=== PATIENT | female | born 1980 | race Caucasian/White ===

== ENCOUNTER 2020-04-05 11:22 | Inpatient (IN) | payer MEDICAID ==
[~2020-04-05] VITALS: Ht 170.2 cm; Wt 95.3 kg
[2020-04-05] MEDS ORDERED: IV NORMAL SALINE 1000ML BAG 1,000 ML IV ONE (11:30)
[2020-04-05 12:01] LABS: BASO # 0.1 x10^3/uL (0.0-0.2); BASO % 1 % (0-3); EOS # 0.3 x10^3/uL (0.0-0.7); EOS % 4 % (0-3); HEMATOCRIT 27.2 % (36.0-47.0); HEMOGLOBIN 9.3 g/dL (12.0-15.5); LYMPH # 1.5 x10^3/uL (1.0-4.8); LYMPH % 19 % (24-48); MEAN CORPUSCULAR HEMOGLOBIN 34 pg (25-35); MEAN CORPUSCULAR HGB CONC 34 g/dL (31-37); MEAN CORPUSCULAR VOLUME 98 fL (79-100); MONO # 0.5 x10^3/uL (0.0-1.1); MONO % 7 % (0-9); NEUT # 5.4 x10^3/uL (1.8-7.7); NEUT % 70 % (31-73); PLATELET COUNT 158 x10^3/uL (140-400); RED BLOOD COUNT 2.76 x10^6/uL (3.50-5.40); RED CELL DISTRIBUTION WIDTH 13.5 % (11.5-14.5); WHITE BLOOD COUNT 7.8 x10^3/uL (4.0-11.0)
[2020-04-05 12:04] LABS: BILIRUBIN,URINE NEGATIVE (NEG); CLARITY,URINE CLEAR; COLOR,URINE YELLOW; NITRITE,URINE NEGATIVE (NEG); PROTEIN,URINE 100 mg/dL (NEG-TRACE); UROBILINOGEN,URINE 0.2 mg/dL (0.2 mg/dL)
[2020-04-05 12:11] LABS: CALCIUM 8.2 mg/dL (8.5-10.1); CREATININE 7.7 mg/dL (0.6-1.0); GFR 5.9; POTASSIUM 5.2 mmol/L (3.5-5.1)
[2020-04-05 12:14] LABS: BACTERIA,URINE FEW /HPF (0-FEW); SQUAMOUS EPITHELIAL CELL,UR MOD /LPF
--- NOTE | 2020-04-05 12:14 | EKG ---
[facility] [address] [place] [address] Test Date: 2020-04-05 Test Time: 11:40:48 Pat Name: SHANTELL VASQUEZ Department: Room: Gender: F Practice Architect: Cyndi : 1980 Requested By: KODY ROSE Order Number: [id number] Reading MD: Power Finnegan MD Measurements Intervals Brandon Rate: 80 P: 52 NC: 134 QRS: 3 QRSD: 100 T: 62 QT: 412 QTc: 479 Interpretive Statements SINUS RHYTHM NON-SPECIFIC ST/T CHANGES Electronically Signed On 04-12-2020 10:09:14 CDT by Power Finnegan MD
[2020-04-05 12:17] LABS: ALBUMIN/GLOBULIN RATIO 0.9 (1.0-1.7); MAGNESIUM 2.6 mg/dL (1.8-2.4); TOTAL BILIRUBIN 0.2 mg/dL (0.2-1.0); TOTAL PROTEIN 6.2 g/dL (6.4-8.2)
--- NOTE | 2020-04-05 12:23 | PHYS DOC ---
Past Medical History Past Medical History: Anemia, Bipolar, Constipation, Hypotension, Schizophrenia Past Surgical History: Tubal ligation Smoking Status: Current Every Day Smoker Alcohol Use: None General Adult EDM: Chief Complaint: ABNORMAL LABS HPI: HPI: Patient is a 39-year-old female who presents from a long-term where she resides secondary to severe psychiatric illness. She takes Haldol once monthly among other psychiatric medications. Call from the long-term today states that they did check some routine labs and she had abnormal creatinine and were sending her here for further evaluation. Patient is acutely psychotic and unable to provide any history. [] Review of Systems: Review of Systems: Review of systems is unobtainable secondary to altered mental status Heart Score: Risk Factors: Risk Factors: DM, Current or recent (<one month) smoker, HTN, HLP, family history of CAD, obesity. Risk Scores: Score 0 - 3: 2.5% MACE over next 6 weeks - Discharge Home Score 4 - 6: 20.3% MACE over next 6 weeks - Admit for Clinical Observation Score 7 - 10: 72.7% MACE over next 6 weeks - Early Invasive Strategies Current Medications: Current Medications Medications (Trade) Dose Ordered Sig/Joellen Start Time Stop Time Status Last Admin Dose Admin Sodium Chloride 1,000 ml @ 1,000 mls/hr 1X ONCE 04/05/20 11:30 04/05/20 12:29 04/05/20 11:51 1,000 MLS/HR Allergies: Allergies: Allergies Coded Allergies Type Severity Reaction Last Updated Verified No Known Drug Allergies 04/05/20 No Physical Exam: PE: Constitutional: Well developed, well nourished, no acute distress, appears acutely ill [] HENT: Normocephalic, atraumatic, bilateral external ears normal, oropharynx moist, no oral exudates, nose normal. [] Eyes: PERRLA, EOMI, conjunctiva normal, no discharge. [] Neck: Normal range of motion, no tenderness, supple, no stridor. [] Cardiovascular:Heart rate regular rhythm, no murmur [] Lungs & Thorax: Bilateral breath sounds clear to auscultation [] Abdomen: Bowel sounds normal, soft, no tenderness, no masses, no pulsatile masses. [] Skin: Warm, dry, no erythema, no rash. [] Back: No tenderness, no CVA tenderness. [] Extremities: No tenderness, no cyanosis, no clubbing, ROM intact, no edema. [] Neurologic: Alert but confused, normal motor function, normal sensory function, no focal deficits noted. [] Psychologic: Acutely psychotic and tangential Current Patient Data: Labs: Laboratory Tests Test 04/05/20 11:50 04/05/20 11:57 White Blood Count 7.8 x10^3/uL (4.0-11.0) Red Blood Count 2.76 x10^6/uL (3.50-5.40) L Hemoglobin 9.3 g/dL (12.0-15.5) L Hematocrit 27.2 % (36.0-47.0) L Mean Corpuscular Volume 98 fL (79-100) Mean Corpuscular Hemoglobin 34 pg (25-35) Mean Corpuscular Hemoglobin Concent 34 g/dL (31-37) Red Cell Distribution Width 13.5 % (11.5-14.5) Platelet Count 158 x10^3/uL (140-400) Neutrophils (%) (Auto) 70 % (31-73) Lymphocytes (%) (Auto) 19 % (24-48) L Monocytes (%) (Auto) 7 % (0-9) Eosinophils (%) (Auto) 4 % (0-3) H Basophils (%) (Auto) 1 % (0-3) Neutrophils # (Auto) 5.4 x10^3/uL (1.8-7.7) Lymphocytes # (Auto) 1.5 x10^3/uL (1.0-4.8) Monocytes # (Auto) 0.5 x10^3/uL (0.0-1.1) Eosinophils # (Auto) 0.3 x10^3/uL (0.0-0.7) Basophils # (Auto) 0.1 x10^3/uL (0.0-0.2) Urine Collection Type Void Urine Color Yellow Urine Clarity Clear Urine pH 8.0 (<5.0-8.0) Urine Specific [place] 1.010 (1.000-1.030) Urine Protein 100 mg/dL (NEG-TRACE) Urine Glucose (UA) 250 mg/dL (NEG) Urine Ketones (Stick) Negative mg/dL (NEG) Urine Blood Negative (NEG) Urine Nitrite Negative (NEG) Urine Bilirubin Negative (NEG) Urine Urobilinogen Dipstick 0.2 mg/dL (0.2 mg/dL) Urine Leukocyte Esterase Negative (NEG) Urine RBC 3-5 /HPF (0-2) Urine WBC 1-4 /HPF (0-4) Urine Squamous Epithelial Cells Mod /LPF Urine Bacteria Few /HPF (0-FEW) Urine Mucus Slight /LPF Sodium Level 135 mmol/L (136-145) L Potassium Level 5.2 mmol/L (3.5-5.1) H Chloride Level 100 mmol/L (98-107) Carbon Dioxide Level 26 mmol/L (21-32) Anion Gap 9 (6-14) Blood Urea Nitrogen 75 mg/dL (7-20) H Creatinine 7.7 mg/dL (0.6-1.0) H Estimated GFR (Cockcroft-Gault) 5.9 BUN/Creatinine Ratio 10 (6-20) Glucose Level 228 mg/dL (70-99) H Calcium Level 8.2 mg/dL (8.5-10.1) L Magnesium Level 2.6 mg/dL (1.8-2.4) H Total Bilirubin 0.2 mg/dL (0.2-1.0) Aspartate Amino Transferase (AST) 11 U/L (15-37) L Alanine Aminotransferase (ALT) 15 U/L (14-59) Alkaline Phosphatase 133 U/L (46-116) H Total Protein 6.2 g/dL (6.4-8.2) L Albumin 3.0 g/dL (3.4-5.0) L Albumin/Globulin Ratio 0.9 (1.0-1.7) L Lipase 878 U/L (73-393) H POC Urine HCG, Qualitative Hcg negative (Negative) Laboratory Tests 04/05/20 11:50 Laboratory Tests 04/05/20 11:50 Vital Signs: Vital Signs Date Time Temp Pulse Resp B/P (MAP) Pulse Ox O2 Delivery O2 Flow Rate FiO2 04/05/20 11:24 98.2 80 18 166/81 (109) 100 Room Air 98.2 EKG: EKG: [EKG: Normal sinus rhythm rate of [address]-T changes] Radiology/Procedures: Radiology/Procedures: []PROCEDURE: CT ABDOMEN PELVIS WO CONTRAST CT ABDOMEN PELVIS WO CONTRAST History: Reason: renal failure r/o hydro / Spl. Instructions: / History: Technique: Noncontrast examination of the abdomen and pelvis. Coronal and sagittal reconstructions were performed. Exposure: One or more of the following individualized dose reduction techniques were utilized for this examination: 1. Automated exposure control 2. Adjustment of the mA and/or kV according to patient size 3. Use of iterative reconstruction technique. Comparison: None Findings: Lower chest: No consolidation or pleural effusion. Abdomen and pelvis: The liver, spleen, adrenal glands and gallbladder are unremarkable. No biliary ductal dilatation. Bilateral renal atrophy, right greater than left. No hydronephrosis. No renal, ureteral or urinary bladder calculus. Left renal cyst. Infiltration of the mesentery centered within the upper to mid abdomen adjacent to the pancreatic head Inferiorly. Mesenteric infiltration is also adjacent to the duodenum. No fluid collection. Colonic diverticulosis. Normal appendix. No evidence of bowel obstruction. Multiple small retroperitoneal and mesenteric lymph nodes. No ascites. Small fat-containing umbilical hernia. Bones: No pathologic osseous lesions. Impression: 1. No obstructing urolithiasis. No hydronephrosis. 2. Infiltration of the mesentery centered within the upper to mid abdomen adjacent to the pancreas and duodenum. Recommend correlation for pancreatitis and/or duodenitis. 3. Multiple small mesenteric and retroperitoneal lymph nodes, likely reactive. Course & Med Decision Making: Course & Med Decision Making Pertinent Labs and Imaging studies reviewed. (See chart for details) [ED course: Evaluation reveals a 39-year-old female with new onset acute renal failure with hyperkalemia. She was given IV fluids and Kayexalate. I spoke with nephrology who wanted a CT scan to rule out hydronephrosis this was performed and negative. She will be admitted to the hospitalist service with a nephrology consult. In the meantime she will be given continuous IV fluids. Also, during her stay she had a bout that was concerning for wide-complex tachycardia this was captured on monitor reviewed by myself as well as gibson oldaksha and determined to be artifact.] Lady Disclaimer: Lady Disclaimer: This electronic medical record was generated, in whole or in part, using a voice recognition dictation system. Departure Departure Impression: Primary Impression: Acute renal failure Qualified Codes: N17.9 - Acute kidney failure, unspecified Disposition: ADMITTED INPATIENT Admitting [facility] Condition: GUARDED Referrals: CARLOS ALBERTO ROSE MD (PCP) Justicifation of Admission Dx: Justifications for Admission: Justification of Admission Dx: Yes Acute Renal Failure: 3-Fold Rise in Serum Crea KODY ROSE DO Apr 05, 2020 12:23
--- NOTE | 2020-04-05 12:43 | PDOC1 ---
History and Physical Date of Admission Date of Admission DATE: 04/05/20 TIME: 12:42 Identification/Chief Complaint Chief Complaint Present with abnormal lab to ER, has known hx CKD with baseline cr =2.1 now with BUN 75, CR 7.7 K 5.2, POOR FLUID INTAKE X SEVERAL DAYS Past Medical History Past Medical History Past Medical History Past Medical History: Anemia, Bipolar, Constipation, Hypotension, Schizophrenia alport's syndrome Past Surgical History: Tubal ligation Smoking Status: Current Every Day Smoker Alcohol Use: None FHX HTN, OBESITY Cardiovascular: HTN Psych: Anxiety Renal/: Chronic renal insuff Family History Family History: Hypertension Social History Smoke: No ALCOHOL: none Drugs: None Current Medications Current Medications Current Medications Sodium Chloride 1,000 ml @ 1,000 mls/hr 1X ONCE IV Last administered on 0at 11:51; Start 04/05/20 at 11:30; Stop 04/05/20 at 12:29; Status DC Sodium Chloride 1,000 ml @ 150 mls/hr Q6H40M IV ; Start 04/05/20 at 12:34; Stop 04/06/20 at 12:33; Status UNV Acetaminophen (Tylenol) 650 mg PRN Q4HRS PRN PO FEVER > 100.3'F; Start 04/05/20 at 12:45; Stop 04/06/20 at 12:44; Status UNV Sodium Polystyrene Sulfonate (Kayexalate) 30 gm 1X ONCE PO ; Start 04/05/20 at 1 2:45; Stop 04/05/20 at 12:46; Status UNV Allergies Allergies: Coded Allergies: No Known Drug Allergies (Unverified , 04/05/20) ROS Review of System Constitutional: Denies fever or chills. [] Eyes: Denies change in visual acuity. [] HENT: Denies nasal congestion or sore throat. [] Respiratory: Denies cough or shortness of breath. [] Cardiovascular: Denies chest pain or edema. [] GI: Denies abdominal pain, nausea, vomiting, bloody stools or diarrhea. [] : Denies dysuria. [] Musculoskeletal: Denies back pain or joint pain. [] Integument: Denies rash. [] Neurologic: Denies headache, focal weakness or sensory changes. [] Endocrine: Denies polyuria or polydipsia. [] Lymphatic: Denies swollen glands. [] Psychiatric: Denies depression or anxiety. [] 14 PT ROS OTHERWISE NEG Hematological and Lymphatic: No: Bleeding Problems, Blood Clots, Blood Transfusions, Brusing, Night Sweats, Pallor, Swollen Lymph Nodes, Other Respiratory: No: Cough, Hemoptysis, Orthopnea, Pleuritic Pain, Shortness of breath, SOB with excertion, Sputum Changes, Stridor, Tachypnea, Wheezing, Other Gastrointestinal: No Nausea, No Vomiting, No Abdominal Pain, No Diarrhea, No Constipation, No Melena, No Hematochezia, No Other Neurological: No Behavorial Changes, No Bowel/Bladder ControlChng, No Confusion, No Dizziness, No Gait Disturbance, No Headaches, No Impaired Coord/balance, No Memory Loss, No Numbness/Tingling, No Seizures, No Speech Problems, No Tremors, No Visual Changes, No Weakness, No Other Skin: Yes Dry Skin Physical Exam Physical Exam Constitutional: Well developed, well nourished, no acute distress, non-toxic appearance. [] HENT: Normocephalic, atraumatic, bilateral external ears normal, oropharynx moist, no oral exudates, nose normal. [] Eyes: PERRLA, EOMI, conjunctiva normal, no discharge. [] Neck: Normal range of motion, no tenderness, supple, no stridor. [] Cardiovascular:Heart rate regular rhythm, no murmur [] Lungs & Thorax: Bilateral breath sounds clear to auscultation [] Abdomen: Bowel sounds normal, soft, no tenderness, no masses, no pulsatile masses. [] Skin: Warm, dry, no erythema, no rash. [] Back: No tenderness, no CVA tenderness. [] Extremities: No tenderness, no cyanosis, no clubbing, ROM intact, no edema. [] Neurologic: Alert and oriented X 3, normal motor function, normal sensory function, no focal deficits noted. [] Psychologic: Affect normal, mood normal. [] General: Alert, Oriented X3, Cooperative, No acute distress HEENT: Atraumatic Lungs: Clear to auscultation Heart: RRR, no thrills Breasts: Not examined Abdomen: Soft Rectal Exam: not examined PELVIC: Examination not indicated Extremities: No cyanosis Neuro: Normal speech, Cranial nerves 3-12 NL Vitals Vitals Vital Signs Date Time Temp Pulse Resp B/P (MAP) Pulse Ox O2 Delivery O2 Flow Rate FiO2 04/05/20 11:24 98.2 80 18 166/81 (109) 100 Room Air 98.2 Labs Labs Laboratory Tests Test 04/05/20 11:50 04/05/20 11:57 White Blood Count 7.8 x10^3/uL (4.0-11.0) Red Blood Count 2.76 x10^6/uL (3.50-5.40) Hemoglobin 9.3 g/dL (12.0-15.5) Hematocrit 27.2 % (36.0-47.0) Mean Corpuscular Volume 98 fL (79-100) Mean Corpuscular Hemoglobin 34 pg (25-35) Mean Corpuscular Hemoglobin Concent 34 g/dL (31-37) Red Cell Distribution Width 13.5 % (11.5-14.5) Platelet Count 158 x10^3/uL (140-400) Neutrophils (%) (Auto) 70 % (31-73) Lymphocytes (%) (Auto) 19 % (24-48) Monocytes (%) (Auto) 7 % (0-9) Eosinophils (%) (Auto) 4 % (0-3) Basophils (%) (Auto) 1 % (0-3) Neutrophils # (Auto) 5.4 x10^3/uL (1.8-7.7) Lymphocytes # (Auto) 1.5 x10^3/uL (1.0-4.8) Monocytes # (Auto) 0.5 x10^3/uL (0.0-1.1) Eosinophils # (Auto) 0.3 x10^3/uL (0.0-0.7) Basophils # (Auto) 0.1 x10^3/uL (0.0-0.2) Urine Collection Type Void Urine Color Yellow Urine Clarity Clear Urine pH 8.0 (<5.0-8.0) Urine Specific Lane 1.010 (1.000-1.030) Urine Protein 100 mg/dL (NEG-TRACE) Urine Glucose (UA) 250 mg/dL (NEG) Urine Ketones (Stick) Negative mg/dL (NEG) Urine Blood Negative (NEG) Urine Nitrite Negative (NEG) Urine Bilirubin Negative (NEG) Urine Urobilinogen Dipstick 0.2 mg/dL (0.2 mg/dL) Urine Leukocyte Esterase Negative (NEG) Urine RBC 3-5 /HPF (0-2) Urine WBC 1-4 /HPF (0-4) Urine Squamous Epithelial Cells Mod /LPF Urine Bacteria Few /HPF (0-FEW) Urine Mucus Slight /LPF Sodium Level 135 mmol/L (136-145) Potassium Level 5.2 mmol/L (3.5-5.1) Chloride Level 100 mmol/L (98-107) Carbon Dioxide Level 26 mmol/L (21-32) Anion Gap 9 (6-14) Blood Urea Nitrogen 75 mg/dL (7-20) Creatinine 7.7 mg/dL (0.6-1.0) Estimated GFR (Cockcroft-Gault) 5.9 BUN/Creatinine Ratio 10 (6-20) Glucose Level 228 mg/dL (70-99) Calcium Level 8.2 mg/dL (8.5-10.1) Magnesium Level 2.6 mg/dL (1.8-2.4) Total Bilirubin 0.2 mg/dL (0.2-1.0) Aspartate Amino Transf (AST/SGOT) 11 U/L (15-37) Alanine Aminotransferase (ALT/SGPT) 15 U/L (14-59) Alkaline Phosphatase 133 U/L (46-116) Total Protein 6.2 g/dL (6.4-8.2) Albumin 3.0 g/dL (3.4-5.0) Albumin/Globulin Ratio 0.9 (1.0-1.7) Lipase 878 U/L (73-393) Bedside Urine HCG, Qualitative Hcg negative (Negative) Laboratory Tests Test 04/05/20 11:50 04/05/20 11:57 White Blood Count 7.8 x10^3/uL (4.0-11.0) Red Blood Count 2.76 x10^6/uL (3.50-5.40) Hemoglobin 9.3 g/dL (12.0-15.5) Hematocrit 27.2 % (36.0-47.0) Mean Corpuscular Volume 98 fL (79-100) Mean Corpuscular Hemoglobin 34 pg (25-35) Mean Corpuscular Hemoglobin Concent 34 g/dL (31-37) Red Cell Distribution Width 13.5 % (11.5-14.5) Platelet Count 158 x10^3/uL (140-400) Neutrophils (%) (Auto) 70 % (31-73) Lymphocytes (%) (Auto) 19 % (24-48) Monocytes (%) (Auto) 7 % (0-9) Eosinophils (%) (Auto) 4 % (0-3) Basophils (%) (Auto) 1 % (0-3) Neutrophils # (Auto) 5.4 x10^3/uL (1.8-7.7) Lymphocytes # (Auto) 1.5 x10^3/uL (1.0-4.8) Monocytes # (Auto) 0.5 x10^3/uL (0.0-1.1) Eosinophils # (Auto) 0.3 x10^3/uL (0.0-0.7) Basophils # (Auto) 0.1 x10^3/uL (0.0-0.2) Urine Collection Type Void Urine Color Yellow Urine Clarity Clear Urine pH 8.0 (<5.0-8.0) Urine Specific Lane 1.010 (1.000-1.030) Urine Protein 100 mg/dL (NEG-TRACE) Urine Glucose (UA) 250 mg/dL (NEG) Urine Ketones (Stick) Negative mg/dL (NEG) Urine Blood Negative (NEG) Urine Nitrite Negative (NEG) Urine Bilirubin Negative (NEG) Urine Urobilinogen Dipstick 0.2 mg/dL (0.2 mg/dL) Urine Leukocyte Esterase Negative (NEG) Urine RBC 3-5 /HPF (0-2) Urine WBC 1-4 /HPF (0-4) Urine Squamous Epithelial Cells Mod /LPF Urine Bacteria Few /HPF (0-FEW) Urine Mucus Slight /LPF Sodium Level 135 mmol/L (136-145) Potassium Level 5.2 mmol/L (3.5-5.1) Chloride Level 100 mmol/L (98-107) Carbon Dioxide Level 26 mmol/L (21-32) Anion Gap 9 (6-14) Blood Urea Nitrogen 75 mg/dL (7-20) Creatinine 7.7 mg/dL (0.6-1.0) Estimated GFR (Cockcroft-Gault) 5.9 BUN/Creatinine Ratio 10 (6-20) Glucose Level 228 mg/dL (70-99) Calcium Level 8.2 mg/dL (8.5-10.1) Magnesium Level 2.6 mg/dL (1.8-2.4) Total Bilirubin 0.2 mg/dL (0.2-1.0) Aspartate Amino Transf (AST/SGOT) 11 U/L (15-37) Alanine Aminotransferase (ALT/SGPT) 15 U/L (14-59) Alkaline Phosphatase 133 U/L (46-116) Total Protein 6.2 g/dL (6.4-8.2) Albumin 3.0 g/dL (3.4-5.0) Albumin/Globulin Ratio 0.9 (1.0-1.7) Lipase 878 U/L (73-393) Bedside Urine HCG, Qualitative Hcg negative (Negative) Images Images CT ABDOMEN PELVIS WO CONTRAST History: Reason: renal failure r/o hydro / Spl. Instructions: / History: Technique: Noncontrast examination of the abdomen and pelvis. Coronal and sagittal reconstructions were performed. Exposure: One or more of the following individualized dose reduction techniques were utilized for this examination: 1. Automated exposure control 2. Adjustment of the mA and/or kV according to patient size 3. Use of iterative reconstruction technique. Comparison: None Findings: Lower chest: No consolidation or pleural effusion. Abdomen and pelvis: The liver, spleen, adrenal glands and gallbladder are unremarkable. No biliary ductal dilatation. Bilateral renal atrophy, right greater than left. No hydronephrosis. No renal, ureteral or urinary bladder calculus. Left renal cyst. Infiltration of the mesentery centered within the upper to mid abdomen adjacent to the pancreatic head Inferiorly. Mesenteric infiltration is also adjacent to the duodenum. No fluid collection. Colonic diverticulosis. Normal appendix. No evidence of bowel obstruction. Multiple small retroperitoneal and mesenteric lymph nodes. No ascites. Small fat-containing umbilical hernia. Bones: No pathologic osseous lesions. Impression: 1. No obstructing urolithiasis. No hydronephrosis. 2. Infiltration of the mesentery centered within the upper to mid abdomen adjacent to the pancreas and duodenum. Recommend correlation for pancreatitis and/or duodenitis. 3. Multiple small mesenteric and retroperitoneal lymph nodes, likely reactive. Electronically signed by: Serge Gifford DO (04/05/2020 1:15 PM) [facility] DICTATED and SIGNED BY: SERGE GIFFORD DO DATE: 04/05/20 1315 VTE Prophylaxis Ordered VTE Prophylaxis Devices: No VTE Pharmacological Prophylaxi: Yes Assessment/Plan Assessment/Plan Impression: 1. ACUTE RENAL FAILURE 2. No obstructing urolithiasis. No hydronephrosis. 3. Infiltration of the mesentery centered within the upper to mid abdomen adjacent to the pancreas and duodenum. Recommend correlation for pancreatitis and/or duodenitis// LIPASE 870 4. Mild hyperkalemia 5. hx Schizophrenia 6. diabetes 7. hx Alport's syndrome with CKD 8. MORBID OBESITY 9. NORMOCYTIC ANEMIA plan admit consult nephrology iv fluid support. avoid nephrotoxic drugs dvt prophylaxis FOLLOW RENAL FX CLOSELY GI consult 35 min cc time Justicifation of Admission Dx: Justifications for Admission: Justification of Admission Dx: Yes Acute Renal Failure: Serum Cr > 4mg/dL Hypertension: [facility] GENA JONES MD Apr 05, 2020 12:43
[2020-04-05] MEDS ORDERED: SODIUM POLYSTYRENE SULFON/SORB 15 GM/60 ML ORAL.SUSP PO ONE (12:45)
--- NOTE | 2020-04-05 13:18 | RAD ---
CT ABDOMEN PELVIS WO CONTRAST History: Reason: renal failure r/o hydro / Spl. Instructions: / History: Technique: Noncontrast examination of the abdomen and pelvis. Coronal and sagittal reconstructions were performed. Exposure: One or more of the following individualized dose reduction techniques were utilized for this examination: 1. Automated exposure control 2. Adjustment of the mA and/or kV according to patient size 3. Use of iterative reconstruction technique. Comparison: None Findings: Lower chest: No consolidation or pleural effusion. Abdomen and pelvis: The liver, spleen, adrenal glands and gallbladder are unremarkable. No biliary ductal dilatation. Bilateral renal atrophy, right greater than left. No hydronephrosis. No renal, ureteral or urinary bladder calculus. Left renal cyst. Infiltration of the mesentery centered within the upper to mid abdomen adjacent to the pancreatic head Inferiorly. Mesenteric infiltration is also adjacent to the duodenum. No fluid collection. Colonic diverticulosis. Normal appendix. No evidence of bowel obstruction. Multiple small retroperitoneal and mesenteric lymph nodes. No ascites. Small fat-containing umbilical hernia. Bones: No pathologic osseous lesions. Impression: 1. No obstructing urolithiasis. No hydronephrosis. 2. Infiltration of the mesentery centered within the upper to mid abdomen adjacent to the pancreas and duodenum. Recommend correlation for pancreatitis and/or duodenitis. 3. Multiple small mesenteric and retroperitoneal lymph nodes, likely reactive. Electronically signed by: Jono Daniels DO (04/05/2020 1:15 PM) [facility]
[2020-04-05] MEDS: ACETAMINOPHEN 325 MG TABLET. PO PRN (14:15)
[2020-04-05] MEDS ORDERED: DOCUSATE SODIUM 100 MG CAPSULE. PO PRN (14:30)
[2020-04-05] MEDS ORDERED: 0.9 % SODIUM CHLORIDE 10 ML DISP.SYRIN. IV PRN (14:30)
[2020-04-05] MEDS ORDERED: ALBUTEROL SULFATE 2.5 MG/3 ML NEBU. NEB PRN (14:30)
[2020-04-05] MEDS ORDERED: guaiFENesin ORAL 200 MG/10 ML LIQUID. PO PRN (14:30)
--- NOTE | 2020-04-05 15:42 | PDOC2 ---
GI CONSULT Reason For Consult: pancreatitis HPI: HPI: 39 y/o female from [facility] facility seen in ER. Tells me she was sent for elevated Cr. Gives h/o CKD. We are asked to see as lab noted mildly elevated lipase and CT finding of "infiltration of the mesentery centered within the upper to mid abdomen adjacent to the pancreas and duodenum." H/o psych issues... gives a rather wandering history of eating toilet paper and a sponge 1 year ago in [place] where she says she was incarcerated for 10 years before being released for a year in a rehab facility. Also says she drank pig blood in shampoo in snf. After that, she had a "urethra procedure" and "something went into my mouth." Says she's been eating and drinking without issue. Gives h/o acid reflux - unclear if this is treated. Denies dysphagia and vomiting but might have some nausea "because of the sponges." Vaguely describes some lower abdominal discomfort but can't really elaborate. No diarrhea. At first reports constipation but then says she stooled a couple times yesterday. Denies hematemesis, hematochezia, and melena. Denies previous colonoscopy but seems like might have had an EGD after foreign body ingestion? Denies GB, liver, pancreas, and PUD history. When I went to see her, ER nurse w/ concern for Torsades. PMH: PMH: per chart: CKD, anxiety, bipolar, schizophrenia, tubal ligation Social History: Smoke: No ALCOHOL: none Drugs: None ROS: GEN: Denies fevers, chills, sweats HEENT: Denies blurred vision, sore throat CV: Denies chest pain RESP: Denies shortness of air, cough GI: Per HPI : Denies hematuria, dysuria ENDO: Denies weight changes NEURO: Denies confusion, dizziness MSK: Denies weakness, joint pain/swelling SKIN: Denies jaundice, pruritus Vitals: Vitals: Vital Signs Date Time Temp Pulse Resp B/P (MAP) Pulse Ox O2 Delivery O2 Flow Rate FiO2 04/05/20 14:21 74 18 186/98 (127) 96 Room Air 04/05/20 11:24 98.2 98.2 Labs: Labs: Laboratory Tests Test 04/05/20 11:50 04/05/20 11:57 White Blood Count 7.8 x10^3/uL (4.0-11.0) Red Blood Count 2.76 x10^6/uL (3.50-5.40) Hemoglobin 9.3 g/dL (12.0-15.5) Hematocrit 27.2 % (36.0-47.0) Mean Corpuscular Volume 98 fL (79-100) Mean Corpuscular Hemoglobin 34 pg (25-35) Mean Corpuscular Hemoglobin Concent 34 g/dL (31-37) Red Cell Distribution Width 13.5 % (11.5-14.5) Platelet Count 158 x10^3/uL (140-400) Neutrophils (%) (Auto) 70 % (31-73) Lymphocytes (%) (Auto) 19 % (24-48) Monocytes (%) (Auto) 7 % (0-9) Eosinophils (%) (Auto) 4 % (0-3) Basophils (%) (Auto) 1 % (0-3) Neutrophils # (Auto) 5.4 x10^3/uL (1.8-7.7) Lymphocytes # (Auto) 1.5 x10^3/uL (1.0-4.8) Monocytes # (Auto) 0.5 x10^3/uL (0.0-1.1) Eosinophils # (Auto) 0.3 x10^3/uL (0.0-0.7) Basophils # (Auto) 0.1 x10^3/uL (0.0-0.2) Urine Collection Type Void Urine Color Yellow Urine Clarity Clear Urine pH 8.0 (<5.0-8.0) Urine Specific [place] 1.010 (1.000-1.030) Urine Protein 100 mg/dL (NEG-TRACE) Urine Glucose (UA) 250 mg/dL (NEG) Urine Ketones (Stick) Negative mg/dL (NEG) Urine Blood Negative (NEG) Urine Nitrite Negative (NEG) Urine Bilirubin Negative (NEG) Urine Urobilinogen Dipstick 0.2 mg/dL (0.2 mg/dL) Urine Leukocyte Esterase Negative (NEG) Urine RBC 3-5 /HPF (0-2) Urine WBC 1-4 /HPF (0-4) Urine Squamous Epithelial Cells Mod /LPF Urine Bacteria Few /HPF (0-FEW) Urine Mucus Slight /LPF Sodium Level 135 mmol/L (136-145) Potassium Level 5.2 mmol/L (3.5-5.1) Chloride Level 100 mmol/L (98-107) Carbon Dioxide Level 26 mmol/L (21-32) Anion Gap 9 (6-14) Blood Urea Nitrogen 75 mg/dL (7-20) Creatinine 7.7 mg/dL (0.6-1.0) Estimated GFR (Cockcroft-Gault) 5.9 BUN/Creatinine Ratio 10 (6-20) Glucose Level 228 mg/dL (70-99) Calcium Level 8.2 mg/dL (8.5-10.1) Magnesium Level 2.6 mg/dL (1.8-2.4) Total Bilirubin 0.2 mg/dL (0.2-1.0) Aspartate Amino Transf (AST/SGOT) 11 U/L (15-37) Alanine Aminotransferase (ALT/SGPT) 15 U/L (14-59) Alkaline Phosphatase 133 U/L (46-116) Creatine Kinase 88 U/L (26-192) Total Protein 6.2 g/dL (6.4-8.2) Albumin 3.0 g/dL (3.4-5.0) Albumin/Globulin Ratio 0.9 (1.0-1.7) Lipase 878 U/L (73-393) Bedside Urine HCG, Qualitative Hcg negative (Negative) Allergies: Coded Allergies: No Known Drug Allergies (Unverified , 04/05/20) Medications: Current Medications Medications (Trade) Dose Ordered Sig/Joellen Route PRN Reason Start Time Stop Time Status Last Admin Dose Admin Sodium Chloride 1,000 ml @ 1,000 mls/hr 1X ONCE IV 04/05/20 11:30 04/05/20 12:29 DC 04/05/20 11:51 Acetaminophen (Tylenol) 650 mg PRN Q4HRS PRN PO FEVER > 100.3'F 04/05/20 12:45 04/06/20 12:44 04/05/20 14:15 Sodium Polystyrene Sulfonate (Kayexalate) 30 gm 1X ONCE PO 04/05/20 12:45 04/05/20 12:46 DC 04/05/20 12:45 Imaging: Imaging: CT A/P Impression: 1. No obstructing urolithiasis. No hydronephrosis. 2. Infiltration of the mesentery centered within the upper to mid abdomen adjacent to the pancreas and duodenum. Recommend correlation for pancreatitis and/or duodenitis. 3. Multiple small mesenteric and retroperitoneal lymph nodes, likely reactive. PE: GEN: NAD HEENT: Atraumatic, PERRL LUNGS: CTAB anteriorly HEART: RRR during my exam ABD: round/overweight, quiet BS, non-tender EXTREMITY: No edema SKIN: No rashes, no jaundice NEURO/PSYCH: A & O 3, hand trembling A/P: A/P: LIANA/CKD, ?Torsades Elevated lipase, abnormal CT - infiltration of the mesentery centered within the upper to mid abdomen Normocytic anemia H/o GERD ?constipation Psych issues -- Had turkey sandwich and mashed potatoes and gravy delivered during interview. I advised keeping NPO or to clear liquids for now - attempted to explain rationale w/ possible pancreatitis - she repeatedly asked if she could eat now and then do NPO or liquids later. Nephrology and cardiology asked to see, labs ordered for a.m. Will check GB US, triglycerides, and anemia parameters for completeness. BABAK GUSTAFSON Apr 05, 2020 15:42
[2020-04-05] MEDS: IV NORMAL SALINE 1000ML BAG 1,000 ML IV SCH ×2 (15:54→20:07)
[2020-04-05 16:50] VITALS: BP 153/99
[2020-04-05] MEDS ORDERED: VALP250S3 PO (19:29)
[2020-04-05] MEDS ORDERED: FERR325T14 PO (19:29)
[2020-04-05] MEDS ORDERED: ESCITALOPRAM OX10 MG PO (19:29)
[2020-04-05] MEDS ORDERED: FLUD0.1T PO (19:29)
[2020-04-05] MEDS ORDERED: ACET325T21 PO (19:29)
[2020-04-05] MEDS ORDERED: FLUT16SP NS (19:45)
[2020-04-05] MEDS ORDERED: DEXT38GE2 PO (19:45)
[2020-04-05] MEDS ORDERED: INSU100V6 SQ (19:45)
[2020-04-05] MEDS ORDERED: HALO100V IM (19:45)
[2020-04-05] MEDS ORDERED: INSU100I27 SQ (19:45)
[2020-04-05] MEDS ORDERED: LOPE-101 PO (19:45)
[2020-04-05 19:47] VITALS: BP 144/118
[2020-04-05] MEDS ORDERED: TRAZ-118 PO (19:49)
[2020-04-05] MEDS ORDERED: LORA10TA3 PO (19:49)
[2020-04-05] MEDS ORDERED: SEVE800T9 PO (19:49)
[2020-04-05] MEDS ORDERED: SODI650T PO (19:49)
[2020-04-05] MEDS ORDERED: POLY17PO29 PO (19:49)
[2020-04-05] MEDS ORDERED: ACETAMINOPHEN 325 MG TABLET. PO ONE (20:00)
[2020-04-05] MEDS: HEPARIN for SUB-Q USE 5,000 UNIT/ML VIAL. SQ SCH (21:58)
[2020-04-05] MEDS: LORazepam 1 MG TABLET PO PRN (23:34)
[2020-04-05 23:40] VITALS: BP 149/91
[2020-04-06] MEDS: IV NORMAL SALINE 1000ML BAG 1,000 ML IV SCH ×2 (01:54→09:49)
[2020-04-06 05:12] LABS: BASO % 1 % (0-3); EOS # 0.3 x10^3/uL (0.0-0.7); EOS % 5 % (0-3); HEMATOCRIT 24.4 % (36.0-47.0); HEMOGLOBIN 8.1 g/dL (12.0-15.5); LYMPH # 2.2 x10^3/uL (1.0-4.8); LYMPH % 33 % (24-48); MEAN CORPUSCULAR HEMOGLOBIN 33 pg (25-35); MEAN CORPUSCULAR HGB CONC 33 g/dL (31-37); MEAN CORPUSCULAR VOLUME 99 fL (79-100); MONO # 0.5 x10^3/uL (0.0-1.1); MONO % 7 % (0-9); NEUT # 3.5 x10^3/uL (1.8-7.7); NEUT % 54 % (31-73); PLATELET COUNT 146 x10^3/uL (140-400); RED BLOOD COUNT 2.47 x10^6/uL (3.50-5.40); RED CELL DISTRIBUTION WIDTH 13.7 % (11.5-14.5); WHITE BLOOD COUNT 6.5 x10^3/uL (4.0-11.0)
[2020-04-06] MEDS: HEPARIN for SUB-Q USE 5,000 UNIT/ML VIAL. SQ SCH ×3 (05:21→21:12)
[2020-04-06 05:54] LABS: ALBUMIN 2.5 g/dL (3.4-5.0); CALCIUM 7.8 mg/dL (8.5-10.1); CREATININE 7.1 mg/dL (0.6-1.0); GFR 6.5; POTASSIUM 4.5 mmol/L (3.5-5.1); TOTAL BILIRUBIN 0.1 mg/dL (0.2-1.0)
--- NOTE | 2020-04-06 06:26 | RAD ---
CLINICAL HISTORY: pancreatitis r/o gallstones COMPARISON: None available. TECHNIQUE: Limited ultrasound examination of the right upper quadrant of the abdomen was performed FINDINGS: Visualized portions of the pancreas are unremarkable. Liver: The liver measures 17.4 cm in length in the right mid clavicular line. The hepatic margin is smooth and the hepatic echogenicity is normal. There is no focal abnormality of the liver. Portal venous flow is confirmed. Gallbladder/Biliary: Echogenic material dependently within the gallbladder likely sludge.. There is no wall thickening or pericholecystic fluid. There is no pain with direct transducer pressure over the gallbladder.The common bile duct measures 0.5 cm. The right kidney measures 8.6 cm in bipolar length. Mildly echogenic appearance of the right kidney There is no free fluid in the subhepatic space. IMPRESSION: 1. Liver is borderline enlarged. 2. Gallbladder sludge without ultrasound evidence for acute cholecystitis. 3. Mildly echogenic appearance of the right kidney, may be seen with medical renal disease. Electronically signed by: Dorian Perez MD (04/06/2020 6:23 AM) JUSTYN
[2020-04-06 07:00] VITALS: BP 143/82
--- NOTE | 2020-04-06 07:07 | EKG ---
[facility] [address] [place] [address] Test Date: 2020-04-05 Test Time: 14:53:49 Pat Name: SHANTELL VASQUEZ Department: Room: [facility] Gender: F [place]: : 1980 Requested By: QUINCY GONZALES Order Number: [id number] Reading MD: Power Finnegan MD Measurements Intervals [place] Rate: 156 P: SC: QRS: 26 QRSD: 258 T: 28 QT: 316 QTc: 510 Interpretive Statements PROBABLE ARTIFACT CONSIDER REPEAT EKG Electronically Signed On 04-12-2020 10:10:28 CDT by Power Finnegan MD
[2020-04-06] MEDS ORDERED: POLYETHYLENE GLYCOL 3350 17 GM PACKET. PO SCH (09:00)
[2020-04-06] MEDS: PANTOPRAZOLE 40 MG TABLET.DR. PO SCH (09:36)
[2020-04-06] MEDS: ACETAMINOPHEN 325 MG TABLET. PO PRN ×2 (09:36→14:19)
--- NOTE | 2020-04-06 09:52 | PDOC ---
Subjective: Subjective: Really really really really wants a sandwich now because she has a headache. Denies abd pain. Objective: Objective: Cardiology consult cancelled. Vital Signs: Vital Signs Date Time Temp Pulse Resp B/P (MAP) Pulse Ox O2 Delivery O2 Flow Rate FiO2 04/06/20 07:00 98.5 74 18 143/82 (102) 94 Room Air 98.5 Labs: Laboratory Tests Test 04/05/20 11:50 04/05/20 11:57 04/05/20 16:29 04/06/20 04:45 White Blood Count 7.8 x10^3/uL 6.5 x10^3/uL Red Blood Count 2.76 x10^6/uL 2.47 x10^6/uL Hemoglobin 9.3 g/dL 8.1 g/dL Hematocrit 27.2 % 24.4 % Mean Corpuscular Volume 98 fL 99 fL Mean Corpuscular Hemoglobin 34 pg 33 pg Mean Corpuscular Hemoglobin Concent 34 g/dL 33 g/dL Red Cell Distribution Width 13.5 % 13.7 % Platelet Count 158 x10^3/uL 146 x10^3/uL Neutrophils (%) (Auto) 70 % 54 % Lymphocytes (%) (Auto) 19 % 33 % Monocytes (%) (Auto) 7 % 7 % Eosinophils (%) (Auto) 4 % 5 % Basophils (%) (Auto) 1 % 1 % Neutrophils # (Auto) 5.4 x10^3/uL 3.5 x10^3/uL Lymphocytes # (Auto) 1.5 x10^3/uL 2.2 x10^3/uL Monocytes # (Auto) 0.5 x10^3/uL 0.5 x10^3/uL Eosinophils # (Auto) 0.3 x10^3/uL 0.3 x10^3/uL Basophils # (Auto) 0.1 x10^3/uL 0.0 x10^3/uL Urine Collection Type Void Urine Color Yellow Urine Clarity Clear Urine pH 8.0 Urine Specific [place] 1.010 Urine Protein 100 mg/dL Urine Glucose (UA) 250 mg/dL Urine Ketones (Stick) Negative mg/dL Urine Blood Negative Urine Nitrite Negative Urine Bilirubin Negative Urine Urobilinogen Dipstick 0.2 mg/dL Urine Leukocyte Esterase Negative Urine RBC 3-5 /HPF Urine WBC 1-4 /HPF Urine Squamous Epithelial Cells Mod /LPF Urine Bacteria Few /HPF Urine Mucus Slight /LPF Sodium Level 135 mmol/L 141 mmol/L Potassium Level 5.2 mmol/L 4.5 mmol/L Chloride Level 100 mmol/L 105 mmol/L Carbon Dioxide Level 26 mmol/L 21 mmol/L Anion Gap 9 15 Blood Urea Nitrogen 75 mg/dL 63 mg/dL Creatinine 7.7 mg/dL 7.1 mg/dL Estimated GFR (Cockcroft-Gault) 5.9 6.5 BUN/Creatinine Ratio 10 9 Glucose Level 228 mg/dL 157 mg/dL Calcium Level 8.2 mg/dL 7.8 mg/dL Magnesium Level 2.6 mg/dL Iron Level 76 ug/dL Total Iron Binding Capacity 320 ug/dL Iron Saturation 24 % Total Bilirubin 0.2 mg/dL 0.1 mg/dL Aspartate Amino Transf (AST/SGOT) 11 U/L 11 U/L Alanine Aminotransferase (ALT/SGPT) 15 U/L 14 U/L Alkaline Phosphatase 133 U/L 106 U/L Creatine Kinase 88 U/L Total Protein 6.2 g/dL 5.0 g/dL Albumin 3.0 g/dL 2.5 g/dL Albumin/Globulin Ratio 0.9 1.0 Triglycerides Level 348 mg/dL Lipase 878 U/L 616 U/L Vitamin B12 Level 714 pg/mL Bedside Urine HCG, Qualitative Hcg negative Glucose (Fingerstick) 192 mg/dL Imaging: RUQ US 04/06/20 IMPRESSION: 1. Liver is borderline enlarged. 2. Gallbladder sludge without ultrasound evidence for acute cholecystitis. 3. Mildly echogenic appearance of the right kidney, may be seen with medical renal disease. PE: GEN: NAD LUNGS: CTAB HEART: RRR ABD: non-tender NEURO/PSYCH: A & O 3 A/P: LIANA/CKD, psych issues Elevated lipase (better) - mesenteric inflammation in upper abdomen on CT, GB sludge on US, denies alcohol, trigs mildly elevated Normocytic anemia - iron and B12 WNL H/o GERD and possible constipation -- Still asking to eat, will cautiously advance diet and review US w/ Dr. Adhikari. Continue per nephrology. Justicifation of Admission Dx: Justifications for Admission: Justification of Admission Dx: Yes Acute Renal Failure: Serum Cr > 4mg/dL Hypertension: Symp at Rest BABAK GUSTAFSON Apr 06, 2020 09:51
[2020-04-06 11:00] VITALS: BP 139/103
[2020-04-06 11:05] VITALS: BP 177/98
--- NOTE | 2020-04-06 11:19 | NUR ---
PAUL following. Discussed with RN. 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 Pt needs a COVID-19 test prior to returning to [place]. Messaged left for RN regarding COVID test and message sent to Dr. Pabon. PAUL will continue to follow. Addendum: 04/06/20 at 1627 by KIMBER MILLER Clinicals faxed to [facility] and [facility].
--- NOTE | 2020-04-06 11:44 | PDOC2 ---
CONSULT Date of Consult Date of Consult DATE: 04/06/20 TIME: 11:25 Reason for Consult Reason for Consult: LIANA Identification/Chief Complaint Chief Complaint "I am hungry" Source Source: Chart review History of Present Illness Reason for Visit: Kym Historian, Most of Hx from Chart review Patient is a 39-year-old CF who presents from a group home where she resides secondary to severe psychiatric illness. She takes Haldol once monthly among other psychiatric medications. Sent to [facility] from [place] due to abnormal Renal labs ( abnormal creatinine) She states she doesnt have any Kidney problems but katy notice that her urine is clearer now, it was dark yesterday. She states she was told by her mother that she had Glomerulonephritis since she was born. She has never seen a Kidney doctor or hav been on meds . She denies Dx of HTN and DM. She denies taking Pain meds except Tylenol #3 . Denies any dysuria, hematuria. Poor Intake per Primary;s Note , Pt currently Hungry. Denies any N/V. She states she has " Gastric output syndrome " . Denies any abdominal pain, No diarrhea or constipation . No Dx of Renal calculus per Pt Baseline renal function Unknown to me . She has abnormal movements of her Upper extremities-- reports chronic She states her Brother is on HD, he is 38-39 yrs old and has been on Hd since he was a child (?since per Pt ) due to Kidney stones Per GI note "gives a rather wandering history of eating toilet paper and a sponge 1 year ago in [place] where she says she was incarcerated for 10 years before being released for a year in a rehab facility. Also says she drank pig blood in shampoo in [facility]. After that, she had a "urethra procedure" and "something went into my mouth." Past Medical History Cardiovascular: HTN Psych: Anxiety Renal/: Chronic renal insuff Family History Family History Brother on HD per Pt (see HPI) Family History: Hypertension Social History No ALCOHOL: none Drugs: None Current Medications Current Medications Current Medications Sodium Chloride 1,000 ml @ 1,000 mls/hr 1X ONCE IV Last administered on 04/05/20at 11:51; Start 04/05/20 at 11:30; Stop 04/05/20 at 12:29; Status DC Sodium Chloride 1,000 ml @ 150 mls/hr Q6H40M IV Last administered on 04/06/20at 09:49; Start 04/05/20 at 12:34; Stop 04/06/20 at 12:33 Acetaminophen (Tylenol) 650 mg PRN Q4HRS PRN PO FEVER > 100.3'F Last administered on 04/06/20at 09:36; Start 04/05/20 at 12:45; Stop 04/06/20 at 12:44 Sodium Polystyrene Sulfonate (Kayexalate) 30 gm 1X ONCE PO Last administered on 04/05/20at 12:45; Start 04/05/20 at 12:45; Stop 04/05/20 at 12:46; Status DC Heparin Sodium (Porcine) (Heparin Sodium) 5,000 unit Q8HRS SQ Last administered on 04/06/20at 05:21; Start 04/05/20 at 22:00 Sodium Chloride (Normal Saline Flush) 3 ml QSHIFT PRN IV AFTER MEDS AND BLOOD DRAWS; Start 04/05/20 at 14:30 Acetaminophen (Tylenol) 650 mg PRN Q4HRS PRN PO TEMP OVER 100.4F OR MILD PAIN; Start 04/05/20 at 14:30 Docusate Sodium (Colace) 100 mg PRN BID PRN PO HARD STOOLS; Start 04/05/20 at 14:30 Albuterol Sulfate (Ventolin Neb Soln) 2.5 mg PRN Q4HRS PRN NEB SHORTNESS OF BREATH; Start 04/05/20 at 14:30 Guaifenesin (Robitussin) 200 mg PRN Q4HRS PRN PO COUGH; Start 04/05/20 at 14:30 Pantoprazole Sodium (Protonix) 40 mg DAILYAC PO Last administered on 04/06/20at 09:36; Start 04/06/20 at 07:30 Polyethylene Glycol (miraLAX PACKET) 17 gm DAILY PO Last administered on 04/06/20at 09:37; Start 04/06/20 at 09:00 Acetaminophen (Tylenol) 650 mg 1X ONCE PO Last administered on 04/05/20at 20:06; Start 04/05/20 at 20:00; Stop 04/05/20 at 20:01; Status DC Lorazepam (Ativan) 1 mg PRN Q4HRS PRN PO ANXIETY / AGITATION Last administered on 04/05/20at 23:34; Start 04/05/20 at 23:30 Active Scripts Active Reported Trazodone Hcl 50 Mg Tablet 75 Mg PO HS Sodium Bicarbonate 650 Mg Tablet 650 Mg PO TID Renvela (Sevelamer Carbonate) 800 Mg Tablet 800 Mg PO TIDWMEALS Miralax (Polyethylene Glycol 3350) 17 Gm Powd.pack 1 Pkt PO DAILY Loratadine 10 Mg Tablet 10 Mg PO QODAY Levemir Flextouch (Insulin Detemir) 100 Unit/1 Ml Insuln.pen 1 Unit SQ HS Humalog (Insulin Lispro) 100 Unit/1 Ml Vial 0 SQ TIDAC If BS 250-400 give 5 units 401-500 do not administer and call doctor Imodium A-D (Loperamide HCl) 2 Mg Capsule 2 Mg PO PRN PRN Haloperidol Decanoate 100 Mg/1 Ml Vial 100 Mg IM [id number] Glucose Gel (Dextrose) 38 Gm Gel..gram. 15 Gm PO PRN Fluticasone Propionate Nasal [place] (Fluticasone Propionate) 16 Gm [place].susp 2 [place] NS DAILY Fludrocortisone Acetate 0.1 Mg Tablet 0.1 Mg PO DAILY Ferrous Sulfate 325 Mg Tablet 1 Tab PO DAILY Escitalopram Oxalate 10 Mg Tablet 1 Tab PO DAILY Valproic Acid (Valproate Sodium) 250 Mg/5 Ml Solution 1,000 Mg PO HS Acetaminophen 325 Mg Tablet 2 Tab PO PRN Q8HRS PRN 24 Days Allergies Allergies: Coded Allergies: No Known Drug Allergies (Unverified , 04/05/20) ROS Review of System Unable to Obtain accurate rest as in HPI Physical Exam Physical Exam GEN: NAD, sleeping, easily arousable HEEN-OM dry NECK: supple CVS: S1S2, RESP: CTA, Non labored GI: BS + ve, Non Tender, obese : No CVA tenderness, No Suprapubic Tenderness, No [place] NEURO- Grossly Normal, Chronic ABnorma movements- upper Ext DERM No Rash Vital Signs Vital Signs Date Time Temp Pulse Resp B/P (MAP) Pulse Ox O2 Delivery O2 Flow Rate FiO2 04/06/20 08:00 Room Air 04/06/20 07:00 98.5 74 18 143/82 (102 94 98.5 Assessment & Plan LIANA - No baseline labs available to me from the facility /Unable to Obtain from Pt Suspect ATN sec to Poor Po intake, Cr 7.7-->7.1 CT scan Kidneys Unremarkable , Mildly echogenic appearance of the right kidney ON us , may be seen with medical renal disease. UA has few RBC's, , CK Normal, UOP not recorded since presentation , No UDS Continue IVF, Supportive care, Strict I/O, Obtain previous labs (renal) from Nursing facility, Quantify proteinuria Clinically no Uremic symptoms or signs, E-Lytes stable, No emergent indication for HD today HyperKalemia- at presentation, resolved Anemia- ?Baseline not known Elevated Lipase - Improving Liver is borderline enlarged Gallbladder sludge without ultrasound evidence for acute cholecystitis. Psych issues- management per primary Labs Labs Laboratory Tests Test 04/05/20 11:50 04/05/20 11:57 04/05/20 16:29 04/06/20 04:45 White Blood Count 7.8 x10^3/uL (4.0-11.0) 6.5 x10^3/uL (4.0-11.0) Red Blood Count 2.76 x10^6/uL (3.50-5.40) 2.47 x10^6/uL (3.50-5.40) Hemoglobin 9.3 g/dL (12.0-15.5) 8.1 g/dL (12.0-15.5) Hematocrit 27.2 % (36.0-47.0) 24.4 % (36.0-47.0) Mean Corpuscular Volume 98 fL (79-100) 99 fL (79-100) Mean Corpuscular Hemoglobin 34 pg (25-35) 33 pg (25-35) Mean Corpuscular Hemoglobin Concent 34 g/dL (31-37) 33 g/dL (31-37) Red Cell Distribution Width 13.5 % (11.5-14.5) 13.7 % (11.5-14.5) Platelet Count 158 x10^3/uL (140-400) 146 x10^3/uL (140-400) Neutrophils (%) (Auto) 70 % (31-73) 54 % (31-73) Lymphocytes (%) (Auto) 19 % (24-48) 33 % (24-48) Monocytes (%) (Auto) 7 % (0-9) 7 % (0-9) Eosinophils (%) (Auto) 4 % (0-3) 5 % (0-3) Basophils (%) (Auto) 1 % (0-3) 1 % (0-3) Neutrophils # (Auto) 5.4 x10^3/uL (1.8-7.7) 3.5 x10^3/uL (1.8-7.7) Lymphocytes # (Auto) 1.5 x10^3/uL (1.0-4.8) 2.2 x10^3/uL (1.0-4.8) Monocytes # (Auto) 0.5 x10^3/uL (0.0-1.1) 0.5 x10^3/uL (0.0-1.1) Eosinophils # (Auto) 0.3 x10^3/uL (0.0-0.7) 0.3 x10^3/uL (0.0-0.7) Basophils # (Auto) 0.1 x10^3/uL (0.0-0.2) 0.0 x10^3/uL (0.0-0.2) Urine Collection Type Void Urine Color Yellow Urine Clarity Clear Urine pH 8.0 (<5.0-8.0) Urine Specific [place] 1.010 (1.000-1.030) Urine Protein 100 mg/dL (NEG-TRACE) Urine Glucose (UA) 250 mg/dL (NEG) Urine Ketones (Stick) Negative mg/dL (NEG) Urine Blood Negative (NEG) Urine Nitrite Negative (NEG) Urine Bilirubin Negative (NEG) Urine Urobilinogen Dipstick 0.2 mg/dL (0.2 mg/dL) Urine Leukocyte Esterase Negative (NEG) Urine RBC 3-5 /HPF (0-2) Urine WBC 1-4 /HPF (0-4) Urine Squamous Epithelial Cells Mod /LPF Urine Bacteria Few /HPF (0-FEW) Urine Mucus Slight /LPF Sodium Level 135 mmol/L (136-145) 141 mmol/L (136-145) Potassium Level 5.2 mmol/L (3.5-5.1) 4.5 mmol/L (3.5-5.1) Chloride Level 100 mmol/L (98-107) 105 mmol/L (98-107) Carbon Dioxide Level 26 mmol/L (21-32) 21 mmol/L (21-32) Anion Gap 9 (6-14) 15 (6-14) Blood Urea Nitrogen 75 mg/dL (7-20) 63 mg/dL (7-20) Creatinine 7.7 mg/dL (0.6-1.0) 7.1 mg/dL (0.6-1.0) Estimated GFR (Cockcroft-Gault) 5.9 6.5 BUN/Creatinine Ratio 10 (6-20) 9 (6-20) Glucose Level 228 mg/dL (70-99) 157 mg/dL (70-99) Calcium Level 8.2 mg/dL (8.5-10.1) 7.8 mg/dL (8.5-10.1) Magnesium Level 2.6 mg/dL (1.8-2.4) Iron Level 76 ug/dL (50-170) Total Iron Binding Capacity 320 ug/dL (250-450) Iron Saturation 24 % (15-34) Total Bilirubin 0.2 mg/dL (0.2-1.0) 0.1 mg/dL (0.2-1.0) Aspartate Amino Transf (AST/SGOT) 11 U/L (15-37) 11 U/L (15-37) Alanine Aminotransferase (ALT/SGPT) 15 U/L (14-59) 14 U/L (14-59) Alkaline Phosphatase 133 U/L (46-116) 106 U/L (46-116) Creatine Kinase 88 U/L (26-192) Total Protein 6.2 g/dL (6.4-8.2) 5.0 g/dL (6.4-8.2) Albumin 3.0 g/dL (3.4-5.0) 2.5 g/dL (3.4-5.0) Albumin/Globulin Ratio 0.9 (1.0-1.7) 1.0 (1.0-1.7) Triglycerides Level 348 mg/dL (0-150) Lipase 878 U/L (73-393) 616 U/L (73-393) Vitamin B12 Level 714 pg/mL (247-911) Bedside Urine HCG, Qualitative Hcg negative (Negative) Glucose (Fingerstick) 192 mg/dL (70-99) Laboratory Tests Test 04/05/20 11:50 04/05/20 11:57 04/05/20 16:29 04/06/20 04:45 White Blood Count 7.8 x10^3/uL (4.0-11.0) 6.5 x10^3/uL (4.0-11.0) Red Blood Count 2.76 x10^6/uL (3.50-5.40) 2.47 x10^6/uL (3.50-5.40) Hemoglobin 9.3 g/dL (12.0-15.5) 8.1 g/dL (12.0-15.5) Hematocrit 27.2 % (36.0-47.0) 24.4 % (36.0-47.0) Mean Corpuscular Volume 98 fL (79-100) 99 fL (79-100) Mean Corpuscular Hemoglobin 34 pg (25-35) 33 pg (25-35) Mean Corpuscular Hemoglobin Concent 34 g/dL (31-37) 33 g/dL (31-37) Red Cell Distribution Width 13.5 % (11.5-14.5) 13.7 % (11.5-14.5) Platelet Count 158 x10^3/uL (140-400) 146 x10^3/uL (140-400) Neutrophils (%) (Auto) 70 % (31-73) 54 % (31-73) Lymphocytes (%) (Auto) 19 % (24-48) 33 % (24-48) Monocytes (%) (Auto) 7 % (0-9) 7 % (0-9) Eosinophils (%) (Auto) 4 % (0-3) 5 % (0-3) Basophils (%) (Auto) 1 % (0-3) 1 % (0-3) Neutrophils # (Auto) 5.4 x10^3/uL (1.8-7.7) 3.5 x10^3/uL (1.8-7.7) Lymphocytes # (Auto) 1.5 x10^3/uL (1.0-4.8) 2.2 x10^3/uL (1.0-4.8) Monocytes # (Auto) 0.5 x10^3/uL (0.0-1.1) 0.5 x10^3/uL (0.0-1.1) Eosinophils # (Auto) 0.3 x10^3/uL (0.0-0.7) 0.3 x10^3/uL (0.0-0.7) Basophils # (Auto) 0.1 x10^3/uL (0.0-0.2) 0.0 x10^3/uL (0.0-0.2) Urine Collection Type Void Urine Color Yellow Urine Clarity Clear Urine pH 8.0 (<5.0-8.0) Urine Specific [place] 1.010 (1.000-1.030) Urine Protein 100 mg/dL (NEG-TRACE) Urine Glucose (UA) 250 mg/dL (NEG) Urine Ketones (Stick) Negative mg/dL (NEG) Urine Blood Negative (NEG) Urine Nitrite Negative (NEG) Urine Bilirubin Negative (NEG) Urine Urobilinogen Dipstick 0.2 mg/dL (0.2 mg/dL) Urine Leukocyte Esterase Negative (NEG) Urine RBC 3-5 /HPF (0-2) Urine WBC 1-4 /HPF (0-4) Urine Squamous Epithelial Cells Mod /LPF Urine Bacteria Few /HPF (0-FEW) Urine Mucus Slight /LPF Sodium Level 135 mmol/L (136-145) 141 mmol/L (136-145) Potassium Level 5.2 mmol/L (3.5-5.1) 4.5 mmol/L (3.5-5.1) Chloride Level 100 mmol/L (98-107) 105 mmol/L (98-107) Carbon Dioxide Level 26 mmol/L (21-32) 21 mmol/L (21-32) Anion Gap 9 (6-14) 15 (6-14) Blood Urea Nitrogen 75 mg/dL (7-20) 63 mg/dL (7-20) Creatinine 7.7 mg/dL (0.6-1.0) 7.1 mg/dL (0.6-1.0) Estimated GFR (Cockcroft-Gault) 5.9 6.5 BUN/Creatinine Ratio 10 (6-20) 9 (6-20) Glucose Level 228 mg/dL (70-99) 157 mg/dL (70-99) Calcium Level 8.2 mg/dL (8.5-10.1) 7.8 mg/dL (8.5-10.1) Magnesium Level 2.6 mg/dL (1.8-2.4) Iron Level 76 ug/dL (50-170) Total Iron Binding Capacity 320 ug/dL (250-450) Iron Saturation 24 % (15-34) Total Bilirubin 0.2 mg/dL (0.2-1.0) 0.1 mg/dL (0.2-1.0) Aspartate Amino Transf (AST/SGOT) 11 U/L (15-37) 11 U/L (15-37) Alanine Aminotransferase (ALT/SGPT) 15 U/L (14-59) 14 U/L (14-59) Alkaline Phosphatase 133 U/L (46-116) 106 U/L (46-116) Creatine Kinase 88 U/L (26-192) Total Protein 6.2 g/dL (6.4-8.2) 5.0 g/dL (6.4-8.2) Albumin 3.0 g/dL (3.4-5.0) 2.5 g/dL (3.4-5.0) Albumin/Globulin Ratio 0.9 (1.0-1.7) 1.0 (1.0-1.7) Triglycerides Level 348 mg/dL (0-150) Lipase 878 U/L (73-393) 616 U/L (73-393) Vitamin B12 Level 714 pg/mL (247-911) Bedside Urine HCG, Qualitative Hcg negative (Negative) Glucose (Fingerstick) 192 mg/dL (70-99) Review All relevant outside records, renal labs, imaging studies, telemetry/EKG's were reviewed. DAYA VEGA MD Apr 06, 2020 11:44
--- NOTE | 2020-04-06 12:51 | PDOC2 ---
NEUROLOGY CONSULT Date of Admission Date of Admission DATE: 04/06/20 TIME: 12:37 Reason for Consult Reason for Consult: Headache and tremor Referring Physician Referring Physician: Ms. Yanely Weeks Source Source: Chart review, Patient History of Present Illness History of Present Illness The patient is a 39-year-old right-handed female [place] [facility] resident sent to the emergency department due to abnormal renal labs. She complains of achy headaches for the past 3 years and some tremors for the past 4 to 5 months. She denies photo phonophobia or nausea. Patient has a history of Jatin syndrome. There is no history of stroke or seizure. She did hit her head in a fall about 4 years ago Past Medical History Cardiovascular: HTN CENTRAL NERVOUS SYSTEM: Other (Jatin syndrome) GI: GERD Heme/Onc: Anemia NOS Psych: Anxiety, Bipolar, Schizophrenia Renal/: Chronic renal insuff Endocrine: Diabetes Past Surgical History Past Surgical History: No pertinent history Family History Family History: Other (brother has renal disease) Social History Social History longterm resident, no alcohol or tobacco Current Medications Current Medications Current Medications Sodium Chloride 1,000 ml @ 1,000 mls/hr 1X ONCE IV Last administered on 04/05/20at 11:51; Start 04/05/20 at 11:30; Stop 04/05/20 at 12:29; Status DC Sodium Chloride 1,000 ml @ 150 mls/hr Q6H40M IV Last administered on 04/06/20at 09:49; Start 04/05/20 at 12:34; Stop 04/06/20 at 12:33 Acetaminophen (Tylenol) 650 mg PRN Q4HRS PRN PO FEVER > 100.3'F Last administered on 04/06/20at 09:36; Start 04/05/20 at 12:45; Stop 04/06/20 at 12:44 Sodium Polystyrene Sulfonate (Kayexalate) 30 gm 1X ONCE PO Last administered on 04/05/20at 12:45; Start 04/05/20 at 12:45; Stop 04/05/20 at 12:46; Status DC Heparin Sodium (Porcine) (Heparin Sodium) 5,000 unit Q8HRS SQ Last administered on 04/06/20at 05:21; Start 04/05/20 at 22:00 Sodium Chloride (Normal Saline Flush) 3 ml QSHIFT PRN IV AFTER MEDS AND BLOOD DRAWS; Start 04/05/20 at 14:30 Acetaminophen (Tylenol) 650 mg PRN Q4HRS PRN PO TEMP OVER 100.4F OR MILD PAIN; Start 04/05/20 at 14:30 Docusate Sodium (Colace) 100 mg PRN BID PRN PO HARD STOOLS; Start 04/05/20 at 14:30 Albuterol Sulfate (Ventolin Neb Soln) 2.5 mg PRN Q4HRS PRN NEB SHORTNESS OF BREATH; Start 04/05/20 at 14:30 Guaifenesin (Robitussin) 200 mg PRN Q4HRS PRN PO COUGH; Start 04/05/20 at 14:30 Pantoprazole Sodium (Protonix) 40 mg DAILYAC PO Last administered on 04/06/20at 09:36; Start 04/06/20 at 07:30 Polyethylene Glycol (miraLAX PACKET) 17 gm DAILY PO Last administered on 04/06/20at 09:37; Start 04/06/20 at 09:00 Acetaminophen (Tylenol) 650 mg 1X ONCE PO Last administered on 04/05/20at 20:06; Start 04/05/20 at 20:00; Stop 04/05/20 at 20:01; Status DC Lorazepam (Ativan) 1 mg PRN Q4HRS PRN PO ANXIETY / AGITATION Last administered on 04/05/20at 23:34; Start 04/05/20 at 23:30 Lubiprostone (Amitiza) 24 mcg BIDWMEALS PO ; Start 04/06/20 at 17:00 Active Scripts Active Reported Trazodone Hcl 50 Mg Tablet 75 Mg PO HS Sodium Bicarbonate 650 Mg Tablet 650 Mg PO TID Renvela (Sevelamer Carbonate) 800 Mg Tablet 800 Mg PO TIDWMEALS Miralax (Polyethylene Glycol 3350) 17 Gm Powd.pack 1 Pkt PO DAILY Loratadine 10 Mg Tablet 10 Mg PO QODAY Levemir Flextouch (Insulin Detemir) 100 Unit/1 Ml Insuln.pen 1 Unit SQ HS Humalog (Insulin Lispro) 100 Unit/1 Ml Vial 0 SQ TIDAC If BS 250-400 give 5 units 401-500 do not administer and call doctor Imodium A-D (Loperamide HCl) 2 Mg Capsule 2 Mg PO PRN PRN Haloperidol Decanoate 100 Mg/1 Ml Vial 100 Mg IM [id number] Glucose Gel (Dextrose) 38 Gm Gel..gram. 15 Gm PO PRN Fluticasone Propionate Nasal [place] (Fluticasone Propionate) 16 Gm [place].susp 2 [place] NS DAILY Fludrocortisone Acetate 0.1 Mg Tablet 0.1 Mg PO DAILY Ferrous Sulfate 325 Mg Tablet 1 Tab PO DAILY Escitalopram Oxalate 10 Mg Tablet 1 Tab PO DAILY Valproic Acid (Valproate Sodium) 250 Mg/5 Ml Solution 1,000 Mg PO HS Acetaminophen 325 Mg Tablet 2 Tab PO PRN Q8HRS PRN 24 Days Allergies Allergies: Coded Allergies: No Known Drug Allergies (Unverified , 04/05/20) ROS Review of System Negative for fever, chills, weight loss, shortness of breath, chest pain, indigestion, hematochezia, melena, and dysuria. Full 14-point review of systems is negative. Physical Exam Physical Examination General: Well-developed, well-nourished white female in no acute distress HEENT: Small skull,atraumatic.Temporal arteriespulsatile and nontender. Neck: Supple without bruit, no meningismus Musculoskeletal: Stability:see neurologic. Gait exam:see neurologic. Tone:see neurologic.Strength:see neurologic. Neurological: Mental Status:orientation, memory, attention span/concentration, language, fund of knowledge: She knows the date and location. She is frankly quite bizarre, talking about her sag being damaged, explaining to me that sag is the connection between the nervous system and the skull. She says that it is leaking. She is very tangential with her speech, a very poor historian. Cranial Nerves:Pupils equal and reactive to light, extraocular movements areintact, visual king are full to confrontation. Facial sensation is normal. There is no facial asymmetry. Vestibulo-ocular reflex is intact. Palate elevates and tongue protrudes in midline. All other cranial related problems are negative except as mentioned before.Reflexes:2+ and symmetric with flexor plantar responses. Motor:5/5 strength with normal tone and bulk. Coordination:Finger-nose finger and gdvt-yj-gjkl testing are normal. Rapid alternating movements and fine finger movements are intact. She has a coarse postural tremor. Gait:Normal, including tandem. Sensory:Normal pinprick, vibration, light touch, proprioception. Vitals VITALS Vital Signs Date Time Temp Pulse Resp B/P (MAP) Pulse Ox O2 Delivery O2 Flow Rate FiO2 04/06/20 08:00 Room Air 04/06/20 07:00 98.5 74 18 143/82 (102) 94 98.5 Labs Labs Laboratory Tests Test 04/05/20 11:50 04/05/20 11:57 04/05/20 16:29 04/06/20 04:45 White Blood Count 7.8 x10^3/uL (4.0-11.0) 6.5 x10^3/uL (4.0-11.0) Red Blood Count 2.76 x10^6/uL (3.50-5.40) 2.47 x10^6/uL (3.50-5.40) Hemoglobin 9.3 g/dL (12.0-15.5) 8.1 g/dL (12.0-15.5) Hematocrit 27.2 % (36.0-47.0) 24.4 % (36.0-47.0) Mean Corpuscular Volume 98 fL (79-100) 99 fL (79-100) Mean Corpuscular Hemoglobin 34 pg (25-35) 33 pg (25-35) Mean Corpuscular Hemoglobin Concent 34 g/dL (31-37) 33 g/dL (31-37) Red Cell Distribution Width 13.5 % (11.5-14.5) 13.7 % (11.5-14.5) Platelet Count 158 x10^3/uL (140-400) 146 x10^3/uL (140-400) Neutrophils (%) (Auto) 70 % (31-73) 54 % (31-73) Lymphocytes (%) (Auto) 19 % (24-48) 33 % (24-48) Monocytes (%) (Auto) 7 % (0-9) 7 % (0-9) Eosinophils (%) (Auto) 4 % (0-3) 5 % (0-3) Basophils (%) (Auto) 1 % (0-3) 1 % (0-3) Neutrophils # (Auto) 5.4 x10^3/uL (1.8-7.7) 3.5 x10^3/uL (1.8-7.7) Lymphocytes # (Auto) 1.5 x10^3/uL (1.0-4.8) 2.2 x10^3/uL (1.0-4.8) Monocytes # (Auto) 0.5 x10^3/uL (0.0-1.1) 0.5 x10^3/uL (0.0-1.1) Eosinophils # (Auto) 0.3 x10^3/uL (0.0-0.7) 0.3 x10^3/uL (0.0-0.7) Basophils # (Auto) 0.1 x10^3/uL (0.0-0.2) 0.0 x10^3/uL (0.0-0.2) Urine Collection Type Void Urine Color Yellow Urine Clarity Clear Urine pH 8.0 (<5.0-8.0) Urine Specific [place] 1.010 (1.000-1.030) Urine Protein 100 mg/dL (NEG-TRACE) Urine Glucose (UA) 250 mg/dL (NEG) Urine Ketones (Stick) Negative mg/dL (NEG) Urine Blood Negative (NEG) Urine Nitrite Negative (NEG) Urine Bilirubin Negative (NEG) Urine Urobilinogen Dipstick 0.2 mg/dL (0.2 mg/dL) Urine Leukocyte Esterase Negative (NEG) Urine RBC 3-5 /HPF (0-2) Urine WBC 1-4 /HPF (0-4) Urine Squamous Epithelial Cells Mod /LPF Urine Bacteria Few /HPF (0-FEW) Urine Mucus Slight /LPF Sodium Level 135 mmol/L (136-145) 141 mmol/L (136-145) Potassium Level 5.2 mmol/L (3.5-5.1) 4.5 mmol/L (3.5-5.1) Chloride Level 100 mmol/L (98-107) 105 mmol/L (98-107) Carbon Dioxide Level 26 mmol/L (21-32) 21 mmol/L (21-32) Anion Gap 9 (6-14) 15 (6-14) Blood Urea Nitrogen 75 mg/dL (7-20) 63 mg/dL (7-20) Creatinine 7.7 mg/dL (0.6-1.0) 7.1 mg/dL (0.6-1.0) Estimated GFR (Cockcroft-Gault) 5.9 6.5 BUN/Creatinine Ratio 10 (6-20) 9 (6-20) Glucose Level 228 mg/dL (70-99) 157 mg/dL (70-99) Calcium Level 8.2 mg/dL (8.5-10.1) 7.8 mg/dL (8.5-10.1) Magnesium Level 2.6 mg/dL (1.8-2.4) Iron Level 76 ug/dL (50-170) Total Iron Binding Capacity 320 ug/dL (250-450) Iron Saturation 24 % (15-34) Total Bilirubin 0.2 mg/dL (0.2-1.0) 0.1 mg/dL (0.2-1.0) Aspartate Amino Transf (AST/SGOT) 11 U/L (15-37) 11 U/L (15-37) Alanine Aminotransferase (ALT/SGPT) 15 U/L (14-59) 14 U/L (14-59) Alkaline Phosphatase 133 U/L (46-116) 106 U/L (46-116) Creatine Kinase 88 U/L (26-192) Total Protein 6.2 g/dL (6.4-8.2) 5.0 g/dL (6.4-8.2) Albumin 3.0 g/dL (3.4-5.0) 2.5 g/dL (3.4-5.0) Albumin/Globulin Ratio 0.9 (1.0-1.7) 1.0 (1.0-1.7) Triglycerides Level 348 mg/dL (0-150) Lipase 878 U/L (73-393) 616 U/L (73-393) Vitamin B12 Level 714 pg/mL (247-911) Bedside Urine HCG, Qualitative Hcg negative (Negative) Glucose (Fingerstick) 192 mg/dL (70-99) Laboratory Tests Test 04/05/20 16:29 04/06/20 04:45 Glucose (Fingerstick) 192 mg/dL (70-99) White Blood Count 6.5 x10^3/uL (4.0-11.0) Red Blood Count 2.47 x10^6/uL (3.50-5.40) Hemoglobin 8.1 g/dL (12.0-15.5) Hematocrit 24.4 % (36.0-47.0) Mean Corpuscular Volume 99 fL (79-100) Mean Corpuscular Hemoglobin 33 pg (25-35) Mean Corpuscular Hemoglobin Concent 33 g/dL (31-37) Red Cell Distribution Width 13.7 % (11.5-14.5) Platelet Count 146 x10^3/uL (140-400) Neutrophils (%) (Auto) 54 % (31-73) Lymphocytes (%) (Auto) 33 % (24-48) Monocytes (%) (Auto) 7 % (0-9) Eosinophils (%) (Auto) 5 % (0-3) Basophils (%) (Auto) 1 % (0-3) Neutrophils # (Auto) 3.5 x10^3/uL (1.8-7.7) Lymphocytes # (Auto) 2.2 x10^3/uL (1.0-4.8) Monocytes # (Auto) 0.5 x10^3/uL (0.0-1.1) Eosinophils # (Auto) 0.3 x10^3/uL (0.0-0.7) Basophils # (Auto) 0.0 x10^3/uL (0.0-0.2) Sodium Level 141 mmol/L (136-145) Potassium Level 4.5 mmol/L (3.5-5.1) Chloride Level 105 mmol/L (98-107) Carbon Dioxide Level 21 mmol/L (21-32) Anion Gap 15 (6-14) Blood Urea Nitrogen 63 mg/dL (7-20) Creatinine 7.1 mg/dL (0.6-1.0) Estimated GFR (Cockcroft-Gault) 6.5 BUN/Creatinine Ratio 9 (6-20) Glucose Level 157 mg/dL (70-99) Calcium Level 7.8 mg/dL (8.5-10.1) Total Bilirubin 0.1 mg/dL (0.2-1.0) Aspartate Amino Transf (AST/SGOT) 11 U/L (15-37) Alanine Aminotransferase (ALT/SGPT) 14 U/L (14-59) Alkaline Phosphatase 106 U/L (46-116) Total Protein 5.0 g/dL (6.4-8.2) Albumin 2.5 g/dL (3.4-5.0) Albumin/Globulin Ratio 1.0 (1.0-1.7) Lipase 616 U/L (73-393) Assessment/Plan Assessment/Plan Impression: Chronic tension headache in a patient with Jatin syndrome Tremor, mostly essential type tremor, 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 I discussed risks, benefits, alternatives, side effects, I will start her on a low-dose of metoprolol which should help with tremor as well as headache. I do not want to start her on any narcotic pain medications. Treatment of medical issues. Thank you for letting me help with the patient's care. NICHOLE HONG MD Apr 06, 2020 12:51
--- NOTE | 2020-04-06 13:27 | RAD ---
CT HEAD WO CONTRAST Date: 04/06/2020 12:35 PM Clinical Indication: Reason: chronic headaches, Jatin syndrome / Spl. Instructions: / History: Comparison: None. Technique: 5 mm axial tomographic images were obtained of the head without contrast. These were viewed on brain and bone windows. One or more of the following dose reduction techniques were utilized: Automated exposure control (AEC), Adjustment of mA and/or kV according to patient size, Use of iterative reconstruction technique such as ASiR, CT scan done according to ALARA and image gently/image wisely Findings: The brain parenchyma is normal in attenuation. No intra- or extra-axial mass or fluid collection. No acute hemorrhage. The ventricles are normal in size, shape, and morphology. The sal-white matter junction is normal. The subarachnoid cisterns are patent. The visualized paranasal sinuses are normal. The visualized portions of the orbits and globes are normal. The mastoid air cells are clear. The caterpillar tractor operator topogram shows no lytic lesion or fracture. Impression: No acute intracranial process. Electronically signed by: Lauro Pedroza MD (04/06/2020 1:24 PM) [facility]
[2020-04-06] MEDS: METOPROLOL SUCC 24HR ER 25 MG TAB.ER.24H. PO SCH (14:20)
[2020-04-06] MEDS ORDERED: DEXTROSE 50% 25 GM / 50ML DISP.SYRIN. IV PRN (14:30)
--- NOTE | 2020-04-06 14:43 | PDOC ---
PROGRESS NOTES Chief Complaint Chief Complaint Acute renal failure etiology undetermined at the present time she has underlying chronic kidney disease Acute tubular necrosis suspecte Hyperkalemia resolved Normocytic anemia History of bipolar disorder currently seems to be compensated History of [place] syndrome Elevated Lipase which seems to be of no clinical significance Plan Follow urinary output No indications for dialysis as per our business analysis consultant, consultation greatly appreciated We will resume home meds Avoid nephrotoxic drugs History of Present Illness History of Present Illness No acute events reported overnight, case discussed with nursing staff patient in no acute distress no complaints during my visit Vitals Vitals Vital Signs Date Time Temp Pulse Resp B/P (MAP) Pulse Ox O2 Delivery O2 Flow Rate FiO2 04/06/20 14:20 83 177/98 04/06/20 11:05 18 04/06/20 11:00 98.8 98 Room Air 98.8 Physical Exam General: Alert, Oriented X3, Cooperative, No acute distress Heart: Regular rate, Normal S1, Normal S2 Lungs: Clear Abdomen: Soft Extremities: No cyanosis Labs LABS Laboratory Tests Test 04/05/20 16:29 04/06/20 04:45 Glucose (Fingerstick) 192 mg/dL (70-99) White Blood Count 6.5 x10^3/uL (4.0-11.0) Red Blood Count 2.47 x10^6/uL (3.50-5.40) Hemoglobin 8.1 g/dL (12.0-15.5) Hematocrit 24.4 % (36.0-47.0) Mean Corpuscular Volume 99 fL (79-100) Mean Corpuscular Hemoglobin 33 pg (25-35) Mean Corpuscular Hemoglobin Concent 33 g/dL (31-37) Red Cell Distribution Width 13.7 % (11.5-14.5) Platelet Count 146 x10^3/uL (140-400) Neutrophils (%) (Auto) 54 % (31-73) Lymphocytes (%) (Auto) 33 % (24-48) Monocytes (%) (Auto) 7 % (0-9) Eosinophils (%) (Auto) 5 % (0-3) Basophils (%) (Auto) 1 % (0-3) Neutrophils # (Auto) 3.5 x10^3/uL (1.8-7.7) Lymphocytes # (Auto) 2.2 x10^3/uL (1.0-4.8) Monocytes # (Auto) 0.5 x10^3/uL (0.0-1.1) Eosinophils # (Auto) 0.3 x10^3/uL (0.0-0.7) Basophils # (Auto) 0.0 x10^3/uL (0.0-0.2) Sodium Level 141 mmol/L (136-145) Potassium Level 4.5 mmol/L (3.5-5.1) Chloride Level 105 mmol/L (98-107) Carbon Dioxide Level 21 mmol/L (21-32) Anion Gap 15 (6-14) Blood Urea Nitrogen 63 mg/dL (7-20) Creatinine 7.1 mg/dL (0.6-1.0) Estimated GFR (Cockcroft-Gault) 6.5 BUN/Creatinine Ratio 9 (6-20) Glucose Level 157 mg/dL (70-99) Calcium Level 7.8 mg/dL (8.5-10.1) Total Bilirubin 0.1 mg/dL (0.2-1.0) Aspartate Amino Transf (AST/SGOT) 11 U/L (15-37) Alanine Aminotransferase (ALT/SGPT) 14 U/L (14-59) Alkaline Phosphatase 106 U/L (46-116) Total Protein 5.0 g/dL (6.4-8.2) Albumin 2.5 g/dL (3.4-5.0) Albumin/Globulin Ratio 1.0 (1.0-1.7) Lipase 616 U/L (73-393) Review of Systems Review of Systems Pertinent as per HPI otherwise 10 point review of system is negative Comment Review of Relevant I have reviewed the following items darya (where applicable) has been applied. Labs Laboratory Tests Test 04/05/20 11:50 04/05/20 11:57 04/05/20 16:29 04/06/20 04:45 White Blood Count 7.8 x10^3/uL (4.0-11.0) 6.5 x10^3/uL (4.0-11.0) Red Blood Count 2.76 x10^6/uL (3.50-5.40) 2.47 x10^6/uL (3.50-5.40) Hemoglobin 9.3 g/dL (12.0-15.5) 8.1 g/dL (12.0-15.5) Hematocrit 27.2 % (36.0-47.0) 24.4 % (36.0-47.0) Mean Corpuscular Volume 98 fL (79-100) 99 fL (79-100) Mean Corpuscular Hemoglobin 34 pg (25-35) 33 pg (25-35) Mean Corpuscular Hemoglobin Concent 34 g/dL (31-37) 33 g/dL (31-37) Red Cell Distribution Width 13.5 % (11.5-14.5) 13.7 % (11.5-14.5) Platelet Count 158 x10^3/uL (140-400) 146 x10^3/uL (140-400) Neutrophils (%) (Auto) 70 % (31-73) 54 % (31-73) Lymphocytes (%) (Auto) 19 % (24-48) 33 % (24-48) Monocytes (%) (Auto) 7 % (0-9) 7 % (0-9) Eosinophils (%) (Auto) 4 % (0-3) 5 % (0-3) Basophils (%) (Auto) 1 % (0-3) 1 % (0-3) Neutrophils # (Auto) 5.4 x10^3/uL (1.8-7.7) 3.5 x10^3/uL (1.8-7.7) Lymphocytes # (Auto) 1.5 x10^3/uL (1.0-4.8) 2.2 x10^3/uL (1.0-4.8) Monocytes # (Auto) 0.5 x10^3/uL (0.0-1.1) 0.5 x10^3/uL (0.0-1.1) Eosinophils # (Auto) 0.3 x10^3/uL (0.0-0.7) 0.3 x10^3/uL (0.0-0.7) Basophils # (Auto) 0.1 x10^3/uL (0.0-0.2) 0.0 x10^3/uL (0.0-0.2) Urine Collection Type Void Urine Color Yellow Urine Clarity Clear Urine pH 8.0 (<5.0-8.0) Urine Specific [place] 1.010 (1.000-1.030) Urine Protein 100 mg/dL (NEG-TRACE) Urine Glucose (UA) 250 mg/dL (NEG) Urine Ketones (Stick) Negative mg/dL (NEG) Urine Blood Negative (NEG) Urine Nitrite Negative (NEG) Urine Bilirubin Negative (NEG) Urine Urobilinogen Dipstick 0.2 mg/dL (0.2 mg/dL) Urine Leukocyte Esterase Negative (NEG) Urine RBC 3-5 /HPF (0-2) Urine WBC 1-4 /HPF (0-4) Urine Squamous Epithelial Cells Mod /LPF Urine Bacteria Few /HPF (0-FEW) Urine Mucus Slight /LPF Sodium Level 135 mmol/L (136-145) 141 mmol/L (136-145) Potassium Level 5.2 mmol/L (3.5-5.1) 4.5 mmol/L (3.5-5.1) Chloride Level 100 mmol/L (98-107) 105 mmol/L (98-107) Carbon Dioxide Level 26 mmol/L (21-32) 21 mmol/L (21-32) Anion Gap 9 (6-14) 15 (6-14) Blood Urea Nitrogen 75 mg/dL (7-20) 63 mg/dL (7-20) Creatinine 7.7 mg/dL (0.6-1.0) 7.1 mg/dL (0.6-1.0) Estimated GFR (Cockcroft-Gault) 5.9 6.5 BUN/Creatinine Ratio 10 (6-20) 9 (6-20) Glucose Level 228 mg/dL (70-99) 157 mg/dL (70-99) Calcium Level 8.2 mg/dL (8.5-10.1) 7.8 mg/dL (8.5-10.1) Magnesium Level 2.6 mg/dL (1.8-2.4) Iron Level 76 ug/dL (50-170) Total Iron Binding Capacity 320 ug/dL (250-450) Iron Saturation 24 % (15-34) Total Bilirubin 0.2 mg/dL (0.2-1.0) 0.1 mg/dL (0.2-1.0) Aspartate Amino Transf (AST/SGOT) 11 U/L (15-37) 11 U/L (15-37) Alanine Aminotransferase (ALT/SGPT) 15 U/L (14-59) 14 U/L (14-59) Alkaline Phosphatase 133 U/L (46-116) 106 U/L (46-116) Creatine Kinase 88 U/L (26-192) Total Protein 6.2 g/dL (6.4-8.2) 5.0 g/dL (6.4-8.2) Albumin 3.0 g/dL (3.4-5.0) 2.5 g/dL (3.4-5.0) Albumin/Globulin Ratio 0.9 (1.0-1.7) 1.0 (1.0-1.7) Triglycerides Level 348 mg/dL (0-150) Lipase 878 U/L (73-393) 616 U/L (73-393) Vitamin B12 Level 714 pg/mL (247-911) Bedside Urine HCG, Qualitative Hcg negative (Negative) Glucose (Fingerstick) 192 mg/dL (70-99) Laboratory Tests Test 04/05/20 16:29 04/06/20 04:45 Glucose (Fingerstick) 192 mg/dL (70-99) White Blood Count 6.5 x10^3/uL (4.0-11.0) Red Blood Count 2.47 x10^6/uL (3.50-5.40) Hemoglobin 8.1 g/dL (12.0-15.5) Hematocrit 24.4 % (36.0-47.0) Mean Corpuscular Volume 99 fL (79-100) Mean Corpuscular Hemoglobin 33 pg (25-35) Mean Corpuscular Hemoglobin Concent 33 g/dL (31-37) Red Cell Distribution Width 13.7 % (11.5-14.5) Platelet Count 146 x10^3/uL (140-400) Neutrophils (%) (Auto) 54 % (31-73) Lymphocytes (%) (Auto) 33 % (24-48) Monocytes (%) (Auto) 7 % (0-9) Eosinophils (%) (Auto) 5 % (0-3) Basophils (%) (Auto) 1 % (0-3) Neutrophils # (Auto) 3.5 x10^3/uL (1.8-7.7) Lymphocytes # (Auto) 2.2 x10^3/uL (1.0-4.8) Monocytes # (Auto) 0.5 x10^3/uL (0.0-1.1) Eosinophils # (Auto) 0.3 x10^3/uL (0.0-0.7) Basophils # (Auto) 0.0 x10^3/uL (0.0-0.2) Sodium Level 141 mmol/L (136-145) Potassium Level 4.5 mmol/L (3.5-5.1) Chloride Level 105 mmol/L (98-107) Carbon Dioxide Level 21 mmol/L (21-32) Anion Gap 15 (6-14) Blood Urea Nitrogen 63 mg/dL (7-20) Creatinine 7.1 mg/dL (0.6-1.0) Estimated GFR (Cockcroft-Gault) 6.5 BUN/Creatinine Ratio 9 (6-20) Glucose Level 157 mg/dL (70-99) Calcium Level 7.8 mg/dL (8.5-10.1) Total Bilirubin 0.1 mg/dL (0.2-1.0) Aspartate Amino Transf (AST/SGOT) 11 U/L (15-37) Alanine Aminotransferase (ALT/SGPT) 14 U/L (14-59) Alkaline Phosphatase 106 U/L (46-116) Total Protein 5.0 g/dL (6.4-8.2) Albumin 2.5 g/dL (3.4-5.0) Albumin/Globulin Ratio 1.0 (1.0-1.7) Lipase 616 U/L (73-393) Medications Current Medications Sodium Chloride 1,000 ml @ 1,000 mls/hr 1X ONCE IV Last administered on 04/05/20at 11:51; Start 04/05/20 at 11:30; Stop 04/05/20 at 12:29; Status DC Sodium Chloride 1,000 ml @ 150 mls/hr Q6H40M IV Last administered on 04/06/20at 09:49; Start 04/05/20 at 12:34; Stop 04/06/20 at 12:33; Status DC Acetaminophen (Tylenol) 650 mg PRN Q4HRS PRN PO FEVER > 100.3'F Last administered on 04/06/20at 09:36; Start 04/05/20 at 12:45; Stop 04/06/20 at 12:44; Status DC Sodium Polystyrene Sulfonate (Kayexalate) 30 gm 1X ONCE PO Last administered on 04/05/20at 12:45; Start 04/05/20 at 12:45; Stop 04/05/20 at 12:46; Status DC Heparin Sodium (Porcine) (Heparin Sodium) 5,000 unit Q8HRS SQ Last administered on 04/06/20at 14:25; Start 04/05/20 at 22:00 Sodium Chloride (Normal Saline Flush) 3 ml QSHIFT PRN IV AFTER MEDS AND BLOOD DRAWS; Start 04/05/20 at 14:30 Acetaminophen (Tylenol) 650 mg PRN Q4HRS PRN PO TEMP OVER 100.4F OR MILD PAIN Last administered on 04/06/20at 14:19; Start 04/05/20 at 14:30 Docusate Sodium (Colace) 100 mg PRN BID PRN PO HARD STOOLS; Start 04/05/20 at 14:30 Albuterol Sulfate (Ventolin Neb Soln) 2.5 mg PRN Q4HRS PRN NEB SHORTNESS OF BREATH; Start 04/05/20 at 14:30 Guaifenesin (Robitussin) 200 mg PRN Q4HRS PRN PO COUGH; Start 04/05/20 at 14:30 Pantoprazole Sodium (Protonix) 40 mg DAILYAC PO Last administered on 04/06/20at 09:36; Start 04/06/20 at 07:30 Polyethylene Glycol (miraLAX PACKET) 17 gm DAILY PO Last administered on 04/06/20at 09:37; Start 04/06/20 at 09:00 Acetaminophen (Tylenol) 650 mg 1X ONCE PO Last administered on 04/05/20at 20:06; Start 04/05/20 at 20:00; Stop 04/05/20 at 20:01; Status DC Lorazepam (Ativan) 1 mg PRN Q4HRS PRN PO ANXIETY / AGITATION Last administered on 04/05/20at 23:34; Start 04/05/20 at 23:30 Lubiprostone (Amitiza) 24 mcg BIDWMEALS PO ; Start 04/06/20 at 17:00 Metoprolol Succinate (Toprol Xl) 25 mg DAILY PO Last administered on 04/06/20at 14:20; Start 04/06/20 at 13:00 Active Scripts Active Reported Trazodone Hcl 50 Mg Tablet 75 Mg PO HS Sodium Bicarbonate 650 Mg Tablet 650 Mg PO TID Renvela (Sevelamer Carbonate) 800 Mg Tablet 800 Mg PO TIDWMEALS Miralax (Polyethylene Glycol 3350) 17 Gm Powd.pack 1 Pkt PO DAILY Loratadine 10 Mg Tablet 10 Mg PO QODAY Levemir Flextouch (Insulin Detemir) 100 Unit/1 Ml Insuln.pen 1 Unit SQ HS Humalog (Insulin Lispro) 100 Unit/1 Ml Vial 0 SQ TIDAC If BS 250-400 give 5 units 401-500 do not administer and call doctor Imodium A-D (Loperamide HCl) 2 Mg Capsule 2 Mg PO PRN PRN Haloperidol Decanoate 100 Mg/1 Ml Vial 100 Mg IM [id number] Glucose Gel (Dextrose) 38 Gm Gel..gram. 15 Gm PO PRN Fluticasone Propionate Nasal [place] (Fluticasone Propionate) 16 Gm [place].susp 2 [place] NS DAILY Fludrocortisone Acetate 0.1 Mg Tablet 0.1 Mg PO DAILY Ferrous Sulfate 325 Mg Tablet 1 Tab PO DAILY Escitalopram Oxalate 10 Mg Tablet 1 Tab PO DAILY Valproic Acid (Valproate Sodium) 250 Mg/5 Ml Solution 1,000 Mg PO HS Acetaminophen 325 Mg Tablet 2 Tab PO PRN Q8HRS PRN 24 Days Vitals/I & O Vital Sign - Last 24 Hours 04/05/20 04/05/20 04/05/20 04/05/20 16:30 16:50 17:23 19:47 Temp 98.4 97.9 98.4 97.9 Pulse 72 87 76 Resp 18 20 20 B/P (MAP) 155/98 (117) 153/99 (117) 144/118 (127) Pulse Ox 99 100 94 O2 Delivery Room Air Room Air Room Air Room Air 04/05/20 04/05/20 04/06/20 04/06/20 20:00 23:40 02:41 07:00 Temp 97.7 98.5 97.7 98.5 Pulse 83 76 74 Resp 20 16 18 B/P (MAP) 149/91 (110) 143/82 (102) Pulse Ox 94 94 O2 Delivery Room Air Room Air Room Air Room Air 04/06/20 04/06/20 04/06/20 04/06/20 08:00 11:00 11:05 14:20 Temp 98.8 98.8 Pulse 119 83 83 Resp 18 18 B/P (MAP) 139/103 (115) 177/98 (124) 177/98 Pulse Ox 98 O2 Delivery Room Air Room Air Intake and Output 04/05/20 04/05/20 04/06/20 15:00 23:00 07:00 Intake Total 440 ml 440 ml Balance 440 ml 440 ml RADHA HWANG MD Apr 06, 2020 14:43
[2020-04-06 15:00] VITALS: BP 161/88
[2020-04-06 15:11] LABS: BARBITURATES NEG (NEG); BENZODIAZEPINES NEG (NEG); CANNABINOIDS NEG (NEG); COCAINE NEG (NEG); CREATININE,RANDOM URINE 16.9 mg/dL (Not Establ.); METHADONE NEG (NEG); OPIATES NEG (NEG); PHENCYCLIDINE NEG (NEG)
[2020-04-06 15:18] LABS: AMPHETAMINE/METHAMPHETAMINE NEG (NEG)
[2020-04-06] MEDS: INSULIN LISPRO 300 UNITS/3 ML VIAL. SQ SCH (17:00)
[2020-04-06] MEDS: SEVELAMER CARBONATE 800 MG TABLET. PO SCH (17:19)
[2020-04-06] MEDS: LUBIPROSTONE 24 MCG CAPSULE PO SCH (17:20)
[2020-04-06] MEDS: LORazepam 1 MG TABLET PO PRN (19:33)
[2020-04-06] MEDS: ACETAMINOPHEN/CODEINE 300/30MG TABLET. PO PRN (19:35)
[2020-04-06 19:45] VITALS: BP 158/86
[2020-04-06] MEDS: SODIUM BICARBONATE 650 MG TABLET. PO SCH (21:05)
[2020-04-06] MEDS: traZODone 50 MG TABLET. PO SCH (21:05)
[2020-04-06] MEDS: VALPROIC ACID 250 MG CAPSULE. PO SCH (21:05)
[2020-04-06] MEDS: INSULIN GLARGINE SYRINGE. SQ SCH (21:12)
[2020-04-06 23:56] VITALS: BP 159/97
[2020-04-07 03:50] VITALS: BP 159/89
[2020-04-07] MEDS: ACETAMINOPHEN/CODEINE 300/30MG TABLET. PO PRN ×3 (03:52→17:28)
[2020-04-07] MEDS: LORazepam 1 MG TABLET PO PRN ×4 (05:30→21:11)
[2020-04-07] MEDS: HEPARIN for SUB-Q USE 5,000 UNIT/ML VIAL. SQ SCH ×3 (05:35→21:17)
[2020-04-07 07:22] LABS: ALBUMIN 2.9 g/dL (3.4-5.0); CALCIUM 8.2 mg/dL (8.5-10.1); CREATININE 7.3 mg/dL (0.6-1.0); GFR 6.3; POTASSIUM 5.3 mmol/L (3.5-5.1)
[2020-04-07 07:58] VITALS: BP 158/99
[2020-04-07] MEDS: INSULIN LISPRO 300 UNITS/3 ML VIAL. SQ SCH ×4 (08:00→17:00)
[2020-04-07 08:53] LABS: BASO % 1 % (0-3); EOS # 0.3 x10^3/uL (0.0-0.7); EOS % 5 % (0-3); HEMATOCRIT 24.7 % (36.0-47.0); HEMOGLOBIN 8.3 g/dL (12.0-15.5); LYMPH # 1.8 x10^3/uL (1.0-4.8); LYMPH % 27 % (24-48); MEAN CORPUSCULAR HEMOGLOBIN 33 pg (25-35); MEAN CORPUSCULAR HGB CONC 34 g/dL (31-37); MEAN CORPUSCULAR VOLUME 98 fL (79-100); MONO # 0.5 x10^3/uL (0.0-1.1); MONO % 8 % (0-9); NEUT # 4.1 x10^3/uL (1.8-7.7); NEUT % 60 % (31-73); PLATELET COUNT 141 x10^3/uL (140-400); RED BLOOD COUNT 2.51 x10^6/uL (3.50-5.40); RED CELL DISTRIBUTION WIDTH 13.4 % (11.5-14.5); WHITE BLOOD COUNT 6.8 x10^3/uL (4.0-11.0)
[2020-04-07] MEDS: FERROUS SULFATE 325 MG TABLET. PO SCH (08:55)
[2020-04-07] MEDS: LUBIPROSTONE 24 MCG CAPSULE PO SCH ×2 (08:55→17:28)
[2020-04-07] MEDS: METOPROLOL SUCC 24HR ER 25 MG TAB.ER.24H. PO SCH (08:55)
[2020-04-07] MEDS: SODIUM BICARBONATE 650 MG TABLET. PO SCH ×3 (08:55→21:11)
[2020-04-07] MEDS: CITALOPRAM 20 MG TABLET. PO SCH (08:55)
[2020-04-07] MEDS: SEVELAMER CARBONATE 800 MG TABLET. PO SCH ×3 (08:55→17:28)
[2020-04-07] MEDS: CETIRIZINE HCL 10 MG TABLET. PO SCH (08:55)
[2020-04-07] MEDS: FLUDROCORTISONE 0.1 MG TABLET PO SCH (08:56)
[2020-04-07] MEDS: PANTOPRAZOLE 40 MG TABLET.DR. PO SCH (08:56)
[2020-04-07] MEDS: POLYETHYLENE GLYCOL 3350 17 GM PACKET. PO SCH (08:56)
[2020-04-07] MEDS: FLUTICASONE 50MCG/NASAL SPRAY 16GM BOTTLE. NS SCH (09:35)
[2020-04-07 11:34] VITALS: BP 175/97
--- NOTE | 2020-04-07 12:50 | PDOC ---
Renal-Progress Notes Subjective Notes Notes NO NEW COMPLAINTS, OCC STOMACH PAINS AND BLOATING History of Present Illness Hx of present illness NO CHANGES Vitals Vitals Vital Signs Date Time Temp Pulse Resp B/P (MAP) Pulse Ox O2 Delivery O2 Flow Rate FiO2 04/07/20 11:34 98.1 72 16 175/97 (123) 98 Room Air 98.1 Weight Weight [ ] I.O. Intake and Output Intake and Output 04/07/20 07:00 Intake Total 3230 ml Output Total 4000 ml Balance -770 ml Intake Oral 3230 ml Output Urine Total 4000 ml # Voids 3 Labs Labs Laboratory Tests Test 04/06/20 14:45 04/06/20 17:00 04/06/20 17:09 04/06/20 21:04 Urine Random Creatinine 16.9 mg/dL (Not Establ.) Urine Random Total Protein 109.7 mg/dL (Not Establ.) Urine Protein/Creatinine Ratio 6491 mg/g (0-200) Urine Opiates Screen Neg (NEG) Urine Methadone Screen Neg (NEG) Urine Barbiturates Neg (NEG) Urine Phencyclidine Screen Neg (NEG) Urine Amphetamine/Methamphetamine Neg (NEG) Urine Benzodiazepines Screen Neg (NEG) Urine Cocaine Screen Neg (NEG) Urine Cannabinoids Screen Neg (NEG) Urine Ethyl Alcohol Neg (NEG) Coronavirus (COVID-19)(PCR) Not detected (NOT DETECT.) Glucose (Fingerstick) 141 mg/dL (70-99) 245 mg/dL (70-99) Test 04/07/20 06:48 04/07/20 07:37 04/07/20 10:40 White Blood Count 6.8 x10^3/uL (4.0-11.0) Red Blood Count 2.51 x10^6/uL (3.50-5.40) Hemoglobin 8.3 g/dL (12.0-15.5) Hematocrit 24.7 % (36.0-47.0) Mean Corpuscular Volume 98 fL (79-100) Mean Corpuscular Hemoglobin 33 pg (25-35) Mean Corpuscular Hemoglobin Concent 34 g/dL (31-37) Red Cell Distribution Width 13.4 % (11.5-14.5) Platelet Count 141 x10^3/uL (140-400) Neutrophils (%) (Auto) 60 % (31-73) Lymphocytes (%) (Auto) 27 % (24-48) Monocytes (%) (Auto) 8 % (0-9) Eosinophils (%) (Auto) 5 % (0-3) Basophils (%) (Auto) 1 % (0-3) Neutrophils # (Auto) 4.1 x10^3/uL (1.8-7.7) Lymphocytes # (Auto) 1.8 x10^3/uL (1.0-4.8) Monocytes # (Auto) 0.5 x10^3/uL (0.0-1.1) Eosinophils # (Auto) 0.3 x10^3/uL (0.0-0.7) Basophils # (Auto) 0.0 x10^3/uL (0.0-0.2) Sodium Level 139 mmol/L (136-145) Potassium Level 5.3 mmol/L (3.5-5.1) Chloride Level 104 mmol/L (98-107) Carbon Dioxide Level 21 mmol/L (21-32) Anion Gap 14 (6-14) Blood Urea Nitrogen 62 mg/dL (7-20) Creatinine 7.3 mg/dL (0.6-1.0) Estimated GFR (Cockcroft-Gault) 6.3 Glucose Level 166 mg/dL (70-99) Calcium Level 8.2 mg/dL (8.5-10.1) Phosphorus Level 6.0 mg/dL (2.6-4.7) Albumin 2.9 g/dL (3.4-5.0) Glucose (Fingerstick) 150 mg/dL (70-99) 240 mg/dL (70-99) Micro Micro Microbiology 04/05/20 Blood Culture - Preliminary, Resulted NO GROWTH AFTER 1 DAY Review of Systems Constitutional: yes: alert, oriented Ears/Nose/Throat: Yes: no symptom reported Eyes: Yes: no symptom reported Pulmonary: Yes no symptom reported Gastrointestional: Yes: nausea Musculoskeletal: Yes: no symptom reported Skin: Yes no symptom reported Psychiatric/Neurological: Yes: no symptom reported Endocrine: Yes: no symptom reported Physical Exam General Appearance: no apparent distress Skin: warm Respiratory: bilateral CTA Heart: S1S2 Abdomen: soft, bowel sounds present Genitourinary: bladder flat Extremities: pulses present Neurology: alert, oriented Assessment Assessment IMP RENAL FAILURE-MOST LIKELY ESRD DUE TO ALPORTS ANEMIA OF RENAL FAILURE HYPERKALEMIA-BETTER HX OF BIPOLAR SECONDARY HYPERPARATHYROIDISM PLAN MOST LIKELY WILL NEED TO START DIALYSIS BY THURSDAY CONT HYDRATION FOR NOW SUSPECT ESRD DUE TO ALPORTS CHECK IRON AND START BINDERS WILL FOLLOW ROME ORTEGA MD Apr 07, 2020 12:50
[2020-04-07] MEDS: IV NORMAL SALINE 1000ML BAG 1,000 ML IV SCH (13:41)
--- NOTE | 2020-04-07 15:01 | PDOC ---
PROGRESS NOTES Chief Complaint Chief Complaint Acute renal failure etiology undetermined at the present time she has underlying chronic kidney disease Acute tubular necrosis suspecte Hyperkalemia resolved Normocytic anemia History of bipolar disorder currently seems to be compensated History of [place] syndrome Elevated Lipase which seems to be of no clinical significance Plan Follow urinary output We will resume home meds Avoid nephrotoxic drugs recommendations from case consultant as follows: PLAN MOST LIKELY WILL NEED TO START DIALYSIS BY THURSDAY CONT HYDRATION FOR NOW SUSPECT ESRD DUE TO ALPORTS CHECK IRON AND START BINDERS WILL FOLLOW History of Present Illness History of Present Illness No acute events reported overnight, case discussed with nursing staff patient in no acute distress no complaints during my visit Vitals Vitals Vital Signs Date Time Temp Pulse Resp B/P (MAP) Pulse Ox O2 Delivery O2 Flow Rate FiO2 04/07/20 11:34 98.1 72 16 175/97 (123) 98 Room Air 98.1 Physical Exam General: Alert, Oriented X3, Cooperative, No acute distress Heart: Regular rate, Normal S1, Normal S2 Lungs: Clear Abdomen: Soft Extremities: No cyanosis Labs LABS Laboratory Tests Test 04/06/20 17:00 04/06/20 17:09 04/06/20 21:04 04/07/20 06:48 Coronavirus (COVID-19)(PCR) Not detected (NOT DETECT.) Glucose (Fingerstick) 141 mg/dL (70-99) 245 mg/dL (70-99) White Blood Count 6.8 x10^3/uL (4.0-11.0) Red Blood Count 2.51 x10^6/uL (3.50-5.40) Hemoglobin 8.3 g/dL (12.0-15.5) Hematocrit 24.7 % (36.0-47.0) Mean Corpuscular Volume 98 fL (79-100) Mean Corpuscular Hemoglobin 33 pg (25-35) Mean Corpuscular Hemoglobin Concent 34 g/dL (31-37) Red Cell Distribution Width 13.4 % (11.5-14.5) Platelet Count 141 x10^3/uL (140-400) Neutrophils (%) (Auto) 60 % (31-73) Lymphocytes (%) (Auto) 27 % (24-48) Monocytes (%) (Auto) 8 % (0-9) Eosinophils (%) (Auto) 5 % (0-3) Basophils (%) (Auto) 1 % (0-3) Neutrophils # (Auto) 4.1 x10^3/uL (1.8-7.7) Lymphocytes # (Auto) 1.8 x10^3/uL (1.0-4.8) Monocytes # (Auto) 0.5 x10^3/uL (0.0-1.1) Eosinophils # (Auto) 0.3 x10^3/uL (0.0-0.7) Basophils # (Auto) 0.0 x10^3/uL (0.0-0.2) Sodium Level 139 mmol/L (136-145) Potassium Level 5.3 mmol/L (3.5-5.1) Chloride Level 104 mmol/L (98-107) Carbon Dioxide Level 21 mmol/L (21-32) Anion Gap 14 (6-14) Blood Urea Nitrogen 62 mg/dL (7-20) Creatinine 7.3 mg/dL (0.6-1.0) Estimated GFR (Cockcroft-Gault) 6.3 Glucose Level 166 mg/dL (70-99) Calcium Level 8.2 mg/dL (8.5-10.1) Phosphorus Level 6.0 mg/dL (2.6-4.7) Albumin 2.9 g/dL (3.4-5.0) Test 04/07/20 07:37 04/07/20 10:40 Glucose (Fingerstick) 150 mg/dL (70-99) 240 mg/dL (70-99) Comment Review of Relevant I have reviewed the following items darya (where applicable) has been applied. Labs Laboratory Tests Test 04/05/20 16:29 04/06/20 04:45 04/06/20 14:45 04/06/20 17:00 Glucose (Fingerstick) 192 mg/dL (70-99) White Blood Count 6.5 x10^3/uL (4.0-11.0) Red Blood Count 2.47 x10^6/uL (3.50-5.40) Hemoglobin 8.1 g/dL (12.0-15.5) Hematocrit 24.4 % (36.0-47.0) Mean Corpuscular Volume 99 fL (79-100) Mean Corpuscular Hemoglobin 33 pg (25-35) Mean Corpuscular Hemoglobin Concent 33 g/dL (31-37) Red Cell Distribution Width 13.7 % (11.5-14.5) Platelet Count 146 x10^3/uL (140-400) Neutrophils (%) (Auto) 54 % (31-73) Lymphocytes (%) (Auto) 33 % (24-48) Monocytes (%) (Auto) 7 % (0-9) Eosinophils (%) (Auto) 5 % (0-3) Basophils (%) (Auto) 1 % (0-3) Neutrophils # (Auto) 3.5 x10^3/uL (1.8-7.7) Lymphocytes # (Auto) 2.2 x10^3/uL (1.0-4.8) Monocytes # (Auto) 0.5 x10^3/uL (0.0-1.1) Eosinophils # (Auto) 0.3 x10^3/uL (0.0-0.7) Basophils # (Auto) 0.0 x10^3/uL (0.0-0.2) Sodium Level 141 mmol/L (136-145) Potassium Level 4.5 mmol/L (3.5-5.1) Chloride Level 105 mmol/L (98-107) Carbon Dioxide Level 21 mmol/L (21-32) Anion Gap 15 (6-14) Blood Urea Nitrogen 63 mg/dL (7-20) Creatinine 7.1 mg/dL (0.6-1.0) Estimated GFR (Cockcroft-Gault) 6.5 BUN/Creatinine Ratio 9 (6-20) Glucose Level 157 mg/dL (70-99) Calcium Level 7.8 mg/dL (8.5-10.1) Total Bilirubin 0.1 mg/dL (0.2-1.0) Aspartate Amino Transf (AST/SGOT) 11 U/L (15-37) Alanine Aminotransferase (ALT/SGPT) 14 U/L (14-59) Alkaline Phosphatase 106 U/L (46-116) Total Protein 5.0 g/dL (6.4-8.2) Albumin 2.5 g/dL (3.4-5.0) Albumin/Globulin Ratio 1.0 (1.0-1.7) Lipase 616 U/L (73-393) Urine Random Creatinine 16.9 mg/dL (Not Establ.) Urine Random Total Protein 109.7 mg/dL (Not Establ.) Urine Protein/Creatinine Ratio 6491 mg/g (0-200) Urine Opiates Screen Neg (NEG) Urine Methadone Screen Neg (NEG) Urine Barbiturates Neg (NEG) Urine Phencyclidine Screen Neg (NEG) Urine Amphetamine/Methamphetamine Neg (NEG) Urine Benzodiazepines Screen Neg (NEG) Urine Cocaine Screen Neg (NEG) Urine Cannabinoids Screen Neg (NEG) Urine Ethyl Alcohol Neg (NEG) Coronavirus (COVID-19)(PCR) Not detected (NOT DETECT.) Test 04/06/20 17:09 04/06/20 21:04 04/07/20 06:48 04/07/20 07:37 Glucose (Fingerstick) 141 mg/dL (70-99) 245 mg/dL (70-99) 150 mg/dL (70-99) White Blood Count 6.8 x10^3/uL (4.0-11.0) Red Blood Count 2.51 x10^6/uL (3.50-5.40) Hemoglobin 8.3 g/dL (12.0-15.5) Hematocrit 24.7 % (36.0-47.0) Mean Corpuscular Volume 98 fL (79-100) Mean Corpuscular Hemoglobin 33 pg (25-35) Mean Corpuscular Hemoglobin Concent 34 g/dL (31-37) Red Cell Distribution Width 13.4 % (11.5-14.5) Platelet Count 141 x10^3/uL (140-400) Neutrophils (%) (Auto) 60 % (31-73) Lymphocytes (%) (Auto) 27 % (24-48) Monocytes (%) (Auto) 8 % (0-9) Eosinophils (%) (Auto) 5 % (0-3) Basophils (%) (Auto) 1 % (0-3) Neutrophils # (Auto) 4.1 x10^3/uL (1.8-7.7) Lymphocytes # (Auto) 1.8 x10^3/uL (1.0-4.8) Monocytes # (Auto) 0.5 x10^3/uL (0.0-1.1) Eosinophils # (Auto) 0.3 x10^3/uL (0.0-0.7) Basophils # (Auto) 0.0 x10^3/uL (0.0-0.2) Sodium Level 139 mmol/L (136-145) Potassium Level 5.3 mmol/L (3.5-5.1) Chloride Level 104 mmol/L (98-107) Carbon Dioxide Level 21 mmol/L (21-32) Anion Gap 14 (6-14) Blood Urea Nitrogen 62 mg/dL (7-20) Creatinine 7.3 mg/dL (0.6-1.0) Estimated GFR (Cockcroft-Gault) 6.3 Glucose Level 166 mg/dL (70-99) Calcium Level 8.2 mg/dL (8.5-10.1) Phosphorus Level 6.0 mg/dL (2.6-4.7) Albumin 2.9 g/dL (3.4-5.0) Test 04/07/20 10:40 Glucose (Fingerstick) 240 mg/dL (70-99) Laboratory Tests Test 04/06/20 17:00 04/06/20 17:09 04/06/20 21:04 04/07/20 06:48 Coronavirus (COVID-19)(PCR) Not detected (NOT DETECT.) Glucose (Fingerstick) 141 mg/dL (70-99) 245 mg/dL (70-99) White Blood Count 6.8 x10^3/uL (4.0-11.0) Red Blood Count 2.51 x10^6/uL (3.50-5.40) Hemoglobin 8.3 g/dL (12.0-15.5) Hematocrit 24.7 % (36.0-47.0) Mean Corpuscular Volume 98 fL (79-100) Mean Corpuscular Hemoglobin 33 pg (25-35) Mean Corpuscular Hemoglobin Concent 34 g/dL (31-37) Red Cell Distribution Width 13.4 % (11.5-14.5) Platelet Count 141 x10^3/uL (140-400) Neutrophils (%) (Auto) 60 % (31-73) Lymphocytes (%) (Auto) 27 % (24-48) Monocytes (%) (Auto) 8 % (0-9) Eosinophils (%) (Auto) 5 % (0-3) Basophils (%) (Auto) 1 % (0-3) Neutrophils # (Auto) 4.1 x10^3/uL (1.8-7.7) Lymphocytes # (Auto) 1.8 x10^3/uL (1.0-4.8) Monocytes # (Auto) 0.5 x10^3/uL (0.0-1.1) Eosinophils # (Auto) 0.3 x10^3/uL (0.0-0.7) Basophils # (Auto) 0.0 x10^3/uL (0.0-0.2) Sodium Level 139 mmol/L (136-145) Potassium Level 5.3 mmol/L (3.5-5.1) Chloride Level 104 mmol/L (98-107) Carbon Dioxide Level 21 mmol/L (21-32) Anion Gap 14 (6-14) Blood Urea Nitrogen 62 mg/dL (7-20) Creatinine 7.3 mg/dL (0.6-1.0) Estimated GFR (Cockcroft-Gault) 6.3 Glucose Level 166 mg/dL (70-99) Calcium Level 8.2 mg/dL (8.5-10.1) Phosphorus Level 6.0 mg/dL (2.6-4.7) Albumin 2.9 g/dL (3.4-5.0) Test 04/07/20 07:37 04/07/20 10:40 Glucose (Fingerstick) 150 mg/dL (70-99) 240 mg/dL (70-99) Microbiology 04/05/20 Blood Culture - Preliminary, Resulted NO GROWTH AFTER 1 DAY Medications Current Medications Sodium Chloride 1,000 ml @ 1,000 mls/hr 1X ONCE IV Last administered on 04/05/20at 11:51; Start 04/05/20 at 11:30; Stop 04/05/20 at 12:29; Status DC Sodium Chloride 1,000 ml @ 150 mls/hr Q6H40M IV Last administered on 04/06/20at 09:49; Start 04/05/20 at 12:34; Stop 04/06/20 at 12:33; Status DC Acetaminophen (Tylenol) 650 mg PRN Q4HRS PRN PO FEVER > 100.3'F Last administered on 04/06/20at 09:36; Start 04/05/20 at 12:45; Stop 04/06/20 at 12:44; Status DC Sodium Polystyrene Sulfonate (Kayexalate) 30 gm 1X ONCE PO Last administered on 04/05/20at 12:45; Start 04/05/20 at 12:45; Stop 04/05/20 at 12:46; Status DC Heparin Sodium (Porcine) (Heparin Sodium) 5,000 unit Q8HRS SQ Last administered on 04/07/20at 05:35; Start 04/05/20 at 22:00 Sodium Chloride (Normal Saline Flush) 3 ml QSHIFT PRN IV AFTER MEDS AND BLOOD DRAWS; Start 04/05/20 at 14:30 Acetaminophen (Tylenol) 650 mg PRN Q4HRS PRN PO TEMP OVER 100.4F OR MILD PAIN Last administered on 04/06/20at 14:19; Start 04/05/20 at 14:30 Docusate Sodium (Colace) 100 mg PRN BID PRN PO HARD STOOLS; Start 04/05/20 at 14:30 Albuterol Sulfate (Ventolin Neb Soln) 2.5 mg PRN Q4HRS PRN NEB SHORTNESS OF BREATH; Start 04/05/20 at 14:30 Guaifenesin (Robitussin) 200 mg PRN Q4HRS PRN PO COUGH; Start 04/05/20 at 14:30 Pantoprazole Sodium (Protonix) 40 mg DAILYAC PO Last administered on 04/07/20at 08:56; Start 04/06/20 at 07:30 Polyethylene Glycol (miraLAX PACKET) 17 gm DAILY PO Last administered on 04/06/20at 09:37; Start 04/06/20 at 09:00; Stop 04/06/20 at 14:41; Status DC Acetaminophen (Tylenol) 650 mg 1X ONCE PO Last administered on 04/05/20at 20:06; Start 04/05/20 at 20:00; Stop 04/05/20 at 20:01; Status DC Lorazepam (Ativan) 1 mg PRN Q4HRS PRN PO ANXIETY / AGITATION Last administered on 04/07/20at 05:30; Start 04/05/20 at 23:30 Lubiprostone (Amitiza) 24 mcg BIDWMEALS PO Last administered on 04/07/20at 08:55; Start 04/06/20 at 17:00 Metoprolol Succinate (Toprol Xl) 25 mg DAILY PO Last administered on 04/07/20 0 8:55; Start 04/06/20 at 13:00 Ferrous Sulfate (Feosol) 325 mg DAILY PO Last administered on 04/07/20at 08:55; Start 04/07/20 at 09:00 Fludrocortisone Acetate (Florinef) 0.1 mg DAILY PO Last administered on 04/07/20 08:56; Start 04/07/20 at 09:00 Fluticasone Propionate (Flonase) 2 spray DAILY NS Last administered on 04/07/20 09:35; Start 04/07/20 at 09:00 Polyethylene Glycol (miraLAX PACKET) 17 gm DAILY PO Last administered on 04/07/20 08:56; Start 04/07/20 at 09:00 Sevelamer Carbonate (Renvela) 800 mg TIDWMEALS PO Last administered on 04/07/20at 13:37; Start 04/06/20 at 17:00 Sodium Bicarbonate (Sodium Bicarbonate) 650 mg TID PO Last administered on 04/07/20at 13:49; Start 04/06/20 at 21:00 Trazodone HCl (Desyrel) 75 mg HS PO Last administered on 04/06/20 21:05; Start 04/06/20 at 21:00 Citalopram Hydrobromide (CeleXA) 20 mg DAILY PO Last administered on 04/07/20 08:55; Start 04/07/20 at 09:00 Non-Formulary Medication (Haloperidol Decanoate ) 100 mg [id number] IM ; Start 05/04/20 at 09:00; Status UNV Insulin Glargine (Lantus Syringe) 12 unit QHS SQ Last administered on 04/06/20 21:12; Start 04/06/20 at 21:00 Cetirizine HCl (ZyrTEC) 10 mg DAILY PO Last administered on 04/07/20 08:55; Start 04/07/20 at 09:00 Valproic Acid (Depakene) 1,000 mg QHS PO Last administered on 04/06/20at 21:05; Start 04/06/20 at 21:00 Insulin Human Lispro (HumaLOG) 0-7 UNITS TIDWMEALS SQ Last administered on 04/07/20at 13:39; Start 04/06/20 at 17:00 Dextrose (Dextrose 50%-Water Syringe) 12.5 gm PRN Q15MIN PRN IV SEE COMMENTS; Start 04/06/20 at 14:30 Acetaminophen/ Codeine Phosphate (Tylenol #3) 1 tab PRN Q6HRS PRN PO MODERATE- SEVERE PAIN Last administered on 04/07/20at 03:52; Start 04/06/20 at 14:30 Sevelamer Carbonate (Renvela) 800 mg TIDWMEALS PO ; Start 04/07/20 at 17:00 Sodium Chloride 1,000 ml @ 75 mls/hr [id number] IV Last administered on 04/07/20at 13:41; Start 04/07/20 at 13:00 Active Scripts Active Reported Trazodone Hcl 50 Mg Tablet 75 Mg PO HS Sodium Bicarbonate 650 Mg Tablet 650 Mg PO TID Renvela (Sevelamer Carbonate) 800 Mg Tablet 800 Mg PO TIDWMEALS Miralax (Polyethylene Glycol 3350) 17 Gm Powd.pack 1 Pkt PO DAILY Loratadine 10 Mg Tablet 10 Mg PO QODAY Levemir Flextouch (Insulin Detemir) 100 Unit/1 Ml Insuln.pen 1 Unit SQ HS Humalog (Insulin Lispro) 100 Unit/1 Ml Vial 0 SQ TIDAC If BS 250-400 give 5 units 401-500 do not administer and call doctor Imodium A-D (Loperamide HCl) 2 Mg Capsule 2 Mg PO PRN PRN Haloperidol Decanoate 100 Mg/1 Ml Vial 100 Mg IM [id number] Glucose Gel (Dextrose) 38 Gm Gel..gram. 15 Gm PO PRN Fluticasone Propionate Nasal [place] (Fluticasone Propionate) 16 Gm [place].susp 2 [place] NS DAILY Fludrocortisone Acetate 0.1 Mg Tablet 0.1 Mg PO DAILY Ferrous Sulfate 325 Mg Tablet 1 Tab PO DAILY Escitalopram Oxalate 10 Mg Tablet 1 Tab PO DAILY Valproic Acid (Valproate Sodium) 250 Mg/5 Ml Solution 1,000 Mg PO HS Acetaminophen 325 Mg Tablet 2 Tab PO PRN Q8HRS PRN 24 Days Vitals/I & O Vital Sign - Last 24 Hours 04/06/20 04/06/20 04/06/20 04/07/20 19:45 20:05 23:56 03:50 Temp 97.5 98.2 97.3 97.5 98.2 97.3 Pulse 75 80 84 Resp 20 16 16 B/P (MAP) 158/86 (110) 159/97 (117) 159/89 (112) Pulse Ox 98 94 92 O2 Delivery Room Air Room Air Room Air Room Air 04/07/20 04/07/20 04/07/20 07:58 08:55 11:34 Temp 97.5 98.1 97.5 98.1 Pulse 70 70 72 Resp 15 16 B/P (MAP) 158/99 (118) 158/99 175/97 (123) Pulse Ox 98 98 O2 Delivery Room Air Room Air Intake and Output 04/06/20 04/06/20 04/07/20 15:00 23:00 07:00 Intake Total 1760 ml 990 ml 480 ml Output Total 500 ml 1000 ml 2500 ml Balance 1260 ml -10 ml -2020 ml RADHA HWANG MD Apr 07, 2020 15:01
[2020-04-07 15:23] VITALS: BP 173/107
[2020-04-07] MEDS ORDERED: SEVELAMER CARBONATE 800 MG TABLET. PO SCH (17:00)
[2020-04-07 19:00] VITALS: BP 153/111
[2020-04-07] MEDS: INSULIN GLARGINE SYRINGE. SQ SCH (21:00)
[2020-04-07] MEDS: VALPROIC ACID 250 MG CAPSULE. PO SCH (21:10)
[2020-04-07] MEDS: traZODone 50 MG TABLET. PO SCH (21:11)
[2020-04-07 23:00] VITALS: BP 113/88
[2020-04-08] MEDS: ACETAMINOPHEN/CODEINE 300/30MG TABLET. PO PRN ×4 (00:56→20:49)
[2020-04-08] MEDS: IV NORMAL SALINE 1000ML BAG 1,000 ML IV SCH ×2 (02:20→17:34)
[2020-04-08 03:00] VITALS: BP 153/95
[2020-04-08] MEDS: LORazepam 1 MG TABLET PO PRN ×4 (03:28→17:34)
[2020-04-08] MEDS: ACETAMINOPHEN 325 MG TABLET. PO PRN (03:31)
[2020-04-08] MEDS: HEPARIN for SUB-Q USE 5,000 UNIT/ML VIAL. SQ SCH ×3 (06:00→20:59)
[2020-04-08 07:51] VITALS: BP 140/87
[2020-04-08] MEDS: INSULIN LISPRO 300 UNITS/3 ML VIAL. SQ SCH ×3 (08:00→17:00)
[2020-04-08] MEDS: SEVELAMER CARBONATE 800 MG TABLET. PO SCH ×3 (08:30→17:33)
[2020-04-08] MEDS: SODIUM BICARBONATE 650 MG TABLET. PO SCH ×3 (08:30→20:49)
[2020-04-08] MEDS: POLYETHYLENE GLYCOL 3350 17 GM PACKET. PO SCH (08:30)
[2020-04-08] MEDS: FERROUS SULFATE 325 MG TABLET. PO SCH (08:31)
[2020-04-08] MEDS: PANTOPRAZOLE 40 MG TABLET.DR. PO SCH (08:31)
[2020-04-08] MEDS: LUBIPROSTONE 24 MCG CAPSULE PO SCH ×2 (08:31→17:33)
[2020-04-08] MEDS: METOPROLOL SUCC 24HR ER 25 MG TAB.ER.24H. PO SCH (08:31)
[2020-04-08] MEDS: CETIRIZINE HCL 10 MG TABLET. PO SCH (08:31)
[2020-04-08] MEDS: CITALOPRAM 20 MG TABLET. PO SCH (08:31)
[2020-04-08] MEDS: FLUDROCORTISONE 0.1 MG TABLET PO SCH (08:31)
[2020-04-08] MEDS: FLUTICASONE 50MCG/NASAL SPRAY 16GM BOTTLE. NS SCH (09:14)
--- NOTE | 2020-04-08 10:41 | PDOC ---
PROGRESS NOTES Chief Complaint Chief Complaint Acute renal failure etiology undetermined at the present time she has underlying chronic kidney disease Acute tubular necrosis suspecte Hyperkalemia resolved Normocytic anemia History of bipolar disorder currently seems to be compensated History of [place] syndrome Elevated Lipase which seems to be of no clinical significance Plan Follow urinary output We will resume home meds Avoid nephrotoxic drugs recommendations from technical healthcare consultant as follows: PLAN MOST LIKELY WILL NEED TO START DIALYSIS BY THURSDAY CONT HYDRATION FOR NOW SUSPECT ESRD DUE TO ALPORTS CHECK IRON AND START BINDERS WILL FOLLOW History of Present Illness History of Present Illness 04/07: No acute events reported overnight, case discussed with nursing staff patient in no acute distress no complaints during my visit 04/08: Patient ambulating well with no acute distress. Patient asking when she could be discharged from the hospital, explained her laboratory data and the need for continued monitoring and following recommendations from nephrology technical healthcare consultant no acute events reported overnight reassurance has been provided Vitals Vitals Vital Signs Date Time Temp Pulse Resp B/P (MAP) Pulse Ox O2 Delivery O2 Flow Rate FiO2 04/08/20 09:30 17 Room Air 04/08/20 08:31 88 140/87 04/08/20 08:00 95 04/08/20 08:00 3.0 04/08/20 07:51 98.3 98.3 Physical Exam General: Alert, Oriented X3, Cooperative, No acute distress Heart: Regular rate, Normal S1, Normal S2 Lungs: Clear Abdomen: Soft Extremities: No cyanosis Labs LABS Laboratory Tests Test 04/07/20 16:22 04/07/20 20:47 04/08/20 07:36 Glucose (Fingerstick) 100 mg/dL (70-99) 244 mg/dL (70-99) 179 mg/dL (70-99) Review of Systems Review of Systems Pertinent as per HPI otherwise 14 point review of system is negative Comment Review of Relevant I have reviewed the following items darya (where applicable) has been applied. Labs Laboratory Tests Test 04/06/20 14:45 04/06/20 17:00 04/06/20 17:09 04/06/20 21:04 Urine Random Creatinine 16.9 mg/dL (Not Establ.) Urine Random Total Protein 109.7 mg/dL (Not Establ.) Urine Protein/Creatinine Ratio 6491 mg/g (0-200) Urine Opiates Screen Neg (NEG) Urine Methadone Screen Neg (NEG) Urine Barbiturates Neg (NEG) Urine Phencyclidine Screen Neg (NEG) Urine Amphetamine/Methamphetamine Neg (NEG) Urine Benzodiazepines Screen Neg (NEG) Urine Cocaine Screen Neg (NEG) Urine Cannabinoids Screen Neg (NEG) Urine Ethyl Alcohol Neg (NEG) Coronavirus (COVID-19)(PCR) Not detected (NOT DETECT.) Glucose (Fingerstick) 141 mg/dL (70-99) 245 mg/dL (70-99) Test 04/07/20 06:48 04/07/20 07:37 04/07/20 10:40 04/07/20 16:22 White Blood Count 6.8 x10^3/uL (4.0-11.0) Red Blood Count 2.51 x10^6/uL (3.50-5.40) Hemoglobin 8.3 g/dL (12.0-15.5) Hematocrit 24.7 % (36.0-47.0) Mean Corpuscular Volume 98 fL (79-100) Mean Corpuscular Hemoglobin 33 pg (25-35) Mean Corpuscular Hemoglobin Concent 34 g/dL (31-37) Red Cell Distribution Width 13.4 % (11.5-14.5) Platelet Count 141 x10^3/uL (140-400) Neutrophils (%) (Auto) 60 % (31-73) Lymphocytes (%) (Auto) 27 % (24-48) Monocytes (%) (Auto) 8 % (0-9) Eosinophils (%) (Auto) 5 % (0-3) Basophils (%) (Auto) 1 % (0-3) Neutrophils # (Auto) 4.1 x10^3/uL (1.8-7.7) Lymphocytes # (Auto) 1.8 x10^3/uL (1.0-4.8) Monocytes # (Auto) 0.5 x10^3/uL (0.0-1.1) Eosinophils # (Auto) 0.3 x10^3/uL (0.0-0.7) Basophils # (Auto) 0.0 x10^3/uL (0.0-0.2) Sodium Level 139 mmol/L (136-145) Potassium Level 5.3 mmol/L (3.5-5.1) Chloride Level 104 mmol/L (98-107) Carbon Dioxide Level 21 mmol/L (21-32) Anion Gap 14 (6-14) Blood Urea Nitrogen 62 mg/dL (7-20) Creatinine 7.3 mg/dL (0.6-1.0) Estimated GFR (Cockcroft-Gault) 6.3 Glucose Level 166 mg/dL (70-99) Calcium Level 8.2 mg/dL (8.5-10.1) Phosphorus Level 6.0 mg/dL (2.6-4.7) Albumin 2.9 g/dL (3.4-5.0) Glucose (Fingerstick) 150 mg/dL (70-99) 240 mg/dL (70-99) 100 mg/dL (70-99) Test 04/07/20 20:47 04/08/20 07:36 Glucose (Fingerstick) 244 mg/dL (70-99) 179 mg/dL (70-99) Laboratory Tests Test 04/07/20 16:22 04/07/20 20:47 04/08/20 07:36 Glucose (Fingerstick) 100 mg/dL (70-99) 244 mg/dL (70-99) 179 mg/dL (70-99) Microbiology 04/05/20 Blood Culture - Preliminary, Resulted NO GROWTH AFTER 2 DAYS Medications Current Medications Sodium Chloride 1,000 ml @ 1,000 mls/hr 1X ONCE IV Last administered on 04/05/20at 11:51; Start 04/05/20 at 11:30; Stop 04/05/20 at 12:29; Status DC Sodium Chloride 1,000 ml @ 150 mls/hr Q6H40M IV Last administered on 04/06/20at 09:49; Start 04/05/20 at 12:34; Stop 04/06/20 at 12:33; Status DC Acetaminophen (Tylenol) 650 mg PRN Q4HRS PRN PO FEVER > 100.3'F Last administered on 04/06/20at 09:36; Start 04/05/20 at 12:45; Stop 04/06/20 at 12:44; Status DC Sodium Polystyrene Sulfonate (Kayexalate) 30 gm 1X ONCE PO Last administered on 04/05/20at 12:45; Start 04/05/20 at 12:45; Stop 04/05/20 at 12:46; Status DC Heparin Sodium (Porcine) (Heparin Sodium) 5,000 unit Q8HRS SQ Last administered on 04/08/20 06:00; Start 04/05/20 at 22:00 Sodium Chloride (Normal Saline Flush) 3 ml QSHIFT PRN IV AFTER MEDS AND BLOOD DRAWS; Start 04/05/20 at 14:30 Acetaminophen (Tylenol) 650 mg PRN Q4HRS PRN PO TEMP OVER 100.4F OR MILD PAIN Last administered on 04/08/20 03:31; Start 04/05/20 at 14:30 Docusate Sodium (Colace) 100 mg PRN BID PRN PO HARD STOOLS; Start 04/05/20 at 14:30 Albuterol Sulfate (Ventolin Neb Soln) 2.5 mg PRN Q4HRS PRN NEB SHORTNESS OF BREATH; Start 04/05/20 at 14:30 Guaifenesin (Robitussin) 200 mg PRN Q4HRS PRN PO COUGH; Start 04/05/20 at 14:30 Pantoprazole Sodium (Protonix) 40 mg DAILYAC PO Last administered on 04/08/20 08:31; Start 04/06/20 at 07:30 Polyethylene Glycol (miraLAX PACKET) 17 gm DAILY PO Last administered on 04/06/20 09:37; Start 04/06/20 at 09:00; Stop 04/06/20 at 14:41; Status DC Acetaminophen (Tylenol) 650 mg 1X ONCE PO Last administered on 04/05/20 20:06; Start 04/05/20 at 20:00; Stop 04/05/20 at 20:01; Status DC Lorazepam (Ativan) 1 mg PRN Q4HRS PRN PO ANXIETY / AGITATION Last administered on 04/08/20 08:30; Start 04/05/20 at 23:30 Lubiprostone (Amitiza) 24 mcg BIDWMEALS PO Last administered on 04/08/20 08:31; Start 04/06/20 at 17:00 Metoprolol Succinate (Toprol Xl) 25 mg DAILY PO Last administered on 04/08/20 08:31; Start 04/06/20 at 13:00 Ferrous Sulfate (Feosol) 325 mg DAILY PO Last administered on 04/08/20 08:31; Start 04/07/20 at 09:00 Fludrocortisone Acetate (Florinef) 0.1 mg DAILY PO Last administered on 04/08/20 08:31; Start 04/07/20 at 09:00 Fluticasone Propionate (Flonase) 2 spray DAILY NS Last administered on 04/08/20 09:14; Start 04/07/20 at 09:00 Polyethylene Glycol (miraLAX PACKET) 17 gm DAILY PO Last administered on 04/08 08:30; Start 04/07/20 at 09:00 Sevelamer Carbonate (Renvela) 800 mg TIDWMEALS PO Last administered on 04/08/20 08:30; Start 04/06/20 at 17:00 Sodium Bicarbonate (Sodium Bicarbonate) 650 mg TID PO Last administered on 04/08/20 08:30; Start 04/06/20 at 21:00 Trazodone HCl (Desyrel) 75 mg HS PO Last administered on 04/07/20 21:11; Start 04/06/20 at 21:00 Citalopram Hydrobromide (CeleXA) 20 mg DAILY PO Last administered on 04/08/20 08:31; Start 04/07/20 at 09:00 Non-Formulary Medication (Haloperidol Decanoate ) 100 mg [id number] IM ; Start 05/04/20 at 09:00; Status UNV Insulin Glargine (Lantus Syringe) 12 unit QHS SQ Last administered on 04/07/20 21:00; Start 04/06/20 at 21:00 Cetirizine HCl (ZyrTEC) 10 mg DAILY PO Last administered on 04/08/20 08:31; Start 04/07/20 at 09:00 Valproic Acid (Depakene) 1,000 mg QHS PO Last administered on 04/07/20 21:10; Start 04/06/20 at 21:00 Insulin Human Lispro (HumaLOG) 0-7 UNITS TIDWMEALS SQ Last administered on 04/07/20 13:39; Start 04/06/20 at 17:00 Dextrose (Dextrose 50%-Water Syringe) 12.5 gm PRN Q15MIN PRN IV SEE COMMENTS; Start 04/06/20 at 14:30 Acetaminophen/ Codeine Phosphate (Tylenol #3) 1 tab PRN Q6HRS PRN PO MODERATE- SEVERE PAIN Last administered on 04/08/20at 08:30; Start 04/06/20 at 14:30 Sevelamer Carbonate (Renvela) 800 mg TIDWMEALS PO ; Start 04/07/20 at 17:00; Stop 04/07/20 at 15:47; Status DC Sodium Chloride 1,000 ml @ 75 mls/hr [id number] IV Last administered on 04/08/20at 02:20; Start 04/07/20 at 13:00 Active Scripts Active Reported Trazodone Hcl 50 Mg Tablet 75 Mg PO HS Sodium Bicarbonate 650 Mg Tablet 650 Mg PO TID Renvela (Sevelamer Carbonate) 800 Mg Tablet 800 Mg PO TIDWMEALS Miralax (Polyethylene Glycol 3350) 17 Gm Powd.pack 1 Pkt PO DAILY Loratadine 10 Mg Tablet 10 Mg PO QODAY Levemir Flextouch (Insulin Detemir) 100 Unit/1 Ml Insuln.pen 1 Unit SQ HS Humalog (Insulin Lispro) 100 Unit/1 Ml Vial 0 SQ TIDAC If BS 250-400 give 5 units 401-500 do not administer and call doctor Imodium A-D (Loperamide HCl) 2 Mg Capsule 2 Mg PO PRN PRN Haloperidol Decanoate 100 Mg/1 Ml Vial 100 Mg IM [id number] Glucose Gel (Dextrose) 38 Gm Gel..gram. 15 Gm PO PRN Fluticasone Propionate Nasal Rankin (Fluticasone Propionate) 16 Gm Rankin.susp 2 Rankin NS DAILY Fludrocortisone Acetate 0.1 Mg Tablet 0.1 Mg PO DAILY Ferrous Sulfate 325 Mg Tablet 1 Tab PO DAILY Escitalopram Oxalate 10 Mg Tablet 1 Tab PO DAILY Valproic Acid (Valproate Sodium) 250 Mg/5 Ml Solution 1,000 Mg PO HS Acetaminophen 325 Mg Tablet 2 Tab PO PRN Q8HRS PRN 24 Days Vitals/I & O Vital Sign - Last 24 Hours 04/07/20 04/07/20 04/07/20 04/07/20 11:10 11:34 12:10 15:23 Temp 98.1 98.3 98.1 98.3 Pulse 72 79 Resp 17 16 18 17 B/P (MAP) 175/97 (123) 173/107 (129) Pulse Ox 98 96 O2 Delivery Room Air Room Air Room Air Room Air 04/07/20 04/07/20 04/07/20 04/07/20 17:28 18:28 19:00 20:05 Temp 98.6 98.6 Pulse 83 Resp 18 17 16 B/P (MAP) 153/111 (125) Pulse Ox 97 O2 Delivery Room Air Nasal Cannula Nasal Cannula O2 Flow Rate 3.0 3.0 04/07/20 04/08/20 04/08/20 04/08/20 23:00 00:56 01:56 03:00 Temp 98.6 99.8 98.6 99.8 Pulse 98 102 Resp 18 18 B/P (MAP) 113/88 (96) 153/95 (114) Pulse Ox 98 97 97 94 O2 Delivery Nasal Cannula Nasal Cannula O2 Flow Rate 3.0 3.0 04/08/20 04/08/20 04/08/20 04/08/20 07:51 08:00 08:00 08:30 Temp 98.3 98.3 Pulse 88 Resp 18 18 B/P (MAP) 140/87 (104) Pulse Ox 95 95 O2 Delivery Room Air Nasal Cannula Room Air Room Air O2 Flow Rate 3.0 04/08/20 04/08/20 08:31 09:30 Pulse 88 Resp 17 B/P (MAP) 140/87 O2 Delivery Room Air Intake and Output 04/07/20 04/07/20 04/08/20 15:00 23:00 07:00 Intake Total 240 ml 480 ml 480 ml Balance 240 ml 480 ml 480 ml RADHA HWANG MD Apr 08, 2020 10:41
[2020-04-08 11:05] LABS: HEMATOCRIT 23.8 % (36.0-47.0); HEMOGLOBIN 8.2 g/dL (12.0-15.5); RED BLOOD COUNT 2.42 x10^6/uL (3.50-5.40); RED CELL DISTRIBUTION WIDTH 13.3 % (11.5-14.5); WHITE BLOOD COUNT 5.6 x10^3/uL (4.0-11.0)
[2020-04-08 11:06] VITALS: BP 131/80
[2020-04-08 11:15] LABS: ALBUMIN 2.7 g/dL (3.4-5.0); CALCIUM 8.5 mg/dL (8.5-10.1); CREATININE 7.4 mg/dL (0.6-1.0); GFR 6.2; PHOSPHORUS 5.9 mg/dL (2.6-4.7); POTASSIUM 5.1 mmol/L (3.5-5.1)
--- NOTE | 2020-04-08 11:48 | PDOC ---
Renal-Progress Notes Subjective Notes Notes VERY SLEEPY History of Present Illness Hx of present illness NO CHANGE Vitals Vitals Vital Signs Date Time Temp Pulse Resp B/P (MAP) Pulse Ox O2 Delivery O2 Flow Rate FiO2 04/08/20 11:06 98.3 81 17 131/80 (97) 95 Room Air 98.3 04/08/20 08:00 3.0 Weight Weight [ ] I.O. Intake and Output Intake and Output 04/08/20 07:00 Intake Total 1200 ml Balance 1200 ml Intake Oral 1200 ml Labs Labs Laboratory Tests Test 04/07/20 16:22 04/07/20 20:47 04/08/20 07:36 04/08/20 10:15 Glucose (Fingerstick) 100 mg/dL (70-99) 244 mg/dL (70-99) 179 mg/dL (70-99) White Blood Count 5.6 x10^3/uL (4.0-11.0) Red Blood Count 2.42 x10^6/uL (3.50-5.40) Hemoglobin 8.2 g/dL (12.0-15.5) Hematocrit 23.8 % (36.0-47.0) Mean Corpuscular Volume 99 fL (79-100) Mean Corpuscular Hemoglobin 34 pg (25-35) Mean Corpuscular Hemoglobin Concent 34 g/dL (31-37) Red Cell Distribution Width 13.3 % (11.5-14.5) Platelet Count 134 x10^3/uL (140-400) Sodium Level 133 mmol/L (136-145) Potassium Level 5.1 mmol/L (3.5-5.1) Chloride Level 99 mmol/L (98-107) Carbon Dioxide Level 21 mmol/L (21-32) Anion Gap 13 (6-14) Blood Urea Nitrogen 63 mg/dL (7-20) Creatinine 7.4 mg/dL (0.6-1.0) Estimated GFR (Cockcroft-Gault) 6.2 Glucose Level 183 mg/dL (70-99) Calcium Level 8.5 mg/dL (8.5-10.1) Phosphorus Level 5.9 mg/dL (2.6-4.7) Iron Level 51 ug/dL (50-170) Total Iron Binding Capacity 281 ug/dL (250-450) Iron Saturation 18 % (15-34) Albumin 2.7 g/dL (3.4-5.0) Test 04/08/20 11:15 Glucose (Fingerstick) 150 mg/dL (70-99) Micro Micro Microbiology 04/05/20 Blood Culture - Preliminary, Resulted NO GROWTH AFTER 2 DAYS Review of Systems Constitutional: yes: alert, oriented Ears/Nose/Throat: Yes: no symptom reported Eyes: Yes: no symptom reported Pulmonary: Yes no symptom reported Gastrointestional: Yes: nausea Musculoskeletal: Yes: no symptom reported Skin: Yes no symptom reported Psychiatric/Neurological: Yes: no symptom reported Endocrine: Yes: no symptom reported Physical Exam General Appearance: no apparent distress Skin: warm Respiratory: bilateral CTA Heart: S1S2 Abdomen: soft, bowel sounds present Genitourinary: bladder flat Extremities: pulses present Neurology: alert, oriented Assessment Assessment IMP UREMIA ESRD-[facility] DX BY DR DACIA FLOOD IN [place] YEARS AGO ANEMIA OF RENAL FAILURE HYPERKALEMIA-BETTER HX OF BIPOLAR SECONDARY HYPERPARATHYROIDISM PLAN NEEDS TO START HD WILL HAVE IR PLACE TUNNELED HD CATHETER TOMORROW WILL ASK SW TO SET UP OP HD FOR HER SHE IS FROM [place] D/W ATTENDING ROME ORTEGA MD Apr 08, 2020 11:48
[2020-04-08 14:42] VITALS: BP 160/85
[2020-04-08 19:00] VITALS: BP 163/101
[2020-04-08] MEDS: traZODone 50 MG TABLET. PO SCH (20:49)
[2020-04-08] MEDS: VALPROIC ACID 250 MG CAPSULE. PO SCH (20:49)
[2020-04-08 23:00] VITALS: BP 155/85
[2020-04-09] VITALS (11 sets, daily range): BP systolic 143–185; BP diastolic 77–111
[2020-04-09] MEDS: INSULIN GLARGINE SYRINGE. SQ SCH ×2 (00:53→21:55)
[2020-04-09] MEDS: ACETAMINOPHEN/CODEINE 300/30MG TABLET. PO PRN ×4 (02:44→22:47)
[2020-04-09] MEDS: LORazepam 1 MG TABLET PO PRN ×3 (02:44→12:23)
[2020-04-09] MEDS: HEPARIN for SUB-Q USE 5,000 UNIT/ML VIAL. SQ SCH ×3 (02:50→21:56)
[2020-04-09] MEDS: IV NORMAL SALINE 1000ML BAG 1,000 ML IV SCH ×2 (05:00→16:52)
[2020-04-09] MEDS: PANTOPRAZOLE 40 MG TABLET.DR. PO SCH ×2 (07:30→10:30)
[2020-04-09 07:40] LABS: ALBUMIN 2.7 g/dL (3.4-5.0); CALCIUM 8.5 mg/dL (8.5-10.1); CREATININE 7.2 mg/dL (0.6-1.0); GFR 6.4; PHOSPHORUS 6.2 mg/dL (2.6-4.7); POTASSIUM 5.2 mmol/L (3.5-5.1)
[2020-04-09 07:52] LABS: BASO % 1 % (0-3); EOS # 0.2 x10^3/uL (0.0-0.7); EOS % 4 % (0-3); HEMATOCRIT 23.1 % (36.0-47.0); HEMOGLOBIN 7.7 g/dL (12.0-15.5); LYMPH # 1.1 x10^3/uL (1.0-4.8); LYMPH % 23 % (24-48); MEAN CORPUSCULAR HEMOGLOBIN 33 pg (25-35); MEAN CORPUSCULAR HGB CONC 33 g/dL (31-37); MEAN CORPUSCULAR VOLUME 99 fL (79-100); MONO # 0.4 x10^3/uL (0.0-1.1); MONO % 9 % (0-9); NEUT % 63 % (31-73); PLATELET COUNT 132 x10^3/uL (140-400); RED BLOOD COUNT 2.33 x10^6/uL (3.50-5.40); RED CELL DISTRIBUTION WIDTH 13.8 % (11.5-14.5); WHITE BLOOD COUNT 4.8 x10^3/uL (4.0-11.0)
[2020-04-09] MEDS: SEVELAMER CARBONATE 800 MG TABLET. PO SCH ×3 (08:00→16:52)
[2020-04-09] MEDS: LUBIPROSTONE 24 MCG CAPSULE PO SCH ×2 (08:00→16:51)
[2020-04-09] MEDS: INSULIN LISPRO 300 UNITS/3 ML VIAL. SQ SCH ×3 (08:00→16:51)
[2020-04-09] MEDS: CITALOPRAM 20 MG TABLET. PO SCH ×2 (08:11→10:30)
[2020-04-09] MEDS: SODIUM BICARBONATE 650 MG TABLET. PO SCH ×3 (08:12→21:47)
[2020-04-09] MEDS: FLUDROCORTISONE 0.1 MG TABLET PO SCH ×2 (08:12→10:30)
[2020-04-09] MEDS: FERROUS SULFATE 325 MG TABLET. PO SCH ×2 (08:12→10:30)
[2020-04-09] MEDS: CETIRIZINE HCL 10 MG TABLET. PO SCH (08:12)
[2020-04-09] MEDS: METOPROLOL SUCC 24HR ER 25 MG TAB.ER.24H. PO SCH ×2 (08:12→10:31)
[2020-04-09] MEDS: POLYETHYLENE GLYCOL 3350 17 GM PACKET. PO SCH ×2 (08:12→10:31)
[2020-04-09 08:29] LABS: PROTHROMBIN TIME PATIENT 13.1 SEC (11.7-14.0)
[2020-04-09] MEDS: FLUTICASONE 50MCG/NASAL SPRAY 16GM BOTTLE. NS SCH (08:39)
[2020-04-09] MEDS ORDERED: LIDOCAINE 1%/EPI 1:100,000 20 ML VIAL. ONE (08:42)
[2020-04-09] MEDS ORDERED: MIDAZOLAM HCL/PF 2 MG/2 ML VIAL. ONE ×2 (08:51→09:08)
[2020-04-09] MEDS ORDERED: ceFAZolin SODIUM IV Push 1 GM VIAL. IVP ONE (08:51)
[2020-04-09] MEDS ORDERED: fentaNYL PF VIAL 100 MCG/2 ML VIAL ONE ×2 (08:52→09:08)
[2020-04-09] MEDS ORDERED: LIDOCAINE 1%/EPI 1:100,000 20 ML VIAL. INJ ONE (09:15)
[2020-04-09] MEDS ORDERED: MIDAZOLAM HCL/PF 2 MG/2 ML VIAL. IV ONE (09:15)
[2020-04-09] MEDS ORDERED: fentaNYL PF VIAL 100 MCG/2 ML VIAL IV ONE (09:15)
--- NOTE | 2020-04-09 09:31 | PDOC ---
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 I do not want to start her on any narcotic pain medications, but I see she is now on Tylenol # 3. Treatment of medical issues, I understand she is getting a dialysis catheter. Subjective Headaches and tremor are much better, but she's also seeking a switch from Tylenol #3 to Lortab Objective Vital Signs Date Time Temp Pulse Resp B/P (MAP) Pulse Ox O2 Delivery O2 Flow Rate FiO2 04/09/20 07:49 98.4 91 20 154/77 (102) 94 Room Air 98.4 04/08/20 20:49 3.0 Intake and Output 04/09/20 07:00 Intake Total 1160 ml Balance 1160 ml Intake Oral 1160 ml # Voids 2 PHYSICAL EXAM Alert. Oriented to place and person, does not know date not speaking bizarrely as before. PERRL. EOMI. CN: no focal findings. Muscle tone: normal. Muscle strength: 5/5 DTR: 2+ Plantar reflex: flexor Gait: normal. Sensory exam: no abnormal findings. No cerebellar signs elicited. Review of Relevant I have reviewed the following items darya (where applicable) has been applied. Labs Laboratory Tests Test 04/07/20 10:40 04/07/20 16:22 04/07/20 20:47 04/08/20 07:36 Glucose (Fingerstick) 240 mg/dL (70-99) 100 mg/dL (70-99) 244 mg/dL (70-99) 179 mg/dL (70-99) Test 04/08/20 10:15 04/08/20 11:15 04/08/20 16:26 04/08/20 21:30 White Blood Count 5.6 x10^3/uL (4.0-11.0) Red Blood Count 2.42 x10^6/uL (3.50-5.40) Hemoglobin 8.2 g/dL (12.0-15.5) Hematocrit 23.8 % (36.0-47.0) Mean Corpuscular Volume 99 fL (79-100) Mean Corpuscular Hemoglobin 34 pg (25-35) Mean Corpuscular Hemoglobin Concent 34 g/dL (31-37) Red Cell Distribution Width 13.3 % (11.5-14.5) Platelet Count 134 x10^3/uL (140-400) Sodium Level 133 mmol/L (136-145) Potassium Level 5.1 mmol/L (3.5-5.1) Chloride Level 99 mmol/L (98-107) Carbon Dioxide Level 21 mmol/L (21-32) Anion Gap 13 (6-14) Blood Urea Nitrogen 63 mg/dL (7-20) Creatinine 7.4 mg/dL (0.6-1.0) Estimated GFR (Cockcroft-Gault) 6.2 Glucose Level 183 mg/dL (70-99) Calcium Level 8.5 mg/dL (8.5-10.1) Phosphorus Level 5.9 mg/dL (2.6-4.7) Iron Level 51 ug/dL (50-170) Total Iron Binding Capacity 281 ug/dL (250-450) Iron Saturation 18 % (15-34) Albumin 2.7 g/dL (3.4-5.0) Glucose (Fingerstick) 150 mg/dL (70-99) 170 mg/dL (70-99) 161 mg/dL (70-99) Test 04/09/20 06:15 04/09/20 07:07 White Blood Count 4.8 x10^3/uL (4.0-11.0) Red Blood Count 2.33 x10^6/uL (3.50-5.40) Hemoglobin 7.7 g/dL (12.0-15.5) Hematocrit 23.1 % (36.0-47.0) Mean Corpuscular Volume 99 fL (79-100) Mean Corpuscular Hemoglobin 33 pg (25-35) Mean Corpuscular Hemoglobin Concent 33 g/dL (31-37) Red Cell Distribution Width 13.8 % (11.5-14.5) Platelet Count 132 x10^3/uL (140-400) Neutrophils (%) (Auto) 63 % (31-73) Lymphocytes (%) (Auto) 23 % (24-48) Monocytes (%) (Auto) 9 % (0-9) Eosinophils (%) (Auto) 4 % (0-3) Basophils (%) (Auto) 1 % (0-3) Neutrophils # (Auto) 3.0 x10^3/uL (1.8-7.7) Lymphocytes # (Auto) 1.1 x10^3/uL (1.0-4.8) Monocytes # (Auto) 0.4 x10^3/uL (0.0-1.1) Eosinophils # (Auto) 0.2 x10^3/uL (0.0-0.7) Basophils # (Auto) 0.0 x10^3/uL (0.0-0.2) Prothrombin Time 13.1 SEC (11.7-14.0) Prothromb Time International Ratio 1.0 (0.8-1.1) Sodium Level 132 mmol/L (136-145) Potassium Level 5.2 mmol/L (3.5-5.1) Chloride Level 98 mmol/L (98-107) Carbon Dioxide Level 23 mmol/L (21-32) Anion Gap 11 (6-14) Blood Urea Nitrogen 59 mg/dL (7-20) Creatinine 7.2 mg/dL (0.6-1.0) Estimated GFR (Cockcroft-Gault) 6.4 Glucose Level 226 mg/dL (70-99) Calcium Level 8.5 mg/dL (8.5-10.1) Phosphorus Level 6.2 mg/dL (2.6-4.7) Albumin 2.7 g/dL (3.4-5.0) Glucose (Fingerstick) 178 mg/dL (70-99) Laboratory Tests Test 04/08/20 10:15 04/08/20 11:15 04/08/20 16:26 04/08/20 21:30 White Blood Count 5.6 x10^3/uL (4.0-11.0) Red Blood Count 2.42 x10^6/uL (3.50-5.40) Hemoglobin 8.2 g/dL (12.0-15.5) Hematocrit 23.8 % (36.0-47.0) Mean Corpuscular Volume 99 fL (79-100) Mean Corpuscular Hemoglobin 34 pg (25-35) Mean Corpuscular Hemoglobin Concent 34 g/dL (31-37) Red Cell Distribution Width 13.3 % (11.5-14.5) Platelet Count 134 x10^3/uL (140-400) Sodium Level 133 mmol/L (136-145) Potassium Level 5.1 mmol/L (3.5-5.1) Chloride Level 99 mmol/L (98-107) Carbon Dioxide Level 21 mmol/L (21-32) Anion Gap 13 (6-14) Blood Urea Nitrogen 63 mg/dL (7-20) Creatinine 7.4 mg/dL (0.6-1.0) Estimated GFR (Cockcroft-Gault) 6.2 Glucose Level 183 mg/dL (70-99) Calcium Level 8.5 mg/dL (8.5-10.1) Phosphorus Level 5.9 mg/dL (2.6-4.7) Iron Level 51 ug/dL (50-170) Total Iron Binding Capacity 281 ug/dL (250-450) Iron Saturation 18 % (15-34) Albumin 2.7 g/dL (3.4-5.0) Glucose (Fingerstick) 150 mg/dL (70-99) 170 mg/dL (70-99) 161 mg/dL (70-99) Test 04/09/20 06:15 04/09/20 07:07 White Blood Count 4.8 x10^3/uL (4.0-11.0) Red Blood Count 2.33 x10^6/uL (3.50-5.40) Hemoglobin 7.7 g/dL (12.0-15.5) Hematocrit 23.1 % (36.0-47.0) Mean Corpuscular Volume 99 fL (79-100) Mean Corpuscular Hemoglobin 33 pg (25-35) Mean Corpuscular Hemoglobin Concent 33 g/dL (31-37) Red Cell Distribution Width 13.8 % (11.5-14.5) Platelet Count 132 x10^3/uL (140-400) Neutrophils (%) (Auto) 63 % (31-73) Lymphocytes (%) (Auto) 23 % (24-48) Monocytes (%) (Auto) 9 % (0-9) Eosinophils (%) (Auto) 4 % (0-3) Basophils (%) (Auto) 1 % (0-3) Neutrophils # (Auto) 3.0 x10^3/uL (1.8-7.7) Lymphocytes # (Auto) 1.1 x10^3/uL (1.0-4.8) Monocytes # (Auto) 0.4 x10^3/uL (0.0-1.1) Eosinophils # (Auto) 0.2 x10^3/uL (0.0-0.7) Basophils # (Auto) 0.0 x10^3/uL (0.0-0.2) Prothrombin Time 13.1 SEC (11.7-14.0) Prothromb Time International Ratio 1.0 (0.8-1.1) Sodium Level 132 mmol/L (136-145) Potassium Level 5.2 mmol/L (3.5-5.1) Chloride Level 98 mmol/L (98-107) Carbon Dioxide Level 23 mmol/L (21-32) Anion Gap 11 (6-14) Blood Urea Nitrogen 59 mg/dL (7-20) Creatinine 7.2 mg/dL (0.6-1.0) Estimated GFR (Cockcroft-Gault) 6.4 Glucose Level 226 mg/dL (70-99) Calcium Level 8.5 mg/dL (8.5-10.1) Phosphorus Level 6.2 mg/dL (2.6-4.7) Albumin 2.7 g/dL (3.4-5.0) Glucose (Fingerstick) 178 mg/dL (70-99) Microbiology 04/05/20 Blood Culture - Preliminary, Resulted NO GROWTH AFTER 3 DAYS Medications Current Medications Sodium Chloride 1,000 ml @ 1,000 mls/hr 1X ONCE IV Last administered on 04/05/20at 11:51; Start 04/05/20 at 11:30; Stop 04/05/20 at 12:29; Status DC Sodium Chloride 1,000 ml @ 150 mls/hr Q6H40M IV Last administered on 04/06/20at 09:49; Start 04/05/20 at 12:34; Stop 04/06/20 at 12:33; Status DC Acetaminophen (Tylenol) 650 mg PRN Q4HRS PRN PO FEVER > 100.3'F Last administered on 04/06/20 09:36; Start 04/05/20 at 12:45; Stop 04/06/20 at 12:44; Status DC Sodium Polystyrene Sulfonate (Kayexalate) 30 gm 1X ONCE PO Last administered on 04/05/20 12:45; Start 04/05/20 at 12:45; Stop 04/05/20 at 12:46; Status DC Heparin Sodium (Porcine) (Heparin Sodium) 5,000 unit Q8HRS SQ Last administered on 04/08/20 20:59; Start 04/05/20 at 22:00 Sodium Chloride (Normal Saline Flush) 3 ml QSHIFT PRN IV AFTER MEDS AND BLOOD DRAWS; Start 04/05/20 at 14:30 Acetaminophen (Tylenol) 650 mg PRN Q4HRS PRN PO TEMP OVER 100.4F OR MILD PAIN Last administered on 04/08/20 03:31; Start 04/05/20 at 14:30 Docusate Sodium (Colace) 100 mg PRN BID PRN PO HARD STOOLS; Start 04/05/20 at 14:30 Albuterol Sulfate (Ventolin Neb Soln) 2.5 mg PRN Q4HRS PRN NEB SHORTNESS OF BREATH; Start 04/05/20 at 14:30 Guaifenesin (Robitussin) 200 mg PRN Q4HRS PRN PO COUGH; Start 04/05/20 at 14:30 Pantoprazole Sodium (Protonix) 40 mg DAILYAC PO Last administered on 04/08/20 08:31; Start 04/06/20 at 07:30 Polyethylene Glycol (miraLAX PACKET) 17 gm DAILY PO Last administered on 04/06/20 09:37; Start 04/06/20 at 09:00; Stop 04/06/20 at 14:41; Status DC Acetaminophen (Tylenol) 650 mg 1X ONCE PO Last administered on 04/05/20 20:06; Start 04/05/20 at 20:00; Stop 04/05/20 at 20:01; Status DC Lorazepam (Ativan) 1 mg PRN Q4HRS PRN PO ANXIETY / AGITATION Last administered on 04/09/20 08:39; Start 04/05/20 at 23:30 Lubiprostone (Amitiza) 24 mcg BIDWMEALS PO Last administered on 04/08/20 17:33; Start 04/06/20 at 17:00 Metoprolol Succinate (Toprol Xl) 25 mg DAILY PO Last administered on 04/08/20 08:31; Start 04/06/20 at 13:00 Ferrous Sulfate (Feosol) 325 mg DAILY PO Last administered on 04/08/20 08:31; Start 04/07/20 at 09:00 Fludrocortisone Acetate (Florinef) 0.1 mg DAILY PO Last administered on 04/08/20 08:31; Start 04/07/20 at 09:00 Fluticasone Propionate (Flonase) 2 spray DAILY NS Last administered on 04/09/20 08:39; Start 04/07/20 at 09:00 Polyethylene Glycol (miraLAX PACKET) 17 gm DAILY PO Last administered on 04/08/20 08:30; Start 04/07/20 at 09:00 Sevelamer Carbonate (Renvela) 800 mg TIDWMEALS PO Last administered on 04/08/20 17:33; Start 04/06/20 at 17:00 Sodium Bicarbonate (Sodium Bicarbonate) 650 mg TID PO Last administered on 04/08/20 20:49; Start 04/06/20 at 21:00 Trazodone HCl (Desyrel) 75 mg HS PO Last administered on 04/08/20 20:49; Start 04/06/20 at 21:00 Citalopram Hydrobromide (CeleXA) 20 mg DAILY PO Last administered on 04/08/20 08:31; Start 04/07/20 at 09:00 Non-Formulary Medication (Haloperidol Decanoate ) 100 mg [id number] IM ; Start 05/04/20 at 09:00; Status UNV Insulin Glargine (Lantus Syringe) 12 unit QHS SQ Last administered on 04/09/20 00:53; Start 04/06/20 at 21:00 Cetirizine HCl (ZyrTEC) 10 mg DAILY PO Last administered on 04/08/20 08:31; Start 04/07/20 at 09:00 Valproic Acid (Depakene) 1,000 mg QHS PO Last administered on 04/08/20 20:49; Start 04/06/20 at 21:00 Insulin Human Lispro (HumaLOG) 0-7 UNITS TIDWMEALS SQ Last administered on 04/07/20at 13:39; Start 04/06/20 at 17:00 Dextrose (Dextrose 50%-Water Syringe) 12.5 gm PRN Q15MIN PRN IV SEE COMMENTS; Start 04/06/20 at 14:30 Acetaminophen/ Codeine Phosphate (Tylenol #3) 1 tab PRN Q6HRS PRN PO MODERATE- SEVERE PAIN Last administered on 04/09/20at 08:39; Start 04/06/20 at 14:30 Sevelamer Carbonate (Renvela) 800 mg TIDWMEALS PO ; Start 04/07/20 at 17:00; Stop 04/07/20 at 15:47; Status DC Sodium Chloride 1,000 ml @ 75 mls/hr [id number] IV Last administered on 04/08/20at 17:34; Start 04/07/20 at 13:00 Lidocaine/ Epinephrine (LIDOCAINE 1%-EPI 1:100,000 Multi-Dose) 20 ml STK-MED ONCE .ROUTE ; Start 04/09/20 at 08:42; Stop 04/09/20 at 08:42; Status DC Cefazolin Sodium (Ancef) 1 gm STK-MED ONCE IVP ; Start 04/09/20 at 08:51; Stop 04/09/20 at 08:51; Status DC Midazolam HCl (Versed) 2 mg STK-MED ONCE .ROUTE ; Start 04/09/20 at 08:51; Stop 04/09/20 at 08:52; Status DC Fentanyl Citrate (Fentanyl 2ml Vial) 100 mcg STK-MED ONCE .ROUTE ; Start 04/09/20 at 08:52; Stop 04/09/20 at 08:52; Status DC Midazolam HCl (Versed) 2 mg STK-MED ONCE .ROUTE ; Start 04/09/20 at 09:08; Stop 04/09/20 at 09:08; Status DC Fentanyl Citrate (Fentanyl 2ml Vial) 100 mcg STK-MED ONCE .ROUTE ; Start 04/09/20 at 09:08; Stop 04/09/20 at 09:08; Status DC Midazolam HCl (Versed) 2 mg 1X ONCE IV ; Start 04/09/20 at 09:15; Stop 04/09/20 at 09:16; Status DC Fentanyl Citrate (Fentanyl 2ml Vial) 100 mcg 1X ONCE IV ; Start 04/09/20 at 09:15; Stop 04/09/20 at 09:16; Status DC Lidocaine/ Epinephrine (LIDOCAINE 1%-EPI 1:100,000 Multi-Dose) 20 ml 1X ONCE INJ ; Start 04/09/20 at 09:15; Stop 04/09/20 at 09:16; Status DC Cefazolin Sodium/ Dextrose 50 ml @ 100 mls/hr 1X ONCE IV ; Start 04/09/20 at 09:15; Stop 04/09/20 at 09:44 Active Scripts Active Reported Trazodone Hcl 50 Mg Tablet 75 Mg PO HS Sodium Bicarbonate 650 Mg Tablet 650 Mg PO TID Renvela (Sevelamer Carbonate) 800 Mg Tablet 800 Mg PO TIDWMEALS Miralax (Polyethylene Glycol 3350) 17 Gm Powd.pack 1 Pkt PO DAILY Loratadine 10 Mg Tablet 10 Mg PO QODAY Levemir Flextouch (Insulin Detemir) 100 Unit/1 Ml Insuln.pen 1 Unit SQ HS Humalog (Insulin Lispro) 100 Unit/1 Ml Vial 0 SQ TIDAC If BS 250-400 give 5 units 401-500 do not administer and call doctor Imodium A-D (Loperamide HCl) 2 Mg Capsule 2 Mg PO PRN PRN Haloperidol Decanoate 100 Mg/1 Ml Vial 100 Mg IM [id number] Glucose Gel (Dextrose) 38 Gm Gel..gram. 15 Gm PO PRN Fluticasone Propionate Nasal [place] (Fluticasone Propionate) 16 Gm [place].susp 2 [place] NS DAILY Fludrocortisone Acetate 0.1 Mg Tablet 0.1 Mg PO DAILY Ferrous Sulfate 325 Mg Tablet 1 Tab PO DAILY Escitalopram Oxalate 10 Mg Tablet 1 Tab PO DAILY Valproic Acid (Valproate Sodium) 250 Mg/5 Ml Solution 1,000 Mg PO HS Acetaminophen 325 Mg Tablet 2 Tab PO PRN Q8HRS PRN 24 Days Vitals/I & O Vital Sign - Last 24 Hours 04/08/20 04/08/20 04/08/20 04/08/20 09:30 11:06 14:41 14:42 Temp 98.3 98.6 98.3 98.6 Pulse 81 82 Resp 17 17 17 19 B/P (MAP) 131/80 (97) 160/85 (110) Pulse Ox 95 95 O2 Delivery Room Air Room Air Room Air Room Air 04/08/20 04/08/20 04/08/20 04/08/20 15:41 19:00 20:15 20:49 Temp 99.0 99.0 Pulse 82 Resp 17 16 B/P (MAP) 163/101 (121) Pulse Ox 94 95 O2 Delivery Room Air Room Air Nasal Cannula O2 Flow Rate 3.0 04/08/20 04/08/20 04/09/20 04/09/20 21:49 23:00 02:44 03:00 Temp 98.5 99.1 98.5 99.1 Pulse 88 91 Resp 20 18 B/P (MAP) 155/85 (108) 170/100 (123) Pulse Ox 95 95 95 93 O2 Delivery Nasal Cannula Room Air 04/09/20 04/09/20 03:44 07:49 Temp 98.4 98.4 Pulse 91 Resp 20 B/P (MAP) 154/77 (102) Pulse Ox 93 94 O2 Delivery Room Air Room Air Intake and Output 04/08/20 04/08/20 04/09/20 15:00 23:00 07:00 Intake Total 800 ml 360 ml Balance 800 ml [address] HEAD WO CONTRAST Date: 04/06/2020 12:35 PM Clinical Indication: Reason: chronic headaches, Jatin syndrome / Spl. Instructions: / History: Comparison: None. Technique: 5 mm axial tomographic images were obtained of the head without contrast. These were viewed on brain and bone windows. One or more of the following dose reduction techniques were utilized: Automated exposure control (AEC), Adjustment of mA and/or kV according to patient size, Use of iterative reconstruction technique such as ASiR, CT scan done according to ALARA and image gently/image wisely Findings: The brain parenchyma is normal in attenuation. No intra- or extra-axial mass or fluid collection. No acute hemorrhage. The ventricles are normal in size, shape, and morphology. The sal-white matter junction is normal. The subarachnoid cisterns are patent. The visualized paranasal sinuses are normal. The visualized portions of the orbits and globes are normal. The mastoid air cells are clear. The band master topogram shows no lytic lesion or fracture. Impression: No acute intracranial process. Justicifation of Admission Dx: Justifications for Admission: Justification of Admission Dx: Yes Acute Renal Failure: Serum Cr > 4mg/dL Hypertension: Symp at Rest NICHOLE HONG MD Apr 09, 2020 09:31
--- NOTE | 2020-04-09 10:16 | RAD ---
Procedure: Tunneled hemodialysis catheter placement 04/09/2020 8:12 AM Clinical Indication: NEW ESRD PT, OK TO DO THURSDAY Sterility: All elements of maximal sterile barrier technique including the use of a cap, mask, sterile gown, sterile gloves, large sterile sheet, appropriate hand hygiene, and 2% chlorhexidine for cutaneous antisepsis (or acceptable alternative antiseptic per current guidelines) were followed for this procedure. Consent: The procedure was explained in its entirety to the patient or the patients designated customer service representative by a member of the treatment team, including a discussion of the risks, benefits and commonly accepted alternatives to the procedure, as well as the expected consequences of no therapy whatsoever. Discussion of the risks included, but was not limited to, those that are most frequent and those that are rare but possibly severe or life-threatening, as well as the possibility of unforeseen complications. Technique and Findings: Following informed consent, a timeout procedure was performed. The patient was prepped and draped in the usual sterile fashion. Ultrasound interrogation of the right neck revealed patency and compressibility of the right internal jugular vein. A 21-gauge micropuncture was then used to gain access to this vein under ultrasound guidance. A hard copy ultrasound image was recorded. The needle was exchanged over a wire for a 4 [place] sheath which was used to guide an guidewire into the IVC. The skin over the right anterior chest wall was copiously anesthetized with 1% Lidocaine and a small dermatotomy was made. A 23 cm tipped cuff palindrome tunneled hemodialysis catheter was then tunneled subcutaneously towards the neck dermatotomy and deployed through a large caliber peel-away sheath under fluoroscopic guidance such that the distal tip resided in the mid right atrium. Manual flow rates were assessed and found to be within normal limits. The catheter was then flushed, packed with Heparin, capped, and sutured to the skin. The neck dermatotomy was closed with Dermabond. No immediate complications were identified. Sedation: Conscious sedation was administered for 23 minutes. The patient was monitored by a qualified independent observer throughout the time of sedation. Please refer to the medical record for exact doses of medications utilized to achieve moderate sedation. Fluoroscopy time:1.6 min Dose area product:5 Gycm2 Impression: Tunneled hemodialysis catheter placement as described
[2020-04-09] MEDS ORDERED: METHYLNALTREXONE 12 MG/0.6 ML VIAL. SQ ONE (10:30)
[2020-04-09] MEDS ORDERED: BISACODYL 5 MG TABLET.DR. PO ONE (10:30)
[2020-04-09] MEDS: ACETAMINOPHEN 325 MG TABLET. PO PRN (10:30)
--- NOTE | 2020-04-09 10:30 | PDOC ---
Objective: Objective: D/w nurse - pt mentions constipation. Reviewed neuro note - chronic tension headache and mostly essential type tremor, multiple psych diagnoses, narcotic seeking and now on Tylenol #3. Vital Signs: Vital Signs Date Time Temp Pulse Resp B/P (MAP) Pulse Ox O2 Delivery O2 Flow Rate FiO2 04/09/20 10:00 98.2 98 18 153/109 (124) 94 Room Air 98.2 04/09/20 09:45 2.0 Labs: Laboratory Tests Test 04/08/20 11:15 04/08/20 16:26 04/08/20 21:30 04/09/20 06:15 Glucose (Fingerstick) 150 mg/dL 170 mg/dL 161 mg/dL White Blood Count 4.8 x10^3/uL Red Blood Count 2.33 x10^6/uL Hemoglobin 7.7 g/dL Hematocrit 23.1 % Mean Corpuscular Volume 99 fL Mean Corpuscular Hemoglobin 33 pg Mean Corpuscular Hemoglobin Concent 33 g/dL Red Cell Distribution Width 13.8 % Platelet Count 132 x10^3/uL Neutrophils (%) (Auto) 63 % Lymphocytes (%) (Auto) 23 % Monocytes (%) (Auto) 9 % Eosinophils (%) (Auto) 4 % Basophils (%) (Auto) 1 % Neutrophils # (Auto) 3.0 x10^3/uL Lymphocytes # (Auto) 1.1 x10^3/uL Monocytes # (Auto) 0.4 x10^3/uL Eosinophils # (Auto) 0.2 x10^3/uL Basophils # (Auto) 0.0 x10^3/uL Prothrombin Time 13.1 SEC Prothromb Time International Ratio 1.0 Sodium Level 132 mmol/L Potassium Level 5.2 mmol/L Chloride Level 98 mmol/L Carbon Dioxide Level 23 mmol/L Anion Gap 11 Blood Urea Nitrogen 59 mg/dL Creatinine 7.2 mg/dL Estimated GFR (Cockcroft-Gault) 6.4 Glucose Level 226 mg/dL Calcium Level 8.5 mg/dL Phosphorus Level 6.2 mg/dL Albumin 2.7 g/dL Test 04/09/20 07:07 Glucose (Fingerstick) 178 mg/dL Imaging: Head CT 04/06 Impression: No acute intracranial process. PE: out of room for temp HD cath placement A/P: ESRD, psych issues, headaches, tremor Elevated lipase (better on 6/5), mesenteric inflammation in upper abdomen, GB sludge Normocytic anemia - iron and B12 WNL H/o GERD and constipation -- No stools charted on Miralax and Amitiza. Try Relistor. NPO this morning but was tolerating soft diet - okay for regular diet per GI. Justicifation of Admission Dx: Justifications for Admission: Justification of Admission Dx: Yes Acute Renal Failure: Serum Cr > 4mg/dL Hypertension: Symp at Rest BABAK GUSTAFSON Apr 09, 2020 10:30
--- NOTE | 2020-04-09 11:37 | PDOC ---
Renal-Progress Notes Subjective Notes Notes NO NEW COMPLAINTS History of Present Illness Hx of present illness STABLE Vitals Vitals Vital Signs Date Time Temp Pulse Resp B/P (MAP) Pulse Ox O2 Delivery O2 Flow Rate FiO2 04/09/20 10:31 96 169/93 04/09/20 10:00 98.2 18 94 Room Air 98.2 04/09/20 09:45 2.0 Weight Weight [ ] I.O. Intake and Output Intake and Output 04/09/20 07:00 Intake Total 1160 ml Balance 1160 ml Intake Oral 1160 ml # Voids 2 Labs Labs Laboratory Tests Test 04/08/20 16:26 04/08/20 21:30 04/09/20 06:15 04/09/20 07:07 Glucose (Fingerstick) 170 mg/dL (70-99) 161 mg/dL (70-99) 178 mg/dL (70-99) White Blood Count 4.8 x10^3/uL (4.0-11.0) Red Blood Count 2.33 x10^6/uL (3.50-5.40) Hemoglobin 7.7 g/dL (12.0-15.5) Hematocrit 23.1 % (36.0-47.0) Mean Corpuscular Volume 99 fL (79-100) Mean Corpuscular Hemoglobin 33 pg (25-35) Mean Corpuscular Hemoglobin Concent 33 g/dL (31-37) Red Cell Distribution Width 13.8 % (11.5-14.5) Platelet Count 132 x10^3/uL (140-400) Neutrophils (%) (Auto) 63 % (31-73) Lymphocytes (%) (Auto) 23 % (24-48) Monocytes (%) (Auto) 9 % (0-9) Eosinophils (%) (Auto) 4 % (0-3) Basophils (%) (Auto) 1 % (0-3) Neutrophils # (Auto) 3.0 x10^3/uL (1.8-7.7) Lymphocytes # (Auto) 1.1 x10^3/uL (1.0-4.8) Monocytes # (Auto) 0.4 x10^3/uL (0.0-1.1) Eosinophils # (Auto) 0.2 x10^3/uL (0.0-0.7) Basophils # (Auto) 0.0 x10^3/uL (0.0-0.2) Prothrombin Time 13.1 SEC (11.7-14.0) Prothromb Time International Ratio 1.0 (0.8-1.1) Sodium Level 132 mmol/L (136-145) Potassium Level 5.2 mmol/L (3.5-5.1) Chloride Level 98 mmol/L (98-107) Carbon Dioxide Level 23 mmol/L (21-32) Anion Gap 11 (6-14) Blood Urea Nitrogen 59 mg/dL (7-20) Creatinine 7.2 mg/dL (0.6-1.0) Estimated GFR (Cockcroft-Gault) 6.4 Glucose Level 226 mg/dL (70-99) Calcium Level 8.5 mg/dL (8.5-10.1) Phosphorus Level 6.2 mg/dL (2.6-4.7) Albumin 2.7 g/dL (3.4-5.0) Hepatitis B Surface Antigen Nonreactive (Nonreactive) Hepatitis B Surface Antibody Reactive Hepatitis B Core Total Antibody Nonreactive (Nonreactive) Micro Micro Microbiology 04/05/20 Blood Culture - Preliminary, Resulted NO GROWTH AFTER 3 DAYS Review of Systems Constitutional: yes: alert, oriented Ears/Nose/Throat: Yes: no symptom reported Eyes: Yes: no symptom reported Pulmonary: Yes no symptom reported Gastrointestional: Yes: nausea Musculoskeletal: Yes: no symptom reported Skin: Yes no symptom reported Psychiatric/Neurological: Yes: no symptom reported Endocrine: Yes: no symptom reported Physical Exam General Appearance: no apparent distress Skin: warm Respiratory: bilateral CTA Heart: S1S2 Abdomen: soft, bowel sounds present Genitourinary: bladder flat Extremities: pulses present Neurology: alert, oriented Assessment Assessment IMP UREMIA S/P TUNNELED HD CATHETER THIS AM ESRD-[place]TS DX BY DR DACIA FLOOD IN [place] YEARS AGO ANEMIA OF RENAL FAILURE HYPERKALEMIA-BETTER HX OF BIPOLAR SECONDARY HYPERPARATHYROIDISM PLAN HD TODAY MIN UF LOW FLOW QB HD AGAIN IN AM WILL ASK SW TO SET UP OP HD FOR HER SHE IS FROM [place] D/W ATTENDING ROME ORTEGA MD Apr 09, 2020 11:37
[2020-04-09] MEDS ORDERED: IV NORMAL SALINE 1000ML BAG 1,000 ML IV PRN ×2 (12:10)
[2020-04-09] MEDS ORDERED: ALBUMIN HUMAN 25% 200 ML IV PRN (12:15)
[2020-04-09] MEDS ORDERED: DIALYSIS PATIENT. MC PRN ×2 (12:15)
--- NOTE | 2020-04-09 15:56 | PDOC ---
PROGRESS NOTES Chief Complaint Chief Complaint Acute renal failure etiology undetermined at the present time she has underlying chronic kidney disease Acute tubular necrosis suspecte Hyperkalemia resolved Normocytic anemia History of bipolar disorder currently seems to be compensated History of [place] syndrome Elevated Lipase which seems to be of no clinical significance Plan Follow urinary output We will resume home meds Avoid nephrotoxic drugs recommendations from technology sales consultant as follows: PLAN MOST LIKELY WILL NEED TO START DIALYSIS BY THURSDAY CONT HYDRATION FOR NOW SUSPECT ESRD DUE TO ALPORTS CHECK IRON AND START BINDERS WILL FOLLOW History of Present Illness History of Present Illness 04/07: No acute events reported overnight, case discussed with nursing staff patient in no acute distress no complaints during my visit 04/08: Patient ambulating well with no acute distress. Patient asking when she could be discharged from the hospital, explained her laboratory data and the need for continued monitoring and following recommendations from nephrology technology sales consultant no acute events reported overnight reassurance has been provided 04/09: Patient with no acute events reported overnight, she continues to ask for her pain medication on every visit. Patient does not seem to be in acute distress, she will be started on HD as per technology sales consultant. 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 We will start the process for outpatient arrangements. Vitals Vitals Vital Signs Date Time Temp Pulse Resp B/P (MAP) Pulse Ox O2 Delivery O2 Flow Rate FiO2 04/09/20 11:32 98.3 98 18 176/111 (132) 97 Room Air 98.3 04/09/20 09:45 2.0 Physical Exam General: Alert, Oriented X3, Cooperative, No acute distress Heart: Regular rate, Normal S1, Normal S2 Lungs: Clear Abdomen: Soft Extremities: No cyanosis Labs LABS Laboratory Tests Test 04/08/20 16:26 04/08/20 21:30 04/09/20 06:15 04/09/20 07:07 Glucose (Fingerstick) 170 mg/dL (70-99) 161 mg/dL (70-99) 178 mg/dL (70-99) White Blood Count 4.8 x10^3/uL (4.0-11.0) Red Blood Count 2.33 x10^6/uL (3.50-5.40) Hemoglobin 7.7 g/dL (12.0-15.5) Hematocrit 23.1 % (36.0-47.0) Mean Corpuscular Volume 99 fL (79-100) Mean Corpuscular Hemoglobin 33 pg (25-35) Mean Corpuscular Hemoglobin Concent 33 g/dL (31-37) Red Cell Distribution Width 13.8 % (11.5-14.5) Platelet Count 132 x10^3/uL (140-400) Neutrophils (%) (Auto) 63 % (31-73) Lymphocytes (%) (Auto) 23 % (24-48) Monocytes (%) (Auto) 9 % (0-9) Eosinophils (%) (Auto) 4 % (0-3) Basophils (%) (Auto) 1 % (0-3) Neutrophils # (Auto) 3.0 x10^3/uL (1.8-7.7) Lymphocytes # (Auto) 1.1 x10^3/uL (1.0-4.8) Monocytes # (Auto) 0.4 x10^3/uL (0.0-1.1) Eosinophils # (Auto) 0.2 x10^3/uL (0.0-0.7) Basophils # (Auto) 0.0 x10^3/uL (0.0-0.2) Prothrombin Time 13.1 SEC (11.7-14.0) Prothromb Time International Ratio 1.0 (0.8-1.1) Sodium Level 132 mmol/L (136-145) Potassium Level 5.2 mmol/L (3.5-5.1) Chloride Level 98 mmol/L (98-107) Carbon Dioxide Level 23 mmol/L (21-32) Anion Gap 11 (6-14) Blood Urea Nitrogen 59 mg/dL (7-20) Creatinine 7.2 mg/dL (0.6-1.0) Estimated GFR (Cockcroft-Gault) 6.4 Glucose Level 226 mg/dL (70-99) Calcium Level 8.5 mg/dL (8.5-10.1) Phosphorus Level 6.2 mg/dL (2.6-4.7) Albumin 2.7 g/dL (3.4-5.0) Hepatitis B Surface Antigen Nonreactive (Nonreactive) Hepatitis B Surface Antibody Reactive Hepatitis B Core Total Antibody Nonreactive (Nonreactive) Test 04/09/20 11:33 04/09/20 15:31 Glucose (Fingerstick) 193 mg/dL (70-99) 134 mg/dL (70-99) Comment Review of Relevant I have reviewed the following items darya (where applicable) has been applied. Labs Laboratory Tests Test 04/07/20 16:22 04/07/20 20:47 04/08/20 07:36 04/08/20 10:15 Glucose (Fingerstick) 100 mg/dL (70-99) 244 mg/dL (70-99) 179 mg/dL (70-99) White Blood Count 5.6 x10^3/uL (4.0-11.0) Red Blood Count 2.42 x10^6/uL (3.50-5.40) Hemoglobin 8.2 g/dL (12.0-15.5) Hematocrit 23.8 % (36.0-47.0) Mean Corpuscular Volume 99 fL (79-100) Mean Corpuscular Hemoglobin 34 pg (25-35) Mean Corpuscular Hemoglobin Concent 34 g/dL (31-37) Red Cell Distribution Width 13.3 % (11.5-14.5) Platelet Count 134 x10^3/uL (140-400) Sodium Level 133 mmol/L (136-145) Potassium Level 5.1 mmol/L (3.5-5.1) Chloride Level 99 mmol/L (98-107) Carbon Dioxide Level 21 mmol/L (21-32) Anion Gap 13 (6-14) Blood Urea Nitrogen 63 mg/dL (7-20) Creatinine 7.4 mg/dL (0.6-1.0) Estimated GFR (Cockcroft-Gault) 6.2 Glucose Level 183 mg/dL (70-99) Calcium Level 8.5 mg/dL (8.5-10.1) Phosphorus Level 5.9 mg/dL (2.6-4.7) Iron Level 51 ug/dL (50-170) Total Iron Binding Capacity 281 ug/dL (250-450) Iron Saturation 18 % (15-34) Albumin 2.7 g/dL (3.4-5.0) Test 04/08/20 11:15 04/08/20 16:26 04/08/20 21:30 04/09/20 06:15 Glucose (Fingerstick) 150 mg/dL (70-99) 170 mg/dL (70-99) 161 mg/dL (70-99) White Blood Count 4.8 x10^3/uL (4.0-11.0) Red Blood Count 2.33 x10^6/uL (3.50-5.40) Hemoglobin 7.7 g/dL (12.0-15.5) Hematocrit 23.1 % (36.0-47.0) Mean Corpuscular Volume 99 fL (79-100) Mean Corpuscular Hemoglobin 33 pg (25-35) Mean Corpuscular Hemoglobin Concent 33 g/dL (31-37) Red Cell Distribution Width 13.8 % (11.5-14.5) Platelet Count 132 x10^3/uL (140-400) Neutrophils (%) (Auto) 63 % (31-73) Lymphocytes (%) (Auto) 23 % (24-48) Monocytes (%) (Auto) 9 % (0-9) Eosinophils (%) (Auto) 4 % (0-3) Basophils (%) (Auto) 1 % (0-3) Neutrophils # (Auto) 3.0 x10^3/uL (1.8-7.7) Lymphocytes # (Auto) 1.1 x10^3/uL (1.0-4.8) Monocytes # (Auto) 0.4 x10^3/uL (0.0-1.1) Eosinophils # (Auto) 0.2 x10^3/uL (0.0-0.7) Basophils # (Auto) 0.0 x10^3/uL (0.0-0.2) Prothrombin Time 13.1 SEC (11.7-14.0) Prothromb Time International Ratio 1.0 (0.8-1.1) Sodium Level 132 mmol/L (136-145) Potassium Level 5.2 mmol/L (3.5-5.1) Chloride Level 98 mmol/L (98-107) Carbon Dioxide Level 23 mmol/L (21-32) Anion Gap 11 (6-14) Blood Urea Nitrogen 59 mg/dL (7-20) Creatinine 7.2 mg/dL (0.6-1.0) Estimated GFR (Cockcroft-Gault) 6.4 Glucose Level 226 mg/dL (70-99) Calcium Level 8.5 mg/dL (8.5-10.1) Phosphorus Level 6.2 mg/dL (2.6-4.7) Albumin 2.7 g/dL (3.4-5.0) Hepatitis B Surface Antigen Nonreactive (Nonreactive) Hepatitis B Surface Antibody Reactive Hepatitis B Core Total Antibody Nonreactive (Nonreactive) Test 04/09/20 07:07 04/09/20 11:33 04/09/20 15:31 Glucose (Fingerstick) 178 mg/dL (70-99) 193 mg/dL (70-99) 134 mg/dL (70-99) Laboratory Tests Test 04/08/20 16:26 04/08/20 21:30 04/09/20 06:15 04/09/20 07:07 Glucose (Fingerstick) 170 mg/dL (70-99) 161 mg/dL (70-99) 178 mg/dL (70-99) White Blood Count 4.8 x10^3/uL (4.0-11.0) Red Blood Count 2.33 x10^6/uL (3.50-5.40) Hemoglobin 7.7 g/dL (12.0-15.5) Hematocrit 23.1 % (36.0-47.0) Mean Corpuscular Volume 99 fL (79-100) Mean Corpuscular Hemoglobin 33 pg (25-35) Mean Corpuscular Hemoglobin Concent 33 g/dL (31-37) Red Cell Distribution Width 13.8 % (11.5-14.5) Platelet Count 132 x10^3/uL (140-400) Neutrophils (%) (Auto) 63 % (31-73) Lymphocytes (%) (Auto) 23 % (24-48) Monocytes (%) (Auto) 9 % (0-9) Eosinophils (%) (Auto) 4 % (0-3) Basophils (%) (Auto) 1 % (0-3) Neutrophils # (Auto) 3.0 x10^3/uL (1.8-7.7) Lymphocytes # (Auto) 1.1 x10^3/uL (1.0-4.8) Monocytes # (Auto) 0.4 x10^3/uL (0.0-1.1) Eosinophils # (Auto) 0.2 x10^3/uL (0.0-0.7) Basophils # (Auto) 0.0 x10^3/uL (0.0-0.2) Prothrombin Time 13.1 SEC (11.7-14.0) Prothromb Time International Ratio 1.0 (0.8-1.1) Sodium Level 132 mmol/L (136-145) Potassium Level 5.2 mmol/L (3.5-5.1) Chloride Level 98 mmol/L (98-107) Carbon Dioxide Level 23 mmol/L (21-32) Anion Gap 11 (6-14) Blood Urea Nitrogen 59 mg/dL (7-20) Creatinine 7.2 mg/dL (0.6-1.0) Estimated GFR (Cockcroft-Gault) 6.4 Glucose Level 226 mg/dL (70-99) Calcium Level 8.5 mg/dL (8.5-10.1) Phosphorus Level 6.2 mg/dL (2.6-4.7) Albumin 2.7 g/dL (3.4-5.0) Hepatitis B Surface Antigen Nonreactive (Nonreactive) Hepatitis B Surface Antibody Reactive Hepatitis B Core Total Antibody Nonreactive (Nonreactive) Test 04/09/20 11:33 04/09/20 15:31 Glucose (Fingerstick) 193 mg/dL (70-99) 134 mg/dL (70-99) Microbiology 04/05/20 Blood Culture - Preliminary, Resulted NO GROWTH AFTER 4 DAYS Medications Current Medications Sodium Chloride 1,000 ml @ 1,000 mls/hr 1X ONCE IV Last administered on 04/05/20at 11:51; Start 04/05/20 at 11:30; Stop 04/05/20 at 12:29; Status DC Sodium Chloride 1,000 ml @ 150 mls/hr Q6H40M IV Last administered on 04/06/20at 09:49; Start 04/05/20 at 12:34; Stop 04/06/20 at 12:33; Status DC Acetaminophen (Tylenol) 650 mg PRN Q4HRS PRN PO FEVER > 100.3'F Last administered on 04/06/20at 09:36; Start 04/05/20 at 12:45; Stop 04/06/20 at 12:44; Status DC Sodium Polystyrene Sulfonate (Kayexalate) 30 gm 1X ONCE PO Last administered on 04/05/20at 12:45; Start 04/05/20 at 12:45; Stop 04/05/20 at 12:46; Status DC Heparin Sodium (Porcine) (Heparin Sodium) 5,000 unit Q8HRS SQ Last administered on 04/08/20at 20:59; Start 04/05/20 at 22:00 Sodium Chloride (Normal Saline Flush) 3 ml QSHIFT PRN IV AFTER MEDS AND BLOOD DRAWS; Start 04/05/20 at 14:30 Acetaminophen (Tylenol) 650 mg PRN Q4HRS PRN PO TEMP OVER 100.4F OR MILD PAIN Last administered on 04/09/20at 10:30; Start 04/05/20 at 14:30 Docusate Sodium (Colace) 100 mg PRN BID PRN PO HARD STOOLS; Start 04/05/20 at 14:30 Albuterol Sulfate (Ventolin Neb Soln) 2.5 mg PRN Q4HRS PRN NEB SHORTNESS OF BREATH; Start 04/05/20 at 14:30 Guaifenesin (Robitussin) 200 mg PRN Q4HRS PRN PO COUGH; Start 04/05/20 at 14:30 Pantoprazole Sodium (Protonix) 40 mg DAILYAC PO Last administered on 04/09/20 10:30; Start 04/06/20 at 07:30 Polyethylene Glycol (miraLAX PACKET) 17 gm DAILY PO Last administered on 04/06/20 09:37; Start 04/06/20 at 09:00; Stop 04/06/20 at 14:41; Status DC Acetaminophen (Tylenol) 650 mg 1X ONCE PO Last administered on 04/05/20 20:06; Start 04/05/20 at 20:00; Stop 04/05/20 at 20:01; Status DC Lorazepam (Ativan) 1 mg PRN Q4HRS PRN PO ANXIETY / AGITATION Last administered on 04/09/20 12:23; Start 04/05/20 at 23:30 Lubiprostone (Amitiza) 24 mcg BIDWMEALS PO Last administered on 04/08/20 17:33; Start 04/06/20 at 17:00 Metoprolol Succinate (Toprol Xl) 25 mg DAILY PO Last administered on 04/09/20 10:31; Start 04/06/20 at 13:00 Ferrous Sulfate (Feosol) 325 mg DAILY PO Last administered on 04/09/20 10:30; Start 04/07/20 at 09:00 Fludrocortisone Acetate (Florinef) 0.1 mg DAILY PO Last administered on 04/09/20 10:30; Start 04/07/20 at 09:00 Fluticasone Propionate (Flonase) 2 spray DAILY NS Last administered on 04/09/20 08:39; Start 04/07/20 at 09:00 Polyethylene Glycol (miraLAX PACKET) 17 gm DAILY PO Last administered on 04/09/20 10:31; Start 04/07/20 at 09:00 Sevelamer Carbonate (Renvela) 800 mg TIDWMEALS PO Last administered on 04/09/20 12:21; Start 04/06/20 at 17:00 Sodium Bicarbonate (Sodium Bicarbonate) 650 mg TID PO Last administered on 04/08/20 20:49; Start 04/06/20 at 21:00 Trazodone HCl (Desyrel) 75 mg HS PO Last administered on 04/08/20 20:49; Start 04/06/20 at 21:00 Citalopram Hydrobromide (CeleXA) 20 mg DAILY PO Last administered on 04/09/20 10:30; Start 04/07/20 at 09:00 Non-Formulary Medication (Haloperidol Decanoate ) 100 mg [id number] IM ; Start 05/04/20 at 09:00; Status UNV Insulin Glargine (Lantus Syringe) 12 unit QHS SQ Last administered on 04/09/20 00:53; Start 04/06/20 at 21:00 Cetirizine HCl (ZyrTEC) 10 mg DAILY PO Last administered on 04/08/20 08:31; Start 04/07/20 at 09:00 Valproic Acid (Depakene) 1,000 mg QHS PO Last administered on 04/08/20 20:49; Start 04/06/20 at 21:00 Insulin Human Lispro (HumaLOG) 0-7 UNITS TIDWMEALS SQ Last administered on 04/09/20 12:26; Start 04/06/20 at 17:00 Dextrose (Dextrose 50%-Water Syringe) 12.5 gm PRN Q15MIN PRN IV SEE COMMENTS; Start 04/06/20 at 14:30 Acetaminophen/ Codeine Phosphate (Tylenol #3) 1 tab PRN Q6HRS PRN PO MODERATE- SEVERE PAIN Last administered on 04/09/20at 15:15; Start 04/06/20 at 14:30 Sevelamer Carbonate (Renvela) 800 mg TIDWMEALS PO ; Start 04/07/20 at 17:00; Stop 04/07/20 at 15:47; Status DC Sodium Chloride 1,000 ml @ 75 mls/hr [id number] IV Last administered on 04/08/20at 17:34; Start 04/07/20 at 13:00 Lidocaine/ Epinephrine (LIDOCAINE 1%-EPI 1:100,000 Multi-Dose) 20 ml STK-MED ONCE .ROUTE ; Start 04/09/20 at 08:42; Stop 04/09/20 at 08:42; Status DC Cefazolin Sodium (Ancef) 1 gm STK-MED ONCE IVP ; Start 04/09/20 at 08:51; Stop 04/09/20 at 08:51; Status DC Midazolam HCl (Versed) 2 mg STK-MED ONCE .ROUTE ; Start 04/09/20 at 08:51; Stop 04/09/20 at 08:52; Status DC Fentanyl Citrate (Fentanyl 2ml Vial) 100 mcg STK-MED ONCE .ROUTE ; Start 04/09/20 at 08:52; Stop 04/09/20 at 08:52; Status DC Midazolam HCl (Versed) 2 mg STK-MED ONCE .ROUTE ; Start 04/09/20 at 09:08; Stop 04/09/20 at 09:08; Status DC Fentanyl Citrate (Fentanyl 2ml Vial) 100 mcg STK-MED ONCE .ROUTE ; Start 04/09/20 at 09:08; Stop 04/09/20 at 09:08; Status DC Midazolam HCl (Versed) 2 mg 1X ONCE IV Last administered on 04/09/20at 09:44; Start 04/09/20 at 09:15; Stop 04/09/20 at 09:16; Status DC Fentanyl Citrate (Fentanyl 2ml Vial) 100 mcg 1X ONCE IV Last administered on 04/09/20at 09:45; Start 04/09/20 at 09:15; Stop 04/09/20 at 09:16; Status DC Lidocaine/ Epinephrine (LIDOCAINE 1%-EPI 1:100,000 Multi-Dose) 20 ml 1X ONCE IN J Last administered on 04/09/20at 09:43; Start 04/09/20 at 09:15; Stop 04/09/20 at 09:16; Status DC Cefazolin Sodium/ Dextrose 50 ml @ 100 mls/hr 1X ONCE IV Last administered on 04/09/20at 09:44; Start 04/09/20 at 09:15; Stop 04/09/20 at 09:44; Status DC Methylnaltrexone [place] (Relistor) 6 mg 1X ONCE SQ Last administered on 04/09/20at 10:41; Start 04/09/20 at 10:30; Stop 04/09/20 at 10:32; Status DC Bisacodyl (Dulcolax Tab) 10 mg 1X ONCE PO Last administered on 04/09/20at 10:40; Start 04/09/20 at 10:30; Stop 04/09/20 at 10:32; Status DC Sodium Chloride 1,000 ml @ 1,000 mls/hr Q1H PRN IV hypotension; Start 04/09/20 at 12:10; Stop 04/09/20 at 18:09 Albumin Human 200 ml @ 200 mls/hr 1X PRN PRN IV Hypotension; Start 04/09/20 at 12:15; Stop 04/09/20 at 18:14 Sodium Chloride 1,000 ml @ 400 mls/hr Q2H30M PRN IV PATENCY; Start 04/09/20 at 12:10; Stop 04/10/20 at 00:09 Info (PHARMACY MONITORING -- do not chart) 1 each PRN DAILY PRN MC SEE COMMENTS; Start 04/09/20 at 12:15 Info (PHARMACY MONITORING -- do not chart) 1 each PRN DAILY PRN MC SEE COMMENTS; Start 04/09/20 at 12:15 Active Scripts Active Reported Trazodone Hcl 50 Mg Tablet 75 Mg PO HS Sodium Bicarbonate 650 Mg Tablet 650 Mg PO TID Renvela (Sevelamer Carbonate) 800 Mg Tablet 800 Mg PO TIDWMEALS Miralax (Polyethylene Glycol 3350) 17 Gm Powd.pack 1 Pkt PO DAILY Loratadine 10 Mg Tablet 10 Mg PO QODAY Levemir Flextouch (Insulin Detemir) 100 Unit/1 Ml Insuln.pen 1 Unit SQ HS Humalog (Insulin Lispro) 100 Unit/1 Ml Vial 0 SQ TIDAC If BS 250-400 give 5 units 401-500 do not administer and call doctor Imodium A-D (Loperamide HCl) 2 Mg Capsule 2 Mg PO PRN PRN Haloperidol Decanoate 100 Mg/1 Ml Vial 100 Mg IM [id number] Glucose Gel (Dextrose) 38 Gm Gel..gram. 15 Gm PO PRN Fluticasone Propionate Nasal Hext (Fluticasone Propionate) 16 Gm Hext.susp 2 Hext NS DAILY Fludrocortisone Acetate 0.1 Mg Tablet 0.1 Mg PO DAILY Ferrous Sulfate 325 Mg Tablet 1 Tab PO DAILY Escitalopram Oxalate 10 Mg Tablet 1 Tab PO DAILY Valproic Acid (Valproate Sodium) 250 Mg/5 Ml Solution 1,000 Mg PO HS Acetaminophen 325 Mg Tablet 2 Tab PO PRN Q8HRS PRN 24 Days Vitals/I & O Vital Sign - Last 24 Hours 04/08/20 04/08/20 04/08/20 04/08/20 19:00 20:15 20:49 21:49 Temp 99.0 99.0 Pulse 82 Resp 16 B/P (MAP) 163/101 (121) Pulse Ox 94 95 95 O2 Delivery Room Air Nasal Cannula Nasal Cannula O2 Flow Rate 3.0 04/08/20 04/09/20 04/09/20 04/09/20 23:00 02:44 03:00 03:44 Temp 98.5 99.1 98.5 99.1 Pulse 88 91 Resp 20 18 B/P (MAP) 155/85 (108) 170/100 (123) Pulse Ox 95 95 93 93 O2 Delivery Room Air Room Air 04/09/20 04/09/20 04/09/20 04/09/20 07:49 08:00 09:41 09:45 Temp 98.4 98.4 Pulse 91 97 Resp 20 18 18 B/P (MAP) 154/77 (102) Pulse Ox 94 98 98 O2 Delivery Room Air Room Air Nasal Cannula Nasal Cannula O2 Flow Rate 2.0 2.0 04/09/20 04/09/20 04/09/20 04/09/20 10:00 10:16 10:31 10:31 Temp 98.2 98.2 Pulse 98 99 97 96 Resp 18 B/P (MAP) 153/109 (124) 169/93 (118) 143/101 (115) 169/93 Pulse Ox 94 O2 Delivery Room Air 04/09/20 04/09/20 10:45 11:32 Temp 98.3 98.3 Pulse 98 98 Resp 18 B/P (MAP) 160/97 (118) 176/111 (132) Pulse Ox 97 O2 Delivery Room Air Intake and Output 04/08/20 04/08/20 04/09/20 15:00 23:00 07:00 Intake Total 800 ml 360 ml Balance 800 ml 360 ml RADHA HWANG MD Apr 09, 2020 15:56
--- NOTE | 2020-04-09 16:13 | NUR ---
SW following. Discussed with RN, pt new dialysis set up. HD labs ordered this morning, first dialysis day today. No chest xray - requested Dr. Pabon order this for HD referral. PAUL spoke with [facility], their closes [facility]. SW to fax referral to [facility], when HD referral is complete. PAUL will continue to follow.
[2020-04-09] MEDS: traZODone 50 MG TABLET. PO SCH (21:47)
[2020-04-09] MEDS: VALPROIC ACID 250 MG CAPSULE. PO SCH (21:48)
--- NOTE | 2020-04-09 23:02 | RAD ---
Exam: Chest one view INDICATION: Dialysis TECHNIQUE: Frontal view of the chest Comparisons: None FINDINGS: Double-lumen catheter with tip at the atrial caval junction. The cardiomediastinal silhouette and pulmonary vessels are within normal limits. The lung and pleural spaces are clear. IMPRESSION: Lines and tubes described above. No acute pulmonary process. Electronically signed by: Binu Dickens MD (04/09/2020 10:59 PM) [id number]
[2020-04-10] MEDS: LORazepam 1 MG TABLET PO PRN ×2 (01:10→12:47)
[2020-04-10 02:47] VITALS: BP 152/89
[2020-04-10 05:02] LABS: ALBUMIN 2.4 g/dL (3.4-5.0); CALCIUM 7.9 mg/dL (8.5-10.1); CREATININE 4.8 mg/dL (0.6-1.0); GFR 10.2; PHOSPHORUS 5.2 mg/dL (2.6-4.7)
[2020-04-10] MEDS: HEPARIN for SUB-Q USE 5,000 UNIT/ML VIAL. SQ SCH ×2 (06:00→13:56)
[2020-04-10 07:00] VITALS: BP 149/84
[2020-04-10] MEDS ORDERED: IV NORMAL SALINE 1000ML BAG 1,000 ML IV PRN ×2 (07:10)
[2020-04-10] MEDS ORDERED: ALBUMIN HUMAN 25% 200 ML IV PRN (07:15)
[2020-04-10] MEDS ORDERED: diphenhydrAMINE 50 MG/ML VIAL IV PRN ×2 (07:15)
[2020-04-10] MEDS ORDERED: 0.9 % SODIUM CHLORIDE 10 ML DISP.SYRIN. IV PRN ×2 (07:15)
[2020-04-10] MEDS ORDERED: ACETAMINOPHEN 500 MG TABLET PO PRN (07:15)
[2020-04-10] MEDS ORDERED: DIALYSIS PATIENT. MC PRN ×2 (07:15)
[2020-04-10] MEDS: IV NORMAL SALINE 1000ML BAG 1,000 ML IV SCH (07:40)
[2020-04-10] MEDS: ACETAMINOPHEN/CODEINE 300/30MG TABLET. PO PRN ×2 (07:43→13:52)
[2020-04-10] MEDS: SEVELAMER CARBONATE 800 MG TABLET. PO SCH ×2 (08:00→12:39)
[2020-04-10] MEDS: INSULIN LISPRO 300 UNITS/3 ML VIAL. SQ SCH ×2 (08:00→12:00)
[2020-04-10] MEDS: SODIUM BICARBONATE 650 MG TABLET. PO SCH ×2 (09:00→13:51)
[2020-04-10] MEDS: ACETAMINOPHEN 325 MG TABLET. PO PRN (09:26)
--- NOTE | 2020-04-10 10:03 | PDOC ---
Subjective: Subjective: Stooled a couple days ago, tolerating diet, has some abdominal pain. Said she didn't get Relistor. Objective: Objective: No GI concerns per nurse. According to chart, got Relistor and Dulcolax yesterday. Vital Signs: Vital Signs Date Time Temp Pulse Resp B/P (MAP) Pulse Ox O2 Delivery O2 Flow Rate FiO2 04/10/20 07:43 96 Room Air 04/10/20 07:00 97.8 95 18 149/84 (105) 97.8 04/09/20 09:45 2.0 Labs: Laboratory Tests Test 04/09/20 11:33 04/09/20 15:31 04/09/20 16:42 04/09/20 19:37 Glucose (Fingerstick) 193 mg/dL (70-99) 134 mg/dL (70-99) 128 mg/dL (70-99) 238 mg/dL (70-99) Test 04/10/20 07:24 Glucose (Fingerstick) 163 mg/dL (70-99) PE: GEN: dialyzing LUNGS: CTAB HEART: RRR ABD: BS+, soft, vaguely tender epigastrium/left NEURO/PSYCH: A & O 3, drowsy A/P: ESRD, psych issues Elevated lipase (better on 04/06), mesenteric inflammation in upper abdomen, GB sludge Normocytic anemia - iron and B12 WNL H/o GERD and constipation -- Not a good historian. Continue Amitiza and Miralax. Consider KUB and repeating Relistor if indicated. Justicifation of Admission Dx: Justifications for Admission: Justification of Admission Dx: Yes Acute Renal Failure: Serum Cr > 4mg/dL Hypertension: Symp at Rest BABAK GUSTAFSON Apr 10, 2020 10:03
--- NOTE | 2020-04-10 10:06 | NUR ---
PAUL following. Discussed with RN, [facility] admissions referral faxed to [facility] (ph: [phone], fax: [phone]), awaiting chair time. PAUL will continue to follow. Addendum: 04/10/20 at 1424 by KIMBER MILLER Pt has a chair time at [facility] at 1500. On the first time going, pt needs to be there at 1415. PAUL notified [facility] of chair time. PAUL spoke with Smita MILLER ([phone]), questioned whether they can get pt today if pt is being discharged. PAUL notified Dr. Pabon of chair time and questioned whether pt is able to discharge today. Awaiting response. PAUL will continue to follow.
--- NOTE | 2020-04-10 11:50 | PDOC ---
Renal-Progress Notes Subjective Notes Notes STILL SLEEPY History of Present Illness Hx of present illness STABLE Vitals Vitals Vital Signs Date Time Temp Pulse Resp B/P (MAP) Pulse Ox O2 Delivery O2 Flow Rate FiO2 04/10/20 07:43 96 Room Air 04/10/20 07:00 97.8 95 18 149/84 (105) 97.8 04/09/20 09:45 2.0 Weight Weight [ ] I.O. Intake and Output Intake and Output 04/10/20 07:00 Intake Total 1520 ml Output Total 300 ml Balance 1220 ml Intake Oral 1520 ml Output Urine Total 300 ml # Voids 2 Labs Labs Laboratory Tests Test 04/09/20 15:31 04/09/20 16:42 04/09/20 19:37 04/10/20 03:25 Glucose (Fingerstick) 134 mg/dL (70-99) 128 mg/dL (70-99) 238 mg/dL (70-99) Sodium Level 131 mmol/L (136-145) Potassium Level 4.0 mmol/L (3.5-5.1) Chloride Level 96 mmol/L (98-107) Carbon Dioxide Level 28 mmol/L (21-32) Anion Gap 7 (6-14) Blood Urea Nitrogen 30 mg/dL (7-20) Creatinine 4.8 mg/dL (0.6-1.0) Estimated GFR (Cockcroft-Gault) 10.2 Glucose Level 221 mg/dL (70-99) Calcium Level 7.9 mg/dL (8.5-10.1) Phosphorus Level 5.2 mg/dL (2.6-4.7) Albumin 2.4 g/dL (3.4-5.0) Test 04/10/20 07:24 Glucose (Fingerstick) 163 mg/dL (70-99) Micro Micro Microbiology 04/05/20 Blood Culture - Preliminary, Resulted NO GROWTH AFTER 4 DAYS Review of Systems Constitutional: yes: alert, oriented Ears/Nose/Throat: Yes: no symptom reported Eyes: Yes: no symptom reported Pulmonary: Yes no symptom reported Gastrointestional: Yes: nausea Musculoskeletal: Yes: no symptom reported Skin: Yes no symptom reported Psychiatric/Neurological: Yes: no symptom reported Endocrine: Yes: no symptom reported Physical Exam General Appearance: no apparent distress Skin: warm Respiratory: bilateral CTA Heart: S1S2 Abdomen: soft, bowel sounds present Genitourinary: bladder flat Extremities: pulses present Neurology: alert, oriented Assessment Assessment IMP UREMIA S/P TUNNELED HD CATHETER THIS AM ESRD-ALPORTS DX BY DR DACIA FLOOD IN [place] YEARS AGO ANEMIA OF RENAL FAILURE HYPERKALEMIA-BETTER HX OF BIPOLAR SECONDARY HYPERPARATHYROIDISM PLAN HD TODAY UF ABOUT 2.0 L HD AGAIN IN AM WILL ASK SW TO SET UP OP HD FOR HER SHE IS FROM [place] D/W ATTENDING ROME ORTEGA MD Apr 10, 2020 11:50
[2020-04-10] MEDS: FERROUS SULFATE 325 MG TABLET. PO SCH (12:38)
[2020-04-10] MEDS: CITALOPRAM 20 MG TABLET. PO SCH (12:38)
[2020-04-10] MEDS: METOPROLOL SUCC 24HR ER 25 MG TAB.ER.24H. PO SCH (12:38)
[2020-04-10] MEDS: FLUTICASONE 50MCG/NASAL SPRAY 16GM BOTTLE. NS SCH (12:38)
[2020-04-10] MEDS: CETIRIZINE HCL 10 MG TABLET. PO SCH (12:38)
[2020-04-10] MEDS: PANTOPRAZOLE 40 MG TABLET.DR. PO SCH (12:39)
[2020-04-10] MEDS: FLUDROCORTISONE 0.1 MG TABLET PO SCH (12:39)
[2020-04-10] MEDS: LUBIPROSTONE 24 MCG CAPSULE PO SCH (12:39)
[2020-04-10] MEDS: POLYETHYLENE GLYCOL 3350 17 GM PACKET. PO SCH (12:39)
--- NOTE | 2020-04-10 14:52 | PDOC3 ---
Discharge Summary Visit Information Date of Admission: Apr 05, 2020 Date of Discharge: Apr 10, 2020 Admitting Diagnosis Comment: 1. ACUTE RENAL FAILURE 2. No obstructing urolithiasis. No hydronephrosis. 3. Infiltration of the mesentery centered within the upper to mid abdomen adjacent to the pancreas and duodenum. Recommend correlation for pancreatitis and/or duodenitis// LIPASE 870 4. Mild hyperkalemia 5. hx Schizophrenia 6. diabetes 7. hx Alport's syndrome with CKD 8. MORBID OBESITY 9. NORMOCYTIC ANEMIA Final Diagnosis Acute renal failure secondary to Alport's syndrome Essential tremor Hyperkalemia resolved Normocytic anemia of chronic disease secondary hyperparathyroidism History of bipolar disorder currently seems to be compensated Elevated Lipase which seems to be of no clinical significance Brief Hospital Course Allergies Allergies Coded Allergies Type Severity Reaction Last Updated Verified No Known Drug Allergies 04/05/20 No Vital Signs Vital Signs Date Time Temp Pulse Resp B/P (MAP) Pulse Ox O2 Delivery O2 Flow Rate FiO2 04/10/20 13:52 96 Room Air 2.0 04/10/20 12:38 95 149/84 04/10/20 07:00 97.8 18 97.8 Lab Results Laboratory Tests Test 04/08/20 16:26 04/08/20 21:30 04/09/20 06:15 04/09/20 07:07 Glucose (Fingerstick) 170 mg/dL (70-99) 161 mg/dL (70-99) 178 mg/dL (70-99) White Blood Count 4.8 x10^3/uL (4.0-11.0) Red Blood Count 2.33 x10^6/uL (3.50-5.40) Hemoglobin 7.7 g/dL (12.0-15.5) Hematocrit 23.1 % (36.0-47.0) Mean Corpuscular Volume 99 fL (79-100) Mean Corpuscular Hemoglobin 33 pg (25-35) Mean Corpuscular Hemoglobin Concent 33 g/dL (31-37) Red Cell Distribution Width 13.8 % (11.5-14.5) Platelet Count 132 x10^3/uL (140-400) Neutrophils (%) (Auto) 63 % (31-73) Lymphocytes (%) (Auto) 23 % (24-48) Monocytes (%) (Auto) 9 % (0-9) Eosinophils (%) (Auto) 4 % (0-3) Basophils (%) (Auto) 1 % (0-3) Neutrophils # (Auto) 3.0 x10^3/uL (1.8-7.7) Lymphocytes # (Auto) 1.1 x10^3/uL (1.0-4.8) Monocytes # (Auto) 0.4 x10^3/uL (0.0-1.1) Eosinophils # (Auto) 0.2 x10^3/uL (0.0-0.7) Basophils # (Auto) 0.0 x10^3/uL (0.0-0.2) Prothrombin Time 13.1 SEC (11.7-14.0) Prothromb Time International Ratio 1.0 (0.8-1.1) Sodium Level 132 mmol/L (136-145) Potassium Level 5.2 mmol/L (3.5-5.1) Chloride Level 98 mmol/L (98-107) Carbon Dioxide Level 23 mmol/L (21-32) Anion Gap 11 (6-14) Blood Urea Nitrogen 59 mg/dL (7-20) Creatinine 7.2 mg/dL (0.6-1.0) Estimated GFR (Cockcroft-Gault) 6.4 Glucose Level 226 mg/dL (70-99) Calcium Level 8.5 mg/dL (8.5-10.1) Phosphorus Level 6.2 mg/dL (2.6-4.7) Albumin 2.7 g/dL (3.4-5.0) Hepatitis B Surface Antigen Nonreactive (Nonreactive) Hepatitis B Surface Antibody Reactive Hepatitis B Core Total Antibody Nonreactive (Nonreactive) Test 04/09/20 11:33 04/09/20 15:31 04/09/20 16:42 04/09/20 18:02 Glucose (Fingerstick) 193 mg/dL (70-99) 134 mg/dL (70-99) 128 mg/dL (70-99) Coronavirus (COVID-19)(PCR) Not detected (NOT DETECT.) Test 04/09/20 19:37 04/10/20 03:25 04/10/20 07:24 Glucose (Fingerstick) 238 mg/dL (70-99) 163 mg/dL (70-99) Sodium Level 131 mmol/L (136-145) Potassium Level 4.0 mmol/L (3.5-5.1) Chloride Level 96 mmol/L (98-107) Carbon Dioxide Level 28 mmol/L (21-32) Anion Gap 7 (6-14) Blood Urea Nitrogen 30 mg/dL (7-20) Creatinine 4.8 mg/dL (0.6-1.0) Estimated GFR (Cockcroft-Gault) 10.2 Glucose Level 221 mg/dL (70-99) Calcium Level 7.9 mg/dL (8.5-10.1) Phosphorus Level 5.2 mg/dL (2.6-4.7) Albumin 2.4 g/dL (3.4-5.0) Laboratory Tests Test 04/09/20 15:31 04/09/20 16:42 04/09/20 18:02 04/09/20 19:37 Glucose (Fingerstick) 134 mg/dL (70-99) 128 mg/dL (70-99) 238 mg/dL (70-99) Coronavirus (COVID-19)(PCR) Not detected (NOT DETECT.) Test 04/10/20 03:25 04/10/20 07:24 Sodium Level 131 mmol/L (136-145) Potassium Level 4.0 mmol/L (3.5-5.1) Chloride Level 96 mmol/L (98-107) Carbon Dioxide Level 28 mmol/L (21-32) Anion Gap 7 (6-14) Blood Urea Nitrogen 30 mg/dL (7-20) Creatinine 4.8 mg/dL (0.6-1.0) Estimated GFR (Cockcroft-Gault) 10.2 Glucose Level 221 mg/dL (70-99) Calcium Level 7.9 mg/dL (8.5-10.1) Phosphorus Level 5.2 mg/dL (2.6-4.7) Albumin 2.4 g/dL (3.4-5.0) Glucose (Fingerstick) 163 mg/dL (70-99) Brief Hospital Course Ms. Cross is a 39 old [sex] who presented with with acute on chronic renal failure. Patient was given initially IV fluids in an effort to see if we could help her renal function. She did not respond to the fluid challenge and was started on dialysis during this admission. 04/07: No acute events reported overnight, case discussed with nursing staff patient in no acute distress no complaints during my visit 04/08: Patient ambulating well with no acute distress. Patient asking when she could be discharged from the hospital, explained her laboratory data and the need for continued monitoring and following recommendations from nephrology corporate consultant no acute events reported overnight reassurance has been provided 04/09: Patient with no acute events reported overnight, she continues to ask for her pain medication on every visit. Patient does not seem to be in acute distress, she will be started on HD as per corporate consultant. She has a risk assessment analyst in [place]. We will start the process for outpatient arrangements. Patient was deemed appropriate for discharge and she has arrangements for dialysis Thursday. She lives in a long-term [facility], signs and symptoms of concern and when to seek medical attention were discussed with the patient prior to discharge General: Alert, Oriented X3, Cooperative, No acute distress Heart: Regular rate, Normal S1, Normal S2 Lungs: Clear Abdomen: Soft Extremities: No cyanosis Assessment Assessment CT of the abdomen and and pelvis Impression: 1. No obstructing urolithiasis. No hydronephrosis. 2. Infiltration of the mesentery centered within the upper to mid abdomen adjacent to the pancreas and duodenum. Recommend correlation for pancreatitis and/or duodenitis. 3. Multiple small mesenteric and retroperitoneal lymph nodes, likely reactive. EIMPRESSION: 1. Liver is borderline enlarged. 2. Gallbladder sludge without ultrasound evidence for acute cholecystitis. 3. Mildly echogenic appearance of the right kidney, may be seen with medical renal disease. Electronically signed by: Dorian Perez MD (04/06/2020 6:23 AM) JUSTYN lectronically signed by: Jono Daniels DO (04/05/2020 1:15 PM) [facility] Discharge Information Condition at Discharge: Improved Follow Up: Weeks Disposition/Orders: D/C to Home Scheduled Dextrose (Glucose Gel) 38 Gm Gel..gram., 15 GM PO PRN for BS less than 60, (Reported) Entered as Reported by: THEA MEADOWS on 04/05/201944 Last Taken: UNKNOWN on Unknown Date & Time Last Action: New Order on 04/05/201944 by THEA MEADOWS Escitalopram Oxalate (Escitalopram Oxalate) 10 Mg Tablet, 1 TAB PO DAILY for schizoaffective/bipolar, #30 Ref 3 (Reported) Entered as Reported by: THEA MEADOWS on 04/05/201928 Last Taken: UNKNOWN on Unknown Date & Time Last Action: Converted on 04/06/201430 by RADHA HWANG MD Ferrous Sulfate (Ferrous Sulfate) 325 Mg Tablet, 1 TAB PO DAILY for anemia, #30 Ref 3 (Reported) Entered as Reported by: THEA MEADOWS on 04/05/201928 Last Taken: UNKNOWN on Unknown Date & Time Last Action: Continued on 04/06/201430 by RADHA HWANG MD Fludrocortisone Acetate (Fludrocortisone Acetate) 0.1 Mg Tablet, 0.1 MG PO DAILY for hypotension, (Reported) Entered as Reported by: THEA MEADOWS on 04/05/201928 Last Taken: UNKNOWN on Unknown Date & Time Last Action: Continued on 04/06/201430 by RADHA HWANG MD Fluticasone Propionate (Fluticasone Propionate Nasal Jefferson) 16 Gm Jefferson.susp, 2 SPRAY NS DAILY for allergic rhinitis, (Reported) Entered as Reported by: THEA MEADOWS on 04/05/201944 Last Taken: UNKNOWN on Unknown Date & Time Last Action: Continued on 04/06/201430 by RADHA HWANG MD Haloperidol Decanoate (Haloperidol Decanoate) 100 Mg/1 Ml Vial, 100 MG IM [id number] for brief psychotic disorder, (Reported) Entered as Reported by: THEA MEADOWS on 04/05/201944 Last Taken: UNKNOWN on Unknown Date & Time Last Action: Converted on 04/06/201430 by RADHA HWANG MD Insulin Detemir (Levemir Flextouch) 100 Unit/1 Ml Insuln.pen, 1 UNIT SQ HS for DM, (Reported) Entered as Reported by: THEA MEADOWS on 04/05/201944 Last Taken: UNKNOWN on Unknown Date & Time Last Action: Converted on 04/06/201430 by RADHA HWANG MD Insulin Lispro (Humalog) 100 Unit/1 Ml Vial, 0 SQ TIDAC for sliding scale, (Reported) If BS 250-400 give 5 units 401-500 do not administer and call doctor Entered as Reported by: THEA MEADOWS on 04/05/201944 Last Action: New Order on 04/05/201944 by THEA MEADOWS Loratadine (Loratadine) 10 Mg Tablet, 10 MG PO QODAY for allergies, (Reported) Entered as Reported by: THEA MEADOWS on 04/05/201948 Last Taken: UNKNOWN on Unknown Date & Time Last Action: Converted on 04/06/201430 by RADHA HWANG MD Polyethylene Glycol 3350 (Miralax) 17 Gm Powd.pack, 1 PKT PO DAILY for constipation, (Reported) Entered as Reported by: THEA MEADOWS on 04/05/201948 Last Taken: UNKNOWN on Unknown Date & Time Last Action: Continued on 04/06/201430 by RADHA HWANG MD Sevelamer Carbonate (Renvela) 800 Mg Tablet, 800 MG PO TIDWMEALS for hypocalcemia, (Reported) Entered as Reported by: THEA MEADOWS on 04/05/201948 Last Taken: UNKNOWN on Unknown Date & Time Last Action: Continued on 04/06/201430 by RADHA HWANG MD Sodium Bicarbonate (Sodium Bicarbonate) 650 Mg Tablet, 650 MG PO TID for heartburn, (Reported) Entered as Reported by: THEA MEADOWS on 04/05/201948 Last Taken: UNKNOWN on Unknown Date & Time Last Action: Continued on 04/06/201430 by RADHA HWANG MD Trazodone Hcl (Trazodone Hcl) 50 Mg Tablet, 75 MG PO HS for anxiety, (Reported) Entered as Reported by: THEA MEADOWS on 04/05/201948 Last Taken: UNKNOWN on Unknown Date & Time Last Action: Continued on 04/06/201430 by RADHA HWANG MD Valproate Sodium (Valproic Acid) 250 Mg/5 Ml Solution, 1,000 MG PO HS for Schizoaffective disorder, bipo, (Reported) Entered as Reported by: THEA MEADOWS on 04/05/201928 Last Taken: UNKNOWN on Unknown Date & Time Last Action: Converted on 04/06/201430 by RADHA HWANG MD Scheduled PRN Acetaminophen (Acetaminophen) 325 Mg Tablet, 2 TAB PO PRN Q8HRS PRN for pain or fever for 24 Days, #100 Ref 0 (Reported) Entered as Reported by: THEA MEADOWS on 04/05/201928 Last Taken: UNKNOWN on Unknown Date & Time Last Action: New Order on 04/05/201928 by THEA MEADOWS Loperamide HCl (Imodium A-D) 2 Mg Capsule, 2 MG PO PRN PRN for DIARRHEA, (Reported) Entered as Reported by: THEA MEADOWS on 04/05/201944 Last Taken: UNKNOWN on Unknown Date & Time Last Action: New Order on 04/05/201944 by THEA MEADOWS Justicifation of Admission Dx: Justifications for Admission: Justification of Admission Dx: Yes Acute Renal Failure: Serum Cr > 4mg/dL Hypertension: Symp at Rest RADHA HWANG MD Apr 10, 2020 14:52
[2020-04-10 14:56] VITALS: BP 132/70
--- NOTE | 2020-04-10 17:16 | NUR ---
Discharge Note: TOD VASQUEZ [facility] Discharge instructions and discharge home medications reviewed with Other facility and a copy given. All questions have been answered and understanding verbalized. The following instructions and handouts were given: Dialysis Discontinued lines and drains: IV catheter Removed intact. Tele monitor removed. Patient discharged to [place] with intermediate via wheelchair. Report Called to nurse at [phone]
[2020-05-04] MEDS ORDERED: HALOPERIDOL DECANOATE 100 MG IM SCH (09:00)
== END 2020-04-10 17:18 | DRG 673 ==
LOC: ER 11:22 → ED HOLD 12:30 → 6 SOUTH 16:36
PROVIDERS: ADMIT Internal Medicine; ATTEND Internal Medicine
PROC: 0JH63XZ Insertion of Tunneled Vascular Access Device into Chest Subcutaneous Tissue and Fascia, Percutaneous Approach (ICD-10-PCS; principal; 2020-04-05)
PROC: 02H633Z Insertion of Infusion Device into Right Atrium, Percutaneous Approach (ICD-10-PCS; 2020-04-05)
PROC: B5181ZA Fluoroscopy of Superior Vena Cava using Low Osmolar Contrast, Guidance (ICD-10-PCS; 2020-04-05)
PROC: B548ZZA Ultrasonography of Superior Vena Cava, Guidance (ICD-10-PCS; 2020-04-05)
PROC: 5A1D70Z Performance of Urinary Filtration, Intermittent, Less than 6 Hours Per Day (ICD-10-PCS; 2020-04-09)
PROC: 5A1D70Z Performance of Urinary Filtration, Intermittent, Less than 6 Hours Per Day (ICD-10-PCS; 2020-04-10)
DX: N17.9 Acute kidney failure, unspecified (principal); K85.90 Acute pancreatitis without necrosis or infection, unspecified; Q87.81 Alport syndrome; F11.20 Opioid dependence, uncomplicated; I12.0 Hypertensive chronic kidney disease with stage 5 chronic kidney disease or end stage renal disease; N18.6 End stage renal disease; N25.81 Secondary hyperparathyroidism of renal origin; E87.5 Hyperkalemia; Z20.828 Contact with and (suspected) exposure to other viral communicable diseases; K21.9 Gastro-esophageal reflux disease without esophagitis; F31.9 Bipolar disorder, unspecified; F20.9 Schizophrenia, unspecified; F41.9 Anxiety disorder, unspecified; E66.01 Morbid (severe) obesity due to excess calories; G44.229 Chronic tension-type headache, not intractable; K82.8 Other specified diseases of gallbladder; D63.1 Anemia in chronic kidney disease; E11.22 Type 2 diabetes mellitus with diabetic chronic kidney disease; G25.0 Essential tremor; K42.9 Umbilical hernia without obstruction or gangrene; K57.30 Diverticulosis of large intestine without perforation or abscess without bleeding; K59.00 Constipation, unspecified; N20.0 Calculus of kidney; N28.1 Cyst of kidney, acquired; Z68.32 Body mass index [BMI] 32.0-32.9, adult; Z98.51 Tubal ligation status; Z87.891 Personal history of nicotine dependence; Z82.49 Family history of ischemic heart disease and other diseases of the circulatory system
CPT/HCPCS: 36415; 36558; 70450; 71045; 74176; 76705; 76937; 77001; 80053; 80069; 80307; 81001; 81025; 82550; 82570; 82607; 82962; 83540; 83550; 83690; 83735; 84156; 84478; 85025; 85027; 85610; 86704; 86706; 87040; 87340; 93005; 94760; 96360; 99152; 99153; C1750; C1769; C1892; J0696; J1644; J1815; J2212; J2250; J3010; J3490; J7030; 99285-25; G0378; U0003-CS

== ENCOUNTER 2020-06-03 21:31 | Inpatient (IN) | payer MEDICAID ==
[~2020-06-03] VITALS: Ht 167.6 cm; Wt 94.0 kg
[~2020-06-03 21:31] MED LIST: ACET325T21 PO; DEXT38GE2 PO; ESCITALOPRAM OX10 MG PO; FERR325T14 PO; FLUD0.1T PO; FLUT16SP NS; HALO100V IM; INSU100I27 SQ; INSU100V6 SQ; LOPE-101 PO; LORA10TA3 PO; POLY17PO29 PO; SEVE800T9 PO; SODI650T PO; TRAZ-118 PO; VALP250S3 PO
--- NOTE | 2020-06-03 22:33 | PHYS DOC ---
Past Medical History Past Medical History: Anemia, Bipolar, Constipation, Hypotension, Renal F ailure, Schizophrenia Past Surgical History: Tubal ligation Smoking Status: Current Every Day Smoker Alcohol Use: None General Pediatric Assessment Chief Complaint Chief Complaint: DIALYSIS PROBLEM History of Present Illness History of Present Illness Patient is a [age] year old [sex] who presents with [] Historian was the []. Review of Systems Review of Systems Constitutional: Denies fever or chills [] Eyes: Denies change in visual acuity, redness, or eye pain [] HENT: Denies nasal congestion or sore throat [] Respiratory: Denies cough or shortness of breath [] Cardiovascular: No additional information not addressed in HPI [] GI: Denies abdominal pain, nausea, vomiting, bloody stools or diarrhea [] : Denies dysuria or hematuria [] Musculoskeletal: Denies back pain or joint pain [] Integument: Denies rash or skin lesions [] Neurologic: Denies headache, focal weakness or sensory changes [] Endocrine: Denies polyuria or polydipsia [] All other systems were reviewed and found to be within normal limits, except as documented in this note. Allergies Allergies Allergies Coded Allergies Type Severity Reaction Last Updated Verified No Known Drug Allergies 04/05/20 No Physical Exam Physical Exam Constitutional: Well developed, well nourished, no acute distress, non-toxic appearance, positive interaction, playful. [] HENT: Normocephalic, atraumatic, bilateral external ears normal, oropharynx moist, no oral exudates, nose normal. [] Eyes: PERRLA, conjunctiva normal, no discharge. [] Neck: Normal range of motion, no tenderness, supple, no stridor. [] Cardiovascular: Normal heart rate, normal rhythm, no murmurs, no rubs, no gallops. [] Thorax and Lungs: Normal breath sounds, no respiratory distress, no wheezing, no chest tenderness, no retractions, no accessory muscle use. [] Abdomen: Bowel sounds normal, soft, no tenderness, no masses [] Skin: Warm, dry, no erythema, no rash. [] Back: No tenderness, no CVA tenderness. [] Extremities: Intact distal pulses, no tenderness, no cyanosis, ROM intact, no edema, no deformities. [] Neurologic: Alert and interactive, normal motor function, normal sensory function, no focal deficits noted. [] Radiology/Procedures Radiology/Procedures [] Course & Med Decision Making Course & Med Decision Making Pertinent Labs and Imaging studies reviewed. (See chart for details) [] Dragon Disclaimer Dragon Disclaimer This electronic medical record was generated, in whole or in part, using a voice recognition dictation system. Departure Departure Impression: Primary Impression: ESRD on dialysis Additional Impression: Dialysis catheter clot or failure Disposition: ADMITTED INPATIENT Condition: STABLE Referrals: CARLOS ALBERTO ROSE MD (PCP) Problem Qualifiers MANDEEP TAYLOR [employer] Jun 03, 2020 22:33
--- NOTE | 2020-06-03 22:38 | PHYS DOC ---
Past Medical History Past Medical History: Anemia, Bipolar, Constipation, Hypotension, Renal F ailure, Schizophrenia (MANDEEP TAYLOR APRN) Past Surgical History: Tubal ligation (MANDEEP TAYLOR APRN) Smoking Status: Current Every Day Smoker Alcohol Use: None (MANDEEP TAYLOR APRN) General Adult EDM: Chief Complaint: DIALYSIS PROBLEM HPI: HPI: Patient is a 39 year old female with a history of end-stage renal disease on dialysis Thursday last dialyzed yesterday, schizophrenia, bipolar, who presents to the ED today from a local assisted after removing her dialysis catheter. Per assisted report this states this patient has been obsessed with her catheter claiming it was infected. This suspect she intentionally removed it was taking a shower. They also report patient is obsessed about getting Tylenol and Benadryl. (MANDEEP TAYLOR APRN) Review of Systems: Review of Systems: Constitutional: Denies fever or chills. [] Eyes: Denies change in visual acuity. [] HENT: Denies nasal congestion or sore throat. [] Respiratory: Denies cough or shortness of breath. [] Cardiovascular: Denies chest pain or edema. [] GI: Denies abdominal pain, nausea, vomiting, bloody stools or diarrhea. [] : Denies dysuria. [] Musculoskeletal: Denies back pain or joint pain. [] Integument: Denies rash. [] Neurologic: Denies headache, focal weakness or sensory changes. [] Endocrine: Remove dialysis catheter. Lymphatic: Denies swollen glands. [] Psychiatric: Denies depression or anxiety. [] (MANDEEP TAYLOR APRN) Heart Score: Risk Factors: Risk Factors: DM, Current or recent (<one month) smoker, HTN, HLP, family history of CAD, obesity. Risk Scores: Score 0 - 3: 2.5% MACE over next 6 weeks - Discharge Home Score 4 - 6: 20.3% MACE over next 6 weeks - Admit for Clinical Observation Score 7 - 10: 72.7% MACE over next 6 weeks - Early Invasive Strategies (MANDEEP TAYLOR APRN) Allergies: Allergies: Allergies Coded Allergies Type Severity Reaction Last Updated Verified No Known Drug Allergies 04/05/20 No (MANDEEP TAYLOR APRN) Physical Exam: PE: Constitutional: Well developed, well nourished, no acute distress, non-toxic appearance. [] HENT: Normocephalic, atraumatic, bilateral external ears normal, oropharynx moist, no oral exudates, nose normal. [] Eyes: PERRLA, EOMI, conjunctiva normal, no discharge. [] Neck: Normal range of motion, no tenderness, supple, no stridor. [] Cardiovascular:Heart rate regular rhythm, no murmur [] Right upper chest dialysis catheter site is clean and dry. No bleeding. No signs of infection. Lungs & Thorax: Bilateral breath sounds clear to auscultation [] Abdomen: Bowel sounds normal, soft, no tenderness, no masses, no pulsatile masses. [] Skin: Warm, dry, no erythema, no rash. [] Back: No tenderness, no CVA tenderness. [] Extremities: No tenderness, no cyanosis, no clubbing, ROM intact, no edema. [] Neurologic: Alert and oriented X 3, normal motor function, normal sensory function, no focal deficits noted. [] Psychologic: Affect normal, judgement normal, mood normal. [] (MANDEEP TAYLOR APRN) EKG: EKG: [] (MANDEEP TAYLOR APRN) Radiology/Procedures: Radiology/Procedures: [] (MANDEEP TAYLOR APRN) Course & Med Decision Making: Course & Med Decision Making Pertinent Labs and Imaging studies reviewed. (See chart for details) This is a 39-year-old female patient on end-stage kidney disease currently on dialysis Thursday last dialyzed yesterday who removed her dialysis catheter. Spoke with Dr. Weeks who accepted patient for admission. Interventional radiology order placed for dialysis catheter replacement. (MANDEEP TAYLOR APRN) Dragon Disclaimer: Dragon Disclaimer: This electronic medical record was generated, in whole or in part, using a voice recognition dictation system. (MANDEEP TAYLOR APRN) Departure Departure Impression: Primary Impression: ESRD on dialysis Additional Impression: Dialysis catheter clot or failure Disposition: ADMITTED INPATIENT Condition: STABLE Referrals: CARLOS ALBERTO ROSE MD (PCP) Scripts Quetiapine Fumarate (QUETIAPINE FUMARATE) 100 Mg Tablet 50 MG PO HS for MOOD for 30 Days, #15 TAB Prov: GENA JONES MD 06/06/20 Albuterol Sulfate (Proair Hfa) 8.5 Gm Hfa.aer.ad 2.5 MG NEB PRN Q4HRS PRN for SHORTNESS OF BREATH for 14 Days, #1 INHALER Prov: GENA JONES MD 06/06/20 Justicifation of Admission Dx: Justifications for Admission: Justification of Admission Dx: Yes Acute Renal Failure: Serum Cr > 4mg/dL Hypertension: Symp at Rest (MANDEEP TAYLOR APRN) Attending Signature Attending Signature I have reviewed the PA/SENIOR ADVISOR's note and plan of care. I was available for consultation as needed during the patient's visit in the emergency department. I agree with the clinical impression, plan, and disposition. (KANA TIJERINA DO) MANDEEP TAYLOR APRN Jun 03, 2020 22:38 KANA TIJERINA DO Jun 07, 2020 08:34
[2020-06-03] MEDS ORDERED: ONDANSETRON PF 4 MG/2 ML VIAL. IV PRN (22:45)
[2020-06-03] MEDS ORDERED: diphenhydrAMINE HCL 25 MG CAPSULE PO ONE (23:00)
[2020-06-03] MEDS ORDERED: CODEINE SULFATE 30 MG TABLET. PO ONE (23:30)
[2020-06-04] VITALS (7 sets, daily range): BP systolic 113–178; BP diastolic 66–96
[2020-06-04] MEDS ORDERED: ACET325T21 PO (02:09)
[2020-06-04] MEDS ORDERED: FLUD0.1T PO (02:09)
[2020-06-04] MEDS ORDERED: POLY17PO28 PO (02:09)
[2020-06-04] MEDS ORDERED: VALP500V2 IV (02:09)
[2020-06-04] MEDS ORDERED: CLON-77 PO (02:09)
[2020-06-04] MEDS ORDERED: LOPE-101 PO (02:09)
[2020-06-04] MEDS ORDERED: ESCITALOPRAM OX10 MG PO (02:09)
[2020-06-04] MEDS ORDERED: INSU100C SQ (02:09)
[2020-06-04] MEDS ORDERED: FLUT9.9S NS (02:09)
[2020-06-04] MEDS ORDERED: HALO100V IM (02:09)
[2020-06-04] MEDS ORDERED: INSU100V13 SQ (02:09)
[2020-06-04] MEDS ORDERED: TRAZ-118 PO (02:09)
[2020-06-04] MEDS ORDERED: DEXT38GE2 PO (02:09)
[2020-06-04] MEDS ORDERED: FOLI0.8T3 PO (02:09)
[2020-06-04] MEDS ORDERED: LORA10TA3 PO (02:09)
[2020-06-04] MEDS ORDERED: SEVE800T9 PO (02:09)
[2020-06-04] MEDS ORDERED: FAMO40TA4 PO (02:09)
[2020-06-04 04:59] LABS: BASO # 0.1 x10^3/uL (0.0-0.2); BASO % 1 % (0-3); EOS # 0.3 x10^3/uL (0.0-0.7); EOS % 4 % (0-3); HEMOGLOBIN 9.1 g/dL (12.0-15.5); LYMPH # 2.1 x10^3/uL (1.0-4.8); LYMPH % 28 % (24-48); MEAN CORPUSCULAR HEMOGLOBIN 36 pg (25-35); MEAN CORPUSCULAR HGB CONC 33 g/dL (31-37); MEAN CORPUSCULAR VOLUME 109 fL (79-100); MONO # 0.5 x10^3/uL (0.0-1.1); MONO % 6 % (0-9); NEUT # 4.6 x10^3/uL (1.8-7.7); NEUT % 61 % (31-73); PLATELET COUNT 216 x10^3/uL (140-400); RED BLOOD COUNT 2.56 x10^6/uL (3.50-5.40); RED CELL DISTRIBUTION WIDTH 19.9 % (11.5-14.5); WHITE BLOOD COUNT 7.5 x10^3/uL (4.0-11.0)
[2020-06-04 05:21] LABS: ALBUMIN 2.7 g/dL (3.4-5.0); ALBUMIN/GLOBULIN RATIO 0.9 (1.0-1.7); CALCIUM 8.7 mg/dL (8.5-10.1); CREATININE 7.2 mg/dL (0.6-1.0); GFR 6.4; POTASSIUM 5.3 mmol/L (3.5-5.1); TOTAL BILIRUBIN 0.3 mg/dL (0.2-1.0); TOTAL PROTEIN 5.6 g/dL (6.4-8.2)
[2020-06-04 07:56] LABS: PROTHROMBIN TIME PATIENT 12.2 SEC (11.7-14.0)
[2020-06-04] MEDS ORDERED: MIDAZOLAM HCL/PF 5 MG/5 ML VIAL. IV ONE (08:30)
[2020-06-04] MEDS ORDERED: LIDOCAINE 1%/EPI 1:100,000 20 ML VIAL. INJ ONE (08:30)
[2020-06-04] MEDS ORDERED: fentaNYL PF VIAL 100 MCG/2 ML VIAL IV ONE (08:30)
--- NOTE | 2020-06-04 08:41 | PDOC1 ---
History and Physical Date of Admission Date of Admission DATE: 06/04/20 TIME: 08:41 Identification/Chief Complaint Chief Complaint SEEN IN ER AFTER Dialysis catheter removal, 39 year old female with a history of end-stage renal disease on dialysis Thursday last dialyzed 06/02, schizophrenia, bipolar, who presents to the ED from a local shelter after removing her dialysis catheter. Per shelter report states patient has been obsessed with her catheter claiming it was infected.they suspect she intentionally removed it was taking a shower. They also report patient is obsessed about getting Tylenol and Benadryl. Now claims she wants to leave hospital AMA Past Medical History Past Medical History Past Medical History Past Medical History: Anemia, Bipolar, Constipation, Hypotension, Renal Failure, Schizophrenia Past Surgical History: Tubal ligation Smoking Status: Current Every Day Smoker Alcohol Use: None FHX OBESITY Cardiovascular: HTN CENTRAL NERVOUS SYSTEM: Other GI: GERD Heme/Onc: Anemia NOS Psych: Anxiety, Bipolar, Schizophrenia Renal/: Chronic renal insuff Endocrine: Diabetes Past Surgical History Past Surgical History: No pertinent history Family History Family History: Hypertension Social History Smoke: No ALCOHOL: none Drugs: None Current Problem List Problem List Problems Medical Problems: (1) ESRD on dialysis Status: Acute Current Medications Current Medications Current Medications Ondansetron HCl (Zofran) 4 mg PRN Q8HRS PRN IV NAUSEA/VOMITING 1ST CHOICE; Start 06/03/20 at 22:45; Stop 06/04/20 at 22:44 Acetaminophen (Tylenol) 650 mg PRN Q4HRS PRN PO FEVER > 100.3'F; Start 06/03/20 at 22:45; Stop 06/04/20 at 22:44 Diphenhydramine HCl (Benadryl) 25 mg 1X ONCE PO Last administered on 06/03/20at 22:59; Start 06/03/20 at 23:00; Stop 06/03/20 at 23:01; Status DC Codeine Sulfate (Codeine) 30 mg 1X ONCE PO Last administered on 06/03/20at 22:59; Start 06/03/20 at 23:30; Stop 06/03/20 at 23:31; Status DC Cefazolin Sodium/ Dextrose 50 ml @ 100 mls/hr 1X ONCE IV ; Start 06/04/20 at 08:30; Stop 06/04/20 at 08:59 Midazolam HCl (Versed) 5 mg 1X ONCE IV ; Start 06/04/20 at 08:30; Stop 06/04/20 at 08:34; Status DC Fentanyl Citrate (Fentanyl 2ml Vial) 100 mcg 1X ONCE IV ; Start 06/04/20 at 08:30; Stop 06/04/20 at 08:34; Status DC Lidocaine/ Epinephrine (LIDOCAINE 1%-EPI 1:100,000 Multi-Dose) 20 ml 1X ONCE INJ ; Start 06/04/20 at 08:30; Stop 06/04/20 at 08:34; Status DC Active Scripts Active Reported Trazodone Hcl 50 Mg Tablet 1 Tab PO QHS Renvela (Sevelamer Carbonate) 800 Mg Tablet 3 Tab PO TID 30 Days Nephro-Sheyla Tablet (Folic Acid/Vitamin B Comp W-C) 0.8 Mg Tablet 1 Tab PO DAILY Loratadine 10 Mg Tablet 1 Tab PO DAILY Levemir (Insulin Detemir) 100 Unit/1 Ml Vial 12 Unit SQ HS Humalog (Insulin Lispro) 100 Unit/1 Ml Cartridge 100 Unit SQ PRN BFRMEAL Haloperidol Decanoate 100 Mg/1 Ml Vial 150 Mg IM HS Famotidine 40 Mg Tablet 40 Mg PO HS Clonazepam (Clonazepam) 0.5 Mg Tablet 0.5 Mg PO BID Acetaminophen 325 Mg Tablet 2 Tab PO PRN Q8HRS PRN 24 Days Trazodone Hcl 50 Mg Tablet 75 Mg PO HS Miralax (Polyethylene Glycol 3350) 17 Gm Powd.pack 1 Pkt PO DAILY Imodium A-D (Loperamide HCl) 2 Mg Capsule 2 Mg PO PRN PRN Glucose Gel (Dextrose) 38 Gm Gel..gram. 15 Gm PO PRN Fluticasone Propionate Nasal [place] (Fluticasone Propionate) 16 Gm [place].susp 2 [place] NS DAILY Fludrocortisone Acetate 0.1 Mg Tablet 0.1 Mg PO DAILY Escitalopram Oxalate 10 Mg Tablet 1 Tab PO DAILY Valproic Acid (Valproate Sodium) 250 Mg/5 Ml Solution 1,000 Mg PO HS Allergies Allergies: Coded Allergies: chocolate flavor (Verified Allergy, Intermediate, 06/03/20) sulfamethoxazole (Verified Allergy, Intermediate, 06/03/20) trimethoprim (Verified Allergy, Intermediate, 06/03/20) ROS Review of System Constitutional: Denies fever or chills. [] Eyes: Denies change in visual acuity. [] HENT: Denies nasal congestion or sore throat. [] Respiratory: Denies cough or shortness of breath. [] Cardiovascular: Denies chest pain or edema. [] GI: Denies abdominal pain, nausea, vomiting, bloody stools or diarrhea. [] : Denies dysuria. [] Musculoskeletal: Denies back pain or joint pain. [] Integument: Denies rash. [] Neurologic: Denies headache, focal weakness or sensory changes. [] Endocrine: Remove dialysis catheter. Lymphatic: Denies swollen glands. [] Psychiatric: Denies depression or anxiety. [] 14 pt ros otherwise neg Respiratory: No: Cough, Hemoptysis, Orthopnea, Pleuritic Pain, Shortness of breath, SOB with excertion, Sputum Changes, Stridor, Tachypnea, Wheezing, Other Cardiovascular: No Chest Pain, No Palpitations, No Orthopnea, No Paroxysmal Noc. Dyspnea, No Edema, No Lt Headedness, No Other Genitourinary: No Dysuria, No Frequency, No Incontinence, No Hematuria, No Retention, No Discharge, No Urgency, No Pain, No Flank Pain, No Other, No , No , No , No , No , No , No Musculoskeletal: No Gait Disturbance, No Joint Pain, No Joint Stiffness, No Joint Swelling, No Muscle Pain, No Muscular Weakness, No Pain In:, No Swelling In:, No Other Physical Exam Physical Exam Physical Exam: PE: Constitutional: Well developed, well nourished, no acute distress, non-toxic appearance. [] HENT: Normocephalic, atraumatic, bilateral external ears normal, oropharynx moist, no oral exudates, nose normal. [] Eyes: PERRLA, EOMI, conjunctiva normal, no discharge. [] Neck: Normal range of motion, no tenderness, supple, no stridor. [] Cardiovascular:Heart rate regular rhythm, no murmur [] Right upper chest dialysis catheter site is clean and dry. No bleeding. No signs of infection. Lungs & Thorax: Bilateral breath sounds clear to auscultation [] Abdomen: Bowel sounds normal, soft, no tenderness, no masses, no pulsatile masses. [] Skin: Warm, dry, no erythema, no rash. [] Back: No tenderness, no CVA tenderness. [] Extremities: No tenderness, no cyanosis, no clubbing, ROM intact, no edema. [] Neurologic: Alert and oriented X 3, normal motor function, normal sensory function, no focal deficits noted. [] Psychologic: Affect normal, judgement poor , mood normal. [] General: Alert, Oriented X3, Cooperative Heart: RRR Breasts: Not examined Abdomen: Normal bowel sounds, Soft Rectal Exam: not examined Extremities: No cyanosis Neuro: Normal speech, Cranial nerves 3-12 NL Vitals Vitals Vital Signs Date Time Temp Pulse Resp B/P (MAP) Pulse Ox O2 Delivery O2 Flow Rate FiO2 06/04/20 07:27 98.0 70 17 113/71 (85) 98 Room Air 98.0 Labs Labs Laboratory Tests Test 06/04/20 03:50 06/04/20 07:30 White Blood Count 7.5 x10^3/uL (4.0-11.0) Red Blood Count 2.56 x10^6/uL (3.50-5.40) Hemoglobin 9.1 g/dL (12.0-15.5) Hematocrit 28.0 % (36.0-47.0) Mean Corpuscular Volume 109 fL (79-100) Mean Corpuscular Hemoglobin 36 pg (25-35) Mean Corpuscular Hemoglobin Concent 33 g/dL (31-37) Red Cell Distribution Width 19.9 % (11.5-14.5) Platelet Count 216 x10^3/uL (140-400) Neutrophils (%) (Auto) 61 % (31-73) Lymphocytes (%) (Auto) 28 % (24-48) Monocytes (%) (Auto) 6 % (0-9) Eosinophils (%) (Auto) 4 % (0-3) Basophils (%) (Auto) 1 % (0-3) Neutrophils # (Auto) 4.6 x10^3/uL (1.8-7.7) Lymphocytes # (Auto) 2.1 x10^3/uL (1.0-4.8) Monocytes # (Auto) 0.5 x10^3/uL (0.0-1.1) Eosinophils # (Auto) 0.3 x10^3/uL (0.0-0.7) Basophils # (Auto) 0.1 x10^3/uL (0.0-0.2) Sodium Level 136 mmol/L (136-145) Potassium Level 5.3 mmol/L (3.5-5.1) Chloride Level 102 mmol/L (98-107) Carbon Dioxide Level 24 mmol/L (21-32) Anion Gap 10 (6-14) Blood Urea Nitrogen 46 mg/dL (7-20) Creatinine 7.2 mg/dL (0.6-1.0) Estimated GFR (Cockcroft-Gault) 6.4 BUN/Creatinine Ratio 6 (6-20) Glucose Level 185 mg/dL (70-99) Calcium Level 8.7 mg/dL (8.5-10.1) Total Bilirubin 0.3 mg/dL (0.2-1.0) Aspartate Amino Transf (AST/SGOT) 10 U/L (15-37) Alanine Aminotransferase (ALT/SGPT) 10 U/L (14-59) Alkaline Phosphatase 137 U/L (46-116) Total Protein 5.6 g/dL (6.4-8.2) Albumin 2.7 g/dL (3.4-5.0) Albumin/Globulin Ratio 0.9 (1.0-1.7) Prothrombin Time 12.2 SEC (11.7-14.0) Prothromb Time International Ratio 0.9 (0.8-1.1) Laboratory Tests Test 06/04/20 03:50 06/04/20 07:30 White Blood Count 7.5 x10^3/uL (4.0-11.0) Red Blood Count 2.56 x10^6/uL (3.50-5.40) Hemoglobin 9.1 g/dL (12.0-15.5) Hematocrit 28.0 % (36.0-47.0) Mean Corpuscular Volume 109 fL (79-100) Mean Corpuscular Hemoglobin 36 pg (25-35) Mean Corpuscular Hemoglobin Concent 33 g/dL (31-37) Red Cell Distribution Width 19.9 % (11.5-14.5) Platelet Count 216 x10^3/uL (140-400) Neutrophils (%) (Auto) 61 % (31-73) Lymphocytes (%) (Auto) 28 % (24-48) Monocytes (%) (Auto) 6 % (0-9) Eosinophils (%) (Auto) 4 % (0-3) Basophils (%) (Auto) 1 % (0-3) Neutrophils # (Auto) 4.6 x10^3/uL (1.8-7.7) Lymphocytes # (Auto) 2.1 x10^3/uL (1.0-4.8) Monocytes # (Auto) 0.5 x10^3/uL (0.0-1.1) Eosinophils # (Auto) 0.3 x10^3/uL (0.0-0.7) Basophils # (Auto) 0.1 x10^3/uL (0.0-0.2) Sodium Level 136 mmol/L (136-145) Potassium Level 5.3 mmol/L (3.5-5.1) Chloride Level 102 mmol/L (98-107) Carbon Dioxide Level 24 mmol/L (21-32) Anion Gap 10 (6-14) Blood Urea Nitrogen 46 mg/dL (7-20) Creatinine 7.2 mg/dL (0.6-1.0) Estimated GFR (Cockcroft-Gault) 6.4 BUN/Creatinine Ratio 6 (6-20) Glucose Level 185 mg/dL (70-99) Calcium Level 8.7 mg/dL (8.5-10.1) Total Bilirubin 0.3 mg/dL (0.2-1.0) Aspartate Amino Transf (AST/SGOT) 10 U/L (15-37) Alanine Aminotransferase (ALT/SGPT) 10 U/L (14-59) Alkaline Phosphatase 137 U/L (46-116) Total Protein 5.6 g/dL (6.4-8.2) Albumin 2.7 g/dL (3.4-5.0) Albumin/Globulin Ratio 0.9 (1.0-1.7) Prothrombin Time 12.2 SEC (11.7-14.0) Prothromb Time International Ratio 0.9 (0.8-1.1) VTE Prophylaxis Ordered VTE Prophylaxis Devices: Yes VTE Pharmacological Prophylaxi: Yes Assessment/Plan Assessment/Plan IMPRESSION 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 Essential tremor Hyperkalemia resolved Normocytic anemia of chronic disease secondary hyperparathyroidism History of bipolar disorder/ Schizophrenia, compromising medical care Dialysis catheter removal, in need of replacement plan ADMIT Consult nephrology Consult IR Consult psych heparin sq dvt prophylaxis Justicifation of Admission Dx: Justifications for Admission: Justification of Admission Dx: Yes Acute Renal Failure: Serum Cr > 4mg/dL Hypertension: Symp at Rest GENA JONES MD Jun 04, 2020 08:41
[2020-06-04] MEDS ORDERED: 0.9 % SODIUM CHLORIDE 10 ML DISP.SYRIN. IV PRN ×3 (08:45→12:45)
[2020-06-04] MEDS ORDERED: ACETAMINOPHEN 325 MG TABLET. PO PRN ×2 (08:45→09:00)
[2020-06-04] MEDS ORDERED: ALBUTEROL SULFATE 2.5 MG/3 ML NEBU. NEB PRN (08:45)
[2020-06-04] MEDS ORDERED: DOCUSATE SODIUM 100 MG CAPSULE. PO PRN (08:45)
[2020-06-04] MEDS ORDERED: guaiFENesin ORAL 200 MG/10 ML LIQUID. PO PRN (08:45)
[2020-06-04] MEDS ORDERED: ONDANSETRON PF 4 MG/2 ML VIAL. IV PRN (08:45)
[2020-06-04] MEDS: POLYETHYLENE GLYCOL 3350 17 GM PACKET. PO SCH (09:00)
[2020-06-04] MEDS: SEVELAMER CARBONATE 800 MG TABLET. PO SCH ×3 (09:00→12:14)
[2020-06-04] MEDS: FLUTICASONE 50MCG/NASAL SPRAY 16GM BOTTLE. NS SCH (09:00)
[2020-06-04] MEDS: FOLIC/VIT B COMP W-C (RENAL) TABLET. PO SCH (09:00)
[2020-06-04] MEDS: FLUDROCORTISONE 0.1 MG TABLET PO SCH (09:00)
[2020-06-04] MEDS: clonazePAM 0.5 MG TABLET PO SCH ×2 (09:00→20:54)
[2020-06-04] MEDS ORDERED: DEXTROSE 50% 25 GM / 50ML DISP.SYRIN. IV PRN (09:00)
[2020-06-04] MEDS: CETIRIZINE HCL 10 MG TABLET. PO SCH (09:15)
[2020-06-04] MEDS: CITALOPRAM 20 MG TABLET. PO SCH (10:00)
--- NOTE | 2020-06-04 10:01 | PDOC2 ---
CONSULT Date of Consult Date of Consult DATE: 06/04/20 TIME: 09:54 Reason for Consult Reason for Consult: ESRD History of Present Illness Reason for Visit: 39 year old CF with a history of end-stage renal disease on dialysis Thursday last dialyzed 06/02, schizophrenia, bipolar, who [facility] a local [facility] after HD cathter fell off per pt Per [facility] report states patient has been obsessed with her catheter claiming it was infected.they suspect she intentionally removed it was taking a shower. Pt states she went in the shower and it fell on its own She denies any complaints. No N/V/D. Denies f/c. No abdominal pain. She reports having good RRF , No dyauria, hematuria They also report patient is obsessed about getting Tylenol and Benadryl Past Medical History Cardiovascular: HTN CENTRAL NERVOUS SYSTEM: Other GI: GERD Heme/Onc: Anemia NOS Psych: Anxiety, Bipolar, Schizophrenia Renal/: Chronic renal insuff Endocrine: Diabetes Past Surgical History Past Surgical History: No pertinent history Family History Family History: Hypertension Social History ALCOHOL: none Drugs: None Current Problem List Problem List Problems Medical Problems: (1) ESRD on dialysis Status: Acute Current Medications Current Medications Current Medications Ondansetron HCl (Zofran) 4 mg PRN Q8HRS PRN IV NAUSEA/VOMITING 1ST CHOICE; Start 06/03/20 at 22:45; Stop 06/04/20 at 22:44 Acetaminophen (Tylenol) 650 mg PRN Q4HRS PRN PO FEVER > 100.3'F; Start 06/03/20 at 22:45; Stop 06/04/20 at 22:44 Diphenhydramine HCl (Benadryl) 25 mg 1X ONCE PO Last administered on 06/03/20at 22:59; Start 06/03/20 at 23:00; Stop 06/03/20 at 23:01; Status DC Codeine Sulfate (Codeine) 30 mg 1X ONCE PO Last administered on 06/03/20at 22:59; Start 06/03/20 at 23:30; Stop 06/03/20 at 23:31; Status DC Cefazolin Sodium/ Dextrose 50 ml @ 100 mls/hr 1X ONCE IV ; Start 06/04/20 at 08:30; Stop 8/3/20 at 08:59; Status DC Midazolam HCl (Versed) 5 mg 1X ONCE IV ; Start 06/04/20 at 08:30; Stop 06/04/20 at 08:34; Status DC Fentanyl Citrate (Fentanyl 2ml Vial) 100 mcg 1X ONCE IV ; Start 06/04/20 at 08:30; Stop 06/04/20 at 08:34; Status DC Lidocaine/ Epinephrine (LIDOCAINE 1%-EPI 1:100,000 Multi-Dose) 20 ml 1X ONCE INJ ; Start 06/04/20 at 08:30; Stop 06/04/20 at 08:34; Status DC Sodium Chloride (Normal Saline Flush) 3 ml QSHIFT PRN IV AFTER MEDS AND BLOOD DRAWS; Start 06/04/20 at 08:45 Ondansetron HCl (Zofran) 4 mg PRN Q4HRS PRN IV NAUSEA/VOMITING; Start 06/04/20 at 08:45 Acetaminophen (Tylenol) 650 mg PRN Q4HRS PRN PO TEMP OVER 100.4F OR MILD PAIN; Start 06/04/20 at 08:45 Docusate Sodium (Colace) 100 mg PRN BID PRN PO HARD STOOLS; Start 06/04/20 at 08:45 Albuterol Sulfate (Ventolin Neb Soln) 2.5 mg PRN Q4HRS PRN NEB SHORTNESS OF BREATH; Start 06/04/20 at 08:45 Guaifenesin (Robitussin) 200 mg PRN Q4HRS PRN PO COUGH; Start 06/04/20 at 08:45 Acetaminophen (Tylenol) 650 mg PRN Q8HRS PRN PO pain or fever; Start 06/04/20 at 09:00 Clonazepam (KlonoPIN) 0.5 mg BID PO ; Start 06/04/20 at 09:00 Fludrocortisone Acetate (Florinef) 0.1 mg DAILY PO ; Start 06/04/20 at 09:00 Fluticasone Propionate (Flonase) 2 spray DAILY NS ; Start 06/04/20 at 09:00 Vitamin B Complex/ Vitamin C (Juliet-Sheyla) 1 tab DAILY PO ; Start 06/04/20 at 09:00 Polyethylene Glycol (miraLAX PACKET) 17 gm DAILY PO ; Start 06/04/20 at 09:00 Sevelamer Carbonate (Renvela) 2,400 mg TIDWMEALS PO ; Start 06/04/20 at 09:00 Trazodone HCl (Desyrel) 75 mg HS PO ; Start 06/04/20 at 21:00 Citalopram Hydrobromide (CeleXA) 20 mg DAILY PO ; Start 06/04/20 at 10:00 Famotidine (Pepcid) 40 mg QHS PO ; Start 06/04/20 at 21:00 Cetirizine HCl (ZyrTEC) 10 mg DAILY PO ; Start 06/04/20 at 09:15 Valproic Acid (Depakene) 1,000 mg QHS PO ; Start 06/04/20 at 21:00 Insulin Human Lispro (HumaLOG) 0-5 UNITS TIDWMEALS SQ ; Start 06/04/20 at 12:00 Dextrose (Dextrose 50%-Water Syringe) 12.5 gm PRN Q15MIN PRN IV SEE COMMENTS; Start 06/04/20 at 09:00 Active Scripts Active Reported Renvela (Sevelamer Carbonate) 800 Mg Tablet 3 Tab PO TID 30 Days Nephro-Sheyla Tablet (Folic Acid/Vitamin B Comp W-C) 0.8 Mg Tablet 1 Tab PO DAILY Loratadine 10 Mg Tablet 1 Tab PO DAILY Levemir (Insulin Detemir) 100 Unit/1 Ml Vial 12 Unit SQ HS Humalog (Insulin Lispro) 100 Unit/1 Ml Cartridge 100 Unit SQ PRN BFRMEAL Haloperidol Decanoate 100 Mg/1 Ml Vial 150 Mg IM HS Famotidine 40 Mg Tablet 40 Mg PO HS Clonazepam (Clonazepam) 0.5 Mg Tablet 0.5 Mg PO BID Acetaminophen 325 Mg Tablet 2 Tab PO PRN Q8HRS PRN 24 Days Trazodone Hcl 50 Mg Tablet 75 Mg PO HS Miralax (Polyethylene Glycol 3350) 17 Gm Powd.pack 1 Pkt PO DAILY Imodium A-D (Loperamide HCl) 2 Mg Capsule 2 Mg PO PRN PRN Glucose Gel (Dextrose) 38 Gm Gel..gram. 15 Gm PO PRN Fluticasone Propionate Nasal [place] (Fluticasone Propionate) 16 Gm [place].susp 2 [place] NS DAILY Fludrocortisone Acetate 0.1 Mg Tablet 0.1 Mg PO DAILY Escitalopram Oxalate 10 Mg Tablet 1 Tab PO DAILY Valproic Acid (Valproate Sodium) 250 Mg/5 Ml Solution 1,000 Mg PO HS Allergies Allergies: Coded Allergies: chocolate flavor (Verified Allergy, Intermediate, 06/03/20) sulfamethoxazole (Verified Allergy, Intermediate, 06/03/20) trimethoprim (Verified Allergy, Intermediate, 06/03/20) ROS Review of System As per HPI, rest of the ROS is negative Physical Exam Physical Exam GEN: NAD, HEEN-OM moist NECK: supple CVS: S1S2, RESP: CTA, Non labored GI: BS + ve, Non Tender, obese : No CVA tenderness, No Suprapubic Tenderness, No [place] NEURO- Grossly Normal, Chronic ABnorma movements- upper Ext DERM No Rash Vital Signs Vital Signs Date Time Temp Pulse Resp B/P (MAP) Pulse Ox O2 Delivery O2 Flow Rate FiO2 06/04/20 08:00 Room Air 06/04/20 07:27 98.0 70 17 113/71 (85) 98 98.0 Assessment & Plan 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, on HD MWF She was admitted in April at [facility] with LIANA - initiated on HD Ct scan in April showed bilat Renal atrophy -right greater than left Seen on HD, tolerating well , Continue as ordered, [facility] [place] [facility]- Replaced TDC this am(Old fell off ) Left renal cyst Essential tremor Hyperkalemia mild , HD today Anemia of chronic disease Secondary hyperparathyroidism History of bipolar disorder/ Schizophrenia, compromising medical care Labs Labs Laboratory Tests Test 06/04/20 03:50 06/04/20 07:30 White Blood Count 7.5 x10^3/uL (4.0-11.0) Red Blood Count 2.56 x10^6/uL (3.50-5.40) Hemoglobin 9.1 g/dL (12.0-15.5) Hematocrit 28.0 % (36.0-47.0) Mean Corpuscular Volume 109 fL (79-100) Mean Corpuscular Hemoglobin 36 pg (25-35) Mean Corpuscular Hemoglobin Concent 33 g/dL (31-37) Red Cell Distribution Width 19.9 % (11.5-14.5) Platelet Count 216 x10^3/uL (140-400) Neutrophils (%) (Auto) 61 % (31-73) Lymphocytes (%) (Auto) 28 % (24-48) Monocytes (%) (Auto) 6 % (0-9) Eosinophils (%) (Auto) 4 % (0-3) Basophils (%) (Auto) 1 % (0-3) Neutrophils # (Auto) 4.6 x10^3/uL (1.8-7.7) Lymphocytes # (Auto) 2.1 x10^3/uL (1.0-4.8) Monocytes # (Auto) 0.5 x10^3/uL (0.0-1.1) Eosinophils # (Auto) 0.3 x10^3/uL (0.0-0.7) Basophils # (Auto) 0.1 x10^3/uL (0.0-0.2) Sodium Level 136 mmol/L (136-145) Potassium Level 5.3 mmol/L (3.5-5.1) Chloride Level 102 mmol/L (98-107) Carbon Dioxide Level 24 mmol/L (21-32) Anion Gap 10 (6-14) Blood Urea Nitrogen 46 mg/dL (7-20) Creatinine 7.2 mg/dL (0.6-1.0) Estimated GFR (Cockcroft-Gault) 6.4 BUN/Creatinine Ratio 6 (6-20) Glucose Level 185 mg/dL (70-99) Calcium Level 8.7 mg/dL (8.5-10.1) Total Bilirubin 0.3 mg/dL (0.2-1.0) Aspartate Amino Transf (AST/SGOT) 10 U/L (15-37) Alanine Aminotransferase (ALT/SGPT) 10 U/L (14-59) Alkaline Phosphatase 137 U/L (46-116) Total Protein 5.6 g/dL (6.4-8.2) Albumin 2.7 g/dL (3.4-5.0) Albumin/Globulin Ratio 0.9 (1.0-1.7) Prothrombin Time 12.2 SEC (11.7-14.0) Prothromb Time International Ratio 0.9 (0.8-1.1) Laboratory Tests Test 06/04/20 03:50 06/04/20 07:30 White Blood Count 7.5 x10^3/uL (4.0-11.0) Red Blood Count 2.56 x10^6/uL (3.50-5.40) Hemoglobin 9.1 g/dL (12.0-15.5) Hematocrit 28.0 % (36.0-47.0) Mean Corpuscular Volume 109 fL (79-100) Mean Corpuscular Hemoglobin 36 pg (25-35) Mean Corpuscular Hemoglobin Concent 33 g/dL (31-37) Red Cell Distribution Width 19.9 % (11.5-14.5) Platelet Count 216 x10^3/uL (140-400) Neutrophils (%) (Auto) 61 % (31-73) Lymphocytes (%) (Auto) 28 % (24-48) Monocytes (%) (Auto) 6 % (0-9) Eosinophils (%) (Auto) 4 % (0-3) Basophils (%) (Auto) 1 % (0-3) Neutrophils # (Auto) 4.6 x10^3/uL (1.8-7.7) Lymphocytes # (Auto) 2.1 x10^3/uL (1.0-4.8) Monocytes # (Auto) 0.5 x10^3/uL (0.0-1.1) Eosinophils # (Auto) 0.3 x10^3/uL (0.0-0.7) Basophils # (Auto) 0.1 x10^3/uL (0.0-0.2) Sodium Level 136 mmol/L (136-145) Potassium Level 5.3 mmol/L (3.5-5.1) Chloride Level 102 mmol/L (98-107) Carbon Dioxide Level 24 mmol/L (21-32) Anion Gap 10 (6-14) Blood Urea Nitrogen 46 mg/dL (7-20) Creatinine 7.2 mg/dL (0.6-1.0) Estimated GFR (Cockcroft-Gault) 6.4 BUN/Creatinine Ratio 6 (6-20) Glucose Level 185 mg/dL (70-99) Calcium Level 8.7 mg/dL (8.5-10.1) Total Bilirubin 0.3 mg/dL (0.2-1.0) Aspartate Amino Transf (AST/SGOT) 10 U/L (15-37) Alanine Aminotransferase (ALT/SGPT) 10 U/L (14-59) Alkaline Phosphatase 137 U/L (46-116) Total Protein 5.6 g/dL (6.4-8.2) Albumin 2.7 g/dL (3.4-5.0) Albumin/Globulin Ratio 0.9 (1.0-1.7) Prothrombin Time 12.2 SEC (11.7-14.0) Prothromb Time International Ratio 0.9 (0.8-1.1) Review All relevant outside records, renal labs, imaging studies, telemetry/EKG's were reviewed. DAYA VEGA MD Jun 04, 2020 10:01
[2020-06-04] MEDS ORDERED: fentaNYL PF VIAL 100 MCG/2 ML VIAL ONE (10:58)
[2020-06-04] MEDS ORDERED: MIDAZOLAM HCL/PF 2 MG/2 ML VIAL. IV ONE (11:00)
[2020-06-04] MEDS ORDERED: LIDOCAINE 1%/EPI 1:100,000 20 ML VIAL. ONE (11:06)
--- NOTE | 2020-06-04 11:44 | PDOC ---
MODERATE SEDATION ASSESSMENT RISKS/ALTERNATIVES Risks/Alternatives Risks and alternatives of this type of sedation and procedure discussed with: RISK/ALTERNATIVES: Patient H & P ON CHART H & P H & P on chart and reviewed for co-morbid conditions and appropriate labs. H&P ON CHART: Yes STATUS PREG STATUS ASSESSED: Yes MEDS/ALLERGIES REVIEWED Meds/Allergies Reviewed Medications and Allergies including time and route of recently administered narcotics and sedatives. MEDS/ALLERGIES REVIEWED: Yes ASA RATING ASA RATING: III AIRWAY ASSESSMENT Airway Assessment Airway patency, oral function limitations, presence of caps, crowns, dentures, partials, and ability to extend neck assessed. AIRWAY ASSESSMENT: Yes MALLAMPATI SCORE MALLAMPATI SCORE: II PRE-SEDATION ASSESSMENT PRE-SEDATION ASSESSMENT: Yes NIC SEXTON MD Jun 04, 2020 11:44
--- NOTE | 2020-06-04 11:44 | PDOC ---
BRIEF OPERATIVE NOTE Pre-Op Diagnosis CRF Post-Op Diagnosis same Procedure Performed Tunnelled HD Catheter placement Surgeon Margie Anesthesia Type: Conscious Sedation Findings 23cm Palindrome with excellent manual flows. Right IJ access. Complications No immediatel NIC SEXTON MD Jun 04, 2020 11:44
[2020-06-04] MEDS: HEPARIN for SUB-Q USE 5,000 UNIT/ML VIAL. SQ SCH ×2 (12:00→22:08)
--- NOTE | 2020-06-04 12:11 | NUR ---
SW following. Discussed with RN. 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 Pt having dialysis cath replaced today. Pt does dialysis at [facility] - to notify [facility] when pt discharges. Pt will need a COVID-19 test prior to return to facility - RN notified. SW will continue to follow.
[2020-06-04] MEDS: INSULIN LISPRO 300 UNITS/3 ML VIAL. SQ SCH ×2 (12:14→17:17)
[2020-06-04] MEDS ORDERED: IV NORMAL SALINE 1000ML BAG 1,000 ML IV PRN ×2 (12:42)
[2020-06-04] MEDS: ACETAMINOPHEN 325 MG TABLET. PO PRN ×2 (12:44→17:12)
[2020-06-04] MEDS ORDERED: ACETAMINOPHEN 500 MG TABLET PO PRN (12:45)
[2020-06-04] MEDS ORDERED: DIALYSIS PATIENT. MC PRN ×2 (12:45)
[2020-06-04] MEDS ORDERED: diphenhydrAMINE 50 MG/ML VIAL IV PRN ×2 (12:45)
[2020-06-04] MEDS ORDERED: ALBUMIN HUMAN 25% 200 ML IV PRN (12:45)
--- NOTE | 2020-06-04 14:40 | RAD ---
Procedure: Tunneled hemodialysis catheter placement Clinical Indication: Adult female with chronic renal failure requiring hemodialysis Sedation: Conscious sedation was administered for 34 minutes. The patient was monitored by a qualified independent observer throughout the time of sedation. Please refer to the medical record for exact doses of medications utilized to achieve moderate sedation. Antibiotics: Antibiotic was administered intravenously within 1 hour of the procedure start time. Fluoro Time: 1.6 minutes, images: 1 Contrast: None Sterility: All elements of maximal sterile barrier technique including the use of a cap, mask, sterile gown, sterile gloves, large sterile sheet, appropriate hand hygiene, and 2% chlorhexidine for cutaneous antisepsis (or acceptable alternative antiseptic per current guidelines) were followed for this procedure. Consent: The procedure was explained in its entirety to the patient or the patients designated ocean import representative by a member of the treatment team, including a discussion of the risks, benefits and commonly accepted alternatives to the procedure, as well as the expected consequences of no therapy whatsoever. Discussion of the risks included, but was not limited to, those that are most frequent and those that are rare but possibly severe or life-threatening, as well as the possibility of unforeseen complications. Technique and Findings: Following informed consent, the patient was prepped and draped in the usual sterile fashion. Ultrasound interrogation of the right neck revealed patency and compressibility of the right internal jugular vein. A 21-gauge micropuncture was then used to gain access to this vein under ultrasound guidance. A hard copy ultrasound image was recorded. The needle was exchanged over a wire for a 4 [place] sheath which was used to guide an Amplatz wire into the IVC. The skin over the right anterior chest wall was copiously anesthetized with 1% Lidocaine plus Epinephrine and a small dermatotomy was made. A 23 cm palindrome tunneled hemodialysis catheter was then tunneled subcutaneously towards the neck dermatotomy and deployed through a large caliber peel-away sheath under fluoroscopic guidance such that the distal tip resided in the mid right atrium. Manual flow rates were assessed and found to be excellent. The catheter was then flushed, packed with Heparin, capped, and sutured to the skin. The neck dermatotomy was closed with Dermabond. Complications: None Impression: 1. Tunneled hemodialysis catheter placement as described. This catheter demonstrates excellent manual flow rates and is suitable for use immediately.
--- NOTE | 2020-06-04 17:18 | PDOC1 ---
History & Psych Evaluation Date of Service: DOS: DATE: 06/04/20 TIME: 17:18 Source: Source: Caregiver, Chart review, Patient Identification: Identification She is a 39-year-old female with history of bipolar mood disorder Chief Complaint: Chief Complaint She is a 39-year-old female with history of schizophrenia spectrum disorder, bipolar mood disorder, seen for initial psychiatric assessment. According to the chart review, she is on multiple psychotropic medications i ncluding Klonopin, citalopram, Depakote, and Haldol Decanoate. Upon interview, she appears cooperative and interactive. Stating, she has history of bipolar mood disorder with symptoms including high energy, elated mood, irritability, anger dyscontrol, and euphoria which last for few days then followed by deep depression with psychomotor retardation. States, she is mostly stable with her current regimen. However presently she is a struggling with depression and anxiety. Depression is rated as 03/1010 is worse. Anxiety is rated as 08/1010 is worse. She denies history of abuse, PTSD, auditory or visual hallucinations. However, she has previous history of auditory and visual hallucinations and diagnosed with a schizophrenia spectrum as well. Has history of placement in multiple hospitals including [facility]. Presently, she denies suicidal or homicidal thoughts. Denies auditory or visual hallucinations. No evidence of todd or hypomania. Symptoms are consistent with anxiety and depression. Current Medications: Current Medications Current Medications Medications (Trade) Dose Ordered Sig/Joellen Start Time Stop Time Status Last Admin Dose Admin Acetaminophen (Tylenol) 500 mg 1X PRN PRN 06/04/20 12:45 06/05/20 12:44 Albumin Human 200 ml @ 200 mls/hr 1X PRN PRN 06/04/20 12:45 06/04/20 18:44 Albuterol Sulfate (Ventolin Neb Soln) 2.5 mg PRN Q4HRS PRN 06/04/20 08:45 Cefazolin Sodium/ Dextrose 50 ml @ 100 mls/hr 1X ONCE 06/04/20 08:30 06/04/20 08:59 DC 06/04/20 12:01 100 MLS/HR Cetirizine HCl (ZyrTEC) 10 mg DAILY 06/04/20 09:15 Citalopram Hydrobromide (CeleXA) 20 mg DAILY 06/04/20 10:00 Clonazepam (KlonoPIN) 0.5 mg BID 06/04/20 09:00 Codeine Sulfate (Codeine) 30 mg 1X ONCE 06/03/20 23:30 06/03/20 23:31 DC 06/03/20 22:59 30 MG Dextrose (Dextrose 50%-Water Syringe) 12.5 gm PRN Q15MIN PRN 06/04/20 09:00 Diphenhydramine HCl (Benadryl) 25 mg 1X PRN PRN 06/04/20 12:45 06/05/20 12:44 Docusate Sodium (Colace) 100 mg PRN BID PRN 06/04/20 08:45 Famotidine (Pepcid) 40 mg QHS 06/04/20 21:00 Fentanyl Citrate (Fentanyl 2ml Vial) 100 mcg STK-MED ONCE 06/04/20 10:58 06/04/20 10:58 DC Fludrocortisone Acetate (Florinef) 0.1 mg DAILY 06/04/20 09:00 Fluticasone Propionate (Flonase) 2 spray DAILY 06/04/20 09:00 Guaifenesin (Robitussin) 200 mg PRN Q4HRS PRN 06/04/20 08:45 Heparin Sodium (Porcine) (Heparin Sodium) 5,000 unit Q8HRS 06/04/20 12:00 Info (PHARMACY MONITORING -- do not chart) 1 each PRN DAILY PRN 06/04/20 12:45 UNV Insulin Human Lispro (HumaLOG) 0-5 UNITS TIDWMEALS 06/04/20 12:00 06/04/20 12:14 2 UNITS Lidocaine/ Epinephrine (LIDOCAINE 1%-EPI 1:100,000 Multi-Dose) 20 ml STK-MED ONCE 06/04/20 11:06 06/04/20 11:07 DC Midazolam HCl (Versed) 2 mg 1X ONCE 06/04/20 11:00 06/04/20 11:01 DC 06/04/20 12:03 2 MG Ondansetron HCl (Zofran) 4 mg PRN Q4HRS PRN 06/04/20 08:45 Polyethylene Glycol (miraLAX PACKET) 17 gm DAILY 06/04/20 09:00 Sevelamer Carbonate (Renvela) 2,400 mg TIDWMEALS 06/04/20 09:00 Sodium Chloride 1,000 ml @ 400 mls/hr Q2H30M PRN 06/04/20 12:42 06/05/20 00:41 Sodium Chloride (Normal Saline Flush) 10 ml 1X PRN PRN 06/04/20 12:45 06/05/20 12:44 Trazodone HCl (Desyrel) 75 mg HS 06/04/20 21:00 Valproic Acid (Depakene) 1,000 mg QHS 06/04/20 21:00 Vitamin B Complex/ Vitamin C (Juliet-Sheyla) 1 tab DAILY 06/04/20 09:00 Allergies: Allergies: Coded Allergies: chocolate flavor (Verified Allergy, Intermediate, 06/03/20) sulfamethoxazole (Verified Allergy, Intermediate, 06/03/20) trimethoprim (Verified Allergy, Intermediate, 06/03/20) Mental Status Examination: Mental Status Examination female appears her stated age. Cooperative and interactive Alert and oriented Thought processes mostly linear and goal-directed Denies auditory or visual hallucinations. No abnormal perception noted. Denies suicidal or homicidal thoughts. Mood is depressed and anxious Affect is dysthymic and dysphoric Insight is fair Judgment is fair Impulse control is fair Attention span and concentration fair Recent and remote memory intact ROS: 14 point review of system is negative except for his stated in H&P and above Physical Exam: Refer to Physician's note. VEHICLE CHECK IN CLERK: No focal deficit MSK: No EPS, TDK, or abnormal involuntary movements Vitals: Vitals Vital Signs Date Time Temp Pulse Resp B/P (MAP) Pulse Ox O2 Delivery O2 Flow Rate FiO2 06/04/20 11:45 81 15 98 Nasal Cannula 2.0 06/04/20 11:10 98.2 122/76 (91) 98.2 Labs: Labs Laboratory Tests Test 06/04/20 03:50 06/04/20 07:30 06/04/20 12:10 06/04/20 17:11 White Blood Count 7.5 x10^3/uL (4.0-11.0) Red Blood Count 2.56 x10^6/uL (3.50-5.40) Hemoglobin 9.1 g/dL (12.0-15.5) Hematocrit 28.0 % (36.0-47.0) Mean Corpuscular Volume 109 fL (79-100) Mean Corpuscular Hemoglobin 36 pg (25-35) Mean Corpuscular Hemoglobin Concent 33 g/dL (31-37) Red Cell Distribution Width 19.9 % (11.5-14.5) Platelet Count 216 x10^3/uL (140-400) Neutrophils (%) (Auto) 61 % (31-73) Lymphocytes (%) (Auto) 28 % (24-48) Monocytes (%) (Auto) 6 % (0-9) Eosinophils (%) (Auto) 4 % (0-3) Basophils (%) (Auto) 1 % (0-3) Neutrophils # (Auto) 4.6 x10^3/uL (1.8-7.7) Lymphocytes # (Auto) 2.1 x10^3/uL (1.0-4.8) Monocytes # (Auto) 0.5 x10^3/uL (0.0-1.1) Eosinophils # (Auto) 0.3 x10^3/uL (0.0-0.7) Basophils # (Auto) 0.1 x10^3/uL (0.0-0.2) Sodium Level 136 mmol/L (136-145) Potassium Level 5.3 mmol/L (3.5-5.1) Chloride Level 102 mmol/L (98-107) Carbon Dioxide Level 24 mmol/L (21-32) Anion Gap 10 (6-14) Blood Urea Nitrogen 46 mg/dL (7-20) Creatinine 7.2 mg/dL (0.6-1.0) Estimated GFR (Cockcroft-Gault) 6.4 BUN/Creatinine Ratio 6 (6-20) Glucose Level 185 mg/dL (70-99) Calcium Level 8.7 mg/dL (8.5-10.1) Total Bilirubin 0.3 mg/dL (0.2-1.0) Aspartate Amino Transf (AST/SGOT) 10 U/L (15-37) Alanine Aminotransferase (ALT/SGPT) 10 U/L (14-59) Alkaline Phosphatase 137 U/L (46-116) Total Protein 5.6 g/dL (6.4-8.2) Albumin 2.7 g/dL (3.4-5.0) Albumin/Globulin Ratio 0.9 (1.0-1.7) Prothrombin Time 12.2 SEC (11.7-14.0) Prothromb Time International Ratio 0.9 (0.8-1.1) Glucose (Fingerstick) 187 mg/dL (70-99) 158 mg/dL (70-99) Laboratory Tests Test 06/04/20 03:50 06/04/20 07:30 06/04/20 12:10 06/04/20 17:11 White Blood Count 7.5 x10^3/uL (4.0-11.0) Red Blood Count 2.56 x10^6/uL (3.50-5.40) Hemoglobin 9.1 g/dL (12.0-15.5) Hematocrit 28.0 % (36.0-47.0) Mean Corpuscular Volume 109 fL (79-100) Mean Corpuscular Hemoglobin 36 pg (25-35) Mean Corpuscular Hemoglobin Concent 33 g/dL (31-37) Red Cell Distribution Width 19.9 % (11.5-14.5) Platelet Count 216 x10^3/uL (140-400) Neutrophils (%) (Auto) 61 % (31-73) Lymphocytes (%) (Auto) 28 % (24-48) Monocytes (%) (Auto) 6 % (0-9) Eosinophils (%) (Auto) 4 % (0-3) Basophils (%) (Auto) 1 % (0-3) Neutrophils # (Auto) 4.6 x10^3/uL (1.8-7.7) Lymphocytes # (Auto) 2.1 x10^3/uL (1.0-4.8) Monocytes # (Auto) 0.5 x10^3/uL (0.0-1.1) Eosinophils # (Auto) 0.3 x10^3/uL (0.0-0.7) Basophils # (Auto) 0.1 x10^3/uL (0.0-0.2) Sodium Level 136 mmol/L (136-145) Potassium Level 5.3 mmol/L (3.5-5.1) Chloride Level 102 mmol/L (98-107) Carbon Dioxide Level 24 mmol/L (21-32) Anion Gap 10 (6-14) Blood Urea Nitrogen 46 mg/dL (7-20) Creatinine 7.2 mg/dL (0.6-1.0) Estimated GFR (Cockcroft-Gault) 6.4 BUN/Creatinine Ratio 6 (6-20) Glucose Level 185 mg/dL (70-99) Calcium Level 8.7 mg/dL (8.5-10.1) Total Bilirubin 0.3 mg/dL (0.2-1.0) Aspartate Amino Transf (AST/SGOT) 10 U/L (15-37) Alanine Aminotransferase (ALT/SGPT) 10 U/L (14-59) Alkaline Phosphatase 137 U/L (46-116) Total Protein 5.6 g/dL (6.4-8.2) Albumin 2.7 g/dL (3.4-5.0) Albumin/Globulin Ratio 0.9 (1.0-1.7) Prothrombin Time 12.2 SEC (11.7-14.0) Prothromb Time International Ratio 0.9 (0.8-1.1) Glucose (Fingerstick) 187 mg/dL (70-99) 158 mg/dL (70-99) Diagnosis: Diagnosis: Schizoaffective disorder, bipolar type most recent episode depressed with anxious distress Rule out bipolar mood disorder Unspecified depression Unspecified anxiety Assessment: She is a female with history of mood instability and thought process disorder struggling with depression and anxiety in context of her schizoaffective disorder which is a major schizophrenia spectrum disorder. Presently, she is depressed and anxious. Insomnia is another major issue. She is looking forward for a medication which could help her with depression, anxiety, and insomnia. Seroquel which helped her previously, would be a good op tion. She is in agreement to start Seroquel. Plan: Start Seroquel 50 mg nightly for mood instability, insomnia, and depression adjunct. Continue other medications as prescribed. Risk, benefits, alternatives of the treatment are discussed. She is in agreement with plan and expressed understanding. Adverse drug reaction of the medication prescribed were discussed in detail. She is accepting the plan. Psychoeducation provided Supportive psychotherapy provided. Brief insight oriented psychotherapy provided. Thank you for involving inpatient care BJORN MARIE MD Jun 04, 2020 17:18
[2020-06-04] MEDS: VALPROIC ACID 250 MG CAPSULE. PO SCH (20:54)
[2020-06-04] MEDS: FAMOTIDINE 20 MG TABLET. PO SCH (20:54)
[2020-06-04] MEDS: traZODone 50 MG TABLET. PO SCH (20:54)
[2020-06-04] MEDS: HYDROcodone/APAP 5/325MG 1 TAB TABLET PO PRN (20:55)
[2020-06-05 03:00] VITALS: BP 126/70
[2020-06-05] MEDS: HYDROcodone/APAP 5/325MG 1 TAB TABLET PO PRN ×5 (03:41→20:40)
[2020-06-05] MEDS: HEPARIN for SUB-Q USE 5,000 UNIT/ML VIAL. SQ SCH ×3 (06:14→22:33)
[2020-06-05 07:00] VITALS: BP 114/60
[2020-06-05] MEDS: FLUTICASONE 50MCG/NASAL SPRAY 16GM BOTTLE. NS SCH (08:15)
[2020-06-05] MEDS: clonazePAM 0.5 MG TABLET PO SCH ×2 (08:16→20:39)
[2020-06-05] MEDS: POLYETHYLENE GLYCOL 3350 17 GM PACKET. PO SCH (08:16)
[2020-06-05] MEDS: CITALOPRAM 20 MG TABLET. PO SCH (08:16)
[2020-06-05] MEDS: FOLIC/VIT B COMP W-C (RENAL) TABLET. PO SCH (08:16)
[2020-06-05] MEDS: FLUDROCORTISONE 0.1 MG TABLET PO SCH (08:17)
[2020-06-05] MEDS: CETIRIZINE HCL 10 MG TABLET. PO SCH (08:17)
[2020-06-05] MEDS: SEVELAMER CARBONATE 800 MG TABLET. PO SCH ×3 (08:17→17:31)
[2020-06-05] MEDS: INSULIN LISPRO 300 UNITS/3 ML VIAL. SQ SCH ×3 (08:22→17:33)
--- NOTE | 2020-06-05 08:54 | NUR ---
SW following. Discussed with RN, pt likely ready to return to [facility] today, pending COVID-19 result. SW faxed updates, awaiting COVID and discharge orders. SW left voicemail for drug abuse social worker at [facility]. SW will continue to follow.
--- NOTE | 2020-06-05 10:45 | PDOC ---
DATE OF SERVICE DATE: 06/05/20 TIME: 10:44 SUBJECTIVE ROS Stable, no new complaints OBJECTIVE Vital Signs Vital Signs Date Time Temp Pulse Resp B/P (MAP) Pulse Ox O2 Delivery O2 Flow Rate FiO2 06/05/20 09:28 Room Air 06/05/20 07:00 98.5 73 18 114/60 (78) 95 98.5 06/04/20 20:55 2.0 I & 0 Intake and Output 06/05/20 07:00 Intake Total 2740 ml Balance 2740 ml Intake Oral 2740 ml # Voids 5 PHYSICAL EXAM Physical Exam GEN: NAD, HEEN-OM moist NECK: supple CVS: S1S2, RESP: CTA, Non labored GI: BS + ve, Non Tender, obese : No CVA tenderness, No Suprapubic Tenderness, No [place] NEURO- Grossly Normal, Chronic ABnorma movements- upper Ext DERM No Rash DIAGNOSIS/ASSESSMENT Assessment & Plan 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, on HD MWF She was admitted in April at [facility] with LIANA - initiated on HD Ct scan in April showed bilat Renal atrophy -right greater than left No indication for HD today Access- Replaced TDC on 06/05 (Old fell off ) Left renal cyst Essential tremor Hyperkalemia mild at presentation Anemia of chronic disease Secondary hyperparathyroidism History of bipolar disorder/ Schizophrenia, compromising medical care Psych consulted COMMENT/RELEVANT DATA Meds Current Medications Medications (Trade) Dose Ordered Sig/Joellen Start Time Stop Time Status Last Admin Dose Admin Acetaminophen (Tylenol) 500 mg 1X PRN PRN 06/04/20 12:45 06/05/20 12:44 Acetaminophen/ Hydrocodone Bitart (Lortab 5/325) 1 tab PRN Q4HRS PRN 06/04/20 20:45 06/05/20 08:17 1 TAB Albumin Human 200 ml @ 200 mls/hr 1X PRN PRN 06/04/20 12:45 06/04/20 18:44 DC Albuterol Sulfate (Ventolin Neb Soln) 2.5 mg PRN Q4HRS PRN 06/04/20 08:45 Cefazolin Sodium/ Dextrose 50 ml @ 100 mls/hr 1X ONCE 06/04/20 08:30 06/04/20 08:59 DC 06/04/20 12:01 100 MLS/HR Cetirizine HCl (ZyrTEC) 10 mg DAILY 06/04/20 09:15 06/05/20 08:17 10 MG Citalopram Hydrobromide (CeleXA) 20 mg DAILY 06/04/20 10:00 06/05/20 08:16 20 MG Clonazepam (KlonoPIN) 0.5 mg BID 06/04/20 09:00 06/05/20 08:16 0.5 MG Codeine Sulfate (Codeine) 30 mg 1X ONCE 06/03/20 23:30 06/03/20 23:31 DC 06/03/20 22:59 30 MG Dextrose (Dextrose 50%-Water Syringe) 12.5 gm PRN Q15MIN PRN 06/04/20 09:00 Diphenhydramine HCl (Benadryl) 25 mg 1X PRN PRN 06/04/20 12:45 06/05/20 12:44 Docusate Sodium (Colace) 100 mg PRN BID PRN 06/04/20 08:45 Famotidine (Pepcid) 40 mg QHS 06/04/20 21:00 06/04/20 20:54 40 MG Fentanyl Citrate (Fentanyl 2ml Vial) 100 mcg STK-MED ONCE 06/04/20 10:58 06/04/20 10:58 DC Fludrocortisone Acetate (Florinef) 0.1 mg DAILY 06/04/20 09:00 06/05/20 08:17 0.1 MG Fluticasone Propionate (Flonase) 2 spray DAILY 06/04/20 09:00 06/05/20 08:15 2 SPRAY Guaifenesin (Robitussin) 200 mg PRN Q4HRS PRN 06/04/20 08:45 Heparin Sodium (Porcine) (Heparin Sodium) 5,000 unit Q8HRS 06/04/20 12:00 06/05/20 06:14 5,000 UNIT Info (PHARMACY MONITORING -- do not chart) 1 each PRN DAILY PRN 06/04/20 12:45 UNV Insulin Human Lispro (HumaLOG) 0-5 UNITS TIDWMEALS 06/04/20 12:00 06/05/20 08:22 4 UNITS Lidocaine/ Epinephrine (LIDOCAINE 1%-EPI 1:100,000 Multi-Dose) 20 ml STK-MED ONCE 06/04/20 11:06 06/04/20 11:07 DC Midazolam HCl (Versed) 2 mg 1X ONCE 06/04/20 11:00 06/04/20 11:01 DC 06/04/20 12:03 2 MG Ondansetron HCl (Zofran) 4 mg PRN Q4HRS PRN 06/04/20 08:45 Polyethylene Glycol (miraLAX PACKET) 17 gm DAILY 06/04/20 09:00 06/05/20 08:16 17 GM Sevelamer Carbonate (Renvela) 2,400 mg TIDWMEALS 06/04/20 09:00 06/05/20 08:17 2,400 MG Sodium Chloride 1,000 ml @ 400 mls/hr Q2H30M PRN 06/04/20 12:42 06/05/20 00:41 DC Sodium Chloride (Normal Saline Flush) 10 ml 1X PRN PRN 06/04/20 12:45 06/05/20 12:44 Trazodone HCl (Desyrel) 75 mg HS 06/04/20 21:00 06/04/20 20:54 75 MG Valproic Acid (Depakene) 1,000 mg QHS 06/04/20 21:00 06/04/20 20:54 1,000 MG Vitamin B Complex/ Vitamin C (Juliet-Sheyla) 1 tab DAILY 06/04/20 09:00 06/05/20 08:16 1 TAB Lab Laboratory Tests Test 06/04/20 12:10 06/04/20 17:11 06/04/20 20:44 06/05/20 07:39 Glucose (Fingerstick) 187 mg/dL (70-99) 158 mg/dL (70-99) 309 mg/dL (70-99) 274 mg/dL (70-99) Results All relevant outside records, renal labs, imaging studies, telemetry/EKG's were reviewed. Justicifation of Admission Dx: Justifications for Admission: Justification of Admission Dx: Yes Acute Renal Failure: Serum Cr > 4mg/dL Hypertension: Symp at Rest DAYA VEGA MD Jun 05, 2020 10:45
[2020-06-05 11:07] VITALS: BP 123/70
--- NOTE | 2020-06-05 11:24 | PDOC ---
PROGRESS NOTES Date of Service: DATE: 06/05/20 TIME: 11:24 Chief Complaint Chief Complaint VTE Prophylaxis Ordered VTE Prophylaxis Devices: Yes VTE Pharmacological Prophylaxi: Yes Assessment/Plan Assessment/Plan IMPRESSION 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 Essential tremor Hyperkalemia resolved Normocytic anemia of chronic disease secondary hyperparathyroidism History of bipolar disorder/ Schizophrenia, compromising medical care Dialysis catheter removal, in need of replacement 06/05 Still not using good judgement, at risk for self removal of catheter again plan ADMIT Consult nephrology Consult IR Consult psych , PENDING heparin sq dvt prophylaxis Justicifation of Admission Dx: Justicifation of Admission Dx: Justifications for Admission: Justification of Admission Dx: Yes Acute Renal Failure: Serum Cr > 4mg/dL Hypertension: Symp at Rest Vitals Vitals Vital Signs Date Time Temp Pulse Resp B/P (MAP) Pulse Ox O2 Delivery O2 Flow Rate FiO2 06/05/20 11:07 98.8 74 18 123/70 (87) 96 Room Air 98.8 06/04/20 20:55 2.0 Physical Exam General: Alert, Oriented X3, Cooperative, No acute distress Heart: Regular rate, Normal S1, Normal S2 Lungs: Clear Abdomen: Normal bowel sounds, Soft Extremities: No clubbing, No cyanosis, No edema Skin: No significant lesion Labs LABS Laboratory Tests Test 06/04/20 12:10 06/04/20 17:11 06/04/20 20:44 06/05/20 07:39 Glucose (Fingerstick) 187 mg/dL (70-99) 158 mg/dL (70-99) 309 mg/dL (70-99) 274 mg/dL (70-99) Assessment and Plan Assessmemt and Plan Problems Medical Problems: (1) ESRD on dialysis Status: Acute Comment Review of Relevant I have reviewed the following items darya (where applicable) has been applied. Labs Laboratory Tests Test 06/04/20 03:50 06/04/20 07:30 06/04/20 12:10 06/04/20 17:11 White Blood Count 7.5 x10^3/uL (4.0-11.0) Red Blood Count 2.56 x10^6/uL (3.50-5.40) Hemoglobin 9.1 g/dL (12.0-15.5) Hematocrit 28.0 % (36.0-47.0) Mean Corpuscular Volume 109 fL (79-100) Mean Corpuscular Hemoglobin 36 pg (25-35) Mean Corpuscular Hemoglobin Concent 33 g/dL (31-37) Red Cell Distribution Width 19.9 % (11.5-14.5) Platelet Count 216 x10^3/uL (140-400) Neutrophils (%) (Auto) 61 % (31-73) Lymphocytes (%) (Auto) 28 % (24-48) Monocytes (%) (Auto) 6 % (0-9) Eosinophils (%) (Auto) 4 % (0-3) Basophils (%) (Auto) 1 % (0-3) Neutrophils # (Auto) 4.6 x10^3/uL (1.8-7.7) Lymphocytes # (Auto) 2.1 x10^3/uL (1.0-4.8) Monocytes # (Auto) 0.5 x10^3/uL (0.0-1.1) Eosinophils # (Auto) 0.3 x10^3/uL (0.0-0.7) Basophils # (Auto) 0.1 x10^3/uL (0.0-0.2) Sodium Level 136 mmol/L (136-145) Potassium Level 5.3 mmol/L (3.5-5.1) Chloride Level 102 mmol/L (98-107) Carbon Dioxide Level 24 mmol/L (21-32) Anion Gap 10 (6-14) Blood Urea Nitrogen 46 mg/dL (7-20) Creatinine 7.2 mg/dL (0.6-1.0) Estimated GFR (Cockcroft-Gault) 6.4 BUN/Creatinine Ratio 6 (6-20) Glucose Level 185 mg/dL (70-99) Calcium Level 8.7 mg/dL (8.5-10.1) Total Bilirubin 0.3 mg/dL (0.2-1.0) Aspartate Amino Transf (AST/SGOT) 10 U/L (15-37) Alanine Aminotransferase (ALT/SGPT) 10 U/L (14-59) Alkaline Phosphatase 137 U/L (46-116) Total Protein 5.6 g/dL (6.4-8.2) Albumin 2.7 g/dL (3.4-5.0) Albumin/Globulin Ratio 0.9 (1.0-1.7) Prothrombin Time 12.2 SEC (11.7-14.0) Prothromb Time International Ratio 0.9 (0.8-1.1) Glucose (Fingerstick) 187 mg/dL (70-99) 158 mg/dL (70-99) Test 06/04/20 20:44 06/05/20 07:39 Glucose (Fingerstick) 309 mg/dL (70-99) 274 mg/dL (70-99) Laboratory Tests Test 06/04/20 12:10 06/04/20 17:11 06/04/20 20:44 06/05/20 07:39 Glucose (Fingerstick) 187 mg/dL (70-99) 158 mg/dL (70-99) 309 mg/dL (70-99) 274 mg/dL (70-99) Medications Current Medications Ondansetron HCl (Zofran) 4 mg PRN Q8HRS PRN IV NAUSEA/VOMITING 1ST CHOICE; Start 06/03/20 at 22:45; Stop 06/04/20 at 22:44; Status DC Acetaminophen (Tylenol) 650 mg PRN Q4HRS PRN PO FEVER > 100.3'F Last administered on 06/04/20at 17:12; Start 06/03/20 at 22:45; Stop 06/04/20 at 22:44; Status DC Diphenhydramine HCl (Benadryl) 25 mg 1X ONCE PO Last administered on 06/03/20at 22:59; Start 06/03/20 at 23:00; Stop 06/03/20 at 23:01; Status DC Codeine Sulfate (Codeine) 30 mg 1X ONCE PO Last administered on 06/03/20at 22:59; Start 06/03/20 at 23:30; Stop 06/03/20 at 23:31; Status DC Cefazolin Sodium/ Dextrose 50 ml @ 100 mls/hr 1X ONCE IV Last administered on 06/04/20at 12:01; Start 06/04/20 at 08:30; Stop 06/04/20 at 08:59; Status DC Midazolam HCl (Versed) 5 mg 1X ONCE IV ; Start 06/04/20 at 08:30; Stop 06/04/20 at 10:57; Status DC Fentanyl Citrate (Fentanyl 2ml Vial) 100 mcg 1X ONCE IV Last administered on 06/04/20at 08:30; Start 06/04/20 at 08:30; Stop 06/04/20 at 08:34; Status DC Lidocaine/ Epinephrine (LIDOCAINE 1%-EPI 1:100,000 Multi-Dose) 20 ml 1X ONCE INJ Last administered on 06/04/20at 11:58; Start 06/04/20 at 08:30; Stop 06/04/20 at 08:34; Status DC Sodium Chloride (Normal Saline Flush) 3 ml QSHIFT PRN IV AFTER MEDS AND BLOOD DRAWS; Start 06/04/20 at 08:45 Ondansetron HCl (Zofran) 4 mg PRN Q4HRS PRN IV NAUSEA/VOMITING; Start 06/04/20 at 08:45 Acetaminophen (Tylenol) 650 mg PRN Q4HRS PRN PO TEMP OVER 100.4F OR MILD PAIN; Start 06/04/20 at 08:45 Docusate Sodium (Colace) 100 mg PRN BID PRN PO HARD STOOLS; Start 06/04/20 at 08:45 Albuterol Sulfate (Ventolin Neb Soln) 2.5 mg PRN Q4HRS PRN NEB SHORTNESS OF BREATH; Start 06/04/20 at 08:45 Guaifenesin (Robitussin) 200 mg PRN Q4HRS PRN PO COUGH; Start 06/04/20 at 08:45 Acetaminophen (Tylenol) 650 mg PRN Q8HRS PRN PO pain or fever; Start 06/04/20 at 09:00; Stop 06/04/20 at 11:00; Status DC Clonazepam (KlonoPIN) 0.5 mg BID PO Last administered on 06/05/20at 08:16; Start 06/04/20 at 09:00 Fludrocortisone Acetate (Florinef) 0.1 mg DAILY PO Last administered on 06/05/20at 08:17; Start 06/04/20 at 09:00 Fluticasone Propionate (Flonase) 2 spray DAILY NS Last administered on 06/05/20at 08:15; Start 06/04/20 at 09:00 Vitamin B Complex/ Vitamin C (Juliet-Sheyla) 1 tab DAILY PO Last administered on 06/05/20at 08:16; Start 06/04/20 at 09:00 Polyethylene Glycol (miraLAX PACKET) 17 gm DAILY PO Last administered on 06/05/20 08:16; Start 06/04/20 at 09:00 Sevelamer Carbonate (Renvela) 2,400 mg TIDWMEALS PO Last administered on 06/05/20 08:17; Start 06/04/20 at 09:00 Trazodone HCl (Desyrel) 75 mg HS PO Last administered on 06/04/20 20:54; Start 06/04/20 at 21:00 Citalopram Hydrobromide (CeleXA) 20 mg DAILY PO Last administered on 06/05/20 08:16; Start 06/04/20 at 10:00 Famotidine (Pepcid) 40 mg QHS PO Last administered on 06/04/20 20:54; Start 06/04/20 at 21:00 Cetirizine HCl (ZyrTEC) 10 mg DAILY PO Last administered on 06/05/20 08:17; Start 06/04/20 at 09:15 Valproic Acid (Depakene) 1,000 mg QHS PO Last administered on 06/04/20 20:54; Start 06/04/20 at 21:00 Insulin Human Lispro (HumaLOG) 0-5 UNITS TIDWMEALS SQ Last administered on 06/05/20 08:22; Start 06/04/20 at 12:00 Dextrose (Dextrose 50%-Water Syringe) 12.5 gm PRN Q15MIN PRN IV SEE COMMENTS; Start 06/04/20 at 09:00 Midazolam HCl (Versed) 2 mg 1X ONCE IV Last administered on 06/04/20at 12:03; Start 06/04/20 at 11:00; Stop 06/04/20 at 11:01; Status DC Fentanyl Citrate (Fentanyl 2ml Vial) 100 mcg STK-MED ONCE .ROUTE ; Start 06/04/20 at 10:58; Stop 06/04/20 at 10:58; Status DC Lidocaine/ Epinephrine (LIDOCAINE 1%-EPI 1:100,000 Multi-Dose) 20 ml STK-MED ONCE .ROUTE ; Start 06/04/20 at 11:06; Stop 06/04/20 at 11:07; Status DC Heparin Sodium (Porcine) (Heparin Sodium) 5,000 unit Q8HRS SQ Last administered on 06/05/20at 06:14; Start 06/04/20 at 12:00 Sodium Chloride 1,000 ml @ 1,000 mls/hr Q1H PRN IV hypotension; Start 06/04/20 at 12:42; Stop 06/04/20 at 18:41; Status DC Albumin Human 200 ml @ 200 mls/hr 1X PRN PRN IV Hypotension; Start 06/04/20 at 12:45; Stop 06/04/20 at 18:44; Status DC Acetaminophen (Tylenol) 500 mg 1X PRN PRN PO MILD PAIN / TEMP > 100.3'F; Start 06/04/20 at 12:45; Stop 06/05/20 at 12:44 Diphenhydramine HCl (Benadryl) 25 mg 1X PRN PRN IV ITCHING; Start 06/04/20 at 12:45; Stop 06/05/20 at 12:44 Diphenhydramine HCl (Benadryl) 25 mg 1X PRN PRN IV ITCHING; Start 06/04/20 at 12:45; Stop 06/05/20 at 12:44 Sodium Chloride (Normal Saline Flush) 10 ml 1X PRN PRN IV AP catheter pack; Start 06/04/20 at 12:45; Stop 06/05/20 at 12:44 Sodium Chloride (Normal Saline Flush) 10 ml 1X PRN PRN IV COURTROOM CLERK catheter pack; Start 06/04/20 at 12:45; Stop 06/05/20 at 12:44 Sodium Chloride 1,000 ml @ 400 mls/hr Q2H30M PRN IV PATENCY; Start 06/04/20 at 12:42; Stop 06/05/20 at 00:41; Status DC Info (PHARMACY MONITORING -- do not chart) 1 each PRN DAILY PRN MC SEE COMMENTS; Start 06/04/20 at 12:45 Info (PHARMACY MONITORING -- do not chart) 1 each PRN DAILY PRN MC SEE COMMENTS; Start 06/04/20 at 12:45; Status UNV Acetaminophen/ Hydrocodone Bitart (Lortab 5/325) 1 tab PRN Q4HRS PRN PO MODERATE PAIN 4-6 Last administered on 06/05/20at 08:17; Start 06/04/20 at 20:45 Active Scripts Active Reported Renvela (Sevelamer Carbonate) 800 Mg Tablet 3 Tab PO TID 30 Days Nephro-Sheyla Tablet (Folic Acid/Vitamin B Comp W-C) 0.8 Mg Tablet 1 Tab PO DAILY Loratadine 10 Mg Tablet 1 Tab PO DAILY Levemir (Insulin Detemir) 100 Unit/1 Ml Vial 12 Unit SQ HS Humalog (Insulin Lispro) 100 Unit/1 Ml Cartridge 100 Unit SQ PRN BFRMEAL Haloperidol Decanoate 100 Mg/1 Ml Vial 150 Mg IM HS Famotidine 40 Mg Tablet 40 Mg PO HS Clonazepam (Clonazepam) 0.5 Mg Tablet 0.5 Mg PO BID Acetaminophen 325 Mg Tablet 2 Tab PO PRN Q8HRS PRN 24 Days Trazodone Hcl 50 Mg Tablet 75 Mg PO HS Miralax (Polyethylene Glycol 3350) 17 Gm Powd.pack 1 Pkt PO DAILY Imodium A-D (Loperamide HCl) 2 Mg Capsule 2 Mg PO PRN PRN Glucose Gel (Dextrose) 38 Gm Gel..gram. 15 Gm PO PRN Fluticasone Propionate Nasal [place] (Fluticasone Propionate) 16 Gm [place].susp 2 [place] NS DAILY Fludrocortisone Acetate 0.1 Mg Tablet 0.1 Mg PO DAILY Escitalopram Oxalate 10 Mg Tablet 1 Tab PO DAILY Valproic Acid (Valproate Sodium) 250 Mg/5 Ml Solution 1,000 Mg PO HS Vitals/I & O Vital Sign - Last 24 Hours 06/04/20 06/04/20 06/04/20 06/04/20 11:45 19:00 19:45 20:55 Temp 97.8 97.8 Pulse 81 92 Resp 15 17 B/P (MAP) 125/91 (102) Pulse Ox 98 97 O2 Delivery Nasal Cannula Room Air Room Air Room Air O2 Flow Rate 2.0 2.0 06/04/20 06/04/20 06/05/20 06/05/20 22:06 23:00 03:00 03:41 Temp 97.9 98.5 97.9 98.5 Pulse 74 85 Resp 19 19 B/P (MAP) 153/70 (97) 126/70 (88) Pulse Ox 94 96 O2 Delivery Room Air Room Air Room Air Room Air 06/05/20 06/05/20 06/05/20 06/05/20 04:41 07:00 07:15 08:17 Temp 98.5 98.5 Pulse 73 Resp 18 B/P (MAP) 114/60 (78) Pulse Ox 95 O2 Delivery Room Air Room Air Room Air Room Air 06/05/20 06/05/20 09:28 11:07 Temp 98.8 98.8 Pulse 74 Resp 18 B/P (MAP) 123/70 (87) Pulse Ox 96 O2 Delivery Room Air Room Air Intake and Output 06/04/20 06/04/20 06/05/20 15:00 23:00 07:00 Intake Total 360 ml 1060 ml 1320 ml Balance 360 ml 1060 ml 1320 ml Justicifation of Admission Dx: Justifications for Admission: Justification of Admission Dx: Yes Acute Renal Failure: Serum Cr > 4mg/dL Hypertension: Symp at Rest GENA JONES MD Jun 05, 2020 11:24
--- NOTE | 2020-06-05 14:30 | NUR ---
Pt. at the desk stating Dr. Joe stated she could have a cathater because she could not urinate. Pt's bladder scanned, 7cc noted. Pt. informed she did not need a catheter and there was no order to place one. Pt. verbalized understanding.
[2020-06-05 15:05] VITALS: BP 116/86
[2020-06-05 19:00] VITALS: BP 155/94
[2020-06-05] MEDS: FAMOTIDINE 20 MG TABLET. PO SCH (20:39)
[2020-06-05] MEDS: VALPROIC ACID 250 MG CAPSULE. PO SCH (20:39)
[2020-06-05] MEDS: traZODone 50 MG TABLET. PO SCH (20:39)
[2020-06-05] MEDS ORDERED: QUEtiapine 100 MG TABLET. PO SCH (21:00)
[2020-06-05 23:00] VITALS: BP 136/90
[2020-06-06] MEDS: HYDROcodone/APAP 5/325MG 1 TAB TABLET PO PRN ×4 (01:06→16:43)
[2020-06-06 03:00] VITALS: BP 128/73
[2020-06-06] MEDS: HEPARIN for SUB-Q USE 5,000 UNIT/ML VIAL. SQ SCH ×2 (05:55→14:41)
[2020-06-06 06:18] LABS: CREATININE 5.9 mg/dL (0.6-1.0); POTASSIUM 5.1 mmol/L (3.5-5.1)
[2020-06-06 07:00] VITALS: BP 106/73
[2020-06-06] MEDS ORDERED: IV NORMAL SALINE 1000ML BAG 1,000 ML IV PRN ×2 (07:27)
[2020-06-06] MEDS ORDERED: diphenhydrAMINE 50 MG/ML VIAL IV PRN ×2 (07:30)
[2020-06-06] MEDS ORDERED: DIALYSIS PATIENT. MC PRN ×2 (07:30)
[2020-06-06] MEDS ORDERED: ALBUMIN HUMAN 25% 200 ML IV PRN (07:30)
--- NOTE | 2020-06-06 07:45 | NUR ---
Pt. upstairs to dialysis.
[2020-06-06] MEDS: INSULIN LISPRO 300 UNITS/3 ML VIAL. SQ SCH ×2 (08:00→12:17)
[2020-06-06] MEDS: SEVELAMER CARBONATE 800 MG TABLET. PO SCH ×2 (08:00→12:11)
[2020-06-06] MEDS: FLUTICASONE 50MCG/NASAL SPRAY 16GM BOTTLE. NS SCH (09:00)
--- NOTE | 2020-06-06 09:18 | PDOC ---
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 Essential tremor Hyperkalemia resolved Normocytic anemia of chronic disease secondary hyperparathyroidism History of bipolar disorder/ Schizophrenia, compromising medical care Dialysis catheter removal, in need of replacement 06/05 Still not using good judgement, at risk for self removal of catheter again plan ADMIT Consult nephrology Consult IR Consult psych , heparin sq dvt prophylaxis back to LTC facility, psych based 06/06/20 d/c planning 34 min Justicifation of Admission Dx: Justicifation of Admission Dx: Justifications for Admission: Justification of Admission Dx: Yes Acute Renal Failure: Serum Cr > 4mg/dL Hypertension: Symp at Rest Vitals Vitals Vital Signs Date Time Temp Pulse Resp B/P (MAP) Pulse Ox O2 Delivery O2 Flow Rate FiO2 06/06/20 07:05 Room Air 06/06/20 07:00 98.0 67 18 106/73 (84) 94 98.0 Physical Exam General: Alert, Oriented X3, Cooperative, No acute distress Heart: Regular rate, Normal S1, Normal S2 Lungs: Clear Abdomen: Normal bowel sounds, Soft Extremities: No clubbing, No cyanosis, No edema Skin: No significant lesion Labs LABS Laboratory Tests Test 06/05/20 11:22 06/05/20 16:39 06/05/20 19:55 06/06/20 04:10 Glucose (Fingerstick) 171 mg/dL (70-99) 180 mg/dL (70-99) 192 mg/dL (70-99) Sodium Level 128 mmol/L (136-145) Potassium Level 5.1 mmol/L (3.5-5.1) Chloride Level 91 mmol/L (98-107) Carbon Dioxide Level 26 mmol/L (21-32) Anion Gap 11 (6-14) Blood Urea Nitrogen 39 mg/dL (7-20) Creatinine 5.9 mg/dL (0.6-1.0) Estimated GFR (Cockcroft-Gault) 8.0 Glucose Level 187 mg/dL (70-99) Calcium Level 8.0 mg/dL (8.5-10.1) Test 06/06/20 07:47 Glucose (Fingerstick) 229 mg/dL (70-99) Assessment and Plan Assessmemt and Plan Problems Medical Problems: (1) ESRD on dialysis Status: Acute Comment Review of Relevant I have reviewed the following items darya (where applicable) has been applied. Labs Laboratory Tests Test 06/04/20 12:10 06/04/20 13:00 06/04/20 17:11 06/04/20 20:44 Glucose (Fingerstick) 187 mg/dL (70-99) 158 mg/dL (70-99) 309 mg/dL (70-99) Coronavirus (PCR) Not detected (Not Detected) Test 06/05/20 07:39 06/05/20 11:22 06/05/20 16:39 06/05/20 19:55 Glucose (Fingerstick) 274 mg/dL (70-99) 171 mg/dL (70-99) 180 mg/dL (70-99) 192 mg/dL (70-99) Test 06/06/20 04:10 06/06/20 07:47 Sodium Level 128 mmol/L (136-145) Potassium Level 5.1 mmol/L (3.5-5.1) Chloride Level 91 mmol/L (98-107) Carbon Dioxide Level 26 mmol/L (21-32) Anion Gap 11 (6-14) Blood Urea Nitrogen 39 mg/dL (7-20) Creatinine 5.9 mg/dL (0.6-1.0) Estimated GFR (Cockcroft-Gault) 8.0 Glucose Level 187 mg/dL (70-99) Calcium Level 8.0 mg/dL (8.5-10.1) Glucose (Fingerstick) 229 mg/dL (70-99) Laboratory Tests Test 06/05/20 11:22 06/05/20 16:39 06/05/20 19:55 06/06/20 04:10 Glucose (Fingerstick) 171 mg/dL (70-99) 180 mg/dL (70-99) 192 mg/dL (70-99) Sodium Level 128 mmol/L (136-145) Potassium Level 5.1 mmol/L (3.5-5.1) Chloride Level 91 mmol/L (98-107) Carbon Dioxide Level 26 mmol/L (21-32) Anion Gap 11 (6-14) Blood Urea Nitrogen 39 mg/dL (7-20) Creatinine 5.9 mg/dL (0.6-1.0) Estimated GFR (Cockcroft-Gault) 8.0 Glucose Level 187 mg/dL (70-99) Calcium Level 8.0 mg/dL (8.5-10.1) Test 06/06/20 07:47 Glucose (Fingerstick) 229 mg/dL (70-99) Medications Current Medications Ondansetron HCl (Zofran) 4 mg PRN Q8HRS PRN IV NAUSEA/VOMITING 1ST CHOICE; Start 06/03/20 at 22:45; Stop 06/04/20 at 22:44; Status DC Acetaminophen (Tylenol) 650 mg PRN Q4HRS PRN PO FEVER > 100.3'F Last admini stered on 06/04/20at 17:12; Start 06/03/20 at 22:45; Stop 06/04/20 at 22:44; Status DC Diphenhydramine HCl (Benadryl) 25 mg 1X ONCE PO Last administered on 06/03/20at 22:59; Start 06/03/20 at 23:00; Stop 06/03/20 at 23:01; Status DC Codeine Sulfate (Codeine) 30 mg 1X ONCE PO Last administered on 06/03/20at 22:59; Start 06/03/20 at 23:30; Stop 06/03/20 at 23:31; Status DC Cefazolin Sodium/ Dextrose 50 ml @ 100 mls/hr 1X ONCE IV Last administered on 06/04/20at 12:01; Start 06/04/20 at 08:30; Stop 06/04/20 at 08:59; Status DC Midazolam HCl (Versed) 5 mg 1X ONCE IV ; Start 06/04/20 at 08:30; Stop 06/04/20 at 10:57; Status DC Fentanyl Citrate (Fentanyl 2ml Vial) 100 mcg 1X ONCE IV Last administered on 06/04/20at 08:30; Start 06/04/20 at 08:30; Stop 06/04/20 at 08:34; Status DC Lidocaine/ Epinephrine (LIDOCAINE 1%-EPI 1:100,000 Multi-Dose) 20 ml 1X ONCE INJ Last administered on 06/04/20at 11:58; Start 06/04/20 at 08:30; Stop 06/04/20 at 08:34; Status DC Sodium Chloride (Normal Saline Flush) 3 ml QSHIFT PRN IV AFTER MEDS AND BLOOD DRAWS; Start 06/04/20 at 08:45 Ondansetron HCl (Zofran) 4 mg PRN Q4HRS PRN IV NAUSEA/VOMITING; Start 06/04/20 at 08:45 Acetaminophen (Tylenol) 650 mg PRN Q4HRS PRN PO TEMP OVER 100.4F OR MILD PAIN; Start 06/04/20 at 08:45 Docusate Sodium (Colace) 100 mg PRN BID PRN PO HARD STOOLS; Start 06/04/20 at 08:45 Albuterol Sulfate (Ventolin Neb Soln) 2.5 mg PRN Q4HRS PRN NEB SHORTNESS OF BREATH; Start 06/04/20 at 08:45 Guaifenesin (Robitussin) 200 mg PRN Q4HRS PRN PO COUGH; Start 06/04/20 at 08:45 Acetaminophen (Tylenol) 650 mg PRN Q8HRS PRN PO pain or fever; Start 06/04/20 at 09:00; Stop 06/04/20 at 11:00; Status DC Clonazepam (KlonoPIN) 0.5 mg BID PO Last administered on 06/05/20at 20:39; Start 06/04/20 at 09:00 Fludrocortisone Acetate (Florinef) 0.1 mg DAILY PO Last administered on 06/05/20 08:17; Start 06/04/20 at 09:00 Fluticasone Propionate (Flonase) 2 spray DAILY NS Last administered on 06/05/20 08:15; Start 06/04/20 at 09:00 Vitamin B Complex/ Vitamin C (Juliet-Sheyla) 1 tab DAILY PO Last administered on 08:16; Start 06/04/20 at 09:00 Polyethylene Glycol (miraLAX PACKET) 17 gm DAILY PO Last administered on 06/05/20 08:16; Start 06/04/20 at 09:00 Sevelamer Carbonate (Renvela) 2,400 mg TIDWMEALS PO Last administered on 06/05/20 17:31; Start 06/04/20 at 09:00 Trazodone HCl (Desyrel) 75 mg HS PO Last administered on 06/05/20 20:39; Start 06/04/20 at 21:00 Citalopram Hydrobromide (CeleXA) 20 mg DAILY PO Last administered on 06/05/20 08:16; Start 06/04/20 at 10:00 Famotidine (Pepcid) 40 mg QHS PO Last administered on 06/05/20 20:39; Start 06/04/20 at 21:00 Cetirizine HCl (ZyrTEC) 10 mg DAILY PO Last administered on 06/05/20 08:17; Start 06/04/20 at 09:15 Valproic Acid (Depakene) 1,000 mg QHS PO Last administered on 06/05/20 20:39; Start 06/04/20 at 21:00 Insulin Human Lispro (HumaLOG) 0-5 UNITS TIDWMEALS SQ Last administered on 06/05/20 17:33; Start 06/04/20 at 12:00 Dextrose (Dextrose 50%-Water Syringe) 12.5 gm PRN Q15MIN PRN IV SEE COMMENTS; Start 06/04/20 at 09:00 Midazolam HCl (Versed) 2 mg 1X ONCE IV Last administered on 06/04/20 12:03; Start 06/04/20 at 11:00; Stop 06/04/20 at 11:01; Status DC Fentanyl Citrate (Fentanyl 2ml Vial) 100 mcg STK-MED ONCE .ROUTE ; Start 06/04/20 at 10:58; Stop 06/04/20 at 10:58; Status DC Lidocaine/ Epinephrine (LIDOCAINE 1%-EPI 1:100,000 Multi-Dose) 20 ml STK-MED ONCE .ROUTE ; Start 06/04/20 at 11:06; Stop 06/04/20 at 11:07; Status DC Heparin Sodium (Porcine) (Heparin Sodium) 5,000 unit Q8HRS SQ Last administered on 06/06/20at 05:55; Start 06/04/20 at 12:00 Sodium Chloride 1,000 ml @ 1,000 mls/hr Q1H PRN IV hypotension; Start 06/04/20 at 12:42; Stop 06/04/20 at 18:41; Status DC Albumin Human 200 ml @ 200 mls/hr 1X PRN PRN IV Hypotension; Start 06/04/20 at 12:45; Stop 06/04/20 at 18:44; Status DC Acetaminophen (Tylenol) 500 mg 1X PRN PRN PO MILD PAIN / TEMP > 100.3'F; Start 06/04/20 at 12:45; Stop 06/05/20 at 12:44; Status DC Diphenhydramine HCl (Benadryl) 25 mg 1X PRN PRN IV ITCHING; Start 06/04/20 at 12:45; Stop 06/05/20 at 12:44; Status DC Diphenhydramine HCl (Benadryl) 25 mg 1X PRN PRN IV ITCHING; Start 06/04/20 at 12:45; Stop 06/05/20 at 12:44; Status DC Sodium Chloride (Normal Saline Flush) 10 ml 1X PRN PRN IV AP catheter pack; Start 06/04/20 at 12:45; Stop 06/05/20 at 12:44; Status DC Sodium Chloride (Normal Saline Flush) 10 ml 1X PRN PRN IV DIE REPAIR catheter pack; Start 06/04/20 at 12:45; Stop 06/05/20 at 12:44; Status DC Sodium Chloride 1,000 ml @ 400 mls/hr Q2H30M PRN IV PATENCY; Start 06/04/20 at 12:42; Stop 06/05/20 at 00:41; Status DC Info (PHARMACY MONITORING -- do not chart) 1 each PRN DAILY PRN MC SEE COMMENTS; Start 06/04/20 at 12:45 Info (PHARMACY MONITORING -- do not chart) 1 each PRN DAILY PRN MC SEE COMMENTS; Start 06/04/20 at 12:45; Status UNV Acetaminophen/ Hydrocodone Bitart (Lortab 5/325) 1 tab PRN Q4HRS PRN PO MODERATE PAIN 4-6 Last administered on 06/06/20at 05:50; Start 06/04/20 at 20:45 Quetiapine Fumarate (SEROquel) 50 mg HS PO Last administered on 06/05/20at 20:39; Start 06/05/20 at 21:00 Sodium Chloride 1,000 ml @ 1,000 mls/hr Q1H PRN IV hypotension; Start 06/06/20 at 07:27; Stop 06/06/20 at 13:26 Albumin Human 200 ml @ 200 mls/hr 1X PRN PRN IV Hypotension; Start 06/06/20 at 07:30; Stop 06/06/20 at 13:29 Diphenhydramine HCl (Benadryl) 25 mg 1X PRN PRN IV ITCHING; Start 06/06/20 at 07:30; Stop 06/07/20 at 07:29 Diphenhydramine HCl (Benadryl) 25 mg 1X PRN PRN IV ITCHING; Start 06/06/20 at 07:30; Stop 06/07/20 at 07:29 Sodium Chloride 1,000 ml @ 400 mls/hr Q2H30M PRN IV PATENCY; Start 06/06/20 at 07:27; Stop 06/06/20 at 19:26 Info (PHARMACY MONITORING -- do not chart) 1 each PRN DAILY PRN MC SEE COMMENTS; Start 06/06/20 at 07:30 Info (PHARMACY MONITORING -- do not chart) 1 each PRN DAILY PRN MC SEE COMMENTS; Start 06/06/20 at 07:30 Active Scripts Active Reported Renvela (Sevelamer Carbonate) 800 Mg Tablet 3 Tab PO TID 30 Days Nephro-Sheyla Tablet (Folic Acid/Vitamin B Comp W-C) 0.8 Mg Tablet 1 Tab PO DAILY Loratadine 10 Mg Tablet 1 Tab PO DAILY Levemir (Insulin Detemir) 100 Unit/1 Ml Vial 12 Unit SQ HS Humalog (Insulin Lispro) 100 Unit/1 Ml Cartridge 100 Unit SQ PRN BFRMEAL Haloperidol Decanoate 100 Mg/1 Ml Vial 150 Mg IM HS Famotidine 40 Mg Tablet 40 Mg PO HS Clonazepam (Clonazepam) 0.5 Mg Tablet 0.5 Mg PO BID Acetaminophen 325 Mg Tablet 2 Tab PO PRN Q8HRS PRN 24 Days Trazodone Hcl 50 Mg Tablet 75 Mg PO HS Miralax (Polyethylene Glycol 3350) 17 Gm Powd.pack 1 Pkt PO DAILY Imodium A-D (Loperamide HCl) 2 Mg Capsule 2 Mg PO PRN PRN Glucose Gel (Dextrose) 38 Gm Gel..gram. 15 Gm PO PRN Fluticasone Propionate Nasal [place] (Fluticasone Propionate) 16 Gm [place].susp 2 [place] NS DAILY Fludrocortisone Acetate 0.1 Mg Tablet 0.1 Mg PO DAILY Escitalopram Oxalate 10 Mg Tablet 1 Tab PO DAILY Valproic Acid (Valproate Sodium) 250 Mg/5 Ml Solution 1,000 Mg PO HS Vitals/I & O Vital Sign - Last 24 Hours 06/05/20 06/05/20 06/05/20 06/05/20 09:28 11:07 12:18 13:37 Temp 98.8 98.8 Pulse 74 Resp 18 B/P (MAP) 123/70 (87) Pulse Ox 96 O2 Delivery Room Air Room Air Room Air Room Air 06/05/20 06/05/20 06/05/20 06/05/20 15:05 16:11 17:34 19:00 Temp 98.1 98.0 98.1 98.0 Pulse 77 74 Resp 18 18 B/P (MAP) 116/86 (96) 155/94 (114) Pulse Ox 98 99 O2 Delivery Room Air Room Air Room Air Room Air 06/05/20 06/05/20 06/05/20 06/06/20 20:00 20:40 23:00 01:06 Temp 98.1 98.1 Pulse 70 Resp 18 B/P (MAP) 136/90 (105) Pulse Ox 98 O2 Delivery Room Air Room Air Room Air Room Air 06/06/20 06/06/20 06/06/20 06/06/20 03:00 05:50 06:47 07:00 Temp 98.0 98.0 98.0 98.0 Pulse 71 67 Resp 17 18 B/P (MAP) 128/73 (91) 106/73 (84) Pulse Ox 94 94 O2 Delivery Room Air Room Air Room Air Room Air 06/06/20 07:05 O2 Delivery Room Air Intake and Output 06/05/20 06/05/20 06/06/20 15:00 23:00 07:00 Intake Total 1000 ml 1210 ml 560 ml Balance 1000 ml 1210 ml 560 ml Justicifation of Admission Dx: Justifications for Admission: Justification of Admission Dx: Yes Acute Renal Failure: Serum Cr > 4mg/dL Hypertension: Symp at Rest GENA JONES MD Jun 06, 2020 09:18
--- NOTE | 2020-06-06 10:03 | PDOC ---
DATE OF SERVICE DATE: 06/06/20 TIME: 10:01 SUBJECTIVE ROS seen on HD , No complaints She reports she has sponge in her stomach- she ate it for dinner 3 years back and is wondering if it can be removed OBJECTIVE Vital Signs Vital Signs Date Time Temp Pulse Resp B/P (MAP) Pulse Ox O2 Delivery O2 Flow Rate FiO2 06/06/20 07:05 Room Air 06/06/20 07:00 98.0 67 18 106/73 (84) 94 98.0 I & 0 Intake and Output 06/06/20 07:00 Intake Total 2770 ml Balance 2770 ml Intake Oral 2770 ml # Voids 3 PHYSICAL EXAM Physical Exam GEN: NAD, HEEN-OM moist NECK: supple CVS: S1S2, RESP: CTA, Non labored GI: BS + ve, Non Tender, obese : No CVA tenderness, No Suprapubic Tenderness, No [place] NEURO- Grossly Normal, Chronic ABnorma movements- upper Ext DERM No Rash DIAGNOSIS/ASSESSMENT Assessment & Plan 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, on HD MWF She was admitted in April at [facility] with LIANA - initiated on HD Ct scan in April showed bilat Renal atrophy -right greater than left Seen on HD, tolerating well, continue as ordered , Deondre Jeronimo Access- Replaced TDC on 06/05 (Old fell off ) Left renal cyst Essential tremor Hyperkalemia mild at presentation Anemia of chronic disease Secondary hyperparathyroidism History of bipolar disorder/ Schizophrenia, compromising medical care Psych consulted COMMENT/RELEVANT DATA Meds Current Medications Medications (Trade) Dose Ordered Sig/Joellen Start Time Stop Time Status Last Admin Dose Admin Acetaminophen (Tylenol) 500 mg 1X PRN PRN 06/04/20 12:45 06/05/20 12:44 DC Acetaminophen/ Hydrocodone Bitart (Lortab 5/325) 1 tab PRN Q4HRS PRN 06/04/20 20:45 06/06/20 05:50 1 TAB Albumin Human 200 ml @ 200 mls/hr 1X PRN PRN 06/06/20 07:30 06/06/20 13:29 Albuterol Sulfate (Ventolin Neb Soln) 2.5 mg PRN Q4HRS PRN 06/04/20 08:45 Cefazolin Sodium/ Dextrose 50 ml @ 100 mls/hr 1X ONCE 06/04/20 08:30 06/04/20 08:59 DC 8/3/20 12:01 100 MLS/HR Cetirizine HCl (ZyrTEC) 10 mg DAILY 06/04/20 09:15 06/05/20 08:17 10 MG Citalopram Hydrobromide (CeleXA) 20 mg DAILY 06/04/20 10:00 06/05/20 08:16 20 MG Clonazepam (KlonoPIN) 0.5 mg BID 06/04/20 09:00 06/05/20 20:39 0.5 MG Codeine Sulfate (Codeine) 30 mg 1X ONCE 06/03/20 23:30 06/03/20 23:31 DC 06/03/20 22:59 30 MG Dextrose (Dextrose 50%-Water Syringe) 12.5 gm PRN Q15MIN PRN 06/04/20 09:00 Diphenhydramine HCl (Benadryl) 25 mg 1X PRN PRN 06/06/20 07:30 06/07/20 07:29 Docusate Sodium (Colace) 100 mg PRN BID PRN 06/04/20 08:45 Famotidine (Pepcid) 40 mg QHS 06/04/20 21:00 06/05/20 20:39 40 MG Fentanyl Citrate (Fentanyl 2ml Vial) 100 mcg STK-MED ONCE 06/04/20 10:58 06/04/20 10:58 DC Fludrocortisone Acetate (Florinef) 0.1 mg DAILY 06/04/20 09:00 06/05/20 08:17 0.1 MG Fluticasone Propionate (Flonase) 2 spray DAILY 06/04/20 09:00 06/05/20 08:15 2 SPRAY Guaifenesin (Robitussin) 200 mg PRN Q4HRS PRN 06/04/20 08:45 Heparin Sodium (Porcine) (Heparin Sodium) 5,000 unit Q8HRS 06/04/20 12:00 06/06/20 05:55 5,000 UNIT Info (PHARMACY MONITORING -- do not chart) 1 each PRN DAILY PRN 06/06/20 07:30 Insulin Human Lispro (HumaLOG) 0-5 UNITS TIDWMEALS 06/04/20 12:00 06/05/20 17:33 2 UNITS Lidocaine/ Epinephrine (LIDOCAINE 1%-EPI 1:100,000 Multi-Dose) 20 ml STK-MED ONCE 06/04/20 11:06 06/04/20 11:07 DC Midazolam HCl (Versed) 2 mg 1X ONCE 06/04/20 11:00 06/04/20 11:01 DC 06/04/20 12:03 2 MG Ondansetron HCl (Zofran) 4 mg PRN Q4HRS PRN 06/04/20 08:45 Polyethylene Glycol (miraLAX PACKET) 17 gm DAILY 06/04/20 09:00 06/05/20 08:16 17 GM Quetiapine Fumarate (SEROquel) 50 mg HS 06/05/20 21:00 06/05/20 20:39 50 MG Sevelamer Carbonate (Renvela) 2,400 mg TIDWMEALS 06/04/20 09:00 06/05/20 17:31 2,400 MG Sodium Chloride 1,000 ml @ 400 mls/hr Q2H30M PRN 06/06/20 07:27 06/06/20 19:26 Sodium Chloride (Normal Saline Flush) 10 ml 1X PRN PRN 06/04/20 12:45 06/05/20 12:44 DC Trazodone HCl (Desyrel) 75 mg HS 06/04/20 21:00 06/05/20 20:39 75 MG Valproic Acid (Depakene) 1,000 mg QHS 06/04/20 21:00 06/05/20 20:39 1,000 MG Vitamin B Complex/ Vitamin C (Juliet-Sheyla) 1 tab DAILY 06/04/20 09:00 06/05/20 08:16 1 TAB Lab Laboratory Tests Test 06/05/20 11:22 06/05/20 16:39 06/05/20 19:55 06/06/20 04:10 Glucose (Fingerstick) 171 mg/dL (70-99) 180 mg/dL (70-99) 192 mg/dL (70-99) Sodium Level 128 mmol/L (136-145) Potassium Level 5.1 mmol/L (3.5-5.1) Chloride Level 91 mmol/L (98-107) Carbon Dioxide Level 26 mmol/L (21-32) Anion Gap 11 (6-14) Blood Urea Nitrogen 39 mg/dL (7-20) Creatinine 5.9 mg/dL (0.6-1.0) Estimated GFR (Cockcroft-Gault) 8.0 Glucose Level 187 mg/dL (70-99) Calcium Level 8.0 mg/dL (8.5-10.1) Test 06/06/20 07:47 Glucose (Fingerstick) 229 mg/dL (70-99) Results All relevant outside records, renal labs, imaging studies, telemetry/EKG's were reviewed. Justicifation of Admission Dx: Justifications for Admission: Justification of Admission Dx: Yes Acute Renal Failure: Serum Cr > 4mg/dL Hypertension: Symp at Rest DAYA VEGA MD Jun 06, 2020 10:03
--- NOTE | 2020-06-06 11:22 | NUR ---
PAUL following. Discussed with RN and Dr. Joe, pt may be able to return to [facility] today. PAUL awaiting confirmation from physician RE discharge. PAUL left message for [facility] about potential discharge. Addendum: 06/06/20 at 1533 by KIMBER MILLER Pt discharging back to [facility] today, discharge orders faxed, awaiting transportation time. RN notified.
[2020-06-06] MEDS: POLYETHYLENE GLYCOL 3350 17 GM PACKET. PO SCH (12:11)
[2020-06-06] MEDS: FOLIC/VIT B COMP W-C (RENAL) TABLET. PO SCH (12:11)
[2020-06-06] MEDS: FLUDROCORTISONE 0.1 MG TABLET PO SCH (12:11)
[2020-06-06] MEDS: CITALOPRAM 20 MG TABLET. PO SCH (12:11)
[2020-06-06] MEDS: CETIRIZINE HCL 10 MG TABLET. PO SCH (12:11)
[2020-06-06] MEDS: clonazePAM 0.5 MG TABLET PO SCH (12:11)
[2020-06-06 15:00] VITALS: BP 148/63
--- NOTE | 2020-06-06 16:53 | PDOC3 ---
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 Essential tremor Hyperkalemia resolved Normocytic anemia of chronic disease secondary hyperparathyroidism History of bipolar disorder/ Schizophrenia, compromising medical care Dialysis catheter removal, in need of replacement 06/05 Still not using good judgement, at risk for self removal of catheter again plan ADMIT Consult nephrology Consult IR Consult psych , heparin sq dvt prophylaxis back to LTC facility, psych based 06/06/20 d/c planning 34 min Justicifation of Admission Dx: Justicifation of Admission Dx: Justifications for Admission: Justification of Admission Dx: Yes Acute Renal Failure: Serum Cr > 4mg/dL Hypertension: Symp at Rest Vitals Vitals Vital Signs Date Time Temp Pulse Resp B/P (MAP) Pulse Ox O2 Delivery O2 Flow Rate FiO2 06/06/20 07:05 Room Air 06/06/20 07:00 98.0 67 18 106/73 (84) 94 98.0 Physical Exam General: Alert, Oriented X3, Cooperative, No acute distress Heart: Regular rate, Normal S1, Normal S2 Lungs: Clear Abdomen: Normal bowel sounds, Soft Extremities: No clubbing, No cyanosis, No edema Skin: No significant lesion FINAL DIAGNOSIS Problems Medical Problems: (1) ESRD on dialysis Status: Acute Brief Hospital Course Ms. Cross is a 39 old [sex] who presented with [ ] Discharge Medications Current Medications Ondansetron HCl (Zofran) 4 mg PRN Q8HRS PRN IV NAUSEA/VOMITING 1ST CHOICE; Start 06/03/20 at 22:45; Stop 06/04/20 at 22:44; Status DC Acetaminophen (Tylenol) 650 mg PRN Q4HRS PRN PO FEVER > 100.3'F Last administered on 06/04/20at 17:12; Start 06/03/20 at 22:45; Stop 06/04/20 at 22:44; Status DC Diphenhydramine HCl (Benadryl) 25 mg 1X ONCE PO Last administered on 06/03/20at 22:59; Start 06/03/20 at 23:00; Stop 06/03/20 at 23:01; Status DC Codeine Sulfate (Codeine) 30 mg 1X ONCE PO Last administered on 06/03/20at 22:59; Start 06/03/20 at 23:30; Stop 06/03/20 at 23:31; Status DC Cefazolin Sodium/ Dextrose 50 ml @ 100 mls/hr 1X ONCE IV Last administered on 06/04/20at 12:01; Start 06/04/20 at 08:30; Stop 06/04/20 at 08:59; Status DC Midazolam HCl (Versed) 5 mg 1X ONCE IV ; Start 06/04/20 at 08:30; Stop 06/04/20 at 10:57; Status DC Fentanyl Citrate (Fentanyl 2ml Vial) 100 mcg 1X ONCE IV Last administered on 06/04/20at 08:30; Start 06/04/20 at 08:30; Stop 06/04/20 at 08:34; Status DC Lidocaine/ Epinephrine (LIDOCAINE 1%-EPI 1:100,000 Multi-Dose) 20 ml 1X ONCE INJ Last administered on 06/04/20at 11:58; Start 06/04/20 at 08:30; Stop 06/04/20 at 08:34; Status DC Sodium Chloride (Normal Saline Flush) 3 ml QSHIFT PRN IV AFTER MEDS AND BLOOD DRAWS; Start 06/04/20 at 08:45 Ondansetron HCl (Zofran) 4 mg PRN Q4HRS PRN IV NAUSEA/VOMITING; Start 06/04/20 at 08:45 Acetaminophen (Tylenol) 650 mg PRN Q4HRS PRN PO TEMP OVER 100.4F OR MILD PAIN; Start 06/04/20 at 08:45 Docusate Sodium (Colace) 100 mg PRN BID PRN PO HARD STOOLS; Start 06/04/20 at 08:45 Albuterol Sulfate (Ventolin Neb Soln) 2.5 mg PRN Q4HRS PRN NEB SHORTNESS OF BREATH; Start 06/04/20 at 08:45 Guaifenesin (Robitussin) 200 mg PRN Q4HRS PRN PO COUGH; Start 06/04/20 at 08:45 Acetaminophen (Tylenol) 650 mg PRN Q8HRS PRN PO pain or fever; Start 06/04/20 at 09:00; Stop 06/04/20 at 11:00; Status DC Clonazepam (KlonoPIN) 0.5 mg BID PO Last administered on 06/06/20 12:11; Start 06/04/20 at 09:00 Fludrocortisone Acetate (Florinef) 0.1 mg DAILY PO Last administered on 06/06/20 12:11; Start 06/04/20 at 09:00 Fluticasone Propionate (Flonase) 2 spray DAILY NS Last administered on 06/05/20 08:15; Start 06/04/20 at 09:00 Vitamin B Complex/ Vitamin C (Juliet-Sheyla) 1 tab DAILY PO Last administered on 06/06/20 12:11; Start 06/04/20 at 09:00 Polyethylene Glycol (miraLAX PACKET) 17 gm DAILY PO Last administered on 06/06/20 12:11; Start 06/04/20 at 09:00 Sevelamer Carbonate (Renvela) 2,400 mg TIDWMEALS PO Last administered on 06/06/20 12:11; Start 06/04/20 at 09:00 Trazodone HCl (Desyrel) 75 mg HS PO Last administered on 06/05/20 20:39; Start 06/04/20 at 21:00 Citalopram Hydrobromide (CeleXA) 20 mg DAILY PO Last administered on 06/06/20 12:11; Start 06/04/20 at 10:00 Famotidine (Pepcid) 40 mg QHS PO Last administered on 06/05/20 20:39; Start 06/04/20 at 21:00 Cetirizine HCl (ZyrTEC) 10 mg DAILY PO Last administered on 06/06/20 12:11; Start 06/04/20 at 09:15 Valproic Acid (Depakene) 1,000 mg QHS PO Last administered on 06/05/20 20:39; Start 06/04/20 at 21:00 Insulin Human Lispro (HumaLOG) 0-5 UNITS TIDWMEALS SQ Last administered on 06/06/20 12:17; Start 06/04/20 at 12:00 Dextrose (Dextrose 50%-Water Syringe) 12.5 gm PRN Q15MIN PRN IV SEE COMMENTS; Start 06/04/20 at 09:00 Midazolam HCl (Versed) 2 mg 1X ONCE IV Last administered on 06/04/20at 12:03; Start 06/04/20 at 11:00; Stop 06/04/20 at 11:01; Status DC Fentanyl Citrate (Fentanyl 2ml Vial) 100 mcg STK-MED ONCE .ROUTE ; Start 06/04/20 at 10:58; Stop 06/04/20 at 10:58; Status DC Lidocaine/ Epinephrine (LIDOCAINE 1%-EPI 1:100,000 Multi-Dose) 20 ml STK-MED ONCE .ROUTE ; Start 06/04/20 at 11:06; Stop 06/04/20 at 11:07; Status DC Heparin Sodium (Porcine) (Heparin Sodium) 5,000 unit Q8HRS SQ Last administered on 06/06/20at 14:41; Start 06/04/20 at 12:00 Sodium Chloride 1,000 ml @ 1,000 mls/hr Q1H PRN IV hypotension; Start 06/04/20 at 12:42; Stop 06/04/20 at 18:41; Status DC Albumin Human 200 ml @ 200 mls/hr 1X PRN PRN IV Hypotension; Start 06/04/20 at 12:45; Stop 06/04/20 at 18:44; Status DC Acetaminophen (Tylenol) 500 mg 1X PRN PRN PO MILD PAIN / TEMP > 100.3'F; Start 06/04/20 at 12:45; Stop 06/05/20 at 12:44; Status DC Diphenhydramine HCl (Benadryl) 25 mg 1X PRN PRN IV ITCHING; Start 06/04/20 at 12:45; Stop 06/05/20 at 12:44; Status DC Diphenhydramine HCl (Benadryl) 25 mg 1X PRN PRN IV ITCHING; Start 06/04/20 at 12:45; Stop 06/05/20 at 12:44; Status DC Sodium Chloride (Normal Saline Flush) 10 ml 1X PRN PRN IV AP catheter pack; Start 06/04/20 at 12:45; Stop 06/05/20 at 12:44; Status DC Sodium Chloride (Normal Saline Flush) 10 ml 1X PRN PRN IV [employer] catheter pack; Start 06/04/20 at 12:45; Stop 06/05/20 at 12:44; Status DC Sodium Chloride 1,000 ml @ 400 mls/hr Q2H30M PRN IV PATENCY; Start 06/04/20 at 12:42; Stop 06/05/20 at 00:41; Status DC Info (PHARMACY MONITORING -- do not chart) 1 each PRN DAILY PRN MC SEE COMMENTS; Start 06/04/20 at 12:45 Info (PHARMACY MONITORING -- do not chart) 1 each PRN DAILY PRN MC SEE COMMENTS; Start 06/04/20 at 12:45; Status UNV Acetaminophen/ Hydrocodone Bitart (Lortab 5/325) 1 tab PRN Q4HRS PRN PO MODERATE PAIN 4-6 Last administered on 06/06/20at 16:43; Start 06/04/20 at 20:45 Quetiapine Fumarate (SEROquel) 50 mg HS PO Last administered on 06/05/20at 20:39; Start 06/05/20 at 21:00 Sodium Chloride 1,000 ml @ 1,000 mls/hr Q1H PRN IV hypotension; Start 06/06/20 at 07:27; Stop 06/06/20 at 13:26; Status DC Albumin Human 200 ml @ 200 mls/hr 1X PRN PRN IV Hypotension; Start 06/06/20 at 07:30; Stop 06/06/20 at 13:29; Status DC Diphenhydramine HCl (Benadryl) 25 mg 1X PRN PRN IV ITCHING; Start 06/06/20 at 07:30; Stop 06/07/20 at 07:29 Diphenhydramine HCl (Benadryl) 25 mg 1X PRN PRN IV ITCHING; Start 06/06/20 at 07:30; Stop 06/07/20 at 07:29 Sodium Chloride 1,000 ml @ 400 mls/hr Q2H30M PRN IV PATENCY; Start 06/06/20 at 07:27; Stop 06/06/20 at 19:26 Info (PHARMACY MONITORING -- do not chart) 1 each PRN DAILY PRN MC SEE COMMENTS; Start 06/06/20 at 07:30 Info (PHARMACY MONITORING -- do not chart) 1 each PRN DAILY PRN MC SEE COMMENTS; Start 06/06/20 at 07:30 Active Scripts Active Reported Renvela (Sevelamer Carbonate) 800 Mg Tablet 3 Tab PO TID 30 Days Nephro-Sheyal Tablet (Folic Acid/Vitamin B Comp W-C) 0.8 Mg Tablet 1 Tab PO DAILY Loratadine 10 Mg Tablet 1 Tab PO DAILY Levemir (Insulin Detemir) 100 Unit/1 Ml Vial 12 Unit SQ HS Humalog (Insulin Lispro) 100 Unit/1 Ml Cartridge 100 Unit SQ PRN BFRMEAL Haloperidol Decanoate 100 Mg/1 Ml Vial 150 Mg IM HS Famotidine 40 Mg Tablet 40 Mg PO HS Clonazepam (Clonazepam) 0.5 Mg Tablet 0.5 Mg PO BID Acetaminophen 325 Mg Tablet 2 Tab PO PRN Q8HRS PRN 24 Days Trazodone Hcl 50 Mg Tablet 75 Mg PO HS Miralax (Polyethylene Glycol 3350) 17 Gm Powd.pack 1 Pkt PO DAILY Imodium A-D (Loperamide HCl) 2 Mg Capsule 2 Mg PO PRN PRN Glucose Gel (Dextrose) 38 Gm Gel..gram. 15 Gm PO PRN Fluticasone Propionate Nasal [place] (Fluticasone Propionate) 16 Gm [place].susp 2 [place] NS DAILY Fludrocortisone Acetate 0.1 Mg Tablet 0.1 Mg PO DAILY Escitalopram Oxalate 10 Mg Tablet 1 Tab PO DAILY Valproic Acid (Valproate Sodium) 250 Mg/5 Ml Solution 1,000 Mg PO HS Vital Signs Vital Signs Date Time Temp Pulse Resp B/P (MAP) Pulse Ox O2 Delivery O2 Flow Rate FiO2 06/06/20 16:43 Room Air 06/06/20 15:00 98.3 81 18 148/63 (91) 98 98.3 Labs Laboratory Tests Test 06/04/20 17:11 06/04/20 20:44 06/05/20 07:39 06/05/20 11:22 Glucose (Fingerstick) 158 mg/dL (70-99) 309 mg/dL (70-99) 274 mg/dL (70-99) 171 mg/dL (70-99) Test 06/05/20 16:39 06/05/20 19:55 06/06/20 04:10 06/06/20 07:47 Glucose (Fingerstick) 180 mg/dL (70-99) 192 mg/dL (70-99) 229 mg/dL (70-99) Sodium Level 128 mmol/L (136-145) Potassium Level 5.1 mmol/L (3.5-5.1) Chloride Level 91 mmol/L (98-107) Carbon Dioxide Level 26 mmol/L (21-32) Anion Gap 11 (6-14) Blood Urea Nitrogen 39 mg/dL (7-20) Creatinine 5.9 mg/dL (0.6-1.0) Estimated GFR (Cockcroft-Gault) 8.0 Glucose Level 187 mg/dL (70-99) Calcium Level 8.0 mg/dL (8.5-10.1) Test 06/06/20 11:46 Glucose (Fingerstick) 175 mg/dL (70-99) Laboratory Tests Test 06/05/20 19:55 06/06/20 04:10 06/06/20 07:47 06/06/20 11:46 Glucose (Fingerstick) 192 mg/dL (70-99) 229 mg/dL (70-99) 175 mg/dL (70-99) Sodium Level 128 mmol/L (136-145) Potassium Level 5.1 mmol/L (3.5-5.1) Chloride Level 91 mmol/L (98-107) Carbon Dioxide Level 26 mmol/L (21-32) Anion Gap 11 (6-14) Blood Urea Nitrogen 39 mg/dL (7-20) Creatinine 5.9 mg/dL (0.6-1.0) Estimated GFR (Cockcroft-Gault) 8.0 Glucose Level 187 mg/dL (70-99) Calcium Level 8.0 mg/dL (8.5-10.1) Allergies Allergies Coded Allergies Type Severity Reaction Last Updated Verified chocolate flavor Allergy Intermediate 06/03/20 Yes sulfamethoxazole Allergy Intermediate 06/03/20 Yes trimethoprim Allergy Intermediate 06/03/20 Yes Disposition/Orders: Other (D/C TO LTC PSYCH FACILITY) Justicifation of Admission Dx: Justifications for Admission: Justification of Admission Dx: Yes Acute Renal Failure: Serum Cr > 4mg/dL Hypertension: Symp at Rest GENA JONES MD Jun 06, 2020 16:53
[2020-06-06] MEDS ORDERED: ALBU2.5V8 NEB (17:01)
[2020-06-06] MEDS ORDERED: QUET100T PO (17:01)
--- NOTE | 2020-06-06 17:03 | SNU/HH DC ---
DISCHARGE ORDERS DISCHARGE INFORMATION: FINAL DIAGNOSIS Problems Medical Problems: (1) ESRD on dialysis Status: Acute CONDITION ON DISCHARGE: Stable CODE STATUS: Code Status: Full SENIOR LIVING: SNF STAY <30 DAYS: No HOSPICE: HOSPICE: No HOSPICE EVAL & TREAT: No LTAC: ADMIT TO LTAC: No POST DISCHARGE ORDERS: ACTIVITY ORDERS: Activity as tolerated WEIGHT BEARING STATUS: As tolerated WOUND/INCISION CARE: No wound care needed CHECKS AFTER DISCHARGE: CHECKS AFTER DISCHARGE: Check blood sugar, ac/hs, Check your Temp as needed COMMENTS: IJ/chest TREATMENT/EQUIPMENT ORDERS: ADAPTIVE EQUIPMENT NEEDED: None DISCHARGE MEDICATIONS: Home Meds Active Scripts Quetiapine Fumarate (QUETIAPINE FUMARATE) 100 Mg Tablet, 50 MG PO HS for MOOD for 30 Days, #15 TAB Prov:GENA JONES MD 06/06/20 Albuterol Sulfate (Proair Hfa) 8.5 Gm Hfa.aer.ad, 2.5 MG NEB PRN Q4HRS PRN for SHORTNESS OF BREATH for 14 Days, #1 INHALER Prov:GENA JONES MD 06/06/20 Reported Medications Sevelamer Carbonate (RENVELA) 800 Mg Tablet, 3 TAB PO TID for HYPOCALCEMIA for 30 Days, #270 TAB 0 Refills 06/04/20 Folic Acid/Vitamin B Comp W-C (NEPHRO-DELIA TABLET) 0.8 Mg Tablet, 1 TAB PO DAILY for VITAMIN, #30 TAB 5 Refills 06/04/20 Loratadine (LORATADINE) 10 Mg Tablet, 1 TAB PO DAILY for ALLERGIES, #30 TAB 5 Refills 06/04/20 Insulin Detemir (LEVEMIR) 100 Unit/1 Ml Vial, 12 UNIT SQ HS for DIABETES, VIAL 06/04/20 Insulin Lispro (HUMALOG) 100 Unit/1 Ml Cartridge, 100 UNIT SQ PRN BFRMEAL for DIABETES, EACH 06/04/20 Famotidine (FAMOTIDINE) 40 Mg Tablet, 40 MG PO HS for HEARTBURN, TAB 06/04/20 Clonazepam (CLONAZEPAM ) 0.5 Mg Tablet, 0.5 MG PO BID for FOR ANXIETY, TAB 06/04/20 Acetaminophen (ACETAMINOPHEN) 325 Mg Tablet, 2 TAB PO PRN Q8HRS PRN for pain or fever for 24 Days, #100 TAB 0 Refills 06/04/20 Trazodone Hcl (TRAZODONE HCL) 50 Mg Tablet, 75 MG PO HS for anxiety, TAB 04/05/20 Polyethylene Glycol 3350 (MIRALAX) 17 Gm Powd.pack, 1 PKT PO DAILY for constipation, PKT 04/05/20 Dextrose (GLUCOSE GEL) 38 Gm Gel..gram., 15 GM PO PRN for BS less than 60, EACH 04/05/20 Fluticasone Propionate (FLUTICASONE PROPIONATE NASAL SPRAY) 16 Gm [place].susp, 2 SPRAY NS DAILY for allergic rhinitis, EACH 04/05/20 Fludrocortisone Acetate (FLUDROCORTISONE ACETATE) 0.1 Mg Tablet, 0.1 MG PO DAILY for hypotension, TAB 04/05/20 Escitalopram Oxalate (ESCITALOPRAM OXALATE) 10 Mg Tablet, 1 TAB PO DAILY for schizoaffective/bipolar, #30 TAB 3 Refills 04/05/20 Valproate Sodium (VALPROIC ACID) 250 Mg/5 Ml Solution, 1000 MG PO HS for Schizoaffective disorder, bipo, MISC 04/05/20 Discontinued Reported Medications Haloperidol Decanoate (HALOPERIDOL DECANOATE) 100 Mg/1 Ml Vial, 150 MG IM HS for SCHIZOAFFECTIVE DISORDER, EACH 06/04/20 Loperamide HCl (Imodium A-D) 2 Mg Capsule, 2 MG PO PRN PRN for DIARRHEA, CAP 04/05/20 Trazodone Hcl (TRAZODONE HCL) 50 Mg Tablet, 1 TAB PO QHS for ANXIETY, #30 TAB 1 Refill 06/04/20 Polyethylene Glycol 3350 (POLYETHYLENE GLYCOL 3350) 17 Gm Powd.pack, 17 GM PO PRN Q24HRS PRN for CONSTIPATION, PKT 06/04/20 Loperamide HCl (Imodium A-D) 2 Mg Capsule, 2 MG PO PRN PRN for DIARRHEA, CAP 06/04/20 Dextrose (GLUCOSE GEL) 38 Gm Gel..gram., 38 GM PO PRN PRN for DIABETES, HPOGLYCEMIA BELOW 60, EACH 06/04/20 Fluticasone Propionate (Flonase Allergy Relief) 9.9 Ml [place].susp, 2 SPRAYS NS DAILY for RHINITIS, BOTTLE 06/04/20 Fluticasone Propionate (Flonase Allergy Relief) 9.9 Ml [place].susp, 2 SPRAYS NS DAILY for RHINITIS, BOTTLE 06/04/20 Fludrocortisone Acetate (FLUDROCORTISONE ACETATE) 0.1 Mg Tablet, 1 TAB PO DAILY for HYPOTENSION, #90 TAB 1 Refill 06/04/20 Escitalopram Oxalate (ESCITALOPRAM OXALATE) 10 Mg Tablet, 1 TAB PO DAILY for SCHIZOAFFECTIVE DISORDER, #30 TAB 3 Refills 06/04/20 Valproate Sodium (VALPROATE SODIUM) 500 Mg/5 Ml Vial, 250 MG IV HS for BIPOLAR, EACH 06/04/20 Sodium Bicarbonate (SODIUM BICARBONATE) 650 Mg Tablet, 650 MG PO TID for heartburn, TAB 04/05/20 Sevelamer Carbonate (RENVELA) 800 Mg Tablet, 800 MG PO TIDWMEALS for hypocalcemia, TAB 04/05/20 Loratadine (LORATADINE) 10 Mg Tablet, 10 MG PO QODAY for allergies, TAB 04/05/20 Insulin Detemir (Levemir Flextouch) 100 Unit/1 Ml Insuln.pen, 1 UNIT SQ HS for D M, SYR 04/05/20 Insulin Lispro (HUMALOG) 100 Unit/1 Ml Vial, 0 SQ TIDAC for sliding scale, VIAL If BS 250-400 give 5 units 401-500 do not administer and call doctor 04/05/20 Haloperidol Decanoate (HALOPERIDOL DECANOATE) 100 Mg/1 Ml Vial, 100 MG IM [id number] for brief psychotic disorder, EACH 04/05/20 Ferrous Sulfate (FERROUS SULFATE) 325 Mg Tablet, 1 TAB PO DAILY for anemia, #30 TAB 3 Refills 04/05/20 Acetaminophen (ACETAMINOPHEN) 325 Mg Tablet, 2 TAB PO PRN Q8HRS PRN for pain or fever for 24 Days, #100 TAB 0 Refills 04/05/20 GENA JONES MD Jun 06, 2020 17:03
--- NOTE | 2020-06-06 17:44 | NUR ---
Pt. discharged to [facility] via per transportation service. R dialysis catheter intact.
== END 2020-06-06 17:45 | DRG 673 ==
LOC: ER 21:31 → 4 NORTH 22:39
PROVIDERS: ADMIT Internal Medicine; ATTEND Internal Medicine
PROC: 0JH63XZ Insertion of Tunneled Vascular Access Device into Chest Subcutaneous Tissue and Fascia, Percutaneous Approach (ICD-10-PCS; 2020-06-03)
PROC: 02H633Z Insertion of Infusion Device into Right Atrium, Percutaneous Approach (ICD-10-PCS; 2020-06-03)
PROC: B548ZZA Ultrasonography of Superior Vena Cava, Guidance (ICD-10-PCS; 2020-06-03)
PROC: 5A1D70Z Performance of Urinary Filtration, Intermittent, Less than 6 Hours Per Day (ICD-10-PCS; 2020-06-04)
PROC: 5A1D70Z Performance of Urinary Filtration, Intermittent, Less than 6 Hours Per Day (ICD-10-PCS; principal; 2020-06-06)
DX: I12.0 Hypertensive chronic kidney disease with stage 5 chronic kidney disease or end stage renal disease (principal); N18.6 End stage renal disease; Q87.81 Alport syndrome; N25.81 Secondary hyperparathyroidism of renal origin; E87.1 Hypo-osmolality and hyponatremia; E87.5 Hyperkalemia; D63.8 Anemia in other chronic diseases classified elsewhere; E11.22 Type 2 diabetes mellitus with diabetic chronic kidney disease; F25.0 Schizoaffective disorder, bipolar type; K21.9 Gastro-esophageal reflux disease without esophagitis; F41.9 Anxiety disorder, unspecified; G25.0 Essential tremor; G47.00 Insomnia, unspecified; W18.2XXA Fall in (into) shower or empty bathtub, initial encounter; Y93.E1 Activity, personal bathing and showering; Z82.49 Family history of ischemic heart disease and other diseases of the circulatory system; Z87.891 Personal history of nicotine dependence; Z98.51 Tubal ligation status; Z99.2 Dependence on renal dialysis
CPT/HCPCS: 36415; 36558; 76937; 77001; 80048; 80053; 82962; 85025; 85610; 99152; 99153; 99285; C1750; C1769; C1892; J0690; J1644; J1815; J2250; J3010; J3490; G0378; Q0163; U0003-CS

== ENCOUNTER 2022-02-11 04:51 | Inpatient (IN) | payer MEDICAID ==
[~2022-02-11] VITALS: Ht 165.1 cm; Wt 98.4 kg
[~2022-02-11 04:51] MED LIST changes: +ALBU2.5V8 NEB; +CLON-77 PO; +FAMO40TA4 PO; +FLUT9.9S NS; +FOLI0.8T3 PO; +INSU100C SQ; +INSU100V13 SQ; +POLY17PO52 PO; +QUET100T2 PO; +VALP500V2 IV
[2022-02-11] MEDS ORDERED: BENZONATATE 100 MG CAPSULE. PO ONE (05:30)
--- NOTE | 2022-02-11 05:52 | RAD ---
EXAM: AP View of the chest DATE: 02/11/2022 5:05 AM INDICATION: Reason: cough / Spl. Instructions: / History: COMPARISON: No Prior FINDINGS: The heart is not enlarged. Mediastinal and hilar contours are normal. Patchy airspace opacities are seen in the left midlung and bilateral lung bases. No pleural effusion or pneumothorax. IMPRESSION: Patchy opacities left midlung and bilateral lung bases likely consolidative process such as pneumonia . Atelectasis could also have this appearance. Imaging follow-up to resolution is recommended. Electronically signed by: Dorian Perez MD (02/11/2022 5:49 AM) JUSTYN
[2022-02-11] MEDS ORDERED: IPRATRPIUM/ALBUTEROL 0.5/2.5MG 3 ML NEBU. NEB ONE (06:30)
[2022-02-11] MEDS ORDERED: methylPREDNISolone SOD SUCC PF 125 MG/2 ML VIAL. IV ONE (06:30)
[2022-02-11] MEDS ORDERED: ACETAMINOPHEN 500 MG TABLET PO ONE (06:30)
[2022-02-11] MEDS ORDERED: cefTRIAXone IV Push 1 GM VIAL. IVP ONE (06:30)
[2022-02-11] MEDS ORDERED: ALBUTEROL SULFATE 2.5 MG/3 ML NEBU. NEB ONE (06:30)
--- NOTE | 2022-02-11 06:30 | PHYS DOC ---
Past Medical History Past Medical History: Anemia, Bipolar, Constipation, Hypotension, Renal Failure, Schizophrenia Additional Past Medical Histor: ESRD (MADDIE WALKER MD) Past Surgical History: Tubal ligation (MADDIE WALKER MD) Smoking Status: Current Every Day Smoker Alcohol Use: None (MADDIE WALKER MD) Adult General Chief Complaint Chief Complaint: SHORTNESS OF BREATH HPI HPI The patient is a 41-year-old comorbid female with a history of insulin-dependent diabetes, end-stage renal disease on hemodialysis MWF and compliant (last dialyzed yesterday), schizophrenia and bipolar disorder, "hypotension" / questionable adrenal insufficiency on daily fludrocortisone. She has a long history of tobacco abuse but no formal diagnosis of COPD. She is vaccinated ag ainst COVID-19. Ms. Cross presents from her psychiatric nursing facility for evaluation of 2 days of rhinorrhea, nasal congestion, mild dry cough, sore throat, and body aches. She reports associated shortness of breath. No associated fevers, vomiting, chest pain of any kind, abdominal pain of any kind, flank pain, midline back pain, dysuria, hematuria, polyuria or oliguria, changes in bowel habits, pain or swelling to arms or legs. Patient is alert, pleasantly and appropriately interactive and in no acute distress. Vital signs are appropriate here. Patient is noted to be wheezing with a somewhat elevated respiratory rate and mildly increased work of breathing. (MADDIE WALKER MD) Review of Systems Review of Systems A 12 point review of systems was completed and was negative except where noted in HPI above. (MADDIE WALKER MD) Current Medications Current Medications Current Medications Medications (Trade) Dose Ordered Sig/Joellen Start Time Stop Time Status Last Admin Dose Admin Acetaminophen (Tylenol) 1,000 mg 1X ONCE 02/11/22 06:30 02/11/22 06:31 DC 02/11/22 07:25 1,000 MG Albuterol Sulfate (Ventolin Neb Soln) 2.5 mg 1X ONCE 02/11/22 06:30 02/11/22 06:31 DC 02/11/22 06:31 2.5 MG Albuterol/ Ipratropium (Duoneb) 3 ml 1X ONCE 02/11/22 06:30 02/11/22 06:31 DC 02/11/22 06:30 3 ML Azithromycin 500 mg/Sodium Chloride 250 ml @ 250 mls/hr 1X ONCE 02/11/22 07:00 02/11/22 07:59 DC 02/11/22 07:00 250 MLS/HR Benzonatate (Tessalon Perle) 100 mg 1X ONCE 02/11/22 05:30 02/11/22 05:31 DC 02/11/22 05:28 100 MG Ceftriaxone Sodium (Rocephin) 1 gm 1X ONCE 02/11/22 06:30 02/11/22 06:31 DC 02/11/22 07:42 1 GM Furosemide (Lasix) 20 mg 1X ONCE 02/11/22 08:45 02/11/22 08:48 DC Methylprednisolone Sodium Succinate (SOLU-Medrol 125MG VIAL) 125 mg 1X ONCE 02/11/22 06:30 02/11/22 06:31 DC 02/11/22 07:25 125 MG (ESTHER ROBLES DO) Allergies Allergies Allergies Coded Allergies Type Severity Reaction Last Updated Verified chocolate flavor Allergy Intermediate 06/03/20 Yes sulfamethoxazole Allergy Intermediate 06/03/20 Yes trimethoprim Allergy Intermediate 06/03/20 Yes (ESTHER ROBLES DO) Physical Exam Physical Exam Middle-aged female appearing nontoxic and in no acute distress. Head is normocephalic and atraumatic. Neck is supple and nontender. Oropharynx is moist. No posterior oropharyngeal erythema, tonsillar exudates or swelling or uvular deviation. Patient is tolerating secretions normally and speaking comfortably in a normal tone of voice. Tympanic membranes clear bilaterally. No EAC or mastoid process abnormalities bilaterally. Lungs with mildly diminished air movement but loud wheezes noted to all king. No crackles or other adventitious sounds heard. Minimal tachypnea. There is a normal S1 and S2 without rubs or gallops and capillary refill is appropriate, less than 2 seconds globally. Abdomen is soft, nontender and nondistended. Skin is warm and dry without cyanosis, clubbing or edema. Psychiatrically, the patient demonstrates appropriate mood and affect and is alert. Evaluation of the extremities reveals BUEs and BLEs neurovascularly intact distally with strength out of 5, sensation tact light touch in all nerve distributions, radial, DP and PT pulses 2+ and equal bilaterally, capillary refill less than 2 seconds, hands and feet warm and well-perfused. No dependent peripheral edema distally. No calf tenderness or swelling bilaterally. Homans test is negative bilaterally. (MADDIE WALKER MD) Current Patient Data Vital Signs Vital Signs Date Time Temp Pulse Resp B/P (MAP) Pulse Ox O2 Delivery O2 Flow Rate FiO2 02/11/22 07:45 80 14 150/71 (97) 97 02/11/22 06:32 Room Air 02/11/22 04:51 98.1 98.1 (ESTHER ROBLES DO) Lab Values Laboratory Tests Test 02/11/22 07:35 White Blood Count 7.7 x10^3/uL (4.0-11.0) Red Blood Count 3.07 x10^6/uL (3.50-5.40) L Hemoglobin 10.5 g/dL (12.0-15.5) L Hematocrit 31.7 % (36.0-47.0) L Mean Corpuscular Volume 103 fL (79-100) H Mean Corpuscular Hemoglobin 34 pg (25-35) Mean Corpuscular Hemoglobin Concent 33 g/dL (31-37) Red Cell Distribution Width 15.1 % (11.5-14.5) H Platelet Count 222 x10^3/uL (140-400) Neutrophils (%) (Auto) 72 % (31-73) Lymphocytes (%) (Auto) 14 % (24-48) L Monocytes (%) (Auto) 8 % (0-9) Eosinophils (%) (Auto) 4 % (0-3) H Basophils (%) (Auto) 1 % (0-3) Neutrophils # (Auto) 5.6 x10^3/uL (1.8-7.7) Lymphocytes # (Auto) 1.1 x10^3/uL (1.0-4.8) Monocytes # (Auto) 0.6 x10^3/uL (0.0-1.1) Eosinophils # (Auto) 0.3 x10^3/uL (0.0-0.7) Basophils # (Auto) 0.0 x10^3/uL (0.0-0.2) Sodium Level 129 mmol/L (136-145) L Potassium Level 5.1 mmol/L (3.5-5.1) Chloride Level 90 mmol/L (98-107) L Carbon Dioxide Level 24 mmol/L (21-32) Anion Gap 15 (6-14) H Blood Urea Nitrogen 33 mg/dL (7-20) H Creatinine 5.5 mg/dL (0.6-1.0) H Estimated GFR (Cockcroft-Gault) 8.6 BUN/Creatinine Ratio 6 (6-20) Glucose Level 124 mg/dL (70-99) H Lactic Acid Level 0.4 mmol/L (0.4-2.0) Calcium Level 9.6 mg/dL (8.5-10.1) Total Bilirubin 0.5 mg/dL (0.2-1.0) Aspartate Amino Transferase (AST) 11 U/L (15-37) L Alanine Aminotransferase (ALT) 13 U/L (14-59) L Alkaline Phosphatase 145 U/L (46-116) H Troponin I High Sensitivity 20 ng/L (4-50) KZ-Hoh-H-Type Natriuretic Peptide 23375 pg/mL (0-124) H Total Protein 6.6 g/dL (6.4-8.2) Albumin 3.7 g/dL (3.4-5.0) Albumin/Globulin Ratio 1.3 (1.0-1.7) Procalcitonin 0.81 ng/mL (0.00-0.10) H Serum Test, Qualitative Negative (NEG) Valproic Acid Level 34 mcg/mL (50-100) L Valproic Acid Last Dose Date Unknown Valproic Acid Last Dose Time Unknown Laboratory Tests 02/11/22 07:35 Laboratory Tests 02/11/22 07:35 (ESTHER ROBLES DO) EKG EKG [] (MADDIE WALKER MD) EKG Normal sinus rhythm of heart rate 84. QTc 443 OK interval is 168. Normal EKG (ESTHER ROBLES DO) Radiology/Procedures Radiology/Procedures [] (MADDIE WALKER MD) Radiology/Procedures PATIENT: SHANTELL CROSS ACCOUNT: [id number] : 1980 LOCATION: ER AGE: 41 SEX: F EXAM STATUS: PRE ER ORD. PHYSICIAN: MADDIE WALKER MD REASON: cough PROCEDURE: CHEST PA & LATERAL EXAM: AP View of the chest DATE: 02/11/2022 5:05 AM INDICATION: Reason: cough / Spl. Instructions: / History: COMPARISON: No Prior FINDINGS: The heart is not enlarged. Mediastinal and hilar contours are normal. Patchy airspace opacities are seen in the left midlung and bilateral lung bases. No pleural effusion or pneumothorax. IMPRESSION: Patchy opacities left midlung and bilateral lung bases likely consolidative pro cess such as pneumonia. Atelectasis could also have this appearance. Imaging follow-up to resolution is recommended. (ESTHER ROBLES DO) Course & Med Decision Making Course & Med Decision Making 41-year-old female presenting for evaluation of 2 days of upper respiratory symptoms, cough and shortness of breath. Clinically appears to be in some degree of what is probably a COPD exacerbation, though patient lacks a formal COPD diagnosis. Chest x-ray completed and does show some bilateral infiltrates. Given comorbidities, will work-up as below and will then reevaluate. Will give Rocephin and azithromycin after cultures pending rest of work-up. Transition of care to Dr. Robles. Disposition decision will be as per him. (MADDIE WALKER MD) Course & Med Decision Making Patient is currently consuming cold cut sandwiches in order to replenish her sodium levels. Patient's patchy bilateral infiltrates are likely secondary to pulmonary edema secondary to her end-stage renal failure rather than an infectious source as patient has no elevated white count and no signs of toxicity. (ESTHER ROBLES DO) Dragon Disclaimer Dragon Disclaimer This electronic medical record was generated, in whole or in part, using a voice recognition dictation system. (MADDIE WALKER MD) Departure Departure Impression: Primary Impression: COPD with acute exacerbation Condition: STABLE Referrals: CARLOS ALBERTO ROSE MD (PCP) MADDIE WALKER MD Feb 11, 2022 06:30 ESTHER ROBLES DO Feb 11, 2022 07:10
[2022-02-11] MEDS ORDERED: AZITHROMYCIN 500 MG in IV NORMAL SALINE 250ML 250 ML IV ONE (07:00)
[2022-02-11 08:11] LABS: ANION GAP 15 (6-14); BLOOD UREA NITROGEN 33 mg/dL (7-20); BUN/CREATININE RATIO 6 (6-20); CALCIUM 9.6 mg/dL (8.5-10.1); CARBON DIOXIDE 24 mmol/L (21-32); CHLORIDE 90 mmol/L (98-107); CREATININE 5.5 mg/dL (0.6-1.0); GFR 8.6; GLUCOSE 124 mg/dL (70-99); POTASSIUM 5.1 mmol/L (3.5-5.1); SODIUM 129 mmol/L (136-145)
[2022-02-11 08:14] LABS: BASO % 1 % (0-3); EOS # 0.3 x10^3/uL (0.0-0.7); EOS % 4 % (0-3); HEMATOCRIT 31.7 % (36.0-47.0); HEMOGLOBIN 10.5 g/dL (12.0-15.5); LYMPH # 1.1 x10^3/uL (1.0-4.8); LYMPH % 14 % (24-48); MEAN CORPUSCULAR HEMOGLOBIN 34 pg (25-35); MEAN CORPUSCULAR HGB CONC 33 g/dL (31-37); MEAN CORPUSCULAR VOLUME 103 fL (79-100); MONO # 0.6 x10^3/uL (0.0-1.1); MONO % 8 % (0-9); NEUT # 5.6 x10^3/uL (1.8-7.7); NEUT % 72 % (31-73); PLATELET COUNT 222 x10^3/uL (140-400); RED BLOOD COUNT 3.07 x10^6/uL (3.50-5.40); RED CELL DISTRIBUTION WIDTH 15.1 % (11.5-14.5); WHITE BLOOD COUNT 7.7 x10^3/uL (4.0-11.0)
[2022-02-11 08:21] LABS: PREG TEST PT QUAL NEGATIVE (NEG)
[2022-02-11 08:24] LABS: ALBUMIN 3.7 g/dL (3.4-5.0); ALBUMIN/GLOBULIN RATIO 1.3 (1.0-1.7); ALK PHOS 145 U/L (46-116); ALT (SGPT) 13 U/L (14-59); AST (SGOT) 11 U/L (15-37); TOTAL BILIRUBIN 0.5 mg/dL (0.2-1.0); TOTAL PROTEIN 6.6 g/dL (6.4-8.2)
[2022-02-11 08:35] LABS: VAL ACID 34 mcg/mL (50-100)
[2022-02-11] MEDS ORDERED: FUROSEMIDE 20 MG/2 ML VIAL. IVP ONE (08:45)
[2022-02-11 10:15] VITALS: BP 133/75
--- NOTE | 2022-02-11 10:15 | NUR ---
Pt admitted from ED to room 530. Pt assisted to bed, bed locked in lowest position and call light within reach. This RN attempted to wake patient to start admission, pt would not open eyes. This RN called facility and is requesting all pertinent paperwork to be faxed over. Will attempt to do admission again.
[2022-02-11] MEDS ORDERED: HALO100A3 IM (11:54)
[2022-02-11] MEDS ORDERED: FOLI0.4T5 PO (11:54)
[2022-02-11] MEDS ORDERED: LIDO700A21 TP (11:54)
[2022-02-11] MEDS ORDERED: ESCITALOPRAM OX10 MG PO (11:54)
[2022-02-11] MEDS ORDERED: MAG10ORA PO (11:54)
[2022-02-11] MEDS ORDERED: INSU100V38 SQ (11:54)
[2022-02-11] MEDS ORDERED: CLON-77 PO (11:54)
[2022-02-11] MEDS ORDERED: LOPE-101 PO (11:54)
[2022-02-11] MEDS ORDERED: DIPH25CA58 PO (11:54)
[2022-02-11] MEDS ORDERED: QUET100T2 PO (11:54)
[2022-02-11] MEDS ORDERED: POLY17PO29 PO (11:54)
[2022-02-11] MEDS ORDERED: BUSP15TA PO (11:54)
[2022-02-11] MEDS ORDERED: MELA3TAB4 PO (11:54)
[2022-02-11] MEDS ORDERED: QUET25TA5 PO (11:54)
[2022-02-11] MEDS ORDERED: FAMO10TA26 PO (11:54)
[2022-02-11] MEDS ORDERED: SENN1TAB37 PO (11:54)
[2022-02-11] MEDS ORDERED: CALC500T31 PO (11:54)
[2022-02-11] MEDS ORDERED: [UNRECOGNIZED DRUG - CODE] PO (11:54)
[2022-02-11] MEDS ORDERED: QUET50TA5 PO (11:54)
[2022-02-11] MEDS ORDERED: ACET325T9 PO (11:54)
[2022-02-11 14:00] LABS: INFLUENZA A PATIENT NEGATIVE (NEGATIVE); INFLUENZA B PATIENT NEGATIVE (NEGATIVE)
[2022-02-11] MEDS ORDERED: BENZOCAINE/MENTHOL LOZENGE. PO PRN (14:00)
--- NOTE | 2022-02-11 14:12 | PDOC1 ---
History and Physical Date of Service: DOS: DATE: 02/11/22 TIME: 14:04 Chief Complaint: Chief Complain: Cough and shortness of breath History of Present Illness: HPI: Patient is a 41-year-old female with past medical history of diabetes mellitus type 2, bipolar disorder, schizophrenia, ESRD on HD MWF who presents with shortness of breath for the past week. Patient is vaccinated for Covid. She does have a long history of tobacco abuse. Patient does have nasal congestion, dry cough, sore throat and body aches. She denies any fevers, nausea vomiting, chest pain, abdominal pain, dysuria, hematuria, constipation or diarrhea. In the ED patient had increased work of breathing. However, her O2 saturation remained well above 90% on room air. Past Medical/Surgical History: PMH/PSH: Past Medical History: Anemia, Bipolar, Constipation, Hypotension, Renal Failure, Schizophrenia, ESRD Past Surgical History: Tubal ligation Allergies: Allergies: Coded Allergies: chocolate flavor (Verified Allergy, Intermediate, 06/03/20) sulfamethoxazole (Verified Allergy, Intermediate, 06/03/20) trimethoprim (Verified Allergy, Intermediate, 06/03/20) Family History: Family History: Reviewed with no relative findings in the chart Social History: Social History: Smoking Status: Current Every Day Smoker Alcohol Use: None Current Medications: Current Medications Current Medications Benzonatate (Tessalon Perle) 100 mg 1X ONCE PO Last administered on 02/11/22at 05:28; Start 02/11/22 at 05:30; Stop 02/11/22 at 05:31; Status DC Methylprednisolone Sodium Succinate (SOLU-Medrol 125MG VIAL) 125 mg 1X ONCE IV Last administered on 02/11/22at 07:25; Start 02/11/22 at 06:30; Stop 02/11/22 at 06:31; Status DC Albuterol/ Ipratropium (Duoneb) 3 ml 1X ONCE NEB Last administered on 02/11/22at 06:30; Start 02/11/22 at 06:30; Stop 02/11/22 at 06:31; Status DC Albuterol Sulfate (Ventolin Neb Soln) 2.5 mg 1X ONCE NEB Last administered on 02/11/22at 06:31; Start 02/11/22 at 06:30; Stop 02/11/22 at 06:31; Status DC Ceftriaxone Sodium (Rocephin) 1 gm 1X ONCE IVP Last administered on 02/11/22at 07:42; Start 02/11/22 at 06:30; Stop 02/11/22 at 06:31; Status DC Azithromycin 500 mg/Sodium Chloride 250 ml @ 250 mls/hr 1X ONCE IV Last administered on 02/11/22at 07:00; Start 02/11/22 at 07:00; Stop 02/11/22 at 0 7:59; Status DC Acetaminophen (Tylenol) 1,000 mg 1X ONCE PO Last administered on 02/11/22at 07:25; Start 02/11/22 at 06:30; Stop 02/11/22 at 06:31; Status DC Furosemide (Lasix) 20 mg 1X ONCE IVP Last administered on 02/11/22at 09:13; Start 02/11/22 at 08:45; Stop 02/11/22 at 08:48; Status DC Throat Lozenges (Cepacol Sore Throat Lozenge) 1 jillian PRN Q2HRS PRN PO SORE THROAT; Start 02/11/22 at 14:00 Guaifenesin (Robitussin Dm) 10 ml PRN Q6HRS PRN PO COUGH; Start 02/11/22 at 14:00 Active Scripts Active Reported Seroquel (Quetiapine Fumarate) 50 Mg Tablet 1 Tab PO QHS Seroquel (Quetiapine Fumarate) 25 Mg Tablet 1 Tab PO DAILY Quetiapine Fumarate 100 Mg Tablet 100 Mg PO HS Sennosides-Docusate Sodium Tab (Sennosides/Docusate Sodium) 1 Each Tablet 2 Tab PO BID 30 Days Mylanta Maximum Strength Pkt (Mag Hydrox/Aluminum Hyd/Simeth) 10 Ml Oral.susp 30 Ml PO PRN Q6HRS PRN Miralax (Polyethylene Glycol 3350) 17 Gm Powd.pack 1 Packet PO PRN DAILY PRN 2 Days dissolve in water Midol Complete Caplet (Acetaminophn/Pyril Mal/Caffein) 1 Each Tablet 2 Each PO PRN Q6HRS PRN Melatonin 3 Mg Tablet 2 Tab PO QHS Lidocaine PATCH (Lidocaine) 1 Each Adh..patch 1 Each TP DAILY REMOVE AFTER 12 HOURS Insulin Lispro 100 Unit/1 Ml Vial 15 Unit SQ TIDWMEALS Imodium A-D (Loperamide HCl) 2 Mg Capsule 2 Mg PO PRN PRN Haloperidol Decanoate 100 Mg/1 Ml Ampul 1 Ml IM QMONTH 30 Days Folic Acid 0.4 Mg Tablet 0.4 Mg PO DAILY Pepcid Ac (Famotidine) 10 Mg Tablet 2 Tab PO HS 30 Days Escitalopram Oxalate 10 Mg Tablet 3 Tab PO DAILY Clonazepam (Clonazepam) 0.5 Mg Tablet 0.25 Mg PO BID Calcium Carbonate 500 Mg Tablet 2 Tab PO HS 30 Days Buspirone Hcl 15 Mg Tablet 1 Tab PO TID Benadryl (Diphenhydramine Hcl) 25 Mg Capsule 25 Mg PO PRN Q8HRS PRN Tylenol (Acetaminophen) 325 Mg Tablet 650 Mg PO BID Renvela (Sevelamer Carbonate) 800 Mg Tablet 3 Tab PO TID 30 Days Nephro-Sheyla Tablet (Folic Acid/Vitamin B Comp W-C) 0.8 Mg Tablet 1 Tab PO DAILY Loratadine 10 Mg Tablet 1 Tab PO DAILY Levemir (Insulin Detemir) 100 Unit/1 Ml Vial 12 Unit SQ HS Acetaminophen 325 Mg Tablet 2 Tab PO PRN Q8HRS PRN 24 Days Trazodone Hcl 50 Mg Tablet 75 Mg PO HS Glucose Gel (Dextrose) 38 Gm Gel..gram. 15 Gm PO PRN Fluticasone Propionate Nasal [place] (Fluticasone Propionate) 16 Gm [place].susp 2 S pray NS DAILY Fludrocortisone Acetate 0.1 Mg Tablet 0.1 Mg PO DAILY Valproic Acid (Valproate Sodium) 250 Mg/5 Ml Solution 1,000 Mg PO HS ROS: Review of Systems Review of System REVIEW OF SYSTEMS: GENERAL: Denies weakness SKIN: No bruising, hair changes or rashes. EYES: No blurred, double or loss of vision. NOSE AND THROAT: No history of nosebleeds, hoarseness or sore throat. HEART: No history of palpitations, chest pain or shortness of breath on exertion. LUNGS: Denies cough, hemoptysis, wheezing or shortness of breath. GASTROINTESTINAL: Denies changes in appetite, nausea, vomiting, diarrhea or constipation. GENITOURINARY: No history of frequency, urgency, hesitancy or nocturia. NEUROLOGIC: Denies history of numbness, tingling, or tremor. PSYCHIATRIC: No history of panic, anxiety or depression. ENDOCRINE: No history of heat or cold intolerance, polyuria or polydipsia. EXTREMITIES: Denies joint pain, pain on walking or stiffness. Physical Exam: Vital Signs: Vital Signs Date Time Temp Pulse Resp B/P (MAP) Pulse Ox O2 Delivery O2 Flow Rate FiO2 02/11/22 10:15 98.2 82 133/75 (94) 92 Room Air 98.2 02/11/22 09:13 14 Physcial Exam: GEN: No apparent distress. Alert and oriented HEENT: Normal cephalic, atraumatic, external auditory canals are patent EYES: Extraocular muscles are intact, pupil are equally round and reactive to light and accommodation MUSCULOSKELETAL: Well developed , well nourished, good range of motion ENDOCRINE: No thyromegaly was palpated LYMPHATICS: No cervical chain or axillary nodes were noted HEMATOPOIETIC: No bruising NECK: Supple, no JVD, no thyromegaly was noted LUNGS: Clear to auscultation in all lung king without rhonchi or wheezing HEART: RRR, S!, S2 present. Peripheral pulses intact, no obvious murmurs noted ABDOMEN: Soft, nontender. Positive bowel sounds, no organomegaly, normal bowel sounds EXTREMITIES: Without clubbing, cyanosis, or edema. Pedal pulses intact. Negative Homans sign NEUROLOGIC: Normal speech and tone. A&O x 3, moves all extremities, no obvious focal deficits PSYCHIATRIC: Normal affect, normal mood. Stable SKIN: No ulcerations or rashes, good skin turgor, no jaundice VASCULAR: Good capillary refill, neurovascular bundle appears to be intact Labs: Labs: Laboratory Tests Test 02/11/22 07:35 02/11/22 11:26 02/11/22 13:30 White Blood Count 7.7 x10^3/uL (4.0-11.0) Red Blood Count 3.07 x10^6/uL (3.50-5.40) Hemoglobin 10.5 g/dL (12.0-15.5) Hematocrit 31.7 % (36.0-47.0) Mean Corpuscular Volume 103 fL (79-100) Mean Corpuscular Hemoglobin 34 pg (25-35) Mean Corpuscular Hemoglobin Concent 33 g/dL (31-37) Red Cell Distribution Width 15.1 % (11.5-14.5) Platelet Count 222 x10^3/uL (140-400) Neutrophils (%) (Auto) 72 % (31-73) Lymphocytes (%) (Auto) 14 % (24-48) Monocytes (%) (Auto) 8 % (0-9) Eosinophils (%) (Auto) 4 % (0-3) Basophils (%) (Auto) 1 % (0-3) Neutrophils # (Auto) 5.6 x10^3/uL (1.8-7.7) Lymphocytes # (Auto) 1.1 x10^3/uL (1.0-4.8) Monocytes # (Auto) 0.6 x10^3/uL (0.0-1.1) Eosinophils # (Auto) 0.3 x10^3/uL (0.0-0.7) Basophils # (Auto) 0.0 x10^3/uL (0.0-0.2) Sodium Level 129 mmol/L (136-145) Potassium Level 5.1 mmol/L (3.5-5.1) Chloride Level 90 mmol/L (98-107) Carbon Dioxide Level 24 mmol/L (21-32) Anion Gap 15 (6-14) Blood Urea Nitrogen 33 mg/dL (7-20) Creatinine 5.5 mg/dL (0.6-1.0) Estimated GFR (Cockcroft-Gault) 8.6 BUN/Creatinine Ratio 6 (6-20) Glucose Level 124 mg/dL (70-99) Lactic Acid Level 0.4 mmol/L (0.4-2.0) Calcium Level 9.6 mg/dL (8.5-10.1) Total Bilirubin 0.5 mg/dL (0.2-1.0) Aspartate Amino Transf (AST/SGOT) 11 U/L (15-37) Alanine Aminotransferase (ALT/SGPT) 13 U/L (14-59) Alkaline Phosphatase 145 U/L (46-116) Troponin I High Sensitivity 20 ng/L (4-50) FZ-Hfk-Z-Type Natriuretic Peptide 96309 pg/mL (0-124) Total Protein 6.6 g/dL (6.4-8.2) Albumin 3.7 g/dL (3.4-5.0) Albumin/Globulin Ratio 1.3 (1.0-1.7) Procalcitonin 0.81 ng/mL (0.00-0.10) Serum Test, Qualitative Negative (NEG) Valproic Acid (Depakene) Level 34 mcg/mL (50-100) Valproic Acid Last Dose Date Unknown Valproic Acid Last Dose Time Unknown Glucose (Fingerstick) 302 mg/dL (70-99) Influenza Type A Antigen Negative (NEGATIVE) Influenza Type B Antigen Negative (NEGATIVE) Laboratory Tests Test 02/11/22 07:35 02/11/22 11:26 02/11/22 13:30 White Blood Count 7.7 x10^3/uL (4.0-11.0) Red Blood Count 3.07 x10^6/uL (3.50-5.40) Hemoglobin 10.5 g/dL (12.0-15.5) Hematocrit 31.7 % (36.0-47.0) Mean Corpuscular Volume 103 fL (79-100) Mean Corpuscular Hemoglobin 34 pg (25-35) Mean Corpuscular Hemoglobin Concent 33 g/dL (31-37) Red Cell Distribution Width 15.1 % (11.5-14.5) Platelet Count 222 x10^3/uL (140-400) Neutrophils (%) (Auto) 72 % (31-73) Lymphocytes (%) (Auto) 14 % (24-48) Monocytes (%) (Auto) 8 % (0-9) Eosinophils (%) (Auto) 4 % (0-3) Basophils (%) (Auto) 1 % (0-3) Neutrophils # (Auto) 5.6 x10^3/uL (1.8-7.7) Lymphocytes # (Auto) 1.1 x10^3/uL (1.0-4.8) Monocytes # (Auto) 0.6 x10^3/uL (0.0-1.1) Eosinophils # (Auto) 0.3 x10^3/uL (0.0-0.7) Basophils # (Auto) 0.0 x10^3/uL (0.0-0.2) Sodium Level 129 mmol/L (136-145) Potassium Level 5.1 mmol/L (3.5-5.1) Chloride Level 90 mmol/L (98-107) Carbon Dioxide Level 24 mmol/L (21-32) Anion Gap 15 (6-14) Blood Urea Nitrogen 33 mg/dL (7-20) Creatinine 5.5 mg/dL (0.6-1.0) Estimated GFR (Cockcroft-Gault) 8.6 BUN/Creatinine Ratio 6 (6-20) Glucose Level 124 mg/dL (70-99) Lactic Acid Level 0.4 mmol/L (0.4-2.0) Calcium Level 9.6 mg/dL (8.5-10.1) Total Bilirubin 0.5 mg/dL (0.2-1.0) Aspartate Amino Transf (AST/SGOT) 11 U/L (15-37) Alanine Aminotransferase (ALT/SGPT) 13 U/L (14-59) Alkaline Phosphatase 145 U/L (46-116) Troponin I High Sensitivity 20 ng/L (4-50) GT-Dyu-Q-Type Natriuretic Peptide 52984 pg/mL (0-124) Total Protein 6.6 g/dL (6.4-8.2) Albumin 3.7 g/dL (3.4-5.0) Albumin/Globulin Ratio 1.3 (1.0-1.7) Procalcitonin 0.81 ng/mL (0.00-0.10) Serum Test, Qualitative Negative (NEG) Valproic Acid (Depakene) Level 34 mcg/mL (50-100) Valproic Acid Last Dose Date Unknown Valproic Acid Last Dose Time Unknown Glucose (Fingerstick) 302 mg/dL (70-99) Influenza Type A Antigen Negative (NEGATIVE) Influenza Type B Antigen Negative (NEGATIVE) Images: Images PROCEDURE: CHEST PA & LATERAL EXAM: AP View of the chest DATE: 02/11/2022 5:05 AM INDICATION: Reason: cough / Spl. Instructions: / History: COMPARISON: No Prior FINDINGS: The heart is not enlarged. Mediastinal and hilar contours are normal. Patchy airspace opacities are seen in the left midlung and bilateral lung bases. No pleural effusion or pneumothorax. Assessment/Plan Assessment/Plan Dyspnea due to atypical pneumonia, possible gram-negative organisms, possible viral organisms Macrocytic anemia, will rule out B12 deficiency but likely due to ESRD Acute volume overload with BNP elevated to 13,000 Acute electrolyte derangement consistent with ESRD History of schizophrenia History of bipolar disorder History of anemia History of diabetes mellitus type 2 Admit to hospitalist service for further management Continue empiric IV antibiotics Pending blood cultures Pending Legionella urine antigen and MRSA PCR screen Pending Covid Elevated procalcitonin suggestive of pneumonia Nephrology consult Strict I's/O R-ISS and Accu-Cheks Heparin for DVT prophylaxis Protonix GI prophylaxis ADA diet CODE STATUS full Discussed with RN and SW Disposition inpatient management as above DPOA: Sister Justifications for Admission Other Justification TEETEE SIERRA MD Feb 11, 2022 14:12
[2022-02-11] MEDS ORDERED: DEXTROSE 50% 25 GM / 50ML DISP.SYRIN. IV PRN (14:15)
[2022-02-11] MEDS ORDERED: ACETAMINOPHEN 325 MG TABLET. PO PRN (14:15)
[2022-02-11] MEDS ORDERED: ONDANSETRON PF 4 MG/2 ML VIAL. IVP PRN (14:15)
[2022-02-11] MEDS ORDERED: diphenhydrAMINE 50 MG/ML VIAL IVP PRN (14:15)
[2022-02-11] MEDS ORDERED: LORazepam 0.5 MG TABLET PO PRN (14:15)
[2022-02-11] MEDS ORDERED: diphenhydrAMINE HCL 25 MG CAPSULE PO PRN ×2 (14:15→14:30)
[2022-02-11] MEDS ORDERED: ZOLPIDEM 5 MG TABLET. PO PRN (14:15)
[2022-02-11] MEDS ORDERED: DOCUSATE SODIUM 100 MG CAPSULE. PO PRN (14:15)
[2022-02-11] MEDS ORDERED: PROCHLORPERAZINE 10 MG/2 ML VIAL. IV PRN (14:15)
[2022-02-11] MEDS ORDERED: POLYETHYLENE GLYCOL 3350 17 GM PACKET. PO PRN (14:30)
[2022-02-11] MEDS ORDERED: MAG HYDROX/ALUMINUM HYD/SIMETH 30 ML ORAL.SUSP PO PRN (14:30)
[2022-02-11 15:00] VITALS: BP 127/67
[2022-02-11] MEDS: cefTRIAXone IV Push 1 GM VIAL. IVP SCH (15:09)
[2022-02-11] MEDS: busPIRone 5 MG TABLET. PO SCH ×2 (15:09→20:03)
[2022-02-11] MEDS: guaiFENesin DM 200MG/20MG 10 ML SYRUP PO PRN ×2 (15:09→20:08)
[2022-02-11] MEDS: INSULIN LISPRO 300 UNITS/3 ML VIAL. SQ SCH ×2 (17:00)
[2022-02-11] MEDS: SEVELAMER CARBONATE 800 MG TABLET. PO SCH (17:30)
[2022-02-11] MEDS ORDERED: ALBUTEROL SULFATE 2.5 MG/3 ML NEBU. NEB PRN (17:45)
[2022-02-11] MEDS ORDERED: INSULIN LISPRO 300 UNITS/3 ML VIAL. SQ ONE ×2 (18:00→22:30)
[2022-02-11] MEDS: BUDESONIDE 0.5 MG/2 ML NEBU. NEB SCH (18:41)
[2022-02-11] MEDS: IPRATRPIUM/ALBUTEROL 0.5/2.5MG 3 ML NEBU. NEB SCH (18:41)
[2022-02-11 19:00] VITALS: BP 158/80
[2022-02-11] MEDS: diphenhydrAMINE HCL 25 MG CAPSULE PO PRN (20:03)
[2022-02-11] MEDS: clonazePAM 0.5 MG TABLET PO SCH (20:03)
[2022-02-11] MEDS: SENNOSIDES/DOCUSATE 8.6/50MG TABLET. PO SCH (20:03)
[2022-02-11] MEDS: SENNOSIDES 8.6 MG TABLET PO PRN (20:04)
[2022-02-11] MEDS ORDERED: QUEtiapine 100 MG TABLET. PO SCH (21:00)
[2022-02-11] MEDS: HEPARIN for SUB-Q USE 5,000 UNIT/ML VIAL. SQ SCH (21:00)
[2022-02-11] MEDS ORDERED: INSULIN GLARGINE SYRINGE. SQ SCH (21:00)
[2022-02-11] MEDS ORDERED: FAMOTIDINE 20 MG TABLET. PO SCH (21:00)
[2022-02-11] MEDS ORDERED: CALCIUM CARBONATE 500 MG TABLET PO SCH (21:00)
[2022-02-11] MEDS ORDERED: VALPROIC ACID 250 MG CAPSULE. PO SCH (21:00)
[2022-02-11] MEDS ORDERED: traZODone 50 MG TABLET. PO SCH (21:00)
[2022-02-11 23:00] VITALS: BP 149/79
--- NOTE | 2022-02-11 23:28 | NUR ---
Start of shift - pt out at desk multiple times requesting night time meds - despite being told that would be administered at 2100. While this RN attempting to look up medications pt came to desk asking for a maldonado catheter. RN stated that there was no reason she needed a catheter and the dr would not approve putting one in. Pt stated that she needed one to "alvarez up there to help me pee and get rid of the air in her belly." RN informed pt that a maldonado would not eliminate air in her belly. RN instructed pt to return to room so that meds could be looked up and administered. Pt did so. When RN in room later to administer meds pt reported that she masturbated and that helped her pee. Will continue to monitor pt. Addendum: 02/12/22 at 0434 by JAYSON LOAIZA RN RN Pt out at desk requesting tylenol. Then asked when could have scheduled meds again. When told could have meds in the morning, pt requested to have them now. RN informed pt could not have them early. Pt returned to room
[2022-02-12] MEDS: guaiFENesin DM 200MG/20MG 10 ML SYRUP PO PRN ×3 (04:43→17:21)
[2022-02-12 06:46] LABS: BASO % 0 % (0-3); EOS # 0.1 x10^3/uL (0.0-0.7); EOS % 1 % (0-3); HEMATOCRIT 27.7 % (36.0-47.0); HEMOGLOBIN 9.3 g/dL (12.0-15.5); LYMPH # 1.1 x10^3/uL (1.0-4.8); LYMPH % 15 % (24-48); MEAN CORPUSCULAR HEMOGLOBIN 35 pg (25-35); MEAN CORPUSCULAR HGB CONC 34 g/dL (31-37); MEAN CORPUSCULAR VOLUME 104 fL (79-100); MONO # 0.6 x10^3/uL (0.0-1.1); MONO % 9 % (0-9); NEUT # 5.6 x10^3/uL (1.8-7.7); NEUT % 75 % (31-73); PLATELET COUNT 181 x10^3/uL (140-400); RED BLOOD COUNT 2.66 x10^6/uL (3.50-5.40); RED CELL DISTRIBUTION WIDTH 15.1 % (11.5-14.5); WHITE BLOOD COUNT 7.4 x10^3/uL (4.0-11.0)
[2022-02-12 06:55] LABS: CALCIUM 9.9 mg/dL (8.5-10.1); CREATININE 7.2 mg/dL (0.6-1.0); GFR 6.3; MAGNESIUM 2.7 mg/dL (1.8-2.4)
[2022-02-12 07:00] VITALS: BP 154/81
[2022-02-12] MEDS: BUDESONIDE 0.5 MG/2 ML NEBU. NEB SCH (07:22)
[2022-02-12] MEDS: IPRATRPIUM/ALBUTEROL 0.5/2.5MG 3 ML NEBU. NEB SCH ×3 (07:22→15:40)
[2022-02-12] MEDS ORDERED: DIALYSIS PATIENT. MC PRN ×2 (07:45)
[2022-02-12] MEDS ORDERED: IV NORMAL SALINE 1000ML BAG 1,000 ML IV PRN ×2 (07:45)
[2022-02-12] MEDS: INSULIN LISPRO 300 UNITS/3 ML VIAL. SQ SCH ×5 (08:00→17:23)
[2022-02-12] MEDS: diphenhydrAMINE HCL 25 MG CAPSULE PO PRN (08:44)
[2022-02-12] MEDS: busPIRone 5 MG TABLET. PO SCH ×2 (08:45→13:16)
[2022-02-12] MEDS: SENNOSIDES/DOCUSATE 8.6/50MG TABLET. PO SCH (09:00)
[2022-02-12] MEDS ORDERED: FLUTICASONE 50MCG/NASAL SPRAY 16GM BOTTLE. NS SCH (09:00)
[2022-02-12] MEDS ORDERED: LIDOCAINE (700MG/PATCH) PATCH. TP SCH (09:00)
[2022-02-12] MEDS ORDERED: QUEtiapine 25 MG TABLET. PO SCH (09:00)
[2022-02-12] MEDS ORDERED: INSULIN GLARGINE SYRINGE. SQ SCH (09:00)
[2022-02-12] MEDS ORDERED: FOLIC ACID 1 MG TABLET. PO SCH (09:00)
[2022-02-12] MEDS ORDERED: FOLIC/VIT B COMP W-C (RENAL) TABLET. PO SCH (09:00)
[2022-02-12] MEDS ORDERED: FLUDROCORTISONE 0.1 MG TABLET PO SCH (09:00)
[2022-02-12] MEDS ORDERED: AZITHROMYCIN 500 MG in IV NORMAL SALINE 250ML 250 ML IV SCH (09:00)
[2022-02-12] MEDS ORDERED: CITALOPRAM 20 MG TABLET. PO SCH (09:00)
--- NOTE | 2022-02-12 10:26 | PDOC2 ---
CONSULT Date of Consult Date of Consult DATE: 02/12/22 TIME: 10:22 Reason for Consult Reason for Consult: ESRD Referring Physician Referring Physician: MARIELA Identification/Chief Complaint Chief Complaint SOB Source Source: Chart review, Patient History of Present Illness Reason for Visit: THIS IS A 41 YR OLD WITH ESRD. HAS OP HD MWF. LAST HD ON THURSDAY. HAS A LEFT ARM AV ACCESS FOR HD TX. ADMITTED WITH SOB. DX WITH PNUEMONIA. LABS ARE C/W HER ESRD. Past Medical History Cardiovascular: HTN CENTRAL NERVOUS SYSTEM: Other GI: GERD Heme/Onc: Anemia NOS Psych: Anxiety, Bipolar, Schizophrenia Renal/: Chronic renal failure Endocrine: Diabetes, Hyperparathyroidism Past Surgical History Past Surgical History: No pertinent history Family History Family History: Hypertension Social History ALCOHOL: none Drugs: None Current Problem List Problem List Problems Medical Problems: (1) COPD with acute exacerbation Status: Acute (2) Hyponatremia Status: Acute (3) Pulmonary edema Status: Acute Current Medications Current Medications Current Medications Benzonatate (Tessalon Perle) 100 mg 1X ONCE PO Last administered on 02/11/22at 05:28; Start 02/11/22 at 05:30; Stop 02/11/22 at 05:31; Status DC Methylprednisolone Sodium Succinate (SOLU-Medrol 125MG VIAL) 125 mg 1X ONCE IV Last administered on 02/11/22at 07:25; Start 02/11/22 at 06:30; Stop 02/11/22 at 06:31; Status DC Albuterol/ Ipratropium (Duoneb) 3 ml 1X ONCE NEB Last administered on 02/11/22at 06:30; Start 02/11/22 at 06:30; Stop 02/11/22 at 06:31; Status DC Albuterol Sulfate (Ventolin Neb Soln) 2.5 mg 1X ONCE NEB Last administered on 02/11/22at 06:31; Start 02/11/22 at 06:30; Stop 02/11/22 at 06:31; Status DC Ceftriaxone Sodium (Rocephin) 1 gm 1X ONCE IVP Last administered on 02/11/22at 07:42; Start 02/11/22 at 06:30; Stop 02/11/22 at 06:31; Status DC Azithromycin 500 mg/Sodium Chloride 250 ml @ 250 mls/hr 1X ONCE IV Last administered on 02/11/22at 07:00; Start 02/11/22 at 07:00; Stop 02/11/22 at 07:59; Status DC Acetaminophen (Tylenol) 1,000 mg 1X ONCE PO Last administered on 02/11/22at 07:25; Start 02/11/22 at 06:30; Stop 02/11/22 at 06:31; Status DC Furosemide (Lasix) 20 mg 1X ONCE IVP Last administered on 02/11/22at 09:13; Start 02/11/22 at 08:45; Stop 02/11/22 at 08:48; Status DC Throat Lozenges (Cepacol Sore Throat Lozenge) 1 jillian PRN Q2HRS PRN PO SORE THROAT Last administered on 02/11/22 17:30; Start 02/11/22 at 14:00 Guaifenesin (Robitussin Dm) 10 ml PRN Q6HRS PRN PO COUGH Last administered on 02/12/22 04:43; Start 02/11/22 at 14:00 Sennosides (Senna) 17.2 mg PRN BID PRN PO CONSTIPATION Last administered on 02/11/22at 20:04; Start 02/11/22 at 14:15 Docusate Sodium (Colace) 100 mg PRN DAILY PRN PO HARD STOOLS; Start 02/11/22 at 14:15 Ondansetron HCl (Zofran) 4 mg PRN Q6HRS PRN IVP NAUSEA/VOMITING, 1st CHOICE; Start 02/11/22 at 14:15 Insulin Human Lispro (HumaLOG) 0-7 UNITS TIDWMEALS SQ Last administered on 02/11/22at 17:00; Start 02/11/22 at 17:00 Dextrose (Dextrose 50%-Water Syringe) 12.5 gm PRN Q15MIN PRN IV SEE COMMENTS; Start 02/11/22 at 14:15 Acetaminophen (Tylenol) 650 mg PRN Q4HRS PRN PO TEMP OVER 100.4F OR MILD PAIN; Start 02/11/22 at 14:15 Lorazepam (Ativan) 0.5 mg PRN Q6HRS PRN PO ANXIETY / AGITATION Last administered on 02/11/22at 22:14; Start 02/11/22 at 14:15 Lorazepam (Ativan Inj) 0.25 mg PRN Q4HRS PRN IV ANXIETY / AGITATION; Start 02/11/22 at 14:15 Heparin Sodium (Porcine) (Heparin Sodium) 5,000 unit Q12HR SQ ; Start 02/11/22 at 21:00 Prochlorperazine Edisylate (Compazine) 10 mg PRN Q6HRS PRN IV NAUSEA/VOMITING, 2nd CHOICE; Start 02/11/22 at 14:15 Diphenhydramine HCl (Benadryl) 25 mg PRN Q6HRS PRN IVP ITCHING; Start 02/11/22 at 14:15 Diphenhydramine HCl (Benadryl) 25 mg PRN Q6HRS PRN PO ITCHING Last administered on 02/12/22at 08:44; Start 02/11/22 at 14:15 Diphenhydramine HCl (Benadryl) 25 mg PRN QHS PRN PO INSOMNIA, 1st CHOICE; Start 02/11/22 at 14:15 Zolpidem Tartrate (Ambien) 2.5 mg PRN QHS PRN PO INSOMNIA, 2nd CHOICE Last administered on 02/11/22at 22:14; Start 02/11/22 at 14:15 Ceftriaxone Sodium (Rocephin) 1 gm Q24H IVP Last administered on 02/11/22at 15:09; Start 02/11/22 at 15:00 Azithromycin 500 mg/Sodium Chloride 250 ml @ 250 mls/hr Q24H IV ; Start 02/12/22 at 09:00 Calcium Carbonate/ Glycine (Oscal) 1,000 mg HS PO Last administered on 02/11/22at 20:05; Start 02/11/22 at 21:00 Clonazepam (KlonoPIN) 0.25 mg BID PO Last administered on 02/11/22at 20:03; Start 02/11/22 at 21:00 Diphenhydramine HCl (Benadryl) 25 mg PRN Q8HRS PRN PO ALLERGIES; Start 02/11/22 at 14:30 Fludrocortisone Acetate (Florinef) 0.1 mg DAILY PO ; Start 02/12/22 at 09:00 Fluticasone Propionate (Flonase) 2 spray DAILY NS ; Start 02/12/22 at 09:00 Vitamin B Complex/ Vitamin C (Juliet-Sheyla) 1 tab DAILY PO ; Start 02/12/22 at 09:00 Insulin Human Lispro (HumaLOG) 15 units TIDWMEALS SQ Last administered on 02/11/22at 17:00; Start 02/11/22 at 17:00 Lidocaine (Lidoderm) 1 patch DAILY TP ; Start 02/12/22 at 09:00 Al Hydroxide/Mg Hydroxide (Mylanta Plus Xs) 30 ml PRN Q6HRS PRN PO indigestion; Start 02/11/22 at 14:30; Status Cancel Polyethylene Glycol (miraLAX PACKET) 17 gm PRN DAILY PRN PO CONSTIPATION; Start 02/11/22 at 14:30 Quetiapine Fumarate (SEROquel) 100 mg HS PO Last administered on 02/11/22at 20:04; Start 02/11/22 at 21:00 Quetiapine Fumarate (SEROquel) 25 mg DAILY PO ; Start 02/12/22 at 09:00 Senna/Docusate Sodium (Senna Plus) 2 tab BID PO Last administered on 02/11/22at 20:03; Start 02/11/22 at 21:00 Sevelamer Carbonate (Renvela) 2,400 mg TIDWMEALS PO Last administered on 02/11/22at 17:30; Start 02/11/22 at 17:00 Trazodone HCl (Desyrel) 75 mg HS PO Last administered on 02/11/22at 20:04; Star t 02/11/22 at 21:00 Buspirone HCl (Buspar) 15 mg TID PO Last administered on 02/12/22at 08:45; Start 02/11/22 at 15:00 Citalopram Hydrobromide (CeleXA) 60 mg DAILY PO ; Start 02/12/22 at 09:00 Famotidine (Pepcid) 20 mg HS PO Last administered on 02/11/22at 22:14; Start 02/11/22 at 21:00 Folic Acid (Folic Acid) 0.5 mg DAILY PO ; Start 02/12/22 at 09:00 Insulin Glargine (Lantus Syringe) 12 unit QHS SQ Last administered on 02/11/22at 20:11; Start 02/11/22 at 21:00; Stop 02/12/22 at 07:54; Status DC Valproic Acid (Depakene) 1,000 mg HS PO Last administered on 02/11/22at 20:04; Start 02/11/22 at 21:00 Albuterol Sulfate (Ventolin Neb Soln) 2.5 mg PRN Q4HRS PRN NEB SHORTNESS OF BREATH; Start 02/11/22 at 17:45 Budesonide (Pulmicort) 0.5 mg RTBID NEB Last administered on 02/12/22at 07:22; Start 02/11/22 at 20:00 Albuterol/ Ipratropium (Duoneb) 3 ml RTQID NEB Last administered on 02/12/22at 0 7:22; Start 02/11/22 at 20:00 Insulin Human Lispro (HumaLOG) 7 units 1X ONCE SQ Last administered on 02/11/22at 17:58; Start 02/11/22 at 18:00; Stop 02/11/22 at 18:01; Status DC Insulin Human Lispro (HumaLOG) 27 units 1X ONCE SQ Last administered on 10/23at 22:15; Start 02/11/22 at 22:30; Stop 02/11/22 at 22:31; Status DC Sodium Chloride 1,000 ml @ 1,000 mls/hr Q1H PRN IV hypotension; Start 02/12/22 at 07:45; Stop 02/12/22 at 13:44 Sodium Chloride 1,000 ml @ 400 mls/hr Q2H30M PRN IV PATENCY; Start 02/12/22 at 07:45; Stop 02/12/22 at 19:44 Info (PHARMACY MONITORING -- do not chart) 1 each PRN DAILY PRN MC SEE COMMENTS; Start 02/12/22 at 07:45; Status UNV Info (PHARMACY MONITORING -- do not chart) 1 each PRN DAILY PRN MC SEE COMMENTS; Start 02/12/22 at 07:45 Insulin Glargine (Lantus Syringe) 10 unit BID SQ ; Start 02/12/22 at 09:00 Active Scripts Active Reported Seroquel (Quetiapine Fumarate) 50 Mg Tablet 1 Tab PO QHS Seroquel (Quetiapine Fumarate) 25 Mg Tablet 1 Tab PO DAILY Quetiapine Fumarate 100 Mg Tablet 100 Mg PO HS Sennosides-Docusate Sodium Tab (Sennosides/Docusate Sodium) 1 Each Tablet 2 Tab PO BID 30 Days Mylanta Maximum Strength Pkt (Mag Hydrox/Aluminum Hyd/Simeth) 10 Ml Oral.susp 30 Ml PO PRN Q6HRS PRN Miralax (Polyethylene Glycol 3350) 17 Gm Powd.pack 1 Packet PO PRN DAILY PRN 2 Days dissolve in water Midol Complete Caplet (Acetaminophn/Pyril Mal/Caffein) 1 Each Tablet 2 Each PO PRN Q6HRS PRN Melatonin 3 Mg Tablet 2 Tab PO QHS Lidocaine PATCH (Lidocaine) 1 Each Adh..patch 1 Each TP DAILY REMOVE AFTER 12 HOURS Insulin Lispro 100 Unit/1 Ml Vial 15 Unit SQ TIDWMEALS Imodium A-D (Loperamide HCl) 2 Mg Capsule 2 Mg PO PRN PRN Haloperidol Decanoate 100 Mg/1 Ml Ampul 1 Ml IM QMONTH 30 Days Folic Acid 0.4 Mg Tablet 0.4 Mg PO DAILY Pepcid Ac (Famotidine) 10 Mg Tablet 2 Tab PO HS 30 Days Escitalopram Oxalate 10 Mg Tablet 3 Tab PO DAILY Clonazepam (Clonazepam) 0.5 Mg Tablet 0.25 Mg PO BID Calcium Carbonate 500 Mg Tablet 2 Tab PO HS 30 Days Buspirone Hcl 15 Mg Tablet 1 Tab PO TID Benadryl (Diphenhydramine Hcl) 25 Mg Capsule 25 Mg PO PRN Q8HRS PRN Tylenol (Acetaminophen) 325 Mg Tablet 650 Mg PO BID Renvela (Sevelamer Carbonate) 800 Mg Tablet 3 Tab PO TID 30 Days Nephro-Sheyla Tablet (Folic Acid/Vitamin B Comp W-C) 0.8 Mg Tablet 1 Tab PO DAILY Loratadine 10 Mg Tablet 1 Tab PO DAILY Levemir (Insulin Detemir) 100 Unit/1 Ml Vial 12 Unit SQ HS Acetaminophen 325 Mg Tablet 2 Tab PO PRN Q8HRS PRN 24 Days Trazodone Hcl 50 Mg Tablet 75 Mg PO HS Glucose Gel (Dextrose) 38 Gm Gel..gram. 15 Gm PO PRN Fluticasone Propionate Nasal [place] (Fluticasone Propionate) 16 Gm [place].susp 2 [place] NS DAILY Fludrocortisone Acetate 0.1 Mg Tablet 0.1 Mg PO DAILY Valproic Acid (Valproate Sodium) 250 Mg/5 Ml Solution 1,000 Mg PO HS Allergies Allergies: Coded Allergies: chocolate flavor (Verified Allergy, Intermediate, 06/03/20) sulfamethoxazole (Verified Allergy, Intermediate, 06/03/20) trimethoprim (Verified Allergy, Intermediate, 06/03/20) ROS General: YES: Fatigue, Malaise PSYCHOLOGICAL ROS: YES: Anxiety, Depression, Hallucinations Eyes: Yes Decreased vision HEENT: YES: Mihai ALLERGY AND IMMUNOLOGY: YES: Seasonal Allergies Respiratory: YES: Cough, Shortness of breath Cardiovascular: yes Chest Pain Gastrointestinal: Yes Constipation Genitourinary: YES Other (ANURIA) Musculoskeletal: Yes Muscular Weakness Neurological: Yes Weakness Skin: Yes Dry Skin Physical Exam General: Alert, Cooperative, No acute distress HEENT: Atraumatic, PERRLA Lungs: Clear to auscultation Heart: Regular rate Abdomen: Normal bowel sounds, Soft, No tenderness Extremities: No clubbing, No cyanosis Skin: No breakdown Neuro: Normal speech Psych/Mental Status: Mental status NL MUSCULOSKELETAL: No deformity, No swelling Vitals VITALS Vital Signs Date Time Temp Pulse Resp B/P (MAP) Pulse Ox O2 Delivery O2 Flow Rate FiO2 02/12/22 07:22 98 Room Air 02/12/22 07:00 97.9 81 18 154/81 (105) 97.9 Labs Labs Laboratory Tests Test 02/11/22 07:35 02/11/22 11:26 02/11/22 13:30 02/11/22 17:12 White Blood Count 7.7 x10^3/uL (4.0-11.0) Red Blood Count 3.07 x10^6/uL (3.50-5.40) Hemoglobin 10.5 g/dL (12.0-15.5) Hematocrit 31.7 % (36.0-47.0) Mean Corpuscular Volume 103 fL (79-100) Mean Corpuscular Hemoglobin 34 pg (25-35) Mean Corpuscular Hemoglobin Concent 33 g/dL (31-37) Red Cell Distribution Width 15.1 % (11.5-14.5) Platelet Count 222 x10^3/uL (140-400) Neutrophils (%) (Auto) 72 % (31-73) Lymphocytes (%) (Auto) 14 % (24-48) Monocytes (%) (Auto) 8 % (0-9) Eosinophils (%) (Auto) 4 % (0-3) Basophils (%) (Auto) 1 % (0-3) Neutrophils # (Auto) 5.6 x10^3/uL (1.8-7.7) Lymphocytes # (Auto) 1.1 x10^3/uL (1.0-4.8) Monocytes # (Auto) 0.6 x10^3/uL (0.0-1.1) Eosinophils # (Auto) 0.3 x10^3/uL (0.0-0.7) Basophils # (Auto) 0.0 x10^3/uL (0.0-0.2) Sodium Level 129 mmol/L (136-145) Potassium Level 5.1 mmol/L (3.5-5.1) Chloride Level 90 mmol/L (98-107) Carbon Dioxide Level 24 mmol/L (21-32) Anion Gap 15 (6-14) Blood Urea Nitrogen 33 mg/dL (7-20) Creatinine 5.5 mg/dL (0.6-1.0) Estimated GFR (Cockcroft-Gault) 8.6 BUN/Creatinine Ratio 6 (6-20) Glucose Level 124 mg/dL (70-99) Lactic Acid Level 0.4 mmol/L (0.4-2.0) Calcium Level 9.6 mg/dL (8.5-10.1) Total Bilirubin 0.5 mg/dL (0.2-1.0) Aspartate Amino Transf (AST/SGOT) 11 U/L (15-37) Alanine Aminotransferase (ALT/SGPT) 13 U/L (14-59) Alkaline Phosphatase 145 U/L (46-116) Troponin I High Sensitivity 20 ng/L (4-50) OA-Psv-F-Type Natriuretic Peptide 24778 pg/mL (0-124) Total Protein 6.6 g/dL (6.4-8.2) Albumin 3.7 g/dL (3.4-5.0) Albumin/Globulin Ratio 1.3 (1.0-1.7) Vitamin B12 Level 338 pg/mL (247-911) Procalcitonin 0.81 ng/mL (0.00-0.10) Serum Test, Qualitative Negative (NEG) Valproic Acid (Depakene) Level 34 mcg/mL (50-100) Valproic Acid Last Dose Date Unknown Valproic Acid Last Dose Time Unknown Glucose (Fingerstick) 302 mg/dL (70-99) 426 mg/dL (70-99) Influenza Type A Antigen Negative (NEGATIVE) Influenza Type B Antigen Negative (NEGATIVE) SARS-CoV-2 Antigen (Rapid) Negative (NEGATIVE) Test 02/11/22 20:10 02/12/22 05:50 Glucose (Fingerstick) 396 mg/dL (70-99) White Blood Count 7.4 x10^3/uL (4.0-11.0) Red Blood Count 2.66 x10^6/uL (3.50-5.40) Hemoglobin 9.3 g/dL (12.0-15.5) Hematocrit 27.7 % (36.0-47.0) Mean Corpuscular Volume 104 fL (79-100) Mean Corpuscular Hemoglobin 35 pg (25-35) Mean Corpuscular Hemoglobin Concent 34 g/dL (31-37) Red Cell Distribution Width 15.1 % (11.5-14.5) Platelet Count 181 x10^3/uL (140-400) Neutrophils (%) (Auto) 75 % (31-73) Lymphocytes (%) (Auto) 15 % (24-48) Monocytes (%) (Auto) 9 % (0-9) Eosinophils (%) (Auto) 1 % (0-3) Basophils (%) (Auto) 0 % (0-3) Neutrophils # (Auto) 5.6 x10^3/uL (1.8-7.7) Lymphocytes # (Auto) 1.1 x10^3/uL (1.0-4.8) Monocytes # (Auto) 0.6 x10^3/uL (0.0-1.1) Eosinophils # (Auto) 0.1 x10^3/uL (0.0-0.7) Basophils # (Auto) 0.0 x10^3/uL (0.0-0.2) Sodium Level 130 mmol/L (136-145) Potassium Level 5.0 mmol/L (3.5-5.1) Chloride Level 94 mmol/L (98-107) Carbon Dioxide Level 24 mmol/L (21-32) Anion Gap 12 (6-14) Blood Urea Nitrogen 58 mg/dL (7-20) Creatinine 7.2 mg/dL (0.6-1.0) Estimated GFR (Cockcroft-Gault) 6.3 Glucose Level 83 mg/dL (70-99) Calcium Level 9.9 mg/dL (8.5-10.1) Phosphorus Level 6.0 mg/dL (2.6-4.7) Magnesium Level 2.7 mg/dL (1.8-2.4) Laboratory Tests Test 02/11/22 11:26 02/11/22 13:30 02/11/22 17:12 02/11/22 20:10 Glucose (Fingerstick) 302 mg/dL (70-99) 426 mg/dL (70-99) 396 mg/dL (70-99) Influenza Type A Antigen Negative (NEGATIVE) Influenza Type B Antigen Negative (NEGATIVE) SARS-CoV-2 Antigen (Rapid) Negative (NEGATIVE) Test 02/12/22 05:50 White Blood Count 7.4 x10^3/uL (4.0-11.0) Red Blood Count 2.66 x10^6/uL (3.50-5.40) Hemoglobin 9.3 g/dL (12.0-15.5) Hematocrit 27.7 % (36.0-47.0) Mean Corpuscular Volume 104 fL (79-100) Mean Corpuscular Hemoglobin 35 pg (25-35) Mean Corpuscular Hemoglobin Concent 34 g/dL (31-37) Red Cell Distribution Width 15.1 % (11.5-14.5) Platelet Count 181 x10^3/uL (140-400) Neutrophils (%) (Auto) 75 % (31-73) Lymphocytes (%) (Auto) 15 % (24-48) Monocytes (%) (Auto) 9 % (0-9) Eosinophils (%) (Auto) 1 % (0-3) Basophils (%) (Auto) 0 % (0-3) Neutrophils # (Auto) 5.6 x10^3/uL (1.8-7.7) Lymphocytes # (Auto) 1.1 x10^3/uL (1.0-4.8) Monocytes # (Auto) 0.6 x10^3/uL (0.0-1.1) Eosinophils # (Auto) 0.1 x10^3/uL (0.0-0.7) Basophils # (Auto) 0.0 x10^3/uL (0.0-0.2) Sodium Level 130 mmol/L (136-145) Potassium Level 5.0 mmol/L (3.5-5.1) Chloride Level 94 mmol/L (98-107) Carbon Dioxide Level 24 mmol/L (21-32) Anion Gap 12 (6-14) Blood Urea Nitrogen 58 mg/dL (7-20) Creatinine 7.2 mg/dL (0.6-1.0) Estimated GFR (Cockcroft-Gault) 6.3 Glucose Level 83 mg/dL (70-99) Calcium Level 9.9 mg/dL (8.5-10.1) Phosphorus Level 6.0 mg/dL (2.6-4.7) Magnesium Level 2.7 mg/dL (1.8-2.4) Images Images PATIENT: SHANTELL VASQUEZ ACCOUNT: [id number] : 1980 LOCATION: ER AGE: 41 SEX: F EXAM STATUS: PRE ER ORD. PHYSICIAN: MADDIE WALKER MD REASON: cough PROCEDURE: CHEST PA & LATERAL EXAM: AP View of the chest DATE: 02/11/2022 5:05 AM INDICATION: Reason: cough / Spl. Instructions: / History: COMPARISON: No Prior FINDINGS: The heart is not enlarged. Mediastinal and hilar contours are normal. Patchy airspace opacities are seen in the left midlung and bilateral lung bases. No pleural effusion or pneumothorax. IMPRESSION: Patchy opacities left midlung and bilateral lung bases likely consolidative process such as pneumonia. Atelectasis could also have this appearance. Imaging follow-up to resolution is recommended. Electronically signed by: Dorian Perez MD (02/11/2022 5:49 AM) JUSTYN Assessment/Plan Assessment/Plan IMP DYSPNEA PNEUMONIA ESRD ANEMIA DM II SCHIZOPHRENIA PLAN HD TODAY UF TO TW RETACRIT ANTIBIOTICS ROME ORTEGA MD Feb 12, 2022 10:26
[2022-02-12] MEDS ORDERED: AMOX1TAB61 PO (10:37)
[2022-02-12] MEDS ORDERED: AZIT500T4 PO (10:37)
--- NOTE | 2022-02-12 10:39 | DISCH ---
DISCHARGE INSTRUCTIONS Condition on Discharge Condition on Discharge: Stable Activity After Discharge Activity Instructions for Disc: No restrictions, Activity as tolerated Bathing Instructions: Shower-keep dressing dry Exercise Instruction after Dis: Exercise per therapy Weight Bearing Status after Di: As tolerated Diet after Discharge Diet after Discharge: Renal Dialysis Diet Texture: Regular Liquid Texture: Thin Liquid Swallowing Supervision: None needed Wound Incision Care Wound/Incision Care: No wound care needed Checks after Discharge Checks after discharge: Check blood sugar, ac/hs, Check your Temp as needed Follow-Up Follow up with: PCP within 2 weeks of discharge Follow Up With: Nephrology as scheduled for dialysis sessions Treatment/Equipment after DC Adaptive Equipment Issued: None TEETEE SIERRA MD Feb 12, 2022 10:39
[2022-02-12] MEDS: SEVELAMER CARBONATE 800 MG TABLET. PO SCH ×2 (12:00→12:31)
--- NOTE | 2022-02-12 12:00 | NUR ---
SS following for discharge planning. SS reviewed pt chart and discussed with pt RN. Pt is LTC resident from [facility], ; fax [phone]. Pt is currently on room air. Established hemodialysis. Discharge orders received and faxed with clinical to facility. COVID19 negative. Pt will discharge today and return to [facility] via wheelchair transport. Christal from [facility] arranging transportation time and will notify SS with time of discharge. Addendum: 02/12/22 at 1247 by GABI SAUCEDO SS Pt will discharge today between 1630 and 1700. Pt's RN notified.
[2022-02-12] MEDS: clonazePAM 0.5 MG TABLET PO SCH (12:32)
[2022-02-12] MEDS: SENNOSIDES 8.6 MG TABLET PO PRN (12:32)
[2022-02-12] MEDS: HEPARIN for SUB-Q USE 5,000 UNIT/ML VIAL. SQ SCH (12:38)
--- NOTE | 2022-02-12 12:45 | NUR ---
Noon dose of sevelamer not given because AM dose just given since patient was in dialysis this AM.
[2022-02-12] MEDS: cefTRIAXone IV Push 1 GM VIAL. IVP SCH (13:17)
[2022-02-12] MEDS ORDERED: EPOETIN ALFA-EPBX for ESRD 20,000 UNIT/ML VIAL. SQ SCH (21:00)
--- NOTE | 2022-02-13 07:31 | EKG ---
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
--- NOTE | 2022-02-16 15:21 | PDOC3 ---
[facility]-Discharge Summary Date of Admission: Date of Admission: Feb 11, 2022 Date of Discharge: Date of Discharge: Feb 12, 2022 Discharge Diagnosis: Discharge Diagnosis: Dyspnea due to atypical pneumonia, possible gram-negative organisms, possible viral organisms Macrocytic anemia, will rule out B12 deficiency but likely due to ESRD Acute volume overload with BNP elevated to 13,000 Acute electrolyte derangement consistent with ESRD History of schizophrenia History of bipolar disorder History of anemia History of diabetes mellitus type 2 Hospital Course: Hospital Course: 41-year-old female with past medical history of diabetes mellitus type 2, bipolar disorder, schizophrenia, ESRD on HD MWF who presents with shortness of breath for the past week. Patient is vaccinated for Covid. She does have a long history of tobacco abuse. Patient does have nasal congestion, dry cough, sore throat and body aches. She denies any fevers, nausea vomiting, chest pain, abdominal pain, dysuria, hematuria, constipation or diarrhea. In the ED patient had increased work of breathing. However, her O2 saturation remained well above 90% on room air. By day of discharge patient was clinically stable and doing well on room air. Tolerating diet and ambulating without assistance. She will be discharged with Augmentin and azithromycin for total of 5 days. Patient was also dialyzed by nephrology and tolerated well. Rest of hospital course was uneventful Disposition: Disposition/Orders: D/C to Home Activity: Activity: Resume previous activity Diet: Diet: Renal Medications: Home Meds Active Scripts Azithromycin (AZITHROMYCIN TABLET) 500 Mg Tablet, 1 TAB PO DAILY for pneumonia for 5 Days, #5 TAB 0 Refills Prov:TEETEE SIERRA MD 02/12/22 Amoxicillin/Potassium Clav (AUGMENTIN 875-125 TABLET) 1 Each Tablet, 1 TAB PO BID for pneumonia for 5 Days, #10 TAB 0 Refills Prov:TEETEE SIERRA MD 02/12/22 Reported Medications Quetiapine Fumarate (SEROQUEL) 50 Mg Tablet, 1 TAB PO QHS for schizoaffective, #30 TAB 2 Refills 02/11/22 Quetiapine Fumarate (SEROQUEL) 25 Mg Tablet, 1 TAB PO DAILY for schizoaffective, #30 TAB 2 Refills 02/11/22 Quetiapine Fumarate (QUETIAPINE FUMARATE) 100 Mg Tablet, 100 MG PO HS for schizoaffective, TAB 02/11/22 Sennosides/Docusate Sodium (SENNOSIDES-DOCUSATE SODIUM TAB) 1 Each Tablet, 2 TAB PO BID for constipation for 30 Days, #120 TAB 0 Refills 02/11/22 Mag Hydrox/Aluminum Hyd/Simeth (Mylanta Maximum Strength Pkt) 10 Ml Oral.susp, 30 ML PO PRN Q6HRS PRN for indigestion, MISC 02/11/22 Polyethylene Glycol 3350 (MIRALAX) 17 Gm Powd.pack, 1 PACKET PO PRN DAILY PRN for CONSTIPATION for 2 Days, PACKET 0 Refills dissolve in water 02/11/22 Acetaminophn/Pyril Mal/Caffein (MIDOL COMPLETE CAPLET) 1 Each Tablet, 2 EACH PO PRN Q6HRS PRN for cramps, TAB 02/11/22 Melatonin (MELATONIN) 3 Mg Tablet, 2 TAB PO QHS for sleep, #30 TAB 2 Refills 02/11/22 Lidocaine (Lidocaine PATCH ) 1 Each Adh..patch, 1 EACH TP DAILY for FOR LOCAL PAIN, PATCH REMOVE AFTER 12 HOURS 02/11/22 Insulin Lispro (Insulin Lispro) 100 Unit/1 Ml Vial, 15 UNIT SQ TIDWMEALS for DM, EACH 02/11/22 Loperamide HCl (Imodium A-D) 2 Mg Capsule, 2 MG PO PRN PRN for loose stool, CAP 02/11/22 Haloperidol Decanoate (Haloperidol Decanoate) 100 Mg/1 Ml Ampul, 1 ML IM QMONTH for schizoaffective disorder for 30 Days, #1 ML 0 Refills 02/11/22 Folic Acid (FOLIC ACID) 0.4 Mg Tablet, 0.4 MG PO DAILY for SUPPLEMENT, TAB 02/11/22 Famotidine (PEPCID AC) 10 Mg Tablet, 2 TAB PO HS for heartburn for 30 Days, #60 TAB 0 Refills 02/11/22 Escitalopram Oxalate (ESCITALOPRAM OXALATE) 10 Mg Tablet, 3 TAB PO DAILY for schizoaffective disorder, #30 TAB 3 Refills 02/11/22 Clonazepam (CLONAZEPAM ) 0.5 Mg Tablet, 0.25 MG PO BID for FOR ANXIETY, TAB 02/11/22 Calcium Carbonate (CALCIUM CARBONATE) 500 Mg Tablet, 2 TAB PO HS for heartburn for 30 Days, #60 TAB 0 Refills 02/11/22 Buspirone Hcl (BUSPIRONE HCL) 15 Mg Tablet, 1 TAB PO TID for anxiety, #60 TAB 02/11/22 Diphenhydramine Hcl (BENADRYL) 25 Mg Capsule, 25 MG PO PRN Q8HRS PRN for ALLERGIES, CAP 02/11/22 Acetaminophen (TYLENOL) 325 Mg Tablet, 650 MG PO BID for pain, TAB 02/11/22 Sevelamer Carbonate (RENVELA) 800 Mg Tablet, 3 TAB PO TID for HYPOCALCEMIA for 30 Days, #270 TAB 0 Refills 06/04/20 Folic Acid/Vitamin B Comp W-C (NEPHRO-DELIA TABLET) 0.8 Mg Tablet, 1 TAB PO DAILY for VITAMIN, #30 TAB 5 Refills 06/04/20 Insulin Detemir (LEVEMIR) 100 Unit/1 Ml Vial, 12 UNIT SQ HS for DIABETES, VIAL 06/04/20 Acetaminophen (ACETAMINOPHEN) 325 Mg Tablet, 2 TAB PO PRN Q8HRS PRN for pain or fever for 24 Days, #100 TAB 0 Refills 06/04/20 Trazodone Hcl (TRAZODONE HCL) 50 Mg Tablet, 75 MG PO HS for anxiety, TAB 04/05/20 Dextrose (GLUCOSE GEL) 38 Gm Gel..gram., 15 GM PO PRN for BS less than 60, EACH 04/05/20 Fluticasone Propionate (FLUTICASONE PROPIONATE NASAL SPRAY) 16 Gm [place].susp, 2 SPRAY NS DAILY for allergic rhinitis, EACH 04/05/20 Fludrocortisone Acetate (FLUDROCORTISONE ACETATE) 0.1 Mg Tablet, 0.1 MG PO DAILY for hypotension, TAB 04/05/20 Valproate Sodium (VALPROIC ACID) 250 Mg/5 Ml Solution, 1000 MG PO HS for Schizoaffective disorder, bipo, MISC 04/05/20 Discontinued Reported Medications Loratadine (LORATADINE) 10 Mg Tablet, 1 TAB PO DAILY for ALLERGIES, #30 TAB 5 Refills 06/04/20 Insulin Lispro (HUMALOG) 100 Unit/1 Ml Cartridge, 100 UNIT SQ PRN BFRMEAL for DIABETES, EACH 06/04/20 Famotidine (FAMOTIDINE) 40 Mg Tablet, 40 MG PO HS for HEARTBURN, TAB 06/04/20 Clonazepam (CLONAZEPAM ) 0.5 Mg Tablet, 0.5 MG PO BID for FOR ANXIETY, TAB 06/04/20 Polyethylene Glycol 3350 (MIRALAX) 17 Gm Powd.pack, 1 PKT PO DAILY for constipation, PKT 04/05/20 Escitalopram Oxalate (ESCITALOPRAM OXALATE) 10 Mg Tablet, 1 TAB PO DAILY for schizoaffective/bipolar, #30 TAB 3 Refills 04/05/20 Scheduled Acetaminophen (Tylenol), 650 MG PO BID, (Reported) Amoxicillin/Potassium Clav (Augmentin 875-125 Tablet), 1 TAB PO BID Azithromycin (Azithromycin Tablet), 1 TAB PO DAILY Buspirone Hcl (Buspirone Hcl), 1 TAB PO TID, (Reported) Calcium Carbonate (Calcium Carbonate), 2 TAB PO HS, (Reported) Clonazepam (Clonazepam ), 0.25 MG PO BID, (Reported) Dextrose (Glucose Gel), 15 GM PO PRN, (Reported) Escitalopram Oxalate (Escitalopram Oxalate), 3 TAB PO DAILY, (Reported) Famotidine (Pepcid Ac), 2 TAB PO HS, (Reported) Fludrocortisone Acetate (Fludrocortisone Acetate), 0.1 MG PO DAILY, (Reported) Fluticasone Propionate (Fluticasone Propionate Nasal [place]), 2 SPRAY NS DAILY, (Reported) Folic Acid (Folic Acid), 0.4 MG PO DAILY, (Reported) Folic Acid/Vitamin B Comp W-C (Nephro-Delia Tablet), 1 TAB PO DAILY, (Reported) Haloperidol Decanoate (Haloperidol Decanoate), 1 ML IM QMONTH, (Reported) Insulin Detemir (Levemir), 12 UNIT SQ HS, (Reported) Insulin Lispro (Insulin Lispro), 15 UNIT SQ TIDWMEALS, (Reported) Lidocaine (Lidocaine PATCH ), 1 EACH TP DAILY, (Reported) Melatonin (Melatonin), 2 TAB PO QHS, (Reported) Quetiapine Fumarate (Quetiapine Fumarate), 100 MG PO HS, (Reported) Quetiapine Fumarate (Seroquel), 1 TAB PO DAILY, (Reported) Quetiapine Fumarate (Seroquel), 1 TAB PO QHS, (Reported) Sennosides/Docusate Sodium (Sennosides-Docusate Sodium Tab), 2 TAB PO BID, (Reported) Sevelamer Carbonate (Renvela), 3 TAB PO TID, (Reported) Trazodone Hcl (Trazodone Hcl), 75 MG PO HS, (Reported) Valproate Sodium (Valproic Acid), 1,000 MG PO HS, (Reported) Scheduled PRN Acetaminophen (Acetaminophen), 2 TAB PO PRN Q8HRS PRN for pain or fever, (Reported) Acetaminophn/Pyril Mal/Caffein (Midol Complete Caplet), 2 EACH PO PRN Q6HRS PRN for cramps, (Reported) Diphenhydramine Hcl (Benadryl), 25 MG PO PRN Q8HRS PRN for ALLERGIES, (Reported) Loperamide HCl (Imodium A-D), 2 MG PO PRN PRN for loose stool, (Reported) Mag Hydrox/Aluminum Hyd/Simeth (Mylanta Maximum Strength Pkt), 30 ML PO PRN Q6HRS PRN for indigestion, (Reported) Polyethylene Glycol 3350 (Miralax), 1 PACKET PO PRN DAILY PRN for CONSTIPATION, (Reported) Discontinued Medications Clonazepam (Clonazepam ), 0.5 MG PO BID, (Reported) Escitalopram Oxalate (Escitalopram Oxalate), 1 TAB PO DAILY, (Reported) Famotidine (Famotidine), 40 MG PO HS, (Reported) Insulin Lispro (Humalog), 100 UNIT SQ PRN BFRMEAL, (Reported) Loratadine (Loratadine), 1 TAB PO DAILY, (Reported) Polyethylene Glycol 3350 (Miralax), 1 PKT PO DAILY, (Reported) Total Time: Total Time: Total time spent was 35 minutes in preparing scripts, discharge planning with SWI and RN and preparing this discharge summary Patient seen and examined on day of discharge. No acute abnormal findings. Justicifation of Admission Dx: Justifications for Admission: Justification of Admission Dx: Yes Acute Renal Failure: Serum Cr > 4mg/dL Hypertension: Symp at Rest TEETEE SIERRA MD Feb 16, 2022 15:21
== END 2022-02-12 17:30 | DRG 177 ==
LOC: ER 04:51 → ED HOLD 08:34 → 5 NORTH 10:18
PROVIDERS: ADMIT Internal Medicine; ATTEND Internal Medicine
PROC: 5A1D70Z Performance of Urinary Filtration, Intermittent, Less than 6 Hours Per Day (ICD-10-PCS; principal; 2022-02-12)
DX: J15.6 Pneumonia due to other Gram-negative bacteria (principal); N18.6 End stage renal disease; I12.0 Hypertensive chronic kidney disease with stage 5 chronic kidney disease or end stage renal disease; J44.1 Chronic obstructive pulmonary disease with (acute) exacerbation; E87.1 Hypo-osmolality and hyponatremia; J81.1 Chronic pulmonary edema; J44.0 Chronic obstructive pulmonary disease with (acute) lower respiratory infection; D64.9 Anemia, unspecified; E87.70 Fluid overload, unspecified; E11.22 Type 2 diabetes mellitus with diabetic chronic kidney disease; F17.200 Nicotine dependence, unspecified, uncomplicated; F20.9 Schizophrenia, unspecified; F31.9 Bipolar disorder, unspecified; Z82.49 Family history of ischemic heart disease and other diseases of the circulatory system; Z98.51 Tubal ligation status; Z99.2 Dependence on renal dialysis; E21.3 Hyperparathyroidism, unspecified; F41.9 Anxiety disorder, unspecified; K21.9 Gastro-esophageal reflux disease without esophagitis
CPT/HCPCS: 36415; 71046; 80048; 80053; 80164; 82607; 82962; 83605; 83735; 83880; 84100; 84145; 84484; 84703; 85025; 87040; 87426; 87428; 87449; 87641; 93005; 94640; 94760; 96365; 96375; J0456; J0696; J1644; J1815; J1940; J2930; J7050; 99285-25; G0378; J7030; J7613; J7626; Q0163

== ENCOUNTER 2022-03-07 07:24 | Observation (INO) | payer MEDICAID ==
[~2022-03-07] VITALS: Ht 167.6 cm; Wt 101.0 kg
[~2022-03-07 07:24] MED LIST changes: +ACET325T9 PO; +AMOX1TAB61 PO; +AZIT500T4 PO; +BUSP15TA PO; +CALC500T31 PO; +DIPH25CA58 PO; +FAMO10TA26 PO; +FOLI0.4T5 PO; +HALO100A3 IM; +INSU100V38 SQ; +LIDO700A21 TP; +MAG10ORA PO; +MELA3TAB4 PO; +QUET25TA5 PO; +QUET50TA5 PO; +SENN1TAB37 PO; +[UNRECOGNIZED DRUG - CODE] PO
[2022-03-07 08:29] LABS: BASO % 1 % (0-3); EOS # 0.3 x10^3/uL (0.0-0.7); EOS % 5 % (0-3); HEMATOCRIT 32.2 % (36.0-47.0); HEMOGLOBIN 10.5 g/dL (12.0-15.5); LYMPH # 0.9 x10^3/uL (1.0-4.8); LYMPH % 13 % (24-48); MEAN CORPUSCULAR HEMOGLOBIN 34 pg (25-35); MEAN CORPUSCULAR HGB CONC 33 g/dL (31-37); MEAN CORPUSCULAR VOLUME 105 fL (79-100); MONO # 0.4 x10^3/uL (0.0-1.1); MONO % 7 % (0-9); NEUT # 4.9 x10^3/uL (1.8-7.7); NEUT % 75 % (31-73); PLATELET COUNT 166 x10^3/uL (140-400); RED BLOOD COUNT 3.08 x10^6/uL (3.50-5.40); RED CELL DISTRIBUTION WIDTH 15.1 % (11.5-14.5); WHITE BLOOD COUNT 6.6 x10^3/uL (4.0-11.0)
[2022-03-07 08:32] LABS: BARBITURATES NEG (NEG); BENZODIAZEPINES NEG (NEG); CANNABINOIDS NEG (NEG); COCAINE NEG (NEG); METHADONE NEG (NEG); OPIATES NEG (NEG); PHENCYCLIDINE NEG (NEG)
[2022-03-07 08:33] LABS: AMPHETAMINE/METHAMPHETAMINE NEG (NEG)
[2022-03-07 08:38] LABS: CALCIUM 9.2 mg/dL (8.5-10.1); CREATININE 5.9 mg/dL (0.6-1.0); POTASSIUM 5.1 mmol/L (3.5-5.1)
--- NOTE | 2022-03-07 08:53 | RAD ---
EXAM: XR CHEST 2V 03/07/2022 8:07 AM CLINICAL INDICATION: Shortness of breath COMPARISON: Chest radiograph 02/11/2022 TECHNIQUE: PA and lateral views of the chest FINDINGS: The heart is normal in size. There are basilar predominant opacities in both lungs. There are Wilbert B-lines the lung peripheries. No pleural effusion or pneumothorax. No acute osseous abnorm ality. IMPRESSION: Bilateral pulmonary opacities and Wilbert B line suspicious for mild pulmonary edema. Inf ection would be a differential consideration. Electronically signed by: Irais Arevalo MD (03/07/2022 8:50 AM) [id number]
--- NOTE | 2022-03-07 11:24 | PHYS DOC ---
Past Medical History Past Medical History: Anemia, Bipolar, Constipation, Hypotension, Renal Failure, Schizophrenia Additional Past Medical Histor: ESRD Past Surgical History: Tubal ligation Smoking Status: Current Every Day Smoker Alcohol Use: None General Adult EDM: Chief Complaint: SHORTNESS OF BREATH HPI: HPI: Pt is a 41 year old female on HD coming from a residential. Patient is on dialysis and was at dialysis today however during dialysis she became short of breath. She then requested to come to the emergency department. She currently states that she feels her shortness of breath has gotten significantly worse over the past week. She was recently diagnosed with pneumonia and "fluid along around her lungs". Denies any history of cardiac issues. No fever or chills. No cough or sputum production. No hemoptysis or wheezing Review of Systems: Review of Systems: Constitutional: Denies fever or chills. [] Eyes: Denies change in visual acuity. [] HENT: Denies nasal congestion or sore throat. [] Respiratory: Positive for shortness of breath Cardiovascular: Denies chest pain or edema. [] GI: Denies abdominal pain, nausea, vomiting, bloody stools or diarrhea. [] : Denies dysuria. [] Musculoskeletal: Denies back pain or joint pain. [] Integument: Denies rash. [] Neurologic: Denies headache, focal weakness or sensory changes. [] Endocrine: Denies polyuria or polydipsia. [] Lymphatic: Denies swollen glands. [] Psychiatric: Denies depression or anxiety. [] Heart Score: C/O Chest Pain: No Risk Factors: Risk Factors: DM, Current or recent (<one month) smoker, HTN, HLP, family history of CAD, obesity. Risk Scores: Score 0 - 3: 2.5% MACE over next 6 weeks - Discharge Home Score 4 - 6: 20.3% MACE over next 6 weeks - Admit for Clinical Observation Score 7 - 10: 72.7% MACE over next 6 weeks - Early Invasive Strategies Allergies: Allergies: Allergies Coded Allergies Type Severity Reaction Last Updated Verified chocolate flavor Allergy Intermediate 06/03/20 Yes sulfamethoxazole Allergy Intermediate 06/03/20 Yes trimethoprim Allergy Intermediate 06/03/20 Yes Physical Exam: PE: Constitutional: Well developed, well nourished, no acute distress, non-toxic appearance. [] HENT: Normocephalic, atraumatic, bilateral external ears normal, oropharynx moist, no oral exudates, nose normal. [] Eyes: PERRLA, EOMI, conjunctiva normal, no discharge. [] Neck: Normal range of motion, no tenderness, supple, no stridor. [] Cardiovascular:Heart rate regular rhythm, no murmur [] Lungs & Thorax: Bilateral breath sounds clear to auscultation [] Abdomen: Bowel sounds normal, soft, no tenderness, no masses, no pulsatile masses. [] Skin: Warm, dry, no erythema, no rash. [] Back: No tenderness, no CVA tenderness. [] Extremities: No tenderness, no cyanosis, no clubbing, ROM intact, no edema. [] Neurologic: Alert and oriented X 3, normal motor function, normal sensory function, no focal deficits noted. [] Psychologic: Affect normal, judgement normal, mood normal. [] Current Patient Data: Labs: Laboratory Tests Test 03/07/22 07:35 03/07/22 08:15 03/07/22 08:17 White Blood Count 6.6 x10^3/uL (4.0-11.0) Red Blood Count 3.08 x10^6/uL (3.50-5.40) L Hemoglobin 10.5 g/dL (12.0-15.5) L Hematocrit 32.2 % (36.0-47.0) L Mean Corpuscular Volume 105 fL (79-100) H Mean Corpuscular Hemoglobin 34 pg (25-35) Mean Corpuscular Hemoglobin Concent 33 g/dL (31-37) Red Cell Distribution Width 15.1 % (11.5-14.5) H Platelet Count 166 x10^3/uL (140-400) Neutrophils (%) (Auto) 75 % (31-73) H Lymphocytes (%) (Auto) 13 % (24-48) L Monocytes (%) (Auto) 7 % (0-9) Eosinophils (%) (Auto) 5 % (0-3) H Basophils (%) (Auto) 1 % (0-3) Neutrophils # (Auto) 4.9 x10^3/uL (1.8-7.7) Lymphocytes # (Auto) 0.9 x10^3/uL (1.0-4.8) L Monocytes # (Auto) 0.4 x10^3/uL (0.0-1.1) Eosinophils # (Auto) 0.3 x10^3/uL (0.0-0.7) Basophils # (Auto) 0.0 x10^3/uL (0.0-0.2) Sodium Level 139 mmol/L (136-145) Potassium Level 5.1 mmol/L (3.5-5.1) Chloride Level 100 mmol/L (98-107) Carbon Dioxide Level 28 mmol/L (21-32) Anion Gap 11 (6-14) Blood Urea Nitrogen 48 mg/dL (7-20) H Creatinine 5.9 mg/dL (0.6-1.0) H Estimated GFR (Cockcroft-Gault) 8.0 Glucose Level 134 mg/dL (70-99) H Calcium Level 9.2 mg/dL (8.5-10.1) Troponin I High Sensitivity 42 ng/L (4-50) WL-Jdh-C-Type Natriuretic Peptide 24430 pg/mL (0-124) H Ethyl Alcohol Level < 10 mg/dL (0-10) Urine Opiates Screen Neg (NEG) Urine Methadone Screen Neg (NEG) Urine Barbiturates Neg (NEG) Urine Phencyclidine Screen Neg (NEG) Urine Amphetamine/Methamphetamine Neg (NEG) Urine Benzodiazepines Screen Neg (NEG) Urine Cocaine Screen Neg (NEG) Urine Cannabinoids Screen Neg (NEG) Urine Ethyl Alcohol Neg (NEG) POC Urine HCG, Qualitative Hcg negative (Negative) Laboratory Tests 03/07/22 07:35 Laboratory Tests 03/07/22 07:35 Vital Signs: Vital Signs Date Time Temp Pulse Resp B/P (MAP) Pulse Ox O2 Delivery O2 Flow Rate FiO2 03/07/22 10:10 86 177/102 (127) 96 Room Air 03/07/22 07:31 97.8 20 97.8 EKG: EKG: [] Radiology/Procedures: Radiology/Procedures: [] Course & Med Decision Making: Course & Med Decision Making Pertinent Labs and Imaging studies reviewed. (See chart for details) I reviewed the labs which showed an elevated BNP. This combined with her chest x-ray indicates fluid overload. No history of congestive heart failure. Will need nephrology to remove some fluid and possibly an echo. Dragon Disclaimer: Dragon Disclaimer: This electronic medical record was generated, in whole or in part, using a voice recognition dictation system. Departure Departure Impression: Primary Impression: ESRD on dialysis Additional Impression: Heart failure Ruled Out: Acute renal failure Disposition: ADMITTED INPATIENT Condition: STABLE Referrals: CARLOS ALBERTO ROSE MD (PCP) EKATERINA GRANADOS MD March 07, 2022 11:24
[2022-03-07] MEDS ORDERED: FUROSEMIDE 40 MG/4 ML VIAL. IVP ONE (11:30)
[2022-03-07 12:00] VITALS: BP 191/85
--- NOTE | 2022-03-07 12:04 | PDOC2 ---
CONSULT Date of Consult Date of Consult DATE: 03/07/22 TIME: 11:57 Reason for Consult Reason for Consult: ESRD Identification/Chief Complaint Chief Complaint " I was Short of breath on dialysis and asked them to take me off. I also need a cathater in my bladder " Source Source: Chart review, Patient History of Present Illness Reason for Visit: Pt is a 41 year old CF on HD coming from a custodial. ESRD ,she was at dialysis today however during dialysis she became short of breath. She then requested to come to the emergency department. She currently states that she feels her shortness of breath has gotten significantly worse over the past week. She was recently diagnosed with pneumonia and "fluid along around her lungs". Denies any history of cardiac issues. No fever or chills. No cough or sputum production. No hemoptysis or wheezing.No N/V/D.. No abdominal pain. She insisted at the dialysis unit to take her off to come to the ER Past Medical History Cardiovascular: HTN CENTRAL NERVOUS SYSTEM: Other GI: GERD Heme/Onc: Anemia NOS Psych: Anxiety, Bipolar, Schizophrenia Renal/: Chronic renal failure Endocrine: Diabetes, Hyperparathyroidism Past Surgical History Past Surgical History: No pertinent history Family History Family History: Hypertension Social History ALCOHOL: none Drugs: None Current Problem List Problem List Problems Medical Problems: (1) ESRD on dialysis Status: Acute (2) Heart failure Status: Acute Current Medications Current Medications Current Medications Furosemide (Lasix) 60 mg 1X ONCE IVP ; Start 03/07/22 at 11:30; Stop 03/07/22 at 11:31; Status DC Active Scripts Active Azithromycin Tablet (Azithromycin) 500 Mg Tablet 1 Tab PO DAILY 5 Days Augmentin 875-125 Tablet (Amoxicillin/Potassium Clav) 1 Each Tablet 1 Tab PO BID 5 Days Reported Seroquel (Quetiapine Fumarate) 50 Mg Tablet 1 Tab PO QHS Seroquel (Quetiapine Fumarate) 25 Mg Tablet 1 Tab PO DAILY Quetiapine Fumarate 100 Mg Tablet 100 Mg PO HS Sennosides-Docusate Sodium Tab (Sennosides/Docusate Sodium) 1 Each Tablet 2 Tab PO BID 30 Days Mylanta Maximum Strength Pkt (Mag Hydrox/Aluminum Hyd/Simeth) 10 Ml Oral.susp 30 Ml PO PRN Q6HRS PRN Miralax (Polyethylene Glycol 3350) 17 Gm Powd.pack 1 Packet PO PRN DAILY PRN 2 Days dissolve in water Midol Complete Caplet (Acetaminophn/Pyril Mal/Caffein) 1 Each Tablet 2 Each PO PRN Q6HRS PRN Melatonin 3 Mg Tablet 2 Tab PO QHS Lidocaine PATCH (Lidocaine) 1 Each Adh..patch 1 Each TP DAILY REMOVE AFTER 12 HOURS Insulin Lispro 100 Unit/1 Ml Vial 15 Unit SQ TIDWMEALS Imodium A-D (Loperamide HCl) 2 Mg Capsule 2 Mg PO PRN PRN Haloperidol Decanoate 100 Mg/1 Ml Ampul 1 Ml IM QMONTH 30 Days Folic Acid 0.4 Mg Tablet 0.4 Mg PO DAILY Pepcid Ac (Famotidine) 10 Mg Tablet 2 Tab PO HS 30 Days Escitalopram Oxalate 10 Mg Tablet 3 Tab PO DAILY Clonazepam (Clonazepam) 0.5 Mg Tablet 0.25 Mg PO BID Calcium Carbonate 500 Mg Tablet 2 Tab PO HS 30 Days Buspirone Hcl 15 Mg Tablet 1 Tab PO TID Benadryl (Diphenhydramine Hcl) 25 Mg Capsule 25 Mg PO PRN Q8HRS PRN Tylenol (Acetaminophen) 325 Mg Tablet 650 Mg PO BID Renvela (Sevelamer Carbonate) 800 Mg Tablet 3 Tab PO TID 30 Days Nephro-Sheyla Tablet (Folic Acid/Vitamin B Comp W-C) 0.8 Mg Tablet 1 Tab PO DAILY Levemir (Insulin Detemir) 100 Unit/1 Ml Vial 12 Unit SQ HS Acetaminophen 325 Mg Tablet 2 Tab PO PRN Q8HRS PRN 24 Days Trazodone Hcl 50 Mg Tablet 75 Mg PO HS Glucose Gel (Dextrose) 38 Gm Gel..gram. 15 Gm PO PRN Fluticasone Propionate Nasal [place] (Fluticasone Propionate) 16 Gm Cherry.susp 2 Cherry NS DAILY Fludrocortisone Acetate 0.1 Mg Tablet 0.1 Mg PO DAILY Valproic Acid (Valproate Sodium) 250 Mg/5 Ml Solution 1,000 Mg PO HS Allergies Allergies: Coded Allergies: chocolate flavor (Verified Allergy, Intermediate, 06/03/20) sulfamethoxazole (Verified Allergy, Intermediate, 06/03/20) trimethoprim (Verified Allergy, Intermediate, 06/03/20) ROS Review of System As per HPI, rest of the ROS is negative Physical Exam Physical Exam GEN: NAD, HEEN-OM moist NECK: supple CVS: S1S2, RESP: CTA, Non labored GI: BS + ve, Non Tender, obese : No CVA tenderness, No Suprapubic Tenderness, No [place] NEURO- Grossly Normal, Chronic ABnorma movements- upper Ext DERM No Rash Vital Signs Vital Signs Date Time Temp Pulse Resp B/P (MAP) Pulse Ox O2 Delivery O2 Flow Rate FiO2 03/07/22 10:10 86 177/102 (127) 96 Room Air 03/07/22 07:31 97.8 20 97.8 Assessment & Plan 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 Did not complete treatment at OP unit , she insisted to come off the machine as she wanted to come to the ER for worsening SOB. today. Dialysis today with UF 5-6 as tolerated . Discussed with SIMONA . If stable after dialysis can be dced from Renal standpoint. Defer to primary Access- Lt arm AV access Ac Resp Failure- CxR cw mild pulm edema, Currently On RA ? Pneumonia per Primary Anemia of chronic disease- Hgb at goal 10-11 HTN- BP's very high. Resume home BP meds . Dialysis with UF today Secondary hyperparathyroidism History of bipolar disorder/ Schizophrenia, Labs Labs Laboratory Tests Test 03/07/22 07:35 03/07/22 08:15 03/07/22 08:17 White Blood Count 6.6 x10^3/uL (4.0-11.0) Red Blood Count 3.08 x10^6/uL (3.50-5.40) Hemoglobin 10.5 g/dL (12.0-15.5) Hematocrit 32.2 % (36.0-47.0) Mean Corpuscular Volume 105 fL (79-100) Mean Corpuscular Hemoglobin 34 pg (25-35) Mean Corpuscular Hemoglobin Concent 33 g/dL (31-37) Red Cell Distribution Width 15.1 % (11.5-14.5) Platelet Count 166 x10^3/uL (140-400) Neutrophils (%) (Auto) 75 % (31-73) Lymphocytes (%) (Auto) 13 % (24-48) Monocytes (%) (Auto) 7 % (0-9) Eosinophils (%) (Auto) 5 % (0-3) Basophils (%) (Auto) 1 % (0-3) Neutrophils # (Auto) 4.9 x10^3/uL (1.8-7.7) Lymphocytes # (Auto) 0.9 x10^3/uL (1.0-4.8) Monocytes # (Auto) 0.4 x10^3/uL (0.0-1.1) Eosinophils # (Auto) 0.3 x10^3/uL (0.0-0.7) Basophils # (Auto) 0.0 x10^3/uL (0.0-0.2) Sodium Level 139 mmol/L (136-145) Potassium Level 5.1 mmol/L (3.5-5.1) Chloride Level 100 mmol/L (98-107) Carbon Dioxide Level 28 mmol/L (21-32) Anion Gap 11 (6-14) Blood Urea Nitrogen 48 mg/dL (7-20) Creatinine 5.9 mg/dL (0.6-1.0) Estimated GFR (Cockcroft-Gault) 8.0 Glucose Level 134 mg/dL (70-99) Calcium Level 9.2 mg/dL (8.5-10.1) Troponin I High Sensitivity 42 ng/L (4-50) PU-Ifp-N-Type Natriuretic Peptide 76092 pg/mL (0-124) Ethyl Alcohol Level < 10 mg/dL (0-10) Urine Opiates Screen Neg (NEG) Urine Methadone Screen Neg (NEG) Urine Barbiturates Neg (NEG) Urine Phencyclidine Screen Neg (NEG) Urine Amphetamine/Methamphetamine Neg (NEG) Urine Benzodiazepines Screen Neg (NEG) Urine Cocaine Screen Neg (NEG) Urine Cannabinoids Screen Neg (NEG) Urine Ethyl Alcohol Neg (NEG) Bedside Urine HCG, Qualitative Hcg negative (Negative) Laboratory Tests Test 03/07/22 07:35 03/07/22 08:15 03/07/22 08:17 White Blood Count 6.6 x10^3/uL (4.0-11.0) Red Blood Count 3.08 x10^6/uL (3.50-5.40) Hemoglobin 10.5 g/dL (12.0-15.5) Hematocrit 32.2 % (36.0-47.0) Mean Corpuscular Volume 105 fL (79-100) Mean Corpuscular Hemoglobin 34 pg (25-35) Mean Corpuscular Hemoglobin Concent 33 g/dL (31-37) Red Cell Distribution Width 15.1 % (11.5-14.5) Platelet Count 166 x10^3/uL (140-400) Neutrophils (%) (Auto) 75 % (31-73) Lymphocytes (%) (Auto) 13 % (24-48) Monocytes (%) (Auto) 7 % (0-9) Eosinophils (%) (Auto) 5 % (0-3) Basophils (%) (Auto) 1 % (0-3) Neutrophils # (Auto) 4.9 x10^3/uL (1.8-7.7) Lymphocytes # (Auto) 0.9 x10^3/uL (1.0-4.8) Monocytes # (Auto) 0.4 x10^3/uL (0.0-1.1) Eosinophils # (Auto) 0.3 x10^3/uL (0.0-0.7) Basophils # (Auto) 0.0 x10^3/uL (0.0-0.2) Sodium Level 139 mmol/L (136-145) Potassium Level 5.1 mmol/L (3.5-5.1) Chloride Level 100 mmol/L (98-107) Carbon Dioxide Level 28 mmol/L (21-32) Anion Gap 11 (6-14) Blood Urea Nitrogen 48 mg/dL (7-20) Creatinine 5.9 mg/dL (0.6-1.0) Estimated GFR (Cockcroft-Gault) 8.0 Glucose Level 134 mg/dL (70-99) Calcium Level 9.2 mg/dL (8.5-10.1) Troponin I High Sensitivity 42 ng/L (4-50) YD-Jda-K-Type Natriuretic Peptide 73832 pg/mL (0-124) Ethyl Alcohol Level < 10 mg/dL (0-10) Urine Opiates Screen Neg (NEG) Urine Methadone Screen Neg (NEG) Urine Barbiturates Neg (NEG) Urine Phencyclidine Screen Neg (NEG) Urine Amphetamine/Methamphetamine Neg (NEG) Urine Benzodiazepines Screen Neg (NEG) Urine Cocaine Screen Neg (NEG) Urine Cannabinoids Screen Neg (NEG) Urine Ethyl Alcohol Neg (NEG) Bedside Urine HCG, Qualitative Hcg negative (Negative) Review All relevant outside records, renal labs, imaging studies, telemetry/EKG's were reviewed. Images Images PROCEDURE: CHEST PA & LATERAL EXAM: XR CHEST 2V 03/07/2022 8:07 AM CLINICAL INDICATION: Shortness of breath COMPARISON: Chest radiograph 02/11/2022 TECHNIQUE: PA and lateral views of the chest FINDINGS: The heart is normal in size. There are basilar predominant opacities in both lungs. There are Wilbert B-lines the lung peripheries. No pleural effusion or pneumothorax. No acute osseous abnormality. IMPRESSION: Bilateral pulmonary opacities and Wilbert B line suspicious for mild pulmonary edema. Infection would be a differential consideration. Electronically signed by: Irais Arevalo MD (03/07/2022 8:50 AM) [id number] DAYA VEGA MD March 07, 2022 12:04
[2022-03-07] MEDS ORDERED: POLYETHYLENE GLYCOL 3350 17 GM PACKET. PO PRN (12:45)
[2022-03-07] MEDS ORDERED: oxyCODONE/APAP 5/325 1 TAB TABLET PO PRN (12:45)
[2022-03-07] MEDS ORDERED: CALCIUM CARBONATE 500 MG TAB.CHEW PO PRN (12:45)
[2022-03-07] MEDS ORDERED: ACETAMINOPHEN 325 MG TABLET. PO PRN (12:45)
[2022-03-07] MEDS ORDERED: ONDANSETRON PF 4 MG/2 ML VIAL. IVP PRN (12:45)
[2022-03-07] MEDS ORDERED: ELECTROLYTE (NON-ICU) PROTOCOL. MC PRN (12:45)
--- NOTE | 2022-03-07 13:38 | NUR ---
Patient arrived on unit at 1150. Patient alert and oriented, able to answer admission questions when asked. Patient complained of a headache, notified Dr. Hoyt, orders received. Notified Dr. Seay of new admission, plan is to dialyze and discharge home tomorrow. Unable to give the IV lasix due to a leaking peripheral IV that was removed, Dr. Seay notified and said to discontinue the order, no longer need due to dialysis, and it's not required to insert another IV.
[2022-03-07] MEDS: busPIRone 5 MG TABLET. PO SCH ×2 (13:55→21:20)
[2022-03-07] MEDS: CITALOPRAM 20 MG TABLET. PO SCH (13:56)
[2022-03-07] MEDS: QUEtiapine 25 MG TABLET. PO SCH (13:56)
[2022-03-07] MEDS: clonazePAM 0.5 MG TABLET PO SCH ×2 (13:56→21:20)
[2022-03-07] MEDS: FLUDROCORTISONE 0.1 MG TABLET PO SCH (13:56)
--- NOTE | 2022-03-07 13:58 | PDOC1 ---
History and Physical Date of Service: DOS: DATE: 03/07/22 TIME: 13:58 Chief Complaint: Chief Complain: SOB, lightheadedness on dialysis History of Present Illness: HPI: Patient is a 41yo female presented to ER today due to SOB and lightheadedness while undergoing dialysis today. She is ESRD 2/2 Alport syndrome on MWF dialysis. Significant psych history. Reports about midway through dialysis today she began feeling lightheaded and asked to be taken off dialysis. Says ongoing SOB for a week or so. No report of hypoxia, hypotension while on dialysis today. She requested to be brought to the Emergency Room. Found to have pulmonary edema and I was contacted for admission. Past Medical/Surgical History: PMH/PSH: Past Medical History: Anemia, Bipolar, Hypotension, Schizophrenia; ESRD 2/2 Alport Syndrome Past Surgical History: Tubal ligation Smoking Status: Current Every Day Smoker Alcohol Use: None; denies drug use Allergies: Allergies: Coded Allergies: chocolate flavor (Verified Allergy, Intermediate, 06/03/20) sulfamethoxazole (Verified Allergy, Intermediate, 06/03/20) trimethoprim (Verified Allergy, Intermediate, 06/03/20) Family History: Family History: HTN Current Medications: Current Medications Current Medications Furosemide (Lasix) 60 mg 1X ONCE IVP ; Start 03/07/22 at 11:30; Stop 03/07/22 at 11:31; Status DC Clonazepam (KlonoPIN) 0.25 mg BID PO Last administered on 03/07/22at 13:56; Start 03/07/22 at 14:00 Fludrocortisone Acetate (Florinef) 0.1 mg DAILY PO Last administered on 03/07/22at 13:56; Start 03/07/22 at 14:00 Fluticasone Propionate (Flonase) 2 spray DAILY NS ; Start 03/08/22 at 09:00 Vitamin B Complex/ Vitamin C (Juliet-Sheyla) 1 tab DAILY PO ; Start 03/08/22 at 09:00 Insulin Human Lispro (HumaLOG) 15 units TIDWMEALS SQ ; Start 03/07/22 at 17:00 Polyethylene Glycol (miraLAX PACKET) 17 gm PRN DAILY PRN PO CONSTIPATION; Start 03/07/22 at 12:45 Quetiapine Fumarate (SEROquel) 100 mg HS PO ; Start 03/07/22 at 21:00 Quetiapine Fumarate (SEROquel) 25 mg DAILY PO Last administered on 03/07/22at 13:56; Start 03/07/22 at 14:00 Sevelamer Carbonate (Renvela) 2,400 mg TIDWMEALS PO ; Start 03/07/22 at 17:00 Trazodone HCl (Desyrel) 75 mg HS PO ; Start 03/07/22 at 21:00 Buspirone HCl (Buspar) 15 mg TID PO Last administered on 03/07/22at 13:55; Start 03/07/22 at 14:00 Citalopram Hydrobromide (CeleXA) 40 mg DAILY PO Last administered on 03/07/22at 13:56; Start 03/07/22 at 14:00 Famotidine (Pepcid) 20 mg QODAY@2100 PO ; Start 03/07/22 at 21:00 Insulin Glargine (Lantus Syringe) 12 unit QHS SQ ; Start 03/07/22 at 21:00 Valproic Acid (Depakene) 1,000 mg HS PO ; Start 03/07/22 at 21:00 Ondansetron HCl (Zofran) 4 mg PRN Q6HRS PRN IVP NAUSEA/VOMITING; Start 03/07/22 at 12:45 Calcium Carbonate/ Glycine (Tums) 500 mg PRN Q3HRS PRN PO UPSET STOMACH; Start 03/07/22 at 12:45 Info (Non-Icu Electrolyte Protocol) 1 ea PRN DAILY PRN MC SEE COMMENTS; Start 03/07/22 at 12:45 Oxycodone/ Acetaminophen (Percocet 5/325) 1 tab PRN Q4HRS PRN PO MILD PAIN, 1ST CHOICE Last administered on 03/07/22at 13:56; Start 03/07/22 at 12:45 Oxycodone/ Acetaminophen (Percocet 5/325) 2 tab PRN Q4HRS PRN PO MODERATE PAIN, SEVERE PAIN; Start 03/07/22 at 12:45 Acetaminophen (Tylenol) 650 mg PRN Q6HRS PRN PO Headaches, Temp > 101.5F; Start 03/07/22 at 12:45 Senna/Docusate Sodium (Senna Plus) 1 tab BID PO ; Start 03/07/22 at 21:00 Heparin Sodium (Porcine) (Heparin Sodium) 5,000 unit Q8HRS SQ ; Start 03/07/22 at 14:00 Active Scripts Active Azithromycin Tablet (Azithromycin) 500 Mg Tablet 1 Tab PO DAILY 5 Days Augmentin 875-125 Tablet (Amoxicillin/Potassium Clav) 1 Each Tablet 1 Tab PO BID 5 Days Reported Seroquel (Quetiapine Fumarate) 50 Mg Tablet 1 Tab PO QHS Seroquel (Quetiapine Fumarate) 25 Mg Tablet 1 Tab PO DAILY Quetiapine Fumarate 100 Mg Tablet 100 Mg PO HS Sennosides-Docusate Sodium Tab (Sennosides/Docusate Sodium) 1 Each Tablet 2 Tab PO BID 30 Days Mylanta Maximum Strength Pkt (Mag Hydrox/Aluminum Hyd/Simeth) 10 Ml Oral.susp 30 Ml PO PRN Q6HRS PRN Miralax (Polyethylene Glycol 3350) 17 Gm Powd.pack 1 Packet PO PRN DAILY PRN 2 Days dissolve in water Midol Complete Caplet (Acetaminophn/Pyril Mal/Caffein) 1 Each Tablet 2 Each PO PRN Q6HRS PRN Melatonin 3 Mg Tablet 2 Tab PO QHS Lidocaine PATCH (Lidocaine) 1 Each Adh..patch 1 Each TP DAILY REMOVE AFTER 12 HOURS Insulin Lispro 100 Unit/1 Ml Vial 15 Unit SQ TIDWMEALS Imodium A-D (Loperamide HCl) 2 Mg Capsule 2 Mg PO PRN PRN Haloperidol Decanoate 100 Mg/1 Ml Ampul 1 Ml IM QMONTH 30 Days Folic Acid 0.4 Mg Tablet 0.4 Mg PO DAILY Pepcid Ac (Famotidine) 10 Mg Tablet 2 Tab PO HS 30 Days Escitalopram Oxalate 10 Mg Tablet 3 Tab PO DAILY Clonazepam (Clonazepam) 0.5 Mg Tablet 0.25 Mg PO BID Calcium Carbonate 500 Mg Tablet 2 Tab PO HS 30 Days Buspirone Hcl 15 Mg Tablet 1 Tab PO TID Benadryl (Diphenhydramine Hcl) 25 Mg Capsule 25 Mg PO PRN Q8HRS PRN Tylenol (Acetaminophen) 325 Mg Tablet 650 Mg PO BID Renvela (Sevelamer Carbonate) 800 Mg Tablet 3 Tab PO TID 30 Days Nephro-Sheyla Tablet (Folic Acid/Vitamin B Comp W-C) 0.8 Mg Tablet 1 Tab PO DAILY Levemir (Insulin Detemir) 100 Unit/1 Ml Vial 12 Unit SQ HS Acetaminophen 325 Mg Tablet 2 Tab PO PRN Q8HRS PRN 24 Days Trazodone Hcl 50 Mg Tablet 75 Mg PO HS Glucose Gel (Dextrose) 38 Gm Gel..gram. 15 Gm PO PRN Fluticasone Propionate Nasal [place] (Fluticasone Propionate) 16 Gm [place].susp 2 [place] NS DAILY Fludrocortisone Acetate 0.1 Mg Tablet 0.1 Mg PO DAILY Valproic Acid (Valproate Sodium) 250 Mg/5 Ml Solution 1,000 Mg PO HS ROS: Review of Systems Review of System unless noted in HPI 14pt ROS negative Physical Exam: Vital Signs: Vital Signs Date Time Temp Pulse Resp B/P (MAP) Pulse Ox O2 Delivery O2 Flow Rate FiO2 03/07/22 13:56 16 98 Room Air 03/07/22 12:00 98.4 85 191/85 (120) 98.4 Physcial Exam: GEN: No apparent distress. lethargic, obese HEENT: Normal cephalic, atraumatic, external auditory canals are patent EYES: Extraocular muscles are intact, pupil are equally round and reactive to light and accommodation MUSCULOSKELETAL: Well developed , well nourished, good range of motion ENDOCRINE: No thyromegaly was palpated LYMPHATICS: No cervical chain or axillary nodes were noted HEMATOPOIETIC: No bruising NECK: Supple, no JVD, no thyromegaly was noted LUNGS: Clear to auscultation in all lung king without rhonchi or wheezing HEART: RRR, S!, S2 present. Peripheral pulses intact, no obvious murmurs noted ABDOMEN: Soft, nontender. Positive bowel sounds, no organomegaly, normal bowel sounds EXTREMITIES: Without clubbing, cyanosis, or edema. Pedal pulses intact. Negative Homans sign NEUROLOGIC: Normal speech and tone. A&O x 3, moves all extremities, no obvious focal deficits PSYCHIATRIC: Normal affect, normal mood. Stable SKIN: No ulcerations or rashes, good skin turgor, no jaundice VASCULAR: Good capillary refill, neurovascular bundle appears to be intact Labs: Labs: Laboratory Tests Test 03/07/22 07:35 03/07/22 08:15 03/07/22 08:17 White Blood Count 6.6 x10^3/uL (4.0-11.0) Red Blood Count 3.08 x10^6/uL (3.50-5.40) Hemoglobin 10.5 g/dL (12.0-15.5) Hematocrit 32.2 % (36.0-47.0) Mean Corpuscular Volume 105 fL (79-100) Mean Corpuscular Hemoglobin 34 pg (25-35) Mean Corpuscular Hemoglobin Concent 33 g/dL (31-37) Red Cell Distribution Width 15.1 % (11.5-14.5) Platelet Count 166 x10^3/uL (140-400) Neutrophils (%) (Auto) 75 % (31-73) Lymphocytes (%) (Auto) 13 % (24-48) Monocytes (%) (Auto) 7 % (0-9) Eosinophils (%) (Auto) 5 % (0-3) Basophils (%) (Auto) 1 % (0-3) Neutrophils # (Auto) 4.9 x10^3/uL (1.8-7.7) Lymphocytes # (Auto) 0.9 x10^3/uL (1.0-4.8) Monocytes # (Auto) 0.4 x10^3/uL (0.0-1.1) Eosinophils # (Auto) 0.3 x10^3/uL (0.0-0.7) Basophils # (Auto) 0.0 x10^3/uL (0.0-0.2) Sodium Level 139 mmol/L (136-145) Potassium Level 5.1 mmol/L (3.5-5.1) Chloride Level 100 mmol/L (98-107) Carbon Dioxide Level 28 mmol/L (21-32) Anion Gap 11 (6-14) Blood Urea Nitrogen 48 mg/dL (7-20) Creatinine 5.9 mg/dL (0.6-1.0) Estimated GFR (Cockcroft-Gault) 8.0 Glucose Level 134 mg/dL (70-99) Calcium Level 9.2 mg/dL (8.5-10.1) Troponin I High Sensitivity 42 ng/L (4-50) DF-Uyp-T-Type Natriuretic Peptide 96348 pg/mL (0-124) Ethyl Alcohol Level < 10 mg/dL (0-10) Urine Opiates Screen Neg (NEG) Urine Methadone Screen Neg (NEG) Urine Barbiturates Neg (NEG) Urine Phencyclidine Screen Neg (NEG) Urine Amphetamine/Methamphetamine Neg (NEG) Urine Benzodiazepines Screen Neg (NEG) Urine Cocaine Screen Neg (NEG) Urine Cannabinoids Screen Neg (NEG) Urine Ethyl Alcohol Neg (NEG) Bedside Urine HCG, Qualitative Hcg negative (Negative) Laboratory Tests Test 03/07/22 07:35 03/07/22 08:15 03/07/22 08:17 White Blood Count 6.6 x10^3/uL (4.0-11.0) Red Blood Count 3.08 x10^6/uL (3.50-5.40) Hemoglobin 10.5 g/dL (12.0-15.5) Hematocrit 32.2 % (36.0-47.0) Mean Corpuscular Volume 105 fL (79-100) Mean Corpuscular Hemoglobin 34 pg (25-35) Mean Corpuscular Hemoglobin Concent 33 g/dL (31-37) Red Cell Distribution Width 15.1 % (11.5-14.5) Platelet Count 166 x10^3/uL (140-400) Neutrophils (%) (Auto) 75 % (31-73) Lymphocytes (%) (Auto) 13 % (24-48) Monocytes (%) (Auto) 7 % (0-9) Eosinophils (%) (Auto) 5 % (0-3) Basophils (%) (Auto) 1 % (0-3) Neutrophils # (Auto) 4.9 x10^3/uL (1.8-7.7) Lymphocytes # (Auto) 0.9 x10^3/uL (1.0-4.8) Monocytes # (Auto) 0.4 x10^3/uL (0.0-1.1) Eosinophils # (Auto) 0.3 x10^3/uL (0.0-0.7) Basophils # (Auto) 0.0 x10^3/uL (0.0-0.2) Sodium Level 139 mmol/L (136-145) Potassium Level 5.1 mmol/L (3.5-5.1) Chloride Level 100 mmol/L (98-107) Carbon Dioxide Level 28 mmol/L (21-32) Anion Gap 11 (6-14) Blood Urea Nitrogen 48 mg/dL (7-20) Creatinine 5.9 mg/dL (0.6-1.0) Estimated GFR (Cockcroft-Gault) 8.0 Glucose Level 134 mg/dL (70-99) Calcium Level 9.2 mg/dL (8.5-10.1) Troponin I High Sensitivity 42 ng/L (4-50) PB-Uro-D-Type Natriuretic Peptide 98331 pg/mL (0-124) Ethyl Alcohol Level < 10 mg/dL (0-10) Urine Opiates Screen Neg (NEG) Urine Methadone Screen Neg (NEG) Urine Barbiturates Neg (NEG) Urine Phencyclidine Screen Neg (NEG) Urine Amphetamine/Methamphetamine Neg (NEG) Urine Benzodiazepines Screen Neg (NEG) Urine Cocaine Screen Neg (NEG) Urine Cannabinoids Screen Neg (NEG) Urine Ethyl Alcohol Neg (NEG) Bedside Urine HCG, Qualitative Hcg negative (Negative) Assessment/Plan Assessment/Plan SOB 2/2 pulm edema 2/2 incomplete dialysis, ESRD 2/2 alport syndrome; hx schizophrenia, bipolar, anemia, tobacco abuse -presented today from dialysis c/o light headedness during dialysis; no reported vital instability patient refused continue and wanted brought to ER -pulm edema on presentation; patient reports worsening SOB for a week or so -Nephrology consult regarding dialysis -no apparent signs of respiratory infection; will hold off antimicrobials for now -resume home psych meds -renal diet -tobacco cessation discussed with bedside RN Justifications for Admission Other Justification Pneumonia REINIER SCHWARTZ MD March 07, 2022 13:58
[2022-03-07] MEDS: HEPARIN for SUB-Q USE 5,000 UNIT/ML VIAL. SQ SCH ×2 (14:00→21:33)
[2022-03-07] MEDS ORDERED: IV NORMAL SALINE 1000ML BAG 1,000 ML IV PRN ×2 (14:30)
[2022-03-07] MEDS ORDERED: ALBUTEROL SULFATE 2.5 MG/3 ML NEBU. NEB PRN (14:30)
[2022-03-07] MEDS ORDERED: ALBUMIN HUMAN 25% 100 ML IV PRN (14:30)
[2022-03-07] MEDS ORDERED: DIALYSIS PATIENT. MC PRN ×2 (14:30)
[2022-03-07] MEDS ORDERED: INSULIN LISPRO 300 UNITS/3 ML VIAL. SQ SCH (17:00)
[2022-03-07] MEDS ORDERED: traZODone 50 MG TABLET. PO SCH (21:00)
[2022-03-07] MEDS ORDERED: INSULIN GLARGINE SYRINGE. SQ SCH (21:00)
[2022-03-07] MEDS ORDERED: FAMOTIDINE 20 MG TABLET. PO SCH (21:00)
[2022-03-07] MEDS ORDERED: QUEtiapine 100 MG TABLET. PO SCH (21:00)
[2022-03-07] MEDS ORDERED: VALPROIC ACID (AS SODIUM SALT) 250 MG/5 ML SOLUTION. PO SCH (21:00)
[2022-03-07 21:15] VITALS: BP 175/85
[2022-03-07] MEDS: SENNOSIDES/DOCUSATE 8.6/50MG TABLET. PO SCH (21:20)
[2022-03-07] MEDS: oxyCODONE/APAP 5/325 1 TAB TABLET PO PRN (21:21)
[2022-03-07 22:34] VITALS: BP 126/71
--- NOTE | 2022-03-08 01:22 | EKG ---
[facility] [address] [place] [address] Test Date: 2022-03-07 Test Time: 08:06:05 Pat Name: SHANTELL VASQUEZ Department: Room: [facility] 1 Gender: F Rn Labor Delivery: : 1980 Requested By: EKATERINA GRANADOS Order Number: [id number] Reading MD: Power Finnegan MD Measurements Intervals [place] Rate: 90 P: 34 [place]: 180 QRS: -1 QRSD: 88 T: 59 QT: 360 QTc: 444 Interpretive Statements SINUS RHYTHM Electronically Signed On 03-10-2022 9:02:13 CDT by Power Finnegan MD
[2022-03-08 03:10] VITALS: BP 161/86
[2022-03-08] MEDS: oxyCODONE/APAP 5/325 1 TAB TABLET PO PRN ×3 (03:15→13:42)
[2022-03-08] MEDS: HEPARIN for SUB-Q USE 5,000 UNIT/ML VIAL. SQ SCH (05:55)
[2022-03-08 08:00] VITALS: BP 171/89
[2022-03-08] MEDS: SENNOSIDES/DOCUSATE 8.6/50MG TABLET. PO SCH (08:38)
[2022-03-08] MEDS: FLUDROCORTISONE 0.1 MG TABLET PO SCH (08:38)
[2022-03-08] MEDS: clonazePAM 0.5 MG TABLET PO SCH (08:39)
[2022-03-08] MEDS: CITALOPRAM 20 MG TABLET. PO SCH (08:39)
[2022-03-08] MEDS: SEVELAMER CARBONATE 800 MG TABLET. PO SCH ×3 (08:39→12:00)
[2022-03-08] MEDS: busPIRone 5 MG TABLET. PO SCH (08:59)
[2022-03-08] MEDS ORDERED: FLUTICASONE 50MCG/NASAL SPRAY 16GM BOTTLE. NS SCH (09:00)
[2022-03-08] MEDS ORDERED: FOLIC/VIT B COMP W-C (RENAL) TABLET. PO SCH (09:00)
[2022-03-08] MEDS: QUEtiapine 25 MG TABLET. PO SCH (09:11)
[2022-03-08] MEDS ORDERED: ALBU2.5V8 NEB (11:33)
[2022-03-08] MEDS ORDERED: ACET1TAB56 PO (11:33)
[2022-03-08] MEDS ORDERED: AMOX1TAB61 PO (11:33)
--- NOTE | 2022-03-08 11:36 | SNU/HH DC ---
DISCHARGE ORDERS DISCHARGE INFORMATION: FINAL DIAGNOSIS Problems Medical Problems: (1) ESRD on dialysis Status: Acute (2) Heart failure Status: Acute CONDITION ON DISCHARGE: Stable CODE STATUS: Code Status: Full CORRECTION: SNF STAY <30 DAYS: No HOSPICE: HOSPICE: No HOSPICE EVAL & TREAT: No LTAC: ADMIT TO LTAC: No POST DISCHARGE ORDERS: ACTIVITY ORDERS: Activity as tolerated WEIGHT BEARING STATUS: As tolerated BATHING ORDERS: Shower-keep dressing dry DIET AFTER DISCHARGE: Renal WOUND/INCISION CARE: No wound care needed CHECKS AFTER DISCHARGE: CHECKS AFTER DISCHARGE: Check blood sugar, ac/hs, Check your Temp as needed TREATMENT/EQUIPMENT ORDERS: ADAPTIVE EQUIPMENT NEEDED: None DISCHARGE MEDICATIONS: Home Meds Active Scripts Acetaminophen With Codeine (ACETAMINOPHEN-COD #3 TABLET) 1 Each Tablet, 1 TAB PO PRN Q4HRS PRN for PAIN for 14 Days, #30 TAB Prov:CASTLIDAY,NIAL K III DO 03/08/22 Albuterol Sulfate (Proair Hfa) 8.5 Gm Hfa.aer.ad, 2.5 MG NEB PRN Q4HRS PRN for SHORTNESS OF BREATH for 30 Days, #1 INHALER Prov:VAIBHAV GONZALESL K III DO 03/08/22 Amoxicillin/Potassium Clav (AUGMENTIN 875-125 TABLET) 1 Each Tablet, 1 TAB PO BID for pneumonia for 5 Days, #10 TAB 0 Refills Prov:VAIBHAV GONZALESL K III DO 03/08/22 Azithromycin (AZITHROMYCIN TABLET) 500 Mg Tablet, 1 TAB PO DAILY for pneumonia for 5 Days, #5 TAB 0 Refills Prov:TEETEE SIERRA MD 02/12/22 Reported Medications Quetiapine Fumarate (SEROQUEL) 50 Mg Tablet, 1 TAB PO QHS for schizoaffective, #30 TAB 2 Refills 02/11/22 Quetiapine Fumarate (SEROQUEL) 25 Mg Tablet, 1 TAB PO DAILY for schizoaffective, #30 TAB 2 Refills 02/11/22 Quetiapine Fumarate (QUETIAPINE FUMARATE) 100 Mg Tablet, 100 MG PO HS for schizoaffective, TAB 02/11/22 Sennosides/Docusate Sodium (SENNOSIDES-DOCUSATE SODIUM TAB) 1 Each Tablet, 2 TAB PO BID for constipation for 30 Days, #120 TAB 0 Refills 02/11/22 Mag Hydrox/Aluminum Hyd/Simeth (Mylanta Maximum Strength Pkt) 10 Ml Oral.susp, 30 ML PO PRN Q6HRS PRN for indigestion, MISC 02/11/22 Polyethylene Glycol 3350 (MIRALAX) 17 Gm Powd.pack, 1 PACKET PO PRN DAILY PRN for CONSTIPATION for 2 Days, PACKET 0 Refills dissolve in water 02/11/22 Acetaminophn/Pyril Mal/Caffein (MIDOL COMPLETE CAPLET) 1 Each Tablet, 2 EACH PO PRN Q6HRS PRN for cramps, TAB 02/11/22 Melatonin (MELATONIN) 3 Mg Tablet, 2 TAB PO QHS for sleep, #30 TAB 2 Refills 02/11/22 Lidocaine (Lidocaine PATCH ) 1 Each Adh..patch, 1 EACH TP DAILY for FOR LOCAL PAIN, PATCH REMOVE AFTER 12 HOURS 02/11/22 Insulin Lispro (Insulin Lispro) 100 Unit/1 Ml Vial, 15 UNIT SQ TIDWMEALS for DM, EACH 02/11/22 Loperamide HCl (Imodium A-D) 2 Mg Capsule, 2 MG PO PRN PRN for loose stool, CAP 02/11/22 Haloperidol Decanoate (Haloperidol Decanoate) 100 Mg/1 Ml Ampul, 1 ML IM QMONTH for schizoaffective disorder for 30 Days, #1 ML 0 Refills 02/11/22 Folic Acid (FOLIC ACID) 0.4 Mg Tablet, 0.4 MG PO DAILY for SUPPLEMENT, TAB 02/11/22 Famotidine (PEPCID AC) 10 Mg Tablet, 2 TAB PO HS for heartburn for 30 Days, #60 TAB 0 Refills 02/11/22 Escitalopram Oxalate (ESCITALOPRAM OXALATE) 10 Mg Tablet, 3 TAB PO DAILY for schizoaffective disorder, #30 TAB 3 Refills 02/11/22 Clonazepam (CLONAZEPAM ) 0.5 Mg Tablet, 0.25 MG PO BID for FOR ANXIETY, TAB 02/11/22 Calcium Carbonate (CALCIUM CARBONATE) 500 Mg Tablet, 2 TAB PO HS for heartburn for 30 Days, #60 TAB 0 Refills 02/11/22 Buspirone Hcl (BUSPIRONE HCL) 15 Mg Tablet, 1 TAB PO TID for anxiety, #60 TAB 02/11/22 Diphenhydramine Hcl (BENADRYL) 25 Mg Capsule, 25 MG PO PRN Q8HRS PRN for ALLERGIES, CAP 02/11/22 Sevelamer Carbonate (RENVELA) 800 Mg Tablet, 3 TAB PO TID for HYPOCALCEMIA for 30 Days, #270 TAB 0 Refills 06/04/20 Folic Acid/Vitamin B Comp W-C (NEPHRO-DELIA TABLET) 0.8 Mg Tablet, 1 TAB PO DAILY for VITAMIN, #30 TAB 5 Refills 06/04/20 Insulin Detemir (LEVEMIR) 100 Unit/1 Ml Vial, 12 UNIT SQ HS for DIABETES, VIAL 06/04/20 Trazodone Hcl (TRAZODONE HCL) 50 Mg Tablet, 75 MG PO HS for anxiety, TAB 04/05/20 Dextrose (GLUCOSE GEL) 38 Gm Gel..gram., 15 GM PO PRN for BS less than 60, EACH 04/05/20 Fluticasone Propionate (FLUTICASONE PROPIONATE NASAL SPRAY) 16 Gm [place].susp, 2 SPRAY NS DAILY for allergic rhinitis, EACH 04/05/20 Fludrocortisone Acetate (FLUDROCORTISONE ACETATE) 0.1 Mg Tablet, 0.1 MG PO DAILY for hypotension, TAB 04/05/20 Valproate Sodium (VALPROIC ACID) 250 Mg/5 Ml Solution, 1000 MG PO HS for Schizoaffective disorder, bipo, MISC 04/05/20 Discontinued Reported Medications Acetaminophen (TYLENOL) 325 Mg Tablet, 650 MG PO BID for pain, TAB 02/11/22 Acetaminophen (ACETAMINOPHEN) 325 Mg Tablet, 2 TAB PO PRN Q8HRS PRN for pain or fever for 24 Days, #100 TAB 0 Refills 06/04/20 QUINCY GONZALES III DO March 08, 2022 11:36
[2022-03-08 12:00] VITALS: BP 139/76
--- NOTE | 2022-03-08 21:05 | DS ---
DATE OF DISCHARGE: 03/08/2022 ADMISSION DIAGNOSIS: Shortness of breath on dialysis, possible congestive heart failure. DISCHARGE DIAGNOSES: Resolving shortness of breath on dialysis, schizophrenia, anemia, bipolar, hypotension, end stage renal disease, on dialysis, [place] syndrome, tubal ligation, tobacco abuse, polypharmacy. HOSPITAL COURSE: The patient is a pleasant 41-year-old female who resides at the psychiatric unit in [place]. Basically, she was on dialysis yesterday and developed some shortness of breath. They were concerned she might be having some heart failure. She was admitted. We did consult Nephrology. Today, I saw and examined her. She is doing great, wants to go home. We plan to discharge. DISPOSITION: Home. ACTIVITY: As tolerated. DIET: Low sodium. DISCHARGE MEDICATIONS: Please see the MRAD. Tylenol with Codeine #30 tablets 1 q.4 hours p.r.n., albuterol metered dose inhaler and albuterol breathing treatments p.r.n., p.r.n. Tylenol, Augmentin 875 p.o. b.i.d., BuSpar 15 daily, calcium, clonidine 0.25 b.i.d., dextrose p.r.n., Benadryl p.r.n., famotidine 10 at bedtime, fludrocortisone 0.1 p.o. daily, fluticasone, folic acid, Haldol 100 mg IM monthly, Levemir insulin 12 units at bedtime and Lispro insulin 15 units t.i.d., lidocaine patches, loperamide p.r.n., milk of mag p.r.n., melatonin p.r.n., polyethylene glycol p.r.n., quetiapine 100 at bedtime and 25 daily, senna, Renvela 3 tabs t.i.d., trazodone 75 at bedtime, valproic acid 1000 p.o. at bedtime. Total time 34 minutes. VENKATESH/MIR/BHARGAVI DR: VENKATESH/pamela TID: [id number]
== END 2022-03-08 14:10 ==
LOC: ER 07:24 → 1 WEST ICU 11:13
PROVIDERS: ADMIT Student in an Organized Health Care Education/Training Program; ATTEND Student in an Organized Health Care Education/Training Program
DX: R06.02 Shortness of breath (principal); F20.9 Schizophrenia, unspecified; J81.1 Chronic pulmonary edema; F31.9 Bipolar disorder, unspecified; I13.2 Hypertensive heart and chronic kidney disease with heart failure and with stage 5 chronic kidney disease, or end stage renal disease; I50.9 Heart failure, unspecified; N18.6 End stage renal disease; E11.22 Type 2 diabetes mellitus with diabetic chronic kidney disease; D63.1 Anemia in chronic kidney disease; J18.9 Pneumonia, unspecified organism; R42 Dizziness and giddiness; I95.9 Hypotension, unspecified; K21.9 Gastro-esophageal reflux disease without esophagitis; E21.3 Hyperparathyroidism, unspecified; K59.00 Constipation, unspecified; Q87.81 Alport syndrome; F17.200 Nicotine dependence, unspecified, uncomplicated; Z98.51 Tubal ligation status; Z99.2 Dependence on renal dialysis; Z79.899 Other long term (current) drug therapy; Z98.890 Other specified postprocedural states
CPT/HCPCS: 36415; 71046; 80048; 80307; 81025; 82962; 83880; 84484; 85025; 93005; 94640; 94760; 96372; 99285; G0378; G0480; J1644; J1815; J7613; G0379